=== PATIENT | female | born 1945 | race Caucasian/White ===

== ENCOUNTER → 2019-01-30 14:57 | Outpatient (REF) | payer MEDICARE, SELFPAY ==
[2019-01-30 15:19] LABS: INR 1.8 (0.9-1.3); Prothrombin Time 20.3 SECONDS (10.1-12.7)
== END ==
LOC: LAB 14:57
PROVIDERS: Family Provider Family Medicine; PCP Family Medicine; Visit Provider Family Medicine
DX: Z79.01 Long term (current) use of anticoagulants (principal)
CPT/HCPCS: 85610

== ENCOUNTER → 2019-03-07 12:56 | Outpatient (REF) | payer MEDICARE, SELFPAY ==
[2019-03-07 13:37] LABS: Influenza A and B by PCR Rapid Negative (Negative)
== END ==
LOC: LAB 12:56
PROVIDERS: Family Provider Family Medicine; PCP Family Medicine; Visit Provider Family Medicine
DX: Z11.59 Encounter for screening for other viral diseases (principal)
CPT/HCPCS: 87400

== ENCOUNTER 2019-03-25 10:35 | Inpatient (IN) | payer MEDICARE, SELFPAY ==
[2019-03-25] VITALS (11 sets, daily range): BP systolic 134–192; BP diastolic 64–81; PULSE 60–63; RESP 13–23; TEMP 36.2–36.6; O2SAT 93–97
--- NOTE | 2019-03-25 11:17 | ED.WEAKNESS ---
HPI - Weakness General Chief complaint: Weakness Stated complaint: Has had a cold for a month, legs going out Time Seen by Provider: 03/25/19 12:29 Source: patient and family Mode of arrival: ambulatory Limitations: no limitations History of Present Illness HPI Narrative: The patient is a 73-year-old female with history of high cholesterol, atrial fibrillation and mitral valve replacement and pacemaker who presents with a chief complaint generalized weakness. she states that she is on day 5 of being treated for pneumonia with Levaquin and complains of general not feeling good. She denies any focal weakness, i.e. week extremity set her up. She denies any precipitating factors to her Emergency Department visit today other than general malaise. She denies any fevers nausea vomiting diarrhea. She complains of a persistent cough. She denies any abdominal pain chest pain or shortness of breath. she did not take her antibiotic today. Patient repeatedly asks for a PT/INR to be done as she is on Coumadin. she does complain of decreased appetite and states she is not drinking as much fluid as she should. Related Data Home Medications Medication Instructions Recorded Confirmed atorvastatin [Lipitor] 20 mg PO QDAY #0 04/07/17 oxycodone-acetaminophen [Percocet] 1 tab PO Q4HP PRN #0 04/07/17 Previous Rx's Medication Instructions Recorded benzonatate [Tessalon Perles] 100 mg PO Q8HP PRN #15 cap 01/09/17 diazepam [Valium] 10 mg PO TIDP PRN #10 tab 04/07/17 prednisone 50 mg PO [facility] 5 Days #0 tab 04/07/17 gabapentin 100 mg PO TID #30 cap 04/18/17 oxycodone-acetaminophen [Percocet] 1 tab PO Q6HP PRN #5 tab 04/18/17 Allergies Allergy/AdvReac Type Severity Reaction Status Date / Time ibuprofen [IBUPROFEN] Allergy Unknown Unverified 03/01/18 12:38 vitamin E (d-alpha Allergy Unknown Unverified 03/01/18 12:38 tocopherol) [VITAMIN E] adhesive [ADHESIVE] AdvReac Unknown tape Unverified 03/01/18 12:38 Exam Initial Vital Signs Initial Vital Signs: Vital Signs Temperature 97.4 F L 03/25/19 10:56 Pulse Rate 60 03/25/19 10:56 Respiratory Rate 13 03/25/19 10:56 Blood Pressure 134/75 03/25/19 10:56 Pulse Oximetry 94 03/25/19 10:56 Course Orders Ordered: ED Orders 03/25/19 12:39 Complete Blood Count AUTO DIFF Stat Comprehensive Metabolic Panel Stat Partial Thromboplastin Time Stat Prothrombin Time INR Stat Troponin & CK Cardiac Panel Stat EKG-12 Lead Stat 03/25/19 12:40 XR chest 2V Stat Sodium Chloride (Normal Saline 0.9%) 1,000 mls @ 1,000 mls/hr IV BOLUS ONE Stop: 03/25/19 13:41 Vital Signs - 8 hr 03/25/19 10:56 03/25/19 11:00 03/25/19 12:00 Temperature 97.4 F L Pulse Rate 60 60 60 Respiratory Rate 13 23 20 Blood Pressure 134/75 Blood Pressure [Left Arm] 143/73 H 149/67 H Pulse Oximetry 94 93 95 Discharge Plan Departure Prescriptions: No Action benzonatate [Tessalon Perles] 100 MG capsule 100 mg PO Q8HP PRNQty: 15 RF: 0 atorvastatin [Lipitor] 20 MG tablet 20 mg PO QDAY Qty: 0 RF: 0 oxycodone-acetaminophen [Percocet] 5 MG/325 MG tablet 1 tab PO Q4HP PRNQty: 0 RF: 0 diazepam [Valium] 10 MG tablet 10 mg PO TIDP PRNQty: 10 RF: 0 prednisone 50 MG tablet 50 mg PO [facility] 5 Days Qty: 0 RF: 0 gabapentin 100 MG capsule 100 mg PO TID Qty: 30 RF: 0 oxycodone-acetaminophen [Percocet] 5 MG/325 MG tablet 1 tab PO Q6HP PRNQty: 5 RF: 0
--- NOTE | 2019-03-25 12:40 | DI.RAD.S_ITS ---
PROCEDURE: XR CHEST 2V INDICATIONS: cough, sob, tx pneumonia TECHNIQUE: 2 views of the chest were acquired. COMPARISON: 01/09/2017 and 02/21/2014. FINDINGS: Surgical changes and devices: Left-sided cardiac pacer device is in place. Stable postsurgical changes from valvular replacement. Surgical clips in the right upper abdomen. Lungs and pleura: Mild streaky bibasilar opacities. No focal consolidation. No substantial pleural effusion or pneumothorax identified.. Mediastinum: cardiomediastinal contours are stable with enlargement of the cardiac silhouette. Bones and chest wall: No suspicious bony abnormalities. Soft tissues appear unremarkable. IMPRESSION: Stable examination of the chest without acute cardiopulmonary abnormalities. Minimal streaky bibasilar opacities are favored to represent atelectasis. Dictated by: Agustin Parker M.D. on 03/25/2019 at 13:05 Approved by: Agustin Parker M.D. on 03/25/2019 at 13:08
--- NOTE | 2019-03-25 12:48 | ED_ITS ---
HPI - Weakness <Nilsa VenturaNISHIP-BC - Last Filed: 03/25/19 22:39> General Chief complaint: Weakness Stated complaint: Has had a cold for a month, legs going out Time Seen by Provider: 03/25/19 12:29 Source: patient Mode of arrival: ambulatory Limitations: no limitations History of Present Illness HPI Narrative: HPI Narrative: The patient is a 73-year-old female with history of high cholesterol, atrial fibrillation and mitral valve replacement and pacemaker who presents with a chief complaint generalized weakness. she states that she is on day 5 of being treated for pneumonia with Levaquin and complains of general not feeling good. She denies any focal weakness, i.e. week extremity set her up. She denies any precipitating factors to her Emergency Department visit today other than general malaise. She denies any fevers nausea vomiting diarrhea. She complains of a persistent cough. She denies any abdominal pain chest pain or shortness of breath. she did not take her antibiotic today. Patient repeatedly asks for a PT/INR to be done as she is on Coumadin. she does complain of decreased appetite and states she is not drinking as much fluid as she should. She denies any specific chest pain or focal weakness. later she states she had some dysuria. Related Data Home Medications Medication Instructions Recorded Confirmed atorvastatin [Lipitor] 20 mg PO QDAY #0 04/07/17 03/25/19 Adult Robitussin Peak Cold DM ml PO PRN PRN 03/25/19 alprazolam [Xanax] 0.5 mg PO BID-TID PRN 03/25/19 03/25/19 doxepin 50 mg PO BEDTIME 03/25/19 03/25/19 fluoxetine 20 mg PO DAILY 03/25/19 03/25/19 warfarin 4 mg PO TUTH 03/25/19 03/25/19 warfarin See Rx Instructions .ROUTE .COMPLEX 03/25/19 03/25/19 Previous Rx's Medication Instructions Recorded cefuroxime axetil 500 mg PO Q12H 10 Days #20 tab 03/28/19 Allergies Allergy/AdvReac Type Severity Reaction Status Date / Time ibuprofen [IBUPROFEN] Allergy Unknown I feel Verified 03/25/19 18:02 really weird vitamin E (d-alpha Allergy Unknown cold sores Verified 03/25/19 18:02 tocopherol) [VITAMIN E] adhesive [ADHESIVE] AdvReac Unknown tape Verified 03/25/19 17:21 Review of Systems <MACI Anderson - Last Filed: 03/25/19 22:39> Review of Systems GENERAL: See HPI HEENT: Denies sinus pain, ear pain, sore throat, difficulty swallowing, dizziness. RESPIRATORY: See HPI CARDIOVASCULAR: See HPI GASTROINTESTINAL: Denies nausea, vomiting, abdominal pain, diarrhea, constipation, melena. : Denies dysuria, frequency, incontinence, hematuria, urinary retention. MUSCULOSKELETAL: denies weakness, joint pain, or bony pain SKIN: Denies rash, skin lesions, or other NEUROLOGIC: Denies weakness, headache, numbness, change in speech, confusion, seizures, incoordination. PSYCHIATRIC: No concerning psychosocial issues. 12 point review of systems is negative except for those stated above PFSH <MACI Anderson - Last Filed: 03/25/19 22:39> Medical History (Updated 03/28/19 @ 09:14 by Mario Fuentes MD) Cyst of right breast (Acute) History of hysterectomy (Acute) History of rheumatic fever (Acute) Ovarian cyst (Acute) Pacemaker (Acute) Surgical History (Updated 03/27/19 @ 08:55 by Mario Fuentes MD) History of cholecystectomy (Acute) Mitral valve replaced (Acute) Social History household members: family Smoking Status: Current every day smoker alcohol intake: current Social History household members: family Smoking Status: Current every day smoker alcohol intake: current Exam <MACI Anderson - Last Filed: 03/25/19 22:39> Narrative Exam Narrative: GENERAL: This is a well-nourished, well-developed patient lying on stretcher appears fatigued HEAD: Atraumatic. Normocephalic. No temporal or scalp tenderness. EYES: Pupils equal round and reactive. Extraocular motions intact. No scleral icterus. No injection or drainage. ENT: Nose without bleeding, purulent drainage or septal hematoma. Throat without erythema, tonsillar hypertrophy or exudate. Uvula midline. Airway patent. NECK: Trachea midline. No JVD or lymphadenopathy. Supple, nontender, no meningeal signs. CARDIOVASCULAR: Regular rate and rhythm RESPIRATORY: Coarse breath sounds bilaterally to auscultation. Breath sounds equal bilaterally. No wheezes, rales, or rhonchi. Persistent cough on exam GASTROINTESTINAL: Abdomen soft, non-tender, nondistended. No hepato- splenomegaly, or palpable masses. No guarding. active bowel sounds 4 quadrants. No palpable pulsatile mass. EXTREMITIES: No clubbing, cyanosis, or edema. No joint tenderness, effusion, or edema noted. BACK: Nontender without deformity or crepitance. No flank tenderness. NEURO: AOx3. No gross cranial nerve deficit. Strength is equal upper and lower extremities bilaterally. Stable gait. SKIN: No rash or erythema. Diffuse ecchymosis noted. Initial Vital Signs Initial Vital Signs: Vital Signs Temperature 97.4 F L 03/25/19 10:56 Pulse Rate 60 03/25/19 10:56 Respiratory Rate 13 03/25/19 10:56 Blood Pressure 134/75 03/25/19 10:56 Pulse Oximetry 94 03/25/19 10:56 <Nilsa Busby DO - Last Filed: 03/31/19 16:21> Initial Vital Signs Initial Vital Signs: Vital Signs Temperature 97.4 F L 03/25/19 10:56 Pulse Rate 60 03/25/19 10:56 Respiratory Rate 13 03/25/19 10:56 Blood Pressure 134/75 03/25/19 10:56 Pulse Oximetry 94 03/25/19 10:56 Course <ARIELLE Anderson - Last Filed: 03/25/19 22:39> Orders Ordered: Discontinued Medications Alprazolam (Xanax) 0.5 mg PO BID PRN PRN Reason: Anxiety Alprazolam (Xanax) 0.5 mg PO BID PRN PRN Reason: Anxiety Last Admin: 03/28/19 15:40 Dose: 0.5 mg Admin: 03/28/19 08:22 Dose: 0.5 mg Admin: 03/27/19 14:14 Dose: 0.25 mg Admin: 03/27/19 08:06 Dose: 0.5 mg Admin: 03/26/19 09:11 Dose: 0.5 mg Atorvastatin Calcium (Lipitor) 20 mg PO BEDTIME [facility]ANDO Last Admin: 03/27/19 20:36 Dose: 20 mg Admin: 03/26/19 20:30 Dose: 20 mg Admin: 03/25/19 22:06 Dose: 20 mg Doxepin HCl (Sinequan) 50 mg PO BEDTIME [facility] Last Admin: 03/27/19 20:36 Dose: 50 mg Admin: 03/26/19 20:30 Dose: 50 mg Admin: 03/25/19 22:07 Dose: 50 mg Fluoxetine HCl (Prozac) 20 mg PO DAILY [facility] Last Admin: 03/28/19 08:22 Dose: 20 mg Admin: 03/27/19 08:02 Dose: 20 mg Admin: 03/26/19 10:35 Dose: 20 mg Sodium Chloride (Normal Saline 0.9%) 1,000 mls @ 1,000 mls/hr IV BOLUS ONE Stop: 03/25/19 13:41 Last Infusion: 03/25/19 13:55 Dose: 0 mls/hr Admin: 03/25/19 13:10 Dose: 1,000 mls/hr Sodium Chloride (Normal Saline 0.9%) 1,000 mls @ 125 mls/hr IV CONT [facility] Last Infusion: 03/28/19 15:38 Dose: 0 mls/hr Admin: 03/28/19 04:35 Dose: 125 mls/hr Infusion: 03/28/19 04:34 Dose: 125 mls/hr Admin: 03/27/19 20:34 Dose: 125 mls/hr Infusion: 03/27/19 20:34 Dose: 125 mls/hr Admin: 03/27/19 12:55 Dose: 125 mls/hr Infusion: 03/27/19 12:18 Dose: 125 mls/hr Admin: 03/27/19 04:18 Dose: 125 mls/hr Infusion: 03/27/19 01:31 Dose: 125 mls/hr Admin: 03/26/19 17:31 Dose: 125 mls/hr Infusion: 03/26/19 17:31 Dose: 125 mls/hr Admin: 03/26/19 10:29 Dose: 125 mls/hr Infusion: 03/26/19 09:56 Dose: 125 mls/hr Admin: 03/26/19 01:56 Dose: 125 mls/hr Infusion: 03/26/19 01:56 Dose: 125 mls/hr Admin: 03/25/19 18:37 Dose: 125 mls/hr Ceftriaxone Sodium/Dextrose (Rocephin) 1 gm in 50 mls @ 100 mls/hr IV NOW ONE Stop: 03/25/19 17:32 Last Infusion: 03/26/19 01:58 Dose: 0 mls/hr Infusion: 03/25/19 17:45 Dose: 100 mls/hr Admin: 03/25/19 17:21 Dose: 100 mls/hr Ceftriaxone Sodium/Dextrose (Rocephin) 1 gm in 50 mls @ 100 mls/hr IV Q24H [facility] Last Infusion: 03/28/19 13:08 Dose: 0 mls/hr Admin: 03/28/19 08:26 Dose: 100 mls/hr Infusion: 03/27/19 14:15 Dose: 0 mls/hr Admin: 03/27/19 09:04 Dose: 100 mls/hr Infusion: 03/26/19 10:30 Dose: 0 mls/hr Admin: 03/26/19 09:10 Dose: 100 mls/hr Warfarin Sodium (Coumadin) 4 mg PO NOW ONE Stop: 03/28/19 08:59 Last Admin: 03/28/19 13:08 Dose: 4 mg Vital Signs - 8 hr 03/25/19 16:18 03/25/19 17:29 03/25/19 17:55 Temperature 97.2 F L Pulse Rate 60 60 62 Respiratory Rate 17 15 16 Blood Pressure 192/77 H Blood Pressure [Left Arm] 163/66 H 166/64 H Pulse Oximetry 95 95 95 03/25/19 20:20 Temperature 97.4 F L Pulse Rate 61 Respiratory Rate 16 Blood Pressure 146/74 H Blood Pressure [Left Arm] Pulse Oximetry 94 <Nilsa Busby DO - Last Filed: 03/31/19 16:21> Orders Ordered: Discontinued Medications Alprazolam (Xanax) 0.5 mg PO BID PRN PRN Reason: Anxiety Alprazolam (Xanax) 0.5 mg PO BID PRN PRN Reason: Anxiety Last Admin: 03/28/19 15:40 Dose: 0.5 mg Admin: 03/28/19 08:22 Dose: 0.5 mg Admin: 03/27/19 14:14 Dose: 0.25 mg Admin: 03/27/19 08:06 Dose: 0.5 mg Admin: 03/26/19 09:11 Dose: 0.5 mg Atorvastatin Calcium (Lipitor) 20 mg PO BEDTIME [facility] Last Admin: 03/27/19 20:36 Dose: 20 mg Admin: 03/26/19 20:30 Dose: 20 mg Admin: 03/25/19 22:06 Dose: 20 mg Doxepin HCl (Sinequan) 50 mg PO BEDTIME [facility] Last Admin: 03/27/19 20:36 Dose: 50 mg Admin: 03/26/19 20:30 Dose: 50 mg Admin: 03/25/19 22:07 Dose: 50 mg Fluoxetine HCl (Prozac) 20 mg PO DAILY [facility] Last Admin: 03/28/19 08:22 Dose: 20 mg Admin: 03/27/19 08:02 Dose: 20 mg Admin: 03/26/19 10:35 Dose: 20 mg Sodium Chloride (Normal Saline 0.9%) 1,000 mls @ 1,000 mls/hr IV BOLUS ONE Stop: 03/25/19 13:41 Last Infusion: 03/25/19 13:55 Dose: 0 mls/hr Admin: 03/25/19 13:10 Dose: 1,000 mls/hr Sodium Chloride (Normal Saline 0.9%) 1,000 mls @ 125 mls/hr IV CONT [facility] Last Infusion: 03/28/19 15:38 Dose: 0 mls/hr Admin: 03/28/19 04:35 Dose: 125 mls/hr Infusion: 03/28/19 04:34 Dose: 125 mls/hr Admin: 03/27/19 20:34 Dose: 125 mls/hr Infusion: 03/27/19 20:34 Dose: 125 mls/hr Admin: 03/27/19 12:55 Dose: 125 mls/hr Infusion: 03/27/19 12:18 Dose: 125 mls/hr Admin: 03/27/19 04:18 Dose: 125 mls/hr Infusion: 03/27/19 01:31 Dose: 125 mls/hr Admin: 03/26/19 17:31 Dose: 125 mls/hr Infusion: 03/26/19 17:31 Dose: 125 mls/hr Admin: 03/26/19 10:29 Dose: 125 mls/hr Infusion: 03/26/19 09:56 Dose: 125 mls/hr Admin: 03/26/19 01:56 Dose: 125 mls/hr Infusion: 03/26/19 01:56 Dose: 125 mls/hr Admin: 03/25/19 18:37 Dose: 125 mls/hr Ceftriaxone Sodium/Dextrose (Rocephin) 1 gm in 50 mls @ 100 mls/hr IV NOW ONE Stop: 03/25/19 17:32 Last Infusion: 03/26/19 01:58 Dose: 0 mls/hr Infusion: 03/25/19 17:45 Dose: 100 mls/hr Admin: 03/25/19 17:21 Dose: 100 mls/hr Ceftriaxone Sodium/Dextrose (Rocephin) 1 gm in 50 mls @ 100 mls/hr IV Q24H [facility] Last Infusion: 03/28/19 13:08 Dose: 0 mls/hr Admin: 03/28/19 08:26 Dose: 100 mls/hr Infusion: 03/27/19 14:15 Dose: 0 mls/hr Admin: 03/27/19 09:04 Dose: 100 mls/hr Infusion: 03/26/19 10:30 Dose: 0 mls/hr Admin: 03/26/19 09:10 Dose: 100 mls/hr Warfarin Sodium (Coumadin) 4 mg PO NOW ONE Stop: 03/28/19 08:59 Last Admin: 03/28/19 13:08 Dose: 4 mg Vital Signs - 8 hr 03/25/19 16:18 03/25/19 17:29 03/25/19 17:55 Temperature 97.2 F L Pulse Rate 60 60 62 Respiratory Rate 17 15 16 Blood Pressure 192/77 H Blood Pressure [Left Arm] 163/66 H 166/64 H Pulse Oximetry 95 95 95 03/25/19 20:20 Temperature 97.4 F L Pulse Rate 61 Respiratory Rate 16 Blood Pressure 146/74 H Blood Pressure [Left Arm] Pulse Oximetry 94 MDM - Weakness <TAMIA Anderson-BC - Last Filed: 03/25/19 22:39> Lab Data Result diagrams: 03/28/19 06:47 03/28/19 06:47 Lab Results 03/25/19 03/25/19 03/25/19 Range/Units 13:04 13:04 13:04 WBC 6.4 (4.5-11.0) X10^3/uL RBC 4.89 (4.0-5.2) X10^6/uL Hgb 13.9 (12.0-16.0) g/dL Hct 42.6 (36-46) % MCV 87.2 (80-100) fL MCH 28.5 (26-34) PG MCHC 32.7 (30-36) % RDW 15.9 H (11.6-14.8) % Plt Count 253 (150-400) X10^3/uL Neut % (Auto) 82.4 H (50-75) % Lymph % (Auto) 8.3 L (25-40) % Coke % (Auto) 8.3 (3-14) % Eos % (Auto) 0.5 L (2-4) % Baso % (Auto) 0.5 (0-2) % Neut # (Auto) 5300 (2537-6527) /uL Lymph # (Auto) 500 L (1653-5302) /uL Coke # (Auto) 500 (0-900) /uL Eos # (Auto) 0 (0-450) /uL Baso # (Auto) 0 (0-100) /uL PT 73.4 H (10.1-12.7) SECONDS INR 6.1 H* (0.9-1.3) APTT 55 H (26.4-36.2) SECONDS Sodium 140 (137-145) mmol/L Potassium 4.0 (3.4-5.1) mmol/L Chloride 105 (98-107) mmol/L Carbon Dioxide 28 (22-32) mmol/L BUN 14 (7-17) mg/dL Creatinine 0.80 (0.52-1.04) mg/dL Estimated GFR > 60.0 (>60) mL/min BUN/Creatinine Ratio 17.5 (6-22) Glucose 94 (80-110) mg/dL Calcium 8.6 (8.4-10.2) mg/dL Magnesium (1.6-2.3) mg/dL Total Bilirubin 0.6 (0.2-1.3) mg/dL AST 35 (14-36) IU/L ALT 44 (9-52) IU/L Alkaline Phosphatase 81 (38-126) U/L Total Creatine Kinase 27 L (30-135) U/L CK-MB (CK-2) TNP CK-MB (CK-2) Rel Index TNP Troponin I 0.027 (0.01-0.034) ng/mL B-Natriuretic Peptide (<100) Total Protein 6.6 (6.3-8.2) g/dL Albumin 4.0 (3.5-5.0) g/dL Globulin 2.6 (1.7-4.1) g/dL Albumin/Globulin Ratio 1.5 (1.0-2.8) Urine RBC (0-5/HPF) Urine WBC (0-5/HPF) Ur Squamous Epith Cells (0-5/HPF) Urine Bacteria (None) Ur Culture Indicated? 03/25/19 03/25/19 03/25/19 Range/Units 14:00 15:55 19:25 WBC (4.5-11.0) X10^3/uL RBC (4.0-5.2) X10^6/uL Hgb (12.0-16.0) g/dL Hct (36-46) % MCV (80-100) fL MCH (26-34) PG MCHC (30-36) % RDW (11.6-14.8) % Plt Count (150-400) X10^3/uL Neut % (Auto) (50-75) % Lymph % (Auto) (25-40) % [place] % (Auto) (3-14) % Eos % (Auto) (2-4) % Baso % (Auto) (0-2) % Neut # (Auto) (6863-2005) /uL Lymph # (Auto) (1638-5619) /uL Coke # (Auto) (0-900) /uL Eos # (Auto) (0-450) /uL Baso # (Auto) (0-100) /uL PT (10.1-12.7) SECONDS INR (0.9-1.3) APTT (26.4-36.2) SECONDS Sodium (137-145) mmol/L Potassium (3.4-5.1) mmol/L Chloride (98-107) mmol/L Carbon Dioxide (22-32) mmol/L BUN (7-17) mg/dL Creatinine (0.52-1.04) mg/dL Estimated GFR (>60) mL/min BUN/Creatinine Ratio (6-22) Glucose (80-110) mg/dL Calcium (8.4-10.2) mg/dL Magnesium (1.6-2.3) mg/dL Total Bilirubin (0.2-1.3) mg/dL AST (14-36) IU/L ALT (9-52) IU/L Alkaline Phosphatase (38-126) U/L Total Creatine Kinase 24 L 29 L (30-135) U/L CK-MB (CK-2) TNP TNP CK-MB (CK-2) Rel Index TNP TNP Troponin I 0.021 0.025 (0.01-0.034) ng/mL B-Natriuretic Peptide (<100) Total Protein (6.3-8.2) g/dL Albumin (3.5-5.0) g/dL Globulin (1.7-4.1) g/dL Albumin/Globulin Ratio (1.0-2.8) Urine RBC 10-30/hpf H (0-5/HPF) Urine WBC None seen (0-5/HPF) Ur Squamous Epith Cells None seen (0-5/HPF) Urine Bacteria None seen (None) Ur Culture Indicated? Cult not indicated 03/26/19 03/26/19 03/26/19 Range/Units 11:05 11:05 11:05 WBC 5.9 (4.5-11.0) X10^3/uL RBC 4.71 (4.0-5.2) X10^6/uL Hgb 13.4 (12.0-16.0) g/dL Hct 41.2 (36-46) % MCV 87.5 (80-100) fL MCH 28.4 (26-34) PG MCHC 32.5 (30-36) % RDW 16.1 H (11.6-14.8) % Plt Count 231 (150-400) X10^3/uL Neut % (Auto) 79.1 H (50-75) % Lymph % (Auto) 12.0 L (25-40) % [place] % (Auto) 7.9 (3-14) % Eos % (Auto) 0.6 L (2-4) % Baso % (Auto) 0.4 (0-2) % Neut # (Auto) 4700 (1768-8115) /uL Lymph # (Auto) 700 L (9568-2117) /uL [place] # (Auto) 500 (0-900) /uL Eos # (Auto) 0 (0-450) /uL Baso # (Auto) 0 (0-100) /uL PT 52.0 H D (10.1-12.7) SECONDS INR 4.4 H (0.9-1.3) APTT (26.4-36.2) SECONDS Sodium 140 (137-145) mmol/L Potassium 4.3 (3.4-5.1) mmol/L Chloride 107 (98-107) mmol/L Carbon Dioxide 27 (22-32) mmol/L BUN 10 (7-17) mg/dL Creatinine 0.70 (0.52-1.04) mg/dL Estimated GFR > 60.0 (>60) mL/min BUN/Creatinine Ratio 14.3 (6-22) Glucose 104 (80-110) mg/dL Calcium 8.2 L (8.4-10.2) mg/dL Magnesium 2.2 (1.6-2.3) mg/dL Total Bilirubin 0.4 (0.2-1.3) mg/dL AST 35 (14-36) IU/L ALT 41 (9-52) IU/L Alkaline Phosphatase 71 (38-126) U/L Total Creatine Kinase (30-135) U/L CK-MB (CK-2) CK-MB (CK-2) Rel Index Troponin I (0.01-0.034) ng/mL B-Natriuretic Peptide 103 H (<100) Total Protein 6.4 (6.3-8.2) g/dL Albumin 3.8 (3.5-5.0) g/dL Globulin 2.6 (1.7-4.1) g/dL Albumin/Globulin Ratio 1.5 (1.0-2.8) Urine RBC (0-5/HPF) Urine WBC (0-5/HPF) Ur Squamous Epith Cells (0-5/HPF) Urine Bacteria (None) Ur Culture Indicated? 03/27/19 03/27/19 03/27/19 Range/Units 06:30 06:30 09:17 WBC 6.6 (4.5-11.0) X10^3/uL RBC 4.80 (4.0-5.2) X10^6/uL Hgb 13.7 (12.0-16.0) g/dL Hct 41.9 (36-46) % MCV 87.3 (80-100) fL MCH 28.5 (26-34) PG MCHC 32.7 (30-36) % RDW 15.9 H (11.6-14.8) % Plt Count 227 (150-400) X10^3/uL Neut % (Auto) 78.0 H (50-75) % Lymph % (Auto) 11.7 L (25-40) % [place] % (Auto) 8.8 (3-14) % Eos % (Auto) 1.1 L (2-4) % Baso % (Auto) 0.4 (0-2) % Neut # (Auto) 5200 (3902-4650) /uL Lymph # (Auto) 800 L (1929-4511) /uL [place] # (Auto) 600 (0-900) /uL Eos # (Auto) 100 (0-450) /uL Baso # (Auto) 0 (0-100) /uL PT 28.6 H D (10.1-12.7) SECONDS INR 2.4 H (0.9-1.3) APTT (26.4-36.2) SECONDS Sodium 140 (137-145) mmol/L Potassium 4.1 (3.4-5.1) mmol/L Chloride 108 H (98-107) mmol/L Carbon Dioxide 26 (22-32) mmol/L BUN 9 (7-17) mg/dL Creatinine 0.70 (0.52-1.04) mg/dL Estimated GFR > 60.0 (>60) mL/min BUN/Creatinine Ratio 12.9 (6-22) Glucose 85 (80-110) mg/dL Calcium 7.9 L (8.4-10.2) mg/dL Magnesium (1.6-2.3) mg/dL Total Bilirubin (0.2-1.3) mg/dL AST (14-36) IU/L ALT (9-52) IU/L Alkaline Phosphatase (38-126) U/L Total Creatine Kinase (30-135) U/L CK-MB (CK-2) CK-MB (CK-2) Rel Index Troponin I (0.01-0.034) ng/mL B-Natriuretic Peptide (<100) Total Protein (6.3-8.2) g/dL Albumin (3.5-5.0) g/dL Globulin (1.7-4.1) g/dL Albumin/Globulin Ratio (1.0-2.8) Urine RBC (0-5/HPF) Urine WBC (0-5/HPF) Ur Squamous Epith Cells (0-5/HPF) Urine Bacteria (None) Ur Culture Indicated? 03/28/19 03/28/19 03/28/19 Range/Units 06:47 06:47 06:47 WBC 6.5 (4.5-11.0) X10^3/uL RBC 4.39 (4.0-5.2) X10^6/uL Hgb 12.6 (12.0-16.0) g/dL Hct 38.1 (36-46) % MCV 86.9 (80-100) fL MCH 28.7 (26-34) PG MCHC 33.0 (30-36) % RDW 16.0 H (11.6-14.8) % Plt Count 202 (150-400) X10^3/uL Neut % (Auto) 74.3 (50-75) % Lymph % (Auto) 13.4 L (25-40) % Coke % (Auto) 10.2 (3-14) % Eos % (Auto) 1.2 L (2-4) % Baso % (Auto) 0.9 (0-2) % Neut # (Auto) 4800 (6342-4858) /uL Lymph # (Auto) 900 L (4290-6578) /uL Coke # (Auto) 700 (0-900) /uL Eos # (Auto) 100 (0-450) /uL Baso # (Auto) 100 (0-100) /uL PT 20.1 H D (10.1-12.7) SECONDS INR 1.7 H (0.9-1.3) APTT (26.4-36.2) SECONDS Sodium 141 (137-145) mmol/L Potassium 4.0 (3.4-5.1) mmol/L Chloride 108 H (98-107) mmol/L Carbon Dioxide 27 (22-32) mmol/L BUN 12 (7-17) mg/dL Creatinine 0.70 (0.52-1.04) mg/dL Estimated GFR > 60.0 (>60) mL/min BUN/Creatinine Ratio 17.1 (6-22) Glucose 86 (80-110) mg/dL Calcium 8.3 L (8.4-10.2) mg/dL Magnesium (1.6-2.3) mg/dL Total Bilirubin (0.2-1.3) mg/dL AST (14-36) IU/L ALT (9-52) IU/L Alkaline Phosphatase (38-126) U/L Total Creatine Kinase (30-135) U/L CK-MB (CK-2) CK-MB (CK-2) Rel Index Troponin I (0.01-0.034) ng/mL B-Natriuretic Peptide (<100) Total Protein (6.3-8.2) g/dL Albumin (3.5-5.0) g/dL Globulin (1.7-4.1) g/dL Albumin/Globulin Ratio (1.0-2.8) Urine RBC (0-5/HPF) Urine WBC (0-5/HPF) Ur Squamous Epith Cells (0-5/HPF) Urine Bacteria (None) Ur Culture Indicated? Urine Dip Bedside Urine Glucose Negative Bedside Urine Bilirubin - Negative Bedside Urine Ketone - Negative Urine Specific [place] 1.015 Bedside Urine Occult Blood ++ Bedside Urine pH 7.5 Bedside Urine Protein - Negative Bedside Urine Urobilinogen - Negative Bedside Urine Nitrite - Negative Bedside Urine Leukocytes - Negative Esterase Imaging Data Chest x-ray: Radiologist's impression: [address] [address] XRay Report Signed Patient: Adry Londono IMR#: [id number] : 3Acct:[id number] Age/Sex: 73 / FDate of Service: 03/25/19 Loc: ED Accession Number: [id number] Procedure: XR chest 2V Ordering Provider: Nilsa Ventura PROCEDURE: XR CHEST 2V INDICATIONS: cough, sob, tx pneumonia TECHNIQUE: 2 views of the chest were acquired. COMPARISON: 01/09/2017 and 02/21/2014. FINDINGS: Surgical changes and devices: Left-sided cardiac pacer device is in place. Stable postsurgical changes from valvular replacement. Surgical clips in the right upper abdomen. Lungs and pleura: Mild streaky bibasilar opacities. No focal consolidation. No substantial pleural effusion or pneumothorax identified.. Mediastinum: cardiomediastinal contours are stable with enlargement of the cardiac silhouette. Bones and chest wall: No suspicious bony abnormalities. Soft tissues appear unremarkable. IMPRESSION: Stable examination of the chest without acute cardiopulmonary abnormalities. Minimal streaky bibasilar opacities are favored to represent atelectasis. Dictated by: Agustin Parker M.D. on 03/25/2019 at 13:05 Approved by: Agustin Parker M.D. on 03/25/2019 at 13:08 ECG Data Attestation: I personally reviewed and interpreted this ECG as follows: Interpretation: Ventricular paced. Rate is 60. No ectopy noted. No ST elevation or depression. MDM Narrative Medical decision making narrative: The patient is a 73-year-old female being treated for pneumonia with Levaquin who presents with chief complaint of weakness. Her INR is found to be 6.1. She had two borderline troponins. Given the complex of the case, I spoke with Dr. Almendarez regarding patient admission. He was kind enough to admit the patient to inpatient status. I ordered a troponin 3 hours from the point at which she was accepted as well as IV Rocephin to treat her pneumonia per Dr. Almendarez request. Patient was in accordance with admission and expressed appreciation. <Nilsa Busby, DO - Last Filed: 03/31/19 16:21> Lab Data Lab Results 03/25/19 03/25/19 03/25/19 Range/Units 13:04 13:04 13:04 WBC 6.4 (4.5-11.0) X10^3/uL RBC 4.89 (4.0-5.2) X10^6/uL Hgb 13.9 (12.0-16.0) g/dL Hct 42.6 (36-46) % MCV 87.2 (80-100) fL MCH 28.5 (26-34) PG MCHC 32.7 (30-36) % RDW 15.9 H (11.6-14.8) % Plt Count 253 (150-400) X10^3/uL Neut % (Auto) 82.4 H (50-75) % Lymph % (Auto) 8.3 L (25-40) % Coke % (Auto) 8.3 (3-14) % Eos % (Auto) 0.5 L (2-4) % Baso % (Auto) 0.5 (0-2) % Neut # (Auto) 5300 (6931-0161) /uL Lymph # (Auto) 500 L (9457-4363) /uL Coke # (Auto) 500 (0-900) /uL Eos # (Auto) 0 (0-450) /uL Baso # (Auto) 0 (0-100) /uL PT 73.4 H (10.1-12.7) SECONDS INR 6.1 H* (0.9-1.3) APTT 55 H (26.4-36.2) SECONDS Sodium 140 (137-145) mmol/L Potassium 4.0 (3.4-5.1) mmol/L Chloride 105 (98-107) mmol/L Carbon Dioxide 28 (22-32) mmol/L BUN 14 (7-17) mg/dL Creatinine 0.80 (0.52-1.04) mg/dL Estimated GFR > 60.0 (>60) mL/min BUN/Creatinine Ratio 17.5 (6-22) Glucose 94 (80-110) mg/dL Calcium 8.6 (8.4-10.2) mg/dL Magnesium (1.6-2.3) mg/dL Total Bilirubin 0.6 (0.2-1.3) mg/dL AST 35 (14-36) IU/L ALT 44 (9-52) IU/L Alkaline Phosphatase 81 (38-126) U/L Total Creatine Kinase 27 L (30-135) U/L CK-MB (CK-2) TNP CK-MB (CK-2) Rel Index TNP Troponin I 0.027 (0.01-0.034) ng/mL B-Natriuretic Peptide (<100) Total Protein 6.6 (6.3-8.2) g/dL Albumin 4.0 (3.5-5.0) g/dL Globulin 2.6 (1.7-4.1) g/dL Albumin/Globulin Ratio 1.5 (1.0-2.8) Urine RBC (0-5/HPF) Urine WBC (0-5/HPF) Ur Squamous Epith Cells (0-5/HPF) Urine Bacteria (None) Ur Culture Indicated? 0503/25/19 03/25/19 Range/Units 14:00 15:55 19:25 WBC (4.5-11.0) X10^3/uL RBC (4.0-5.2) X10^6/uL Hgb (12.0-16.0) g/dL Hct (36-46) % MCV (80-100) fL MCH (26-34) PG MCHC (30-36) % RDW (11.6-14.8) % Plt Count (150-400) X10^3/uL Neut % (Auto) (50-75) % Lymph % (Auto) (25-40) % Coke % (Auto) (3-14) % Eos % (Auto) (2-4) % Baso % (Auto) (0-2) % Neut # (Auto) (0846-8819) /uL Lymph # (Auto) (9372-4701) /uL Coke # (Auto) (0-900) /uL Eos # (Auto) (0-450) /uL Baso # (Auto) (0-100) /uL PT (10.1-12.7) SECONDS INR (0.9-1.3) APTT (26.4-36.2) SECONDS Sodium (137-145) mmol/L Potassium (3.4-5.1) mmol/L Chloride (98-107) mmol/L Carbon Dioxide (22-32) mmol/L BUN (7-17) mg/dL Creatinine (0.52-1.04) mg/dL Estimated GFR (>60) mL/min BUN/Creatinine Ratio (6-22) Glucose (80-110) mg/dL Calcium (8.4-10.2) mg/dL Magnesium (1.6-2.3) mg/dL Total Bilirubin (0.2-1.3) mg/dL AST (14-36) IU/L ALT (9-52) IU/L Alkaline Phosphatase (38-126) U/L Total Creatine Kinase 24 L 29 L (30-135) U/L CK-MB (CK-2) TNP TNP CK-MB (CK-2) Rel Index TNP TNP Troponin I 0.021 0.025 (0.01-0.034) ng/mL B-Natriuretic Peptide (<100) Total Protein (6.3-8.2) g/dL Albumin (3.5-5.0) g/dL Globulin (1.7-4.1) g/dL Albumin/Globulin Ratio (1.0-2.8) Urine RBC 10-30/hpf H (0-5/HPF) Urine WBC None seen (0-5/HPF) Ur Squamous Epith Cells None seen (0-5/HPF) Urine Bacteria None seen (None) Ur Culture Indicated? Cult not indicated 03/26/19 03/26/19 03/26/19 Range/Units 11:05 11:05 11:05 WBC 5.9 (4.5-11.0) X10^3/uL RBC 4.71 (4.0-5.2) X10^6/uL Hgb 13.4 (12.0-16.0) g/dL Hct 41.2 (36-46) % MCV 87.5 (80-100) fL MCH 28.4 (26-34) PG MCHC 32.5 (30-36) % RDW 16.1 H (11.6-14.8) % Plt Count 231 (150-400) X10^3/uL Neut % (Auto) 79.1 H (50-75) % Lymph % (Auto) 12.0 L (25-40) % [place] % (Auto) 7.9 (3-14) % Eos % (Auto) 0.6 L (2-4) % Baso % (Auto) 0.4 (0-2) % Neut # (Auto) 4700 (1889-9489) /uL Lymph # (Auto) 700 L (6415-2686) /uL [place] # (Auto) 500 (0-900) /uL Eos # (Auto) 0 (0-450) /uL Baso # (Auto) 0 (0-100) /uL PT 52.0 H D (10.1-12.7) SECONDS INR 4.4 H (0.9-1.3) APTT (26.4-36.2) SECONDS Sodium 140 (137-145) mmol/L Potassium 4.3 (3.4-5.1) mmol/L Chloride 107 (98-107) mmol/L Carbon Dioxide 27 (22-32) mmol/L BUN 10 (7-17) mg/dL Creatinine 0.70 (0.52-1.04) mg/dL Estimated GFR > 60.0 (>60) mL/min BUN/Creatinine Ratio 14.3 (6-22) Glucose 104 (80-110) mg/dL Calcium 8.2 L (8.4-10.2) mg/dL Magnesium 2.2 (1.6-2.3) mg/dL Total Bilirubin 0.4 (0.2-1.3) mg/dL AST 35 (14-36) IU/L ALT 41 (9-52) IU/L Alkaline Phosphatase 71 (38-126) U/L Total Creatine Kinase (30-135) U/L CK-MB (CK-2) CK-MB (CK-2) Rel Index Troponin I (0.01-0.034) ng/mL B-Natriuretic Peptide 103 H (<100) Total Protein 6.4 (6.3-8.2) g/dL Albumin 3.8 (3.5-5.0) g/dL Globulin 2.6 (1.7-4.1) g/dL Albumin/Globulin Ratio 1.5 (1.0-2.8) Urine RBC (0-5/HPF) Urine WBC (0-5/HPF) Ur Squamous Epith Cells (0-5/HPF) Urine Bacteria (None) Ur Culture Indicated? 03/27/19 03/27/19 03/27/19 Range/Units 06:30 06:30 09:17 WBC 6.6 (4.5-11.0) X10^3/uL RBC 4.80 (4.0-5.2) X10^6/uL Hgb 13.7 (12.0-16.0) g/dL Hct 41.9 (36-46) % MCV 87.3 (80-100) fL MCH 28.5 (26-34) PG MCHC 32.7 (30-36) % RDW 15.9 H (11.6-14.8) % Plt Count 227 (150-400) X10^3/uL Neut % (Auto) 78.0 H (50-75) % Lymph % (Auto) 11.7 L (25-40) % [place] % (Auto) 8.8 (3-14) % Eos % (Auto) 1.1 L (2-4) % Baso % (Auto) 0.4 (0-2) % Neut # (Auto) 5200 (6957-3790) /uL Lymph # (Auto) 800 L (1992-3076) /uL [place] # (Auto) 600 (0-900) /uL Eos # (Auto) 100 (0-450) /uL Baso # (Auto) 0 (0-100) /uL PT 28.6 H D (10.1-12.7) SECONDS INR 2.4 H (0.9-1.3) APTT (26.4-36.2) SECONDS Sodium 140 (137-145) mmol/L Potassium 4.1 (3.4-5.1) mmol/L Chloride 108 H (98-107) mmol/L Carbon Dioxide 26 (22-32) mmol/L BUN 9 (7-17) mg/dL Creatinine 0.70 (0.52-1.04) mg/dL Estimated GFR > 60.0 (>60) mL/min BUN/Creatinine Ratio 12.9 (6-22) Glucose 85 (80-110) mg/dL Calcium 7.9 L (8.4-10.2) mg/dL Magnesium (1.6-2.3) mg/dL Total Bilirubin (0.2-1.3) mg/dL AST (14-36) IU/L ALT (9-52) IU/L Alkaline Phosphatase (38-126) U/L Total Creatine Kinase (30-135) U/L CK-MB (CK-2) CK-MB (CK-2) Rel Index Troponin I (0.01-0.034) ng/mL B-Natriuretic Peptide (<100) Total Protein (6.3-8.2) g/dL Albumin (3.5-5.0) g/dL Globulin (1.7-4.1) g/dL Albumin/Globulin Ratio (1.0-2.8) Urine RBC (0-5/HPF) Urine WBC (0-5/HPF) Ur Squamous Epith Cells (0-5/HPF) Urine Bacteria (None) Ur Culture Indicated? 03/28/19 03/28/19 03/28/19 Range/Units 06:47 06:47 06:47 WBC 6.5 (4.5-11.0) X10^3/uL RBC 4.39 (4.0-5.2) X10^6/uL Hgb 12.6 (12.0-16.0) g/dL Hct 38.1 (36-46) % MCV 86.9 (80-100) fL MCH 28.7 (26-34) PG MCHC 33.0 (30-36) % RDW 16.0 H (11.6-14.8) % Plt Count 202 (150-400) X10^3/uL Neut % (Auto) 74.3 (50-75) % Lymph % (Auto) 13.4 L (25-40) % [place] % (Auto) 10.2 (3-14) % Eos % (Auto) 1.2 L (2-4) % Baso % (Auto) 0.9 (0-2) % Neut # (Auto) 4800 (4164-9722) /uL Lymph # (Auto) 900 L (0034-1642) /uL [place] # (Auto) 700 (0-900) /uL Eos # (Auto) 100 (0-450) /uL Baso # (Auto) 100 (0-100) /uL PT 20.1 H D (10.1-12.7) SECONDS INR 1.7 H (0.9-1.3) APTT (26.4-36.2) SECONDS Sodium 141 (137-145) mmol/L Potassium 4.0 (3.4-5.1) mmol/L Chloride 108 H (98-107) mmol/L Carbon Dioxide 27 (22-32) mmol/L BUN 12 (7-17) mg/dL Creatinine 0.70 (0.52-1.04) mg/dL Estimated GFR > 60.0 (>60) mL/min BUN/Creatinine Ratio 17.1 (6-22) Glucose 86 (80-110) mg/dL Calcium 8.3 L (8.4-10.2) mg/dL Magnesium (1.6-2.3) mg/dL Total Bilirubin (0.2-1.3) mg/dL AST (14-36) IU/L ALT (9-52) IU/L Alkaline Phosphatase (38-126) U/L Total Creatine Kinase (30-135) U/L CK-MB (CK-2) CK-MB (CK-2) Rel Index Troponin I (0.01-0.034) ng/mL B-Natriuretic Peptide (<100) Total Protein (6.3-8.2) g/dL Albumin (3.5-5.0) g/dL Globulin (1.7-4.1) g/dL Albumin/Globulin Ratio (1.0-2.8) Urine RBC (0-5/HPF) Urine WBC (0-5/HPF) Ur Squamous Epith Cells (0-5/HPF) Urine Bacteria (None) Ur Culture Indicated? Urine Dip Bedside Urine Glucose Negative Bedside Urine Bilirubin - Negative Bedside Urine Ketone - Negative Urine Specific [place] 1.015 Bedside Urine Occult Blood ++ Bedside Urine pH 7.5 Bedside Urine Protein - Negative Bedside Urine Urobilinogen - Negative Bedside Urine Nitrite - Negative Bedside Urine Leukocytes - Negative Esterase Discharge Plan Departure Patient Disposition: Admitted As Inpatient Clinical Impression: Elevated INR, Elevated troponin Pneumonia Qualifiers: Pneumonia type: due to unspecified organism Laterality: bilateral Lung location: unspecified part of lung Qualified Code(s): J18.9 - Pneumonia, unspecified organism Discharge Date/Time: 03/25/19 17:54 Interventions: ED Discharge Assessment Last Done: 03/25/19 17:53 Admit Date/Time: 03/25/19 17:01 Admit Provider: Byron Almendarez <Nilsa Busby DO - Last Filed: 03/31/19 16:21> Cosign ED Attending Cosignature Attestation: I was immediately available in the department for consultation, case was discussed and patient complexity decision was made to admit. This documentation has been reviewed and I agree with assessment and plan. Supervised by Nilsa Busby DO
[2019-03-25] MEDS: SODIUM CHLORIDE 0.9% 1,000 ML 1000 ML IV (13:10)
[2019-03-25 13:19] LABS: Add Manual Diff / Slide Review NO; Basophils Absolute Auto 0 /uL (0-100); Basophils Percent Auto 0.5 % (0-2); Eosinophils Absolute Auto 0 /uL (0-450); Eosinophils Percent Auto 0.5 % (2-4); Hematocrit 42.6 % (36-46); Hemoglobin 13.9 g/dL (12.0-16.0); Lymphocytes Absolute Auto 500 /uL (1100-4500); Lymphocytes Percent Auto 8.3 % (25-40); Mean Corpuscular HGB Conc 32.7 % (30-36); Mean Corpuscular Hemoglobin 28.5 PG (26-34); Mean Corpuscular Volume 87.2 fL (80-100); Monocytes Absolute Auto 500 /uL (0-900); Monocytes Percent Auto 8.3 % (3-14); Neutrophils Absolute Auto 5300 /uL (1500-7000); Neutrophils Percent Auto 82.4 % (50-75); Platelet Count 253 X10^3/uL (150-400); Red Blood Cell Count 4.89 X10^6/uL (4.0-5.2); Red Cell Distribution Width 15.9 % (11.6-14.8); White Blood Cell Count 6.4 X10^3/uL (4.5-11.0)
[2019-03-25 13:20] LABS: Prothrombin Time 73.4 SECONDS (10.1-12.7)
[2019-03-25 13:22] LABS: PTT Partial Thromboplastin Tim 55 SECONDS (26.4-36.2)
[2019-03-25 13:24] LABS: Alanine Aminotransferase 44 IU/L (9-52); Albumin Globulin Ratio 1.5 (1.0-2.8); Alkaline Phosphatase 81 U/L (38-126); Aspartate Aminotransferase 35 IU/L (14-36); BUN Creatinine Ratio 17.5 (6-22); Bilirubin Total 0.6 mg/dL (0.2-1.3); Blood Urea Nitrogen 14 mg/dL (7-17); Calcium 8.6 mg/dL (8.4-10.2); Carbon Dioxide 28 mmol/L (22-32); Chloride 105 mmol/L (98-107); Creatine Kinase 27 U/L (30-135); Estimated Glomerular Filt Rate > 60.0 mL/min (>60); Globulin 2.6 g/dL (1.7-4.1); Glucose 94 mg/dL (80-110); HEMOLYSIS < 15 (0-50); Sodium 140 mmol/L (137-145); Total Protein 6.6 g/dL (6.3-8.2)
[2019-03-25 13:26] LABS: INR 6.1 (0.9-1.3)
[2019-03-25 13:36] LABS: Troponin I 0.027 ng/mL (0.01-0.034)
[2019-03-25 14:34] LABS: Bacteria Urine None Seen; Culture Indicated Urine Cult Not Indicated; RBC Urine 10-30/HPF (0-5/HPF); Squamous Epithelial Cell Urine None Seen (0-5/HPF); WBC Urine None Seen (0-5/HPF)
[2019-03-25 16:17] LABS: Creatine Kinase 24 U/L (30-135)
[2019-03-25 16:29] LABS: Troponin I 0.021 ng/mL (0.01-0.034)
[2019-03-25] MEDS: CEFTRIAXONE 1 GM/50 ML FROZ.PIGGY IV (17:21)
[2019-03-25] MEDS: SODIUM CHLORIDE 0.9% 1,000 ML 125 ML IV (18:37)
[2019-03-25 19:38] LABS: Creatine Kinase 29 U/L (30-135)
[2019-03-25 19:51] LABS: Troponin I 0.025 ng/mL (0.01-0.034)
[2019-03-25] MEDS: ATORVASTATIN 20 MG TABLET PO (22:06)
[2019-03-25] MEDS: DOXEPIN 25 MG CAPSULE 50 MG PO (22:07)
[2019-03-26] VITALS (8 sets, daily range): BP systolic 145–151; BP diastolic 78–98; PULSE 59–61; RESP 16–60; TEMP 36.1–36.9; O2SAT 93–97
[2019-03-26] MEDS: SODIUM CHLORIDE 0.9% 1,000 ML 125 ML IV ×3 (01:56→17:31)
--- NOTE | 2019-03-26 08:58 | PM.HP.1 ---
History of Present Illness Chief complaint: Has had a cold for a month, legs going out Patient History Medical History (Updated 03/25/19 @ 18:21 by Syeda Hood RN) Cyst of right breast (Acute) History of hysterectomy (Acute) History of rheumatic fever (Acute) Ovarian cyst (Acute) Pacemaker (Acute) Surgical History (Updated 03/25/19 @ 18:21 by Syeda Hood RN) History of cholecystectomy (Acute) Mitral valve replaced (Acute) Social History household members: family Smoking Status: Current every day smoker alcohol intake: current Family & Social History Social History: household members family Prior Living Arrangements Apartment/Condo Safety & Behavioral: Feels Safe in Current Yes Environment Been Physically Hurt or No Threatened By a Person Suicidal Ideation Description None Tobacco & Substance use: Tobacco type cigarettes Smoking Status Current every day smoker Smoking packs per day 0.5 alcohol intake current alcohol intake frequency a few times a month Substance Use Type does not use Meds Home Medications Medication Instructions Recorded Confirmed Type atorvastatin [Lipitor] 20 mg PO QDAY #0 04/07/17 03/25/19 History Adult Robitussin Peak Cold DM ml PO PRN PRN 03/25/19 History alprazolam [Xanax] 0.5 mg PO BID-TID PRN 03/25/19 03/25/19 History doxepin 50 mg PO BEDTIME 03/25/19 03/25/19 History fluoxetine 20 mg PO DAILY 03/25/19 03/25/19 History warfarin 4 mg PO TUTH 03/25/19 03/25/19 History warfarin See Rx Instructions .ROUTE .COMPLEX 03/25/19 03/25/19 History Allergies Allergy/AdvReac Type Severity Reaction Status Date / Time ibuprofen [IBUPROFEN] Allergy Unknown I feel Verified 03/25/19 18:02 really weird vitamin E (d-alpha Allergy Unknown cold sores Verified 03/25/19 18:02 tocopherol) [VITAMIN E] adhesive [ADHESIVE] AdvReac Unknown tape Verified 03/25/19 17:21 Review of Systems Review of Systems Patient is a 73-year-old female who presents with severe diffuse weakness Denies headache vision change Some congestion and occasional cough But no sinus pain Lungs have felt the week she is not getting good breaths but not significantly painful and feels very weak Denies chest pain although has had some palpitations or skipped beats. Does have a pacer in place for chronic AFib Feels queasy poor appetite but no focal abdominal pain did have 1 slight episode of bright red blood with wiping with Bruising easily has a history of anxiety and depression issues which are aggravating her at this point Exam Vital Signs (past 8 hours): - 03/26/19 06:45 03/26/19 07:40 Temperature 98.4 F 98.2 F Pulse Rate 60 60 Respiratory Rate 16 16 Blood Pressure 146/98 H 146/95 H Pulse Oximetry 97 93 Oxygen Delivery Method Room Air Oxygen Flow Rate 0 Narrative Exam Narrative: Patient alert oriented speaking clearly and cognitively intact seems comfortable at this point PERRLA EOMs intact Neck without mass Lungs with decreased breath sounds and some crackles diffusely Cardiovascular exam shows no evidence of congestive heart failure is in a regular rate and rhythm secondary to pacer trace murmur Abdomen nontender no hepatosplenomegaly mass rebound or guarding Skin without lesions noted except for occasional bruise Neuro is intact and no focal abnormality. Speech is clear cognition is intact sensory and motor is intact and symmetrical Psych shows patient to be flat of affect but complaining of anxiety Objective Labs Result Diagrams: 03/25/19 13:04 03/25/19 13:04 Labs: Laboratory Results - last 24 hr 03/25/19 03/25/19 03/25/19 13:04 13:04 13:04 WBC 6.4 RBC 4.89 Hgb 13.9 Hct 42.6 MCV 87.2 MCH 28.5 MCHC 32.7 RDW 15.9 H Plt Count 253 Neut % (Auto) 82.4 H Lymph % (Auto) 8.3 L [place] % (Auto) 8.3 Eos % (Auto) 0.5 L Baso % (Auto) 0.5 Neut # (Auto) 5300 Lymph # (Auto) 500 L [place] # (Auto) 500 Eos # (Auto) 0 Baso # (Auto) 0 PT 73.4 H INR 6.1 H* APTT 55 H Sodium 140 Potassium 4.0 Chloride 105 Carbon Dioxide 28 BUN 14 Creatinine 0.80 Estimated GFR > 60.0 BUN/Creatinine Ratio 17.5 Glucose 94 Calcium 8.6 Total Bilirubin 0.6 AST 35 ALT 44 Alkaline Phosphatase 81 Total Creatine Kinase 27 L CK-MB (CK-2) TNP CK-MB (CK-2) Rel Index TNP Troponin I 0.027 Total Protein 6.6 Albumin 4.0 Globulin 2.6 Albumin/Globulin Ratio 1.5 Urine RBC Urine WBC Ur Squamous Epith Cells Urine Bacteria Ur Culture Indicated? 03/25/19 03/25/19 03/25/19 14:00 15:55 19:25 WBC RBC Hgb Hct MCV MCH MCHC RDW Plt Count Neut % (Auto) Lymph % (Auto) [place] % (Auto) Eos % (Auto) Baso % (Auto) Neut # (Auto) Lymph # (Auto) [place] # (Auto) Eos # (Auto) Baso # (Auto) PT INR APTT Sodium Potassium Chloride Carbon Dioxide BUN Creatinine Estimated GFR BUN/Creatinine Ratio Glucose Calcium Total Bilirubin AST ALT Alkaline Phosphatase Total Creatine Kinase 24 L 29 L CK-MB (CK-2) TNP TNP CK-MB (CK-2) Rel Index TNP TNP Troponin I 0.021 0.025 Total Protein Albumin Globulin Albumin/Globulin Ratio Urine RBC 10-30/hpf H Urine WBC None seen Ur Squamous Epith Cells None seen Urine Bacteria None seen Ur Culture Indicated? Cult not indicated Assessment & Plan Assessment & Plan narrative: Assessment 1. Severe weakness and feeling worse with the diagnosis of pneumonia. Patient was started on Levaquin as outpatient I think that is interacting with her Coumadin causing her INR to be at 6.1 she has some bruising and anal irritation secondary to that. I think that she may well have pneumonia as the main cause of this diffuse weakness. She has only been on treatment with Levaquin for a few days. Also think that she was of fairly dehydrated prior to admission that she got a lot of IV fluids over night and with very low urine output. Will treat with IV antibiotics and IV hydration at this point Assessment 2. Borderline troponins and. I think this probably secondary to the overall demand with pneumonia present. Will as seriously is serially follow 1 1 more this morning CKs have been normal and no documented arrhythmia again pacer in place Assessment 3 also has urinary changes that could suggest infection. UA if that Levaquin would cover that but will continue antibiotics while she is here for this as well will continue antibiotics and hydration Assessment for and a coagulation secondary to chronic AFib and pacemaker in place. Patient INR 6.1 probably some interaction with Levaquin. Will hold her anticoagulation and check again to make sure that that is normalizing no overt bleeding at this point. Assessment 5. Depression patient has history of anxiety and depression will continue her current meds for that with a possible increase in requirement for her alprazolam med at this point. Assessment 6 patient has history of continue to be a smoker. Consider the addition patch if patient begins to feel nicotine withdrawal symptoms. Assessment 7 hyperlipidemia will continue patient's current med for that as well. Quality VTE Deep Vein Thrombosis/Pulmonary Embolism Present on Admission: No
[2019-03-26] MEDS: CEFTRIAXONE 1 GM/50 ML FROZ.PIGGY IV (09:10)
[2019-03-26] MEDS: ALPRAZolam 0.25 MG TABLET 0.5 MG PO (09:11)
[2019-03-26] MEDS: FLUoxetine 20 MG CAPSULE PO (10:35)
[2019-03-26 11:12] LABS: Add Manual Diff / Slide Review NO; Basophils Absolute Auto 0 /uL (0-100); Basophils Percent Auto 0.4 % (0-2); Eosinophils Absolute Auto 0 /uL (0-450); Eosinophils Percent Auto 0.6 % (2-4); Hematocrit 41.2 % (36-46); Hemoglobin 13.4 g/dL (12.0-16.0); Lymphocytes Absolute Auto 700 /uL (1100-4500); Mean Corpuscular HGB Conc 32.5 % (30-36); Mean Corpuscular Hemoglobin 28.4 PG (26-34); Mean Corpuscular Volume 87.5 fL (80-100); Monocytes Absolute Auto 500 /uL (0-900); Monocytes Percent Auto 7.9 % (3-14); Neutrophils Absolute Auto 4700 /uL (1500-7000); Neutrophils Percent Auto 79.1 % (50-75); Platelet Count 231 X10^3/uL (150-400); Red Blood Cell Count 4.71 X10^6/uL (4.0-5.2); Red Cell Distribution Width 16.1 % (11.6-14.8); White Blood Cell Count 5.9 X10^3/uL (4.5-11.0)
--- NOTE | 2019-03-26 11:18 | CM.DANOTE ---
DCP: Case received, EMR reviewed and met with patient. Introduced self and role. DCP template completed with information currently available. Patient is a 73 year old female who admitted yesterday afternoon to the care of the hospitalist team. PCP: Dr. Fuentes. Payer: confirmed: Medicare/[employer]. Patient came to hospital secondary to lower extremity weakness. She has also been recently diagnosis with Pneumonia, and was taking oral antibiotics. Her INR had been at 6.1, which Dr. Almendarez mentioned could be secondary to being on antibiotics. He also has a pacemaker, has a-fib. Patient also has history of chronic depression and anxiety, and has been taking medications for these symptoms. She is a daily smoker. Met with patient briefly, and she had a friend in the room. Had been talking on the phone prior to this business case analyst entering. She was concerned about her elevated blood pressure. She stated that she is independent at home, but does live with her son, Manjeet, and his , here in [place]. P: DCP to continue to follow closely as plan unfolds. Will continue to monitor progress here in hospital, and be available if patient needs any type of resources. Alma Garcias RN/Blow Mold Technician
[2019-03-26 11:22] LABS: INR 4.4 (0.9-1.3)
[2019-03-26 11:28] LABS: Alanine Aminotransferase 41 IU/L (9-52); Albumin 3.8 g/dL (3.5-5.0); Albumin Globulin Ratio 1.5 (1.0-2.8); Alkaline Phosphatase 71 U/L (38-126); Aspartate Aminotransferase 35 IU/L (14-36); BUN Creatinine Ratio 14.3 (6-22); Bilirubin Total 0.4 mg/dL (0.2-1.3); Blood Urea Nitrogen 10 mg/dL (7-17); Calcium 8.2 mg/dL (8.4-10.2); Carbon Dioxide 27 mmol/L (22-32); Chloride 107 mmol/L (98-107); Estimated Glomerular Filt Rate > 60.0 mL/min (>60); Globulin 2.6 g/dL (1.7-4.1); Glucose 104 mg/dL (80-110); HEMOLYSIS < 15 (0-50); Magnesium 2.2 mg/dL (1.6-2.3); Potassium 4.3 mmol/L (3.4-5.1); Sodium 140 mmol/L (137-145); Total Protein 6.4 g/dL (6.3-8.2)
[2019-03-26 11:29] LABS: B Type Natriuretic Peptide 103 (<100)
[2019-03-26] MEDS: ATORVASTATIN 20 MG TABLET PO (20:30)
[2019-03-26] MEDS: DOXEPIN 25 MG CAPSULE 50 MG PO (20:30)
[2019-03-27] VITALS (8 sets, daily range): BP systolic 145–187; BP diastolic 70–82; PULSE 60–78; RESP 16–60; TEMP 36.3–37.2; O2SAT 94–97
--- NOTE | 2019-03-27 | DI.RAD.S_ITS ---
PROCEDURE: XR CHEST 1V INDICATIONS: cough TECHNIQUE: One view of the chest was acquired. COMPARISON: [facility], , XR CHEST 2V, 03/25/2019, 12:41. [facility], , CHEST 2 VIEW, 01/09/2017, 11:51. None. FINDINGS: Surgical changes and devices: Left chest wall cardiac pacer is stable. Cardiac valve prosthesis is stable. Lungs and pleura: Lungs are clear. No pleural effusions or pneumothorax. Mediastinum: Mediastinal contours appear normal. Heart is enlarged. Bones and chest wall: No suspicious bony lesions. Overlying soft tissues appear unremarkable. IMPRESSION: No acute cardiopulmonary disease process. Dictated by: Laura Lindsey MD, PhD on 03/27/2019 at 9:06 Approved by: Laura Lindsey MD, PhD on 03/27/2019 at 9:08
[2019-03-27] MEDS: SODIUM CHLORIDE 0.9% 1,000 ML 125 ML IV ×3 (04:18→20:34)
[2019-03-27 07:02] LABS: Add Manual Diff / Slide Review NO; Basophils Absolute Auto 0 /uL (0-100); Basophils Percent Auto 0.4 % (0-2); Eosinophils Absolute Auto 100 /uL (0-450); Eosinophils Percent Auto 1.1 % (2-4); Hematocrit 41.9 % (36-46); Hemoglobin 13.7 g/dL (12.0-16.0); Lymphocytes Absolute Auto 800 /uL (1100-4500); Lymphocytes Percent Auto 11.7 % (25-40); Mean Corpuscular HGB Conc 32.7 % (30-36); Mean Corpuscular Hemoglobin 28.5 PG (26-34); Mean Corpuscular Volume 87.3 fL (80-100); Monocytes Absolute Auto 600 /uL (0-900); Monocytes Percent Auto 8.8 % (3-14); Neutrophils Absolute Auto 5200 /uL (1500-7000); Platelet Count 227 X10^3/uL (150-400); Red Cell Distribution Width 15.9 % (11.6-14.8); White Blood Cell Count 6.6 X10^3/uL (4.5-11.0)
[2019-03-27 07:11] LABS: BUN Creatinine Ratio 12.9 (6-22); Blood Urea Nitrogen 9 mg/dL (7-17); Calcium 7.9 mg/dL (8.4-10.2); Carbon Dioxide 26 mmol/L (22-32); Chloride 108 mmol/L (98-107); Estimated Glomerular Filt Rate > 60.0 mL/min (>60); Glucose 85 mg/dL (80-110); Potassium 4.1 mmol/L (3.4-5.1); Sodium 140 mmol/L (137-145)
[2019-03-27 07:12] LABS: HEMOLYSIS 113 (0-50)
[2019-03-27] MEDS: FLUoxetine 20 MG CAPSULE PO (08:02)
[2019-03-27] MEDS: ALPRAZolam 0.25 MG TABLET 0.5 MG PO ×2 (08:06→14:14)
--- NOTE | 2019-03-27 08:56 | P.PN_ITS ---
Subjective Date Patient Seen: 03/27/19 Time Patient Seen: 08:49 Interval history: Better. Says has been up and around a bit even down the hallways walking more comfortably. Has some episodes where she feels some fluttering in the chest and is concerned about her higher blood pressure, as she never has had BP problems in the past. Has been ill for a while with a persistent cough had been going through a series of different antibiotics trying to get that under better control no clear sense of what has gotten worse now none the less. Also asks about Xanax, has been using that periodically for some time but cut back some recently while she was more ill she wondered if that could be causing some of her nervousness. Has been getting a daily dose here. Also has determined that now that she is in the hospital and has not smoked for a day she is committed to quitting smoking altogether. Exam Vital Signs (past 8 hours): - 03/27/19 04:29 03/27/19 07:45 03/27/19 08:18 Temperature 97.4 F L 98.3 F Pulse Rate 64 60 Respiratory Rate 18 16 Blood Pressure 187/82 H 158/80 H Pulse Oximetry 95 94 96 Oxygen Delivery Method Room Air Oxygen Flow Rate 0 Narrative Exam Narrative: Seems fairly healthy sitting up in a chair no obvious distress. HEENT unremarkable neck benign no jugular venous distension the chest shows some basilar crackles heart regular with a cluster of possible PACs, with valvular heart sounds. abdomen soft nontender nondistended normoactive bowel tones extremities benign neurologically nonfocal. Objective Labs Result Diagrams: 03/27/19 06:30 03/27/19 06:30 Labs: Laboratory Results - last 24 hr 03/26/19 03/26/19 03/26/19 11:05 11:05 11:05 WBC 5.9 RBC 4.71 Hgb 13.4 Hct 41.2 MCV 87.5 MCH 28.4 MCHC 32.5 RDW 16.1 H Plt Count 231 Neut % (Auto) 79.1 H Lymph % (Auto) 12.0 L [place] % (Auto) 7.9 Eos % (Auto) 0.6 L Baso % (Auto) 0.4 Neut # (Auto) 4700 Lymph # (Auto) 700 L [place] # (Auto) 500 Eos # (Auto) 0 Baso # (Auto) 0 PT 52.0 H D INR 4.4 H Sodium 140 Potassium 4.3 Chloride 107 Carbon Dioxide 27 BUN 10 Creatinine 0.70 Estimated GFR > 60.0 BUN/Creatinine Ratio 14.3 Glucose 104 Calcium 8.2 L Magnesium 2.2 Total Bilirubin 0.4 AST 35 ALT 41 Alkaline Phosphatase 71 B-Natriuretic Peptide 103 H Total Protein 6.4 Albumin 3.8 Globulin 2.6 Albumin/Globulin Ratio 1.5 03/27/19 03/27/19 06:30 06:30 WBC 6.6 RBC 4.80 Hgb 13.7 Hct 41.9 MCV 87.3 MCH 28.5 MCHC 32.7 RDW 15.9 H Plt Count 227 Neut % (Auto) 78.0 H Lymph % (Auto) 11.7 L [place] % (Auto) 8.8 Eos % (Auto) 1.1 L Baso % (Auto) 0.4 Neut # (Auto) 5200 Lymph # (Auto) 800 L [place] # (Auto) 600 Eos # (Auto) 100 Baso # (Auto) 0 PT INR Sodium 140 Potassium 4.1 Chloride 108 H Carbon Dioxide 26 BUN 9 Creatinine 0.70 Estimated GFR > 60.0 BUN/Creatinine Ratio 12.9 Glucose 85 Calcium 7.9 L Magnesium Total Bilirubin AST ALT Alkaline Phosphatase B-Natriuretic Peptide Total Protein Albumin Globulin Albumin/Globulin Ratio Assessment & Plan (1) Pneumonia: Problem details: Somewhat improved now on IV Rocephin. Still abnormal exam will check chest x- ray Qualifiers: Aspiration pneumonia type: Laterality: bilateral Lung location: unspecified part of lung Pneumonia type: due to unspecified organism Qualified Code(s): J18.9 - Pneumonia, unspecified organism Current visit: Yes Status: Acute (2) Generalized muscle weakness: Problem details: Related to above seems to have improved significantly since admission. Current visit: Yes Status: Acute (3) Elevated INR: Current visit: Yes Status: Acute (4) Elevated troponin: Problem details: Suspect more related to lung disease. Current visit: Yes Status: Acute (5) History of aortic valve replacement: Problem details: Remains on anticoagulation Current visit: Yes Status: Acute (6) Atrial fibrillation: Problem details: On anticoagulation and no rate control. Current visit: Yes Status: Acute (7) Smoker: Problem details: Long-term, but states a commitment to cessation. Current visit: Yes Status: Acute (8) Anxiety: Problem details: Long-term issue may be going sit through some withdrawal of Xanax Current visit: Yes Status: Acute Assessment & Plan narrative: Will check an echo today as well as another chest x-ray follow labs continue same IV antibiotics, encourage up and around. Try to sort out her issues a little more clearly before discharge. Time Spent With Patient Time with patient: 25 - 35 minutes Quality VTE Deep Vein Thrombosis/Pulmonary Embolism Present on Admission: No
[2019-03-27] MEDS: CEFTRIAXONE 1 GM/50 ML FROZ.PIGGY IV (09:04)
[2019-03-27 09:44] LABS: INR 2.4 (0.9-1.3); Prothrombin Time 28.6 SECONDS (10.1-12.7)
--- NOTE | 2019-03-27 18:45 | PC.NURSE ---
Addendum entered by Heide Zamudio R.N. 03/27/19 23:20: Pt had relatively uneventful evening. Denies any discomfort. IVF continue as per orders. Tele shows V-paced per ICU staff. Call light w/in reach, up independently in room Continue w/plan of care. Original Note: Pt awake, visiting w/friends. Denies discomfort. Lungs diminished, SpO2 96% IV NS infusing into the RFA @ 125cc/hr via pump w/o incidence. Tele showing V-paced per ICU staff. Call light w/in reach. Pt calls appropriately
[2019-03-27] MEDS: ATORVASTATIN 20 MG TABLET PO (20:36)
[2019-03-27] MEDS: DOXEPIN 25 MG CAPSULE 50 MG PO (20:36)
[2019-03-28] VITALS (7 sets, daily range): BP systolic 144–155; BP diastolic 68–88; PULSE 57–61; RESP 16–20; TEMP 36.4–36.8; O2SAT 95–96
[2019-03-28] MEDS: SODIUM CHLORIDE 0.9% 1,000 ML 125 ML IV (04:35)
[2019-03-28 07:24] LABS: Add Manual Diff / Slide Review NO; Basophils Absolute Auto 100 /uL (0-100); Basophils Percent Auto 0.9 % (0-2); Eosinophils Absolute Auto 100 /uL (0-450); Eosinophils Percent Auto 1.2 % (2-4); Hematocrit 38.1 % (36-46); Hemoglobin 12.6 g/dL (12.0-16.0); Lymphocytes Absolute Auto 900 /uL (1100-4500); Lymphocytes Percent Auto 13.4 % (25-40); Mean Corpuscular Hemoglobin 28.7 PG (26-34); Mean Corpuscular Volume 86.9 fL (80-100); Monocytes Absolute Auto 700 /uL (0-900); Monocytes Percent Auto 10.2 % (3-14); Neutrophils Absolute Auto 4800 /uL (1500-7000); Neutrophils Percent Auto 74.3 % (50-75); Platelet Count 202 X10^3/uL (150-400); Red Blood Cell Count 4.39 X10^6/uL (4.0-5.2); White Blood Cell Count 6.5 X10^3/uL (4.5-11.0)
[2019-03-28 07:30] LABS: INR 1.7 (0.9-1.3); Prothrombin Time 20.1 SECONDS (10.1-12.7)
[2019-03-28 07:35] LABS: BUN Creatinine Ratio 17.1 (6-22); Blood Urea Nitrogen 12 mg/dL (7-17); Calcium 8.3 mg/dL (8.4-10.2); Carbon Dioxide 27 mmol/L (22-32); Chloride 108 mmol/L (98-107); Estimated Glomerular Filt Rate > 60.0 mL/min (>60); Glucose 86 mg/dL (80-110); HEMOLYSIS < 15 (0-50); Sodium 141 mmol/L (137-145)
[2019-03-28] MEDS: ALPRAZolam 0.25 MG TABLET 0.5 MG PO ×2 (08:22→15:40)
[2019-03-28] MEDS: FLUoxetine 20 MG CAPSULE PO (08:22)
[2019-03-28] MEDS: CEFTRIAXONE 1 GM/50 ML FROZ.PIGGY IV (08:26)
--- NOTE | 2019-03-28 09:08 | PM.PN.1 ---
Subjective Date Patient Seen: 03/28/19 Time Patient Seen: 09:08 Interval history: Feeling okay, still some sense of rapid heartbeat when she gets up to the bathroom and back, but her breathing has been okay has been up and around a bit without problems somewhat better overall. Some questions about her blood pressure and pulse, and wondered why her protime was so high this time. Eating and drinking normally. Exam Vital Signs (past 8 hours): - 03/28/19 02:24 03/28/19 08:14 Temperature 97.9 F Pulse Rate 57 L 59 L Respiratory Rate 16 17 Blood Pressure 155/87 H 148/77 H Pulse Oximetry 96 96 Oxygen Delivery Method Room Air Oxygen Flow Rate 0 Narrative Exam Narrative: Healthy appearing sitting up in bed no acute distress. HEENT unremarkable neck is benign without jugular venous distention, chest fairly clear heart regular with valve sounds. abdomen soft nontender nondistended normoactive bowel tones no organomegaly or mass extremities unremarkable neurologically unremarkable Objective Labs Result Diagrams: 03/28/19 06:47 03/28/19 06:47 Labs: Laboratory Results - last 24 hr 03/27/19 03/28/19 03/28/19 09:17 06:47 06:47 WBC 6.5 RBC 4.39 Hgb 12.6 Hct 38.1 MCV 86.9 MCH 28.7 MCHC 33.0 RDW 16.0 H Plt Count 202 Neut % (Auto) 74.3 Lymph % (Auto) 13.4 L [place] % (Auto) 10.2 Eos % (Auto) 1.2 L Baso % (Auto) 0.9 Neut # (Auto) 4800 Lymph # (Auto) 900 L [place] # (Auto) 700 Eos # (Auto) 100 Baso # (Auto) 100 PT 28.6 H D 20.1 H D INR 2.4 H 1.7 H Sodium Potassium Chloride Carbon Dioxide BUN Creatinine Estimated GFR BUN/Creatinine Ratio Glucose Calcium 03/28/19 06:47 WBC RBC Hgb Hct MCV MCH MCHC RDW Plt Count Neut % (Auto) Lymph % (Auto) [place] % (Auto) Eos % (Auto) Baso % (Auto) Neut # (Auto) Lymph # (Auto) [place] # (Auto) Eos # (Auto) Baso # (Auto) PT INR Sodium 141 Potassium 4.0 Chloride 108 H Carbon Dioxide 27 BUN 12 Creatinine 0.70 Estimated GFR > 60.0 BUN/Creatinine Ratio 17.1 Glucose 86 Calcium 8.3 L Assessment & Plan (1) Pneumonia: Problem details: Continues to improve, still no evidence of hypoxia. Fatigue is improved. Qualifiers: Aspiration pneumonia type: Laterality: bilateral Lung location: unspecified part of lung Pneumonia type: due to unspecified organism Qualified Code(s): J18.9 - Pneumonia, unspecified organism Current visit: Yes Status: Acute (2) Elevated INR: Problem details: Now normalized, will resume a warfarin Current visit: Yes Status: Acute (3) Elevated troponin: Problem details: Resolved Current visit: Yes Status: Acute (4) History of aortic valve replacement: Problem details: Remains on anticoagulation Current visit: Yes Status: Acute (5) Atrial fibrillation: Problem details: On anticoagulation and no rate control. Current visit: Yes Status: Acute (6) Smoker: Problem details: Long-term, but states a commitment to cessation. Reiterates that today. Current visit: Yes Status: Acute Assessment & Plan narrative: Will saline lock IV today awaiting echo to be done later today if that shows no significant problem will anticipate possible discharge later today. Continue IV antibiotics and other treatment. Time Spent With Patient Time with patient: 25 - 35 minutes Quality VTE Deep Vein Thrombosis/Pulmonary Embolism Present on Admission: No
--- NOTE | 2019-03-28 10:00 | DI.ECHO.S_ITS ---
Echocardiogram Report + + :Name: MATTY GUERRERO I Study Date: 03/28/2019 Height: 64 in : :Hospital Exam Location: [facility] Weight: 178 lb : : Gender: Female BSA: 1.9 m2 : :: 1945 Age: 73 yrs BP: 151/88 mmHg: :Reason For Study: Arrhythmia : :Ordering Physician: [place] : :Hospitalist Performed By: Marissa Page : :Referring: MELVIN WEINBERG E : + + Interpretation Summary The left ventricle is normal in size, wall thickness, and systolic function with the ejection fraction visually estimated to be 60-65% without any focal wall motion abnormalities although there is a mild dyssynchronous contraction pattern due to the paced rhythm. There has been no significant change since the previous study. The right ventricle is at the upper limits of normal in size and right ventricular systolic function is normal and appears unchanged compared to the previous study. The right ventricular systolic pressure is estimated to be at least 37 mmHg based on an estimated right atrial pressure of 8 mm Hg, and is unchanged compared to the previous study. Both atria are severely dilated. The right atrium has mildly increased in size since the prior echo exam. 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 There is no obvious mitral regurgitation but acoustic shadowing prevents complete evaluation. There has been no significant change since the previous study. There is moderate tricuspid regurgitation that is less prominent compared to the previous study. There is mild aortic valve sclerosis with mild aortic regurgitation that is unchanged compared to the previous study. Procedure: A two-dimensional transthoracic echocardiogram with color flow and Doppler was performed. The study quality was technically adequate. Comparison is made with the echocardiogram of 03/08/2011. The patient has a paced rhythm. Left Ventricle: The left ventricle is normal in size, wall thickness, and systolic function without any focal wall motion abnormalities. The ejection fraction is estimated to be 60-65%. There is a mild dyssynchronous contraction pattern due to the paced rhythm. Diastolic function could not be accurately assessed due to atrial fibrillation. There has been no significant change since the previous study. Right Ventricle: There is a pacemaker lead in the right ventricle. The right ventricle is at the upper limits of normal in size. The right ventricular systolic function is normal. This is unchanged compared to the previous study. Atria: Both atria are severely dilated. The right atrium has mildly increased in size since the prior echo exam. Mitral Valve: There is a bi-leaflet ([employer]) mechanical prosthesis. The prosthetic mitral valve is well-seated. The prosthetic mitral valve appears to open well. The mitral valve mean gradient is 4.2 mmHg. There is no mitral regurgitation. There has been no significant change since the previous study. Aortic Valve: The aortic valve is trileaflet. There is mild aortic valve sclerosis. The aortic valve is mildly calcified. The aortic valve opens well. There is no aortic valve stenosis. There is mild aortic regurgitation. This is unchanged compared to the previous study. Tricuspid Valve: The tricuspid valve is normal. There is moderate tricuspid regurgitation. This is less prominent compared to the previous study. The right ventricular systolic pressure is estimated to be at least 37 mmHg based on an estimated right atrial pressure of 8 mm Hg. This is unchanged compared to the previous study. Pulmonic Valve: The pulmonic valve is not well seen, but is grossly normal. There is a trace or physiologic amount of pulmonic regurgitation. Great Vessels: The aortic root is normal size. The ascending aorta is normal in size. The pulmonary artery is not well visualized, but is probably normal size. The IVC is dilated (diameter is greater than 2.1 cm) yet it collapses greater than 50% with a sniff. This suggests a right atrial pressure of 8 mm Hg. Pericardium/ Pleura There is no pericardial effusion. There is no pleural effusion. MMode/2D Measurements & Calculations LVIDd: 5.2 cm LVOT diam: 2.3 cm LVIDs: 2.7 cm Ao root diam: 3.2 cm FS: 48.9 % asc Aorta Diam: 3.1 cm IVSd: 1.0 cm LVPWd: 0.85 cm LV shay. diameter/BSA (cm/m^2): 2.8 LV sys. diameter/BSA (cm/m^2): 1.4 LA A2 area: 37.2 cm2 RA long axis: 8.4 cm LA A4 area: 49.1 cm2 RA area: 46.9 cm2 LA length (vol): 8.3 cm RA vol: 222.3 ml LA vol: 186.8 ml RA : 119.4 ml/m2 LA vol index: 100.3 ml/m2 IVC diam: 2.2 cm RVD1 (basal): 5.6 cm RVD2 (mid): 3.9 cm Doppler Measurements & Calculations Ao V2 max: 179.1 cm/sec LVOT Max Valentin: 82.0 cm/sec Ao V2 mean: 115.3 cm/sec LV V1 max P.7 mmHg Ao max P.8 mmHg LV V1 VTI: 16.8 cm Ao mean P.1 mmHg CELY(I,D): 2.0 cm2 Ao V2 VTI: 35.2 cm CELY(V,D): 1.9 cm2 sev ratio: 0.48 CELY indexed to BSA (cm^2/m^2): 1.1 MV E max valentin: 171.6 cm/sec TR max valentin: 264.1 cm/sec MV P1/2t: 69.8 msec TR max P.9 mmHg MVA(VTI): 2.6 cm2 PA V2 max: 100.7 cm/sec PA V2 mean: 63.5 cm/sec PA mean P.8 mmHg PA Accel Time: 0.07 sec MV V2 mean: 89.4 cm/sec MV P1/2t max valentin: 174.5 cm/sec MV mean P.2 mmHg MVA(P1/2t): 3.2 cm2 MV V2 VTI: 27.3 cm SV(LVOT): 71.0 ml _ Reading Physician:PM
--- NOTE | 2019-03-28 10:02 | PC.NURSE ---
Assess- Pt is a&ox3, denies chest pain. States that she can feel her heart rate skip once in a while. She has hx of afib. Heart rate regular on auscultation. Pt is up independently in room... She denies any pain at this time. Pt will be getting an echo soon and is in bed.
--- NOTE | 2019-03-28 10:56 | PC.NURSE ---
assess- pt is a&ox3. Incision and dressing to anterior neck is cdi. Pt up and about with pt and ot. She will be discharging now.
[2019-03-28] MEDS: WARFARIN 2 MG TABLET 4 MG PO (13:08)
--- NOTE | 2019-03-28 18:01 | PM.DS.1 ---
History of Present Illness Date Patient Seen: 03/28/19 Time Patient Seen: 18:01 Chief complaint: Has had a cold for a month, legs going out Narrative: See H&P Discharge Providers Date of admission: 03/25/19 17:01 Discharge Date: 03/28/19 Primary care physician: Mario Fuentes MD Discharge provider: Mario Fuentes MD Summary Discharge Diagnosis: 1. Pneumonia, community-acquired bacterial now improved 2. Over anticoagulation due to antibiotic suspected, now resolved. 3. Generalized weakness due to illness, improved. 4. Elevated troponin on arrival quickly resolved, no evidence of cardiac injury. 5. Long-term smoker who has decided at least at this point to quit. 6. Anxiety was some part of the issues of this admission. 7. Atrial fibrillation, long history, on anticoagulation but not rate control 8. Volume depletion now resolved Hospital Course: Patient had been struggling with cough and illness for some time failing outpatient antibiotic attempts. Seemed to be getting more and more ill getting increasingly weak so finally presented to the emergency room where she was evaluated still with evidence of pneumonia possible dehydration, generalized weakness appropriate for admission. Was started on IV antibiotics with IV fluids and usual medications. Was also found with a marked increase in INR likely due to antibiotic impact on Coumadin so that medication was held for the 1st few days until the INR dropped to a more normal range. Was able to ambulate without a couple of days felt feeling better over time, still had some concerns about her varying blood pressure and with her history we did arrange for an echo that was done today results are still pending. Overall seemed stable low at this point so felt appropriate for home. Will continue a oral antibiotic that should be roughly equivalent to what she has been getting IV. Resume all usual medications otherwise. Status at Discharge Cognitive/behavioral status at discharge: oriented and at baseline, oriented Functional status at discharge: independent ambulation Overall status at discharge: patient is back to baseline Time Spent with Patient Greater than 30 minutes Time spent discussing smoking cessation with patient: 3 to 10 minutes Exam Vital Signs (past 8 hours): - 03/28/19 11:22 03/28/19 15:00 03/28/19 15:29 Temperature 97.7 F 98.3 F Pulse Rate 60 61 Respiratory Rate 17 20 Blood Pressure 151/88 H 144/68 H Pulse Oximetry 95 96 96 Oxygen Delivery Method Room Air Oxygen Flow Rate 0 Objective Labs Result Diagrams: 03/28/19 06:47 03/28/19 06:47 Labs: Laboratory Results - last 24 hr 03/28/19 03/28/19 03/28/19 06:47 06:47 06:47 WBC 6.5 RBC 4.39 Hgb 12.6 Hct 38.1 MCV 86.9 MCH 28.7 MCHC 33.0 RDW 16.0 H Plt Count 202 Neut % (Auto) 74.3 Lymph % (Auto) 13.4 L Greenlee % (Auto) 10.2 Eos % (Auto) 1.2 L Baso % (Auto) 0.9 Neut # (Auto) 4800 Lymph # (Auto) 900 L Greenlee # (Auto) 700 Eos # (Auto) 100 Baso # (Auto) 100 PT 20.1 H D INR 1.7 H Sodium 141 Potassium 4.0 Chloride 108 H Carbon Dioxide 27 BUN 12 Creatinine 0.70 Estimated GFR > 60.0 BUN/Creatinine Ratio 17.1 Glucose 86 Calcium 8.3 L Discharge Plan Discharge Plan Patient Disposition: Home Discharge Med Rec/Prescriptions Prescriptions: New cefuroxime axetil 500 mg tablet 500 mg PO Q12H 10 Days Qty: 20 RF: 0 Continued atorvastatin [Lipitor] 20 MG tablet 20 mg PO QDAY Qty: 0 RF: 0 warfarin 4 mg Tablet 4 mg PO TUTH RF: 0 alprazolam [Xanax] 0.5 mg Tablet 0.5 mg PO BID-TID PRN (Reason: Anxiety) RF: 0 warfarin 5 mg Tablet See Rx Instructions .ROUTE .COMPLEX RF: 0 doxepin 75 mg Capsule 50 mg PO BEDTIME RF: 0 fluoxetine 20 mg Tablet 20 mg PO DAILY RF: 0 Adult Robitussin Peak Cold DM PO PRN PRN (Reason: cough) RF: 0 Follow up/Referrals: Mario Fuentes MD [Primary Care Provider] - 3-5 Days Provider Discharge Instructions Diet: Diet as Tolerated Activity: as tolerated Visit Report/Discharge Packet Instructions: Pneumonia-Adult Discharge Data Primary Care Provider: Mario Fuentes Attending Provider: Byron Almendarez Admit Date/Time: 03/25/19 17:01 Quality VTE Deep Vein Thrombosis/Pulmonary Embolism Present on Admission: No
== END 2019-03-28 18:37 | disposition home or self-care (01) | DRG 195 ==
LOC: ED 17:01 → AC 17:02
PROVIDERS: Admitting Provider Family Medicine; Emergency Provider Nurse Practitioner Family; PCP Family Medicine; Visit Provider Family Medicine
DX: J15.9 Unspecified bacterial pneumonia (principal); R79.1 Abnormal coagulation profile; I48.0 Paroxysmal atrial fibrillation; Z95.0 Presence of cardiac pacemaker; F32.9 Major depressive disorder, single episode, unspecified; F41.9 Anxiety disorder, unspecified; E78.5 Hyperlipidemia, unspecified; Z95.2 Presence of prosthetic heart valve; E86.9 Volume depletion, unspecified; F17.210 Nicotine dependence, cigarettes, uncomplicated
CPT/HCPCS: 36415; 36591; 71045; 71046; 80048; 80053; 81003; 81015; 82550; 83735; 83880; 84484; 85025; 85610; 85730; 93005; 93306; 96361; 96365; 99283; 99285; 99406

== ENCOUNTER → 2019-04-02 10:04 | Outpatient (ROUT) | payer MEDICARE, SELFPAY ==
[2019-04-02 10:42] LABS: INR 2.1 (0.9-1.3); Prothrombin Time 23.9 SECONDS (10.1-12.7)
== END ==
PROVIDERS: PCP Family Medicine; Visit Provider Family Medicine
DX: Z79.01 Long term (current) use of anticoagulants (principal)
CPT/HCPCS: 85610

== ENCOUNTER → 2019-05-08 13:57 | Outpatient (CLI) | payer MEDICARE, SELFPAY ==
--- NOTE | 2019-05-08 14:02 | DI.RAD.S_ITS ---
PROCEDURE: XR KNEE RT 3V INDICATIONS: RIGHT KNEE PAIN TECHNIQUE: 3 views of the knee were acquired. COMPARISON: [facility], , XR KNEE 2V RIGHT, 09/05/2002, 9:42. FINDINGS: Bones: No fractures or dislocations. No suspicious bony lesions. Mild joint degeneration with narrowing of the medial joint space. Scattered degenerative subchondral sclerosis and spurring. Soft tissues: No joint effusion. No suspicious soft tissue calcifications. IMPRESSION: Mild right knee joint degeneration. This appears slightly progressed since 09/05/02. Dictated by: Clarence Ybarra M.D. on 05/08/2019 at 14:43 Approved by: Clarence Ybarra M.D. on 05/08/2019 at 14:45
== END ==
PROVIDERS: PCP Family Medicine; Visit Provider Family Medicine
DX: M25.561 Pain in right knee (principal); M17.11 Unilateral primary osteoarthritis, right knee
CPT/HCPCS: 73562

== ENCOUNTER → 2019-05-18 14:35 | Outpatient (ROUT) | payer MEDICARE, SELFPAY ==
[2019-05-18 15:33] LABS: INR 3.7 (0.9-1.3)
== END ==
PROVIDERS: PCP Family Medicine; Visit Provider Family Medicine
DX: Z79.01 Long term (current) use of anticoagulants (principal)
CPT/HCPCS: 85610

== ENCOUNTER → 2019-05-29 14:32 | Outpatient (CLI) | payer MEDICARE, SELFPAY ==
--- NOTE | 2019-05-29 | DI.CT.S_ITS ---
PROCEDURE: CT LE LT WO/W CON INDICATIONS: Primary osteoarthritis, left ankle and foot TECHNIQUE: After the administration of intravenous contrast, 3 mm axial sections acquired of the left ankle and foot, with coronal and sagittal reformats. COMPARISON: None. FINDINGS: Image quality: Excellent. Bones: Mild to moderate osteoarthritic changes are noted in tibiotalar joint, subtalar joint, talonavicular joint and calcaneocuboid joint. Mild osteoarthritic change is also seen throughout visualized forefoot joints. There is no fracture or dislocation. No bony erosive changes. No suspicious intraosseous lesion. Ankle mortise is congruent. No abnormal intraosseous enhancement is seen Soft tissues: Extensor, flexor, and peroneal tendons are grossly intact. Plantar aponeurosis is intact. Achilles tendon is intact. There is no significant joint effusion. No skin ulceration or subcutaneous soft tissue swelling. No discrete soft tissue mass is seen. No area of abnormal enhancement is noted. Slight prominent fat density is noted posterior to lateral malleolus, with no contrast enhancement. Finding could represent lipoma in this area. IMPRESSION: 1. Mild to moderate osteoarthritic changes throughout ankle and foot. No fracture or dislocation. No bony erosive changes. No abnormal enhancement. No suspicious intraosseous lesion. 2. Ankle tendons are grossly intact. Slightly prominent fat density in posterior and lateral aspect of ankle joint dorsal to the lateral malleolus, which could represent a lipoma in this area, suggest clinical correlation. No enhancing soft tissue mass is seen. Dictated by: Geronimo Crow M.D. on 05/29/2019 at 15:24 Approved by: Geronimo Crow M.D. on 05/29/2019 at 15:31
== END ==
PROVIDERS: PCP Student in an Organized Health Care Education/Training Program; Visit Provider Orthopaedic Surgery Foot and Ankle Surgery
DX: M19.072 Primary osteoarthritis, left ankle and foot (principal)
CPT/HCPCS: 73702; Q9967

== ENCOUNTER → 2019-06-01 12:29 | Outpatient (CLI) | payer MEDICARE, SELFPAY ==
--- NOTE | 2019-06-01 | DI.MG.S_ITS ---
BILATERAL DIGITAL SCREENING MAMMOGRAM 3D/2D WITH CAD: 06/01/2019 CLINICAL: Routine screening. Family history of breast cancer. Comparison is made to exams dated: 06/03/2017 mammogram, 06/13/2015 mammogram, and 04/16/2014 mammogram - [facility]. The tissue of both breasts is heterogeneously dense. This may lower the sensitivity of mammography. Current study was also evaluated with a Computer Aided Detection (CAD) system. No significant masses, calcifications, or other findings are seen in either breast. There has been no significant interval change. IMPRESSION: NEGATIVE There is no mammographic evidence of malignancy. A 1 year screening mammogram is recommended. This exam was interpreted at Station ID: [id number]. NOTE: For mammograms, a report in lay terms will be sent to the patient. Approximately 15% of breast malignancies will not be visualized mammographically. In the management of a palpable breast mass, a negative mammogram must not discourage biopsy of a clinically suspicious lesion. Electronically Signed By: Alvarado phoenix/ganesh:06/01/2019 17:12:06 letter sent: Normal Exam ACR BI-RADS Category 1: Negative [id number]
== END ==
PROVIDERS: PCP Student in an Organized Health Care Education/Training Program; Visit Provider Student in an Organized Health Care Education/Training Program
DX: Z12.31 Encounter for screening mammogram for malignant neoplasm of breast (principal); Z80.3 Family history of malignant neoplasm of breast
CPT/HCPCS: 77063; 77067

== ENCOUNTER → 2019-06-04 11:31 | Outpatient (ROUT) | payer MEDICARE, SELFPAY ==
[2019-06-04 11:40] LABS: INR 1.9 (0.9-1.3); Prothrombin Time 22.5 SECONDS (10.1-12.7)
== END ==
PROVIDERS: PCP Student in an Organized Health Care Education/Training Program; Visit Provider Student in an Organized Health Care Education/Training Program
DX: I48.91 Unspecified atrial fibrillation (principal)
CPT/HCPCS: 85610

== ENCOUNTER → 2019-06-28 14:11 | Outpatient (ROUT) | payer MEDICARE, SELFPAY ==
[2019-06-28 14:21] LABS: INR 2.9 (0.9-1.3)
== END ==
PROVIDERS: PCP Student in an Organized Health Care Education/Training Program; Visit Provider Student in an Organized Health Care Education/Training Program
DX: Z79.01 Long term (current) use of anticoagulants (principal)
CPT/HCPCS: 85610

== ENCOUNTER 2019-07-21 22:54 | Emergency (ER) | payer MEDICARE, SELFPAY ==
[2019-07-21 23:02] VITALS: BP 151/66; PULSE 69; RESP 18; TEMP 37.6; O2SAT 99
--- NOTE | 2019-07-21 23:06 | PC.NURSE ---
three small skin tears to left arm
--- NOTE | 2019-07-21 23:57 | ED_ITS ---
HPI - Skin/Abscess/Foreign Bdy General Chief complaint: Skin/Abscess/Foreign Body Stated complaint: skin tear left forearm on thinners Time Seen by Provider: 07/21/19 23:57 Source: patient and family () Mode of arrival: ambulatory Limitations: no limitations History of Present Illness HPI narrative: This is a 74-year-old female comes to the emergency department with complaint of skin tears on her left forearm. Patient states she was caring her purse when it slipped off down her arm causing the skin tears. Patient states that she had a Band-Aid it that was removed and actually made it worse. The patient states that she is on Coumadin and she has noticed a little bit increasing bruising. She has also recently been started on Prozac so she was worried that that may have increased her INR level. She takes her Coumadin for atrial fibrillation and a valve replacement. Patient denies any other injuries. She states her tetanus is up-to-date. Related Data Home Medications Medication Instructions Recorded Confirmed atorvastatin [Lipitor] 20 mg PO QDAY #0 04/07/17 07/21/19 Adult Robitussin Peak Cold DM ml PO PRN PRN 03/25/19 alprazolam [Xanax] 0.5 mg PO BID-TID PRN 03/25/19 07/21/19 doxepin 50 mg PO BEDTIME 03/25/19 07/21/19 fluoxetine 20 mg PO DAILY 03/25/19 07/21/19 warfarin 4 mg PO TUTH 03/25/19 07/21/19 warfarin See Rx Instructions .ROUTE .COMPLEX 03/25/19 03/25/19 albuterol sulfate 1.25 mg INHALATION Q4-6H PRN 07/21/19 07/21/19 furosemide [Lasix] 20 mg PO DAILY 07/21/19 07/21/19 tizanidine 4 mg PO Q6-8H PRN 07/21/19 07/21/19 Allergies Allergy/AdvReac Type Severity Reaction Status Date / Time ibuprofen [IBUPROFEN] Allergy Unknown I feel Verified 03/25/19 18:02 really weird vitamin E (d-alpha Allergy Unknown cold sores Verified 03/25/19 18:02 tocopherol) [VITAMIN E] adhesive [ADHESIVE] AdvReac Unknown tape Verified 03/25/19 17:21 Review of Systems Review of Systems ROS Unobtainable: All systems reviewed & are unremarkable except as noted in HPI and below PFSH Medical History Cyst of right breast (Acute) History of hysterectomy (Acute) History of rheumatic fever (Acute) Ovarian cyst (Acute) Pacemaker (Acute) Surgical History History of cholecystectomy (Acute) Mitral valve replaced (Acute) Social History household members: family Smoking Status: Current every day smoker alcohol intake: current Social History household members: family Smoking Status: Current every day smoker alcohol intake: current Exam Narrative Exam Narrative: GENERAL: Alert and oriented x three, well-nourished, well- appearing female in no acute distress. HEENT: Head normocephalic, atraumatic, EOMI, pupils reactive, face symmetric, moist mucous membranes NECK: Supple, full range of motion EXTREMITIES: Normal range of motion, no clubbing or edema. Neurovascularly intact. NEUROLOGICAL: Cranial nerves II through XII grossly intact. Moving all extremities SKIN: Warm, dry, no petechiae, patient has multiple areas of ecchymosis in varying states on bilateral upper extremities. Patient has three skin tears on her left forearm. Patient has 2 small tears that are 0.5 cm and 1 cm and irregular, she has a third that is 1.5cm by 1cm. Initial Vital Signs Initial Vital Signs: Vital Signs Temperature 99.6 F 07/21/19 23:02 Pulse Rate 69 07/21/19 23:02 Respiratory Rate 18 07/21/19 23:02 Blood Pressure 151/66 H 07/21/19 23:02 Pulse Oximetry 99 07/21/19 23:02 Course Orders Ordered: ED Orders 07/22/19 00:15 Prothrombin Time INR Stat Discontinued Medications Bacitracin (Bacitracin) 1 applic TOP NOW ONE Stop: 07/22/19 00:07 Last Admin: 07/22/19 00:21 Dose: 1 applic Documented by: RACHEL Vital Signs Vital signs: Vital Signs - 8 hr 07/21/19 23:02 07/22/19 01:03 Temperature 99.6 F Pulse Rate 69 67 Respiratory Rate 18 16 Blood Pressure 151/66 H 159/75 H Pulse Oximetry 99 96 MDM - Skin/Abscess/Foreign Bdy Lab Data Labs: Lab Results 07/22/19 Range/Units 00:15 PT 20.4 H (10.1-12.7) SECONDS INR 1.7 H (0.9-1.3) [facility] Narrative Medical decision making narrative: Discussed with patient she has not had her INR checked in about 2 weeks discussed wound care plan for her forearm and skin tears and will check her INR today. INR is 1.7, patient should be 2-1/2 to 3-1/2 with her history of valve. Patient did take her Coumadin today, she was asked to take an additional dose tonight and for patient to take an additional dose tomorrow in addition to her normal dose. She was asked to have her INR rechecked on Tuesday morning. She can return here, urgent care or primary care office if they are open. Discharge Plan Departure Patient Disposition: Home Clinical Impression: Skin tear of forearm without complication Qualifiers: Encounter type: initial encounter Laterality: left Qualified Code(s): S51.812A - Laceration without foreign body of left forearm, initial encounter Discharge Date/Time: 07/22/19 01:03 Instructions: DI for Avulsion Laceration (Not Requiring Sutures) Activity Restrictions/Additional Instructions: Follow-up with your primary care the next 5-7 days for recheck to make sure that your skin tears are healing properly. You may take Tylenol up to a 1000 mg every 8 hours as needed for pain Your INR today is 1.7, take an extra dose of your coumadin today and tomorrow and then get it rechecked on Tuesday. Wound Care: Keep wound(s) clean and dry. Wash daily with soap and water only. Do not use over the counter products (alcohol or peroxide)on the wounds unless instructed by a physician. You may apply bacitracin or triple antibiotic ointment to the affected area with dressing changes. If wound condition worsens (increased/expanding redness, developing fluid blisters, or worsening pain), either contact your doctor for an urgent re- assessment , or return to the Emergency Department. Return to the Emergency Department for any new or worsening symptoms. Return to the ED, urgent care, or vist a primary care doctor for removal or suture or cassandra Return if fever greater than 100.4 Fahrenheit, increased swelling, increasing pain or worsening symptoms such as increased discharge or spreading redness. Prescriptions: No Action atorvastatin [Lipitor] 20 MG tablet 20 mg PO QDAY Qty: 0 RF: 0 warfarin 4 mg Tablet 4 mg PO TUTH RF: 0 alprazolam [Xanax] 0.5 mg Tablet 0.5 mg PO BID-TID PRN (Reason: Anxiety) RF: 0 warfarin 5 mg Tablet See Rx Instructions .ROUTE .COMPLEX RF: 0 doxepin 75 mg Capsule 50 mg PO BEDTIME RF: 0 fluoxetine 20 mg Tablet 20 mg PO DAILY RF: 0 Adult Robitussin Peak Cold DM PO PRN PRN (Reason: cough) RF: 0 albuterol sulfate 2.5 mg /3 mL (0.083 %) Solution For Nebulization 1.25 mg INHALATION Q4-6H PRN (Reason: Wheezing) RF: 0 tizanidine 4 mg Tablet 4 mg PO Q6-8H PRN (Reason: Muscle Spasm) RF: 0 furosemide [Lasix] 20 mg Tablet 20 mg PO DAILY RF: 0 Referrals: Polina Sibley MD [Primary Care Provider] -
[2019-07-22] MEDS: BACITRACIN OINT 0.9 GM PCKT 1 APPLIC TOP (00:21)
[2019-07-22 00:27] LABS: INR 1.7 (0.9-1.3); Prothrombin Time 20.4 SECONDS (10.1-12.7)
--- NOTE | 2019-07-22 00:38 | PC.NURSE ---
Skin tears to left forearm cleansed with NS, bacitracin applied, and dressed with Telfa and gauze wrap.
[2019-07-22 01:03] VITALS: BP 159/75; PULSE 67; RESP 16; O2SAT 96
== END 2019-07-22 01:03 | disposition home or self-care (01) ==
PROVIDERS: Emergency Provider Emergency Medicine; PCP Student in an Organized Health Care Education/Training Program
DX: S51.812A Laceration without foreign body of left forearm, initial encounter (principal); W26.8XXA Contact with other sharp object(s), not elsewhere classified, initial encounter; Z79.01 Long term (current) use of anticoagulants
CPT/HCPCS: 36415; 85610; 99283

== ENCOUNTER 2019-10-01 12:14 | Emergency (ER) | payer MEDICARE, SELFPAY ==
--- NOTE | 2019-10-01 20:27 | ED.ABDPAIN ---
HPI - Abdominal Pain General Chief Complaint: Abdominal Pain Stated Complaint: Fighting Hurt Burn, Really Bad Related Data Home Medications Medication Instructions Recorded Confirmed atorvastatin [Lipitor] 20 mg PO QDAY #0 04/07/17 07/21/19 Adult Robitussin Peak Cold DM ml PO PRN PRN 03/25/19 alprazolam [Xanax] 0.5 mg PO BID-TID PRN 03/25/19 07/21/19 doxepin 50 mg PO BEDTIME 03/25/19 07/21/19 fluoxetine 20 mg PO DAILY 03/25/19 07/21/19 warfarin 4 mg PO TUTH 03/25/19 07/21/19 warfarin See Rx Instructions .ROUTE .COMPLEX 03/25/19 03/25/19 albuterol sulfate 1.25 mg INHALATION Q4-6H PRN 07/21/19 07/21/19 furosemide [Lasix] 20 mg PO DAILY 07/21/19 07/21/19 tizanidine 4 mg PO Q6-8H PRN 07/21/19 07/21/19 Allergies Allergy/AdvReac Type Severity Reaction Status Date / Time ibuprofen [IBUPROFEN] Allergy Unknown I feel Verified 03/25/19 18:02 really weird vitamin E (d-alpha Allergy Unknown cold sores Verified 03/25/19 18:02 tocopherol) [VITAMIN E] adhesive [ADHESIVE] AdvReac Unknown tape Verified 03/25/19 17:21 Patient History Social History household members: family Smoking Status: Current every day smoker alcohol intake: current alcohol intake frequency: a few times a week Substance Use Type: does not use MDM - Abdominal Pain ECG Data Attestation: I personally reviewed and interpreted this ECG as follows: Prior ECG tracings: available for review Interpretation: Ventricularly paced rhythm with a rate of 60 QRS of 154 and QTC of 499. Similar to prior from 03/25/2019 [facility] Narrative Medical decision making narrative: Patient left without being seen. Discharge Plan Departure Patient Disposition: Left Without Being Seen Clinical Impression: Patient left without being seen, Patient left after triage Discharge Date/Time: 10/01/19 15:24
== END 2019-10-01 15:24 | disposition left against medical advice (07) ==
PROVIDERS: Emergency Provider Emergency Medicine; PCP Student in an Organized Health Care Education/Training Program
DX: R10.9 Unspecified abdominal pain (principal)
CPT/HCPCS: 93005; 99281

== ENCOUNTER 2019-10-11 06:19 | Day surgery (SDC) | payer MEDICARE, SELFPAY ==
[2019-10-11 07:15] VITALS: BP 145/84; PULSE 59; RESP 15; TEMP 36.4; O2SAT 96
[2019-10-11] MEDS: PROPARACAINE 0.5% OPHTH SOL 2 DROPS EYE-OP (07:15)
[2019-10-11 07:19] VITALS: BMI 30.5
[2019-10-11] MEDS: CATARACT EYE COMPOUND (10 DROPS/SYRINGE) 3 DROPS EYE-OP (07:20)
--- NOTE | 2019-10-11 07:23 | PM.PREOP ---
Pre-operative Note Interval Note History & Physical reviewed/Exam performed by Physician: Yes Changes to H&P: No
[2019-10-11] MEDS: BALANCED SALT IRRIG SOLN NO.2 15 ML 5 ML IRR (08:15)
[2019-10-11] MEDS: LIDOCAINE 2% INJ SDV 2 ML INJ (08:16)
[2019-10-11] MEDS: CHONDROIDTIN/SOD HYALURONATE 1.05 ML SYRINGE INTRAOCULA (08:16)
[2019-10-11] MEDS: MOXIFLOXACIN INJ 5 MG/ML VIAL EYE-OP (08:17)
[2019-10-11] MEDS: PHENYLEPHRINE/LIDOCAINE VIAL (OR) 0.2 ML EYE-OP (08:18)
[2019-10-11] MEDS: TETRACAINE 0.5% OPHTH DROPS 4 ML 2 DROPS EYE-OP (08:18)
[2019-10-11] MEDS: BALANCED SALT IRRIG SOLN NO.2 500 ML, EPINEPHrine 1 MG IRR (08:18)
--- NOTE | 2019-10-11 08:28 | PM.OP.1 ---
Procedure & Clinicians Procedure: Cataract extraction with intraocular lens implant, right Same procedure as scheduled: Yes Indications: Visually significant age related nuclear sclerosis cataract, right Surgeon: Mayco Germain Click Yes if Unassisted: Yes Anesthesia Type: MAC +/- Operative Notes Procedure in detail: The patient was brought to the operating suite. The correct patient, surgical site and lens were confirmed. 0.5 % tetracaine drops were placed in the right eye. The patient was prepped and draped in the typical sterile manner. A lid speculum was placed in the eye. 2% lidocaine was placed on the eye. A paracentesis port was created with a side-port blade. 0.1 mL of 1% preservative free lidocaine with phenylephrine was injected into the anterior chamber. Viscoelastic was injected into the anterior chamber. A 2.6mm keratome was used to create a clear corneal temporal incision. Cystotome and Utrata forceps were used to create a continuous curvilinear capsulorrhexis. Balanced salt solution was used to hydrodissect the nucleus. Phacoemulsification was used to remove the lens. The capsular bag was inflated with viscoelastic. A Mtz ZCBOO +25.5D lens was inserted into the capsule. Viscoelastic was removed and the wound hydrated. The wound was found to be leak free and the eye was assessed to be at normal physiologic pressure. 0.1mL Vigamox was injected into the anterior chamber. The lid speculum was removed and the patient left the operating room in excellent condition. Complications: none Post-operative Condition: stable Disposition: same day surgery
[2019-10-11 08:31] VITALS: BP 175/84; PULSE 60; RESP 20; TEMP 36.3; O2SAT 97
== END 2019-10-11 08:45 | disposition home or self-care (01) ==
LOC: OR 06:20
PROVIDERS: PCP Student in an Organized Health Care Education/Training Program; Visit Provider Ophthalmology
PROC: (CPT 66984; principal; 2019-10-11 07:45)
DX: H25.11 Age-related nuclear cataract, right eye (principal); Z95.0 Presence of cardiac pacemaker; F41.9 Anxiety disorder, unspecified; F32.9 Major depressive disorder, single episode, unspecified
CPT/HCPCS: 66984; J0171; J2250; J3010

== ENCOUNTER 2019-10-25 07:28 | Day surgery (SDC) | payer MEDICARE, SELFPAY ==
[2019-10-25 08:03] VITALS: BP 140/70; PULSE 70; RESP 15; TEMP 36.6; O2SAT 95; BMI 29.8
[2019-10-25] MEDS: PROPARACAINE 0.5% OPHTH SOL 2 DROPS EYE-OP (08:05)
[2019-10-25] MEDS: CATARACT EYE COMPOUND (10 DROPS/SYRINGE) 3 DROPS EYE-OP (08:11)
[2019-10-25 08:19] VITALS: BMI 29.8
--- NOTE | 2019-10-25 08:54 | PM.PREOP ---
Pre-operative Note Interval Note History & Physical reviewed/Exam performed by Physician: Yes Changes to H&P: No
[2019-10-25] MEDS: MOXIFLOXACIN INJ 5 MG/ML VIAL EYE-OP (09:16)
[2019-10-25] MEDS: CHONDROIDTIN/SOD HYALURONATE 1.05 ML SYRINGE INTRAOCULA (09:16)
[2019-10-25] MEDS: PHENYLEPHRINE/LIDOCAINE VIAL (OR) 0.2 ML EYE-OP (09:16)
[2019-10-25] MEDS: TETRACAINE 0.5% OPHTH DROPS 4 ML 2 DROPS EYE-OP (09:17)
[2019-10-25] MEDS: BALANCED SALT IRRIG SOLN NO.2 15 ML 5 ML IRR (09:18)
[2019-10-25] MEDS: BALANCED SALT IRRIG SOLN NO.2 500 ML, EPINEPHrine 1 MG IRR (09:18)
[2019-10-25] MEDS: LIDOCAINE 2% INJ SDV 2 ML INJ (09:18)
--- NOTE | 2019-10-25 09:31 | PM.OP.1 ---
Procedure & Clinicians Procedure: Cataract extraction with intraocular lens implant, left Same procedure as scheduled: Yes Indications: Visually significant age related nuclear sclerosis, left Surgeon: Mayco Germain Click Yes if Unassisted: Yes Anesthesia Type: MAC +/- Operative Notes Procedure in detail: The patient was brought to the operating suite. The correct patient, surgical site and lens were confirmed. 0.5 % tetracaine drops were placed in the left eye. The patient was prepped and draped in the typical sterile manner. A lid speculum was placed in the eye. 2% lidocaine was placed on the eye. A paracentesis port was created with a side-port blade. 0.1 mL of 1% preservative free lidocaine with phenylephrine was injected into the anterior chamber. Viscoelastic was injected into the anterior chamber. A 2.6mm keratome was used to create a clear corneal temporal incision. Cystotome and Utrata forceps were used to create a continuous curvilinear capsulorrhexis. Balanced salt solution was used to hydrodissect the nucleus. Phacoemulsification was used to remove the lens. The capsular bag was inflated with viscoelastic. A Mtz ZCBOO +22.5D lens was inserted into the capsule. Viscoelastic was removed and the wound hydrated. The wound was found to be leak free and the eye was assessed to be at normal physiologic pressure. 0.1mL Vigamox was injected into the anterior chamber. The lid speculum was removed and the patient left the operating room in excellent condition. Complications: none Post-operative Condition: stable Disposition: same day surgery
[2019-10-25 09:41] VITALS: BP 166/79; PULSE 63; RESP 16; TEMP 36.7; O2SAT 95
== END 2019-10-25 10:00 | disposition home or self-care (01) ==
LOC: OR 07:29
PROVIDERS: PCP Family Medicine; Visit Provider Ophthalmology
PROC: (CPT 66984; principal; 2019-10-25 08:30)
DX: H25.12 Age-related nuclear cataract, left eye (principal); Z95.0 Presence of cardiac pacemaker; F41.9 Anxiety disorder, unspecified; F32.9 Major depressive disorder, single episode, unspecified
CPT/HCPCS: 66984; J0171; J2250; J3010

== ENCOUNTER → 2019-10-26 15:37 | Outpatient (ROUT) | payer MEDICARE, SELFPAY ==
[2019-10-26 17:45] LABS: INR 4.1 (0.9-1.3); Prothrombin Time 48.9 SECONDS (10.1-12.7)
== END ==
PROVIDERS: PCP Family Medicine; Visit Provider Student in an Organized Health Care Education/Training Program
DX: Z79.01 Long term (current) use of anticoagulants (principal); Z95.0 Presence of cardiac pacemaker
CPT/HCPCS: 85610

== ENCOUNTER → 2019-11-27 09:33 | Outpatient (CLI) | payer MEDICARE, SELFPAY ==
[2019-11-27 10:38] LABS: Add Manual Diff / Slide Review NO; Basophils Absolute Auto 100 /uL (0-100); Eosinophils Absolute Auto 100 /uL (0-450); Eosinophils Percent Auto 1.4 % (2-4); Hematocrit 40.8 % (36-46); Hemoglobin 13.7 g/dL (12.0-16.0); Lymphocytes Absolute Auto 600 /uL (1100-4500); Lymphocytes Percent Auto 11.2 % (25-40); Mean Corpuscular HGB Conc 33.6 % (30-36); Mean Corpuscular Hemoglobin 28.9 PG (26-34); Mean Corpuscular Volume 85.8 fL (80-100); Monocytes Absolute Auto 600 /uL (0-900); Monocytes Percent Auto 10.4 % (3-14); Neutrophils Absolute Auto 4300 /uL (1500-7000); Platelet Count 249 X10^3/uL (150-400); Red Blood Cell Count 4.75 X10^6/uL (4.0-5.2); Red Cell Distribution Width 15.2 % (11.6-14.8); White Blood Cell Count 5.6 X10^3/uL (4.5-11.0)
[2019-11-27 10:46] LABS: Appearance Urine UA CLEAR; Bilirubin Urine UA NEGATIVE (NEGATIVE); Color Urine UA YELLOW; Glucose Urine UA NEGATIVE (Negative); Ketones Urine UA NEGATIVE (NEGATIVE); Leukocyte Esterase Urine UA NEGATIVE (NEGATIVE); Nitrite Urine UA NEGATIVE (Negative); Occult Blood Urine UA 2+ (Negative); Protein Urine UA TRACE (Negative); Urobilinogen Urine UA 0.2 E.U./dL (0.2)
[2019-11-27 11:11] LABS: Alanine Aminotransferase 23 IU/L (<35); Albumin 4.2 g/dL (3.5-5.0); Alkaline Phosphatase 73 U/L (38-126); Aspartate Aminotransferase 30 IU/L (14-36); BUN Creatinine Ratio 15.6 (6-22); Bilirubin Total 1.2 mg/dL (0.2-1.3); Blood Urea Nitrogen 14 mg/dL (7-17); Calcium 9.5 mg/dL (8.4-10.2); Carbon Dioxide 30 mmol/L (22-32); Chloride 103 mmol/L (98-107); Cholesterol 168 mg/dL (140-199); Estimated Glomerular Filt Rate > 60.0 mL/min (>60); Globulin 2.1 g/dL (1.7-4.1); Glucose 96 mg/dL (80-110); HDL Cholesterol 71 mg/dL (40-60); HEMOLYSIS < 15 (0-50); LDL Cholesterol Calculated 75 mg/dL (<100); Potassium 4.2 mmol/L (3.4-5.1); Sodium 141 mmol/L (137-145); Total Protein 6.3 g/dL (6.3-8.2); Triglycerides 112 mg/dL (35-150)
[2019-11-27 11:26] LABS: RBC Urine 1-5/HPF (0-5/HPF)
[2019-11-27 11:27] LABS: Bacteria Urine Few (2-10); Culture Indicated Urine Cult Not Indicated; Mucus Urine 1+ (Negative); Squamous Epithelial Cell Urine 0-1 /HPF (0-5/HPF); WBC Urine 0-1/HPF (0-5/HPF)
[2019-11-27 11:40] LABS: Thyroid Stimulating Hormone 4.85 uIU/mL (0.47-4.68)
== END ==
PROVIDERS: PCP Family Medicine; Visit Provider Family Medicine
DX: Z13.220 Encounter for screening for lipoid disorders (principal); F32.9 Major depressive disorder, single episode, unspecified; M62.81 Muscle weakness (generalized); F41.9 Anxiety disorder, unspecified; I48.91 Unspecified atrial fibrillation; Z79.01 Long term (current) use of anticoagulants; K29.70 Gastritis, unspecified, without bleeding; K85.90 Acute pancreatitis without necrosis or infection, unspecified; R10.9 Unspecified abdominal pain
CPT/HCPCS: 36415; 80053; 80061; 81003; 81015; 84443; 85025

== ENCOUNTER → 2019-12-21 13:31 | Outpatient (CLI) | payer MEDICARE, SELFPAY ==
[2019-12-21 15:02] LABS: Free T4, Direct Thyroxine 0.99 ng/dL (0.78-2.19)
[2019-12-21 15:15] LABS: Thyroid Stimulating Hormone 2.66 uIU/mL (0.47-4.68)
== END ==
PROVIDERS: PCP Family Medicine; Visit Provider Family Medicine
DX: R79.89 Other specified abnormal findings of blood chemistry (principal); E03.9 Hypothyroidism, unspecified
CPT/HCPCS: 36415; 84439; 84443; 84481

== ENCOUNTER → 2020-07-01 11:23 | Outpatient (CLI) | payer MEDICARE, SELFPAY ==
--- NOTE | 2020-07-01 | DI.MG.S_ITS ---
BILATERAL DIGITAL SCREENING MAMMOGRAM 3D/2D WITH CAD: 07/01/2020 CLINICAL: Routine screening. Family history of breast cancer. Comparison is made to exams dated: 06/01/2019 mammogram, 06/03/2017 mammogram, and 06/13/2015 mammogram - [facility]. The tissue of both breasts is heterogeneously dense. This may lower the sensitivity of mammography. Current study was also evaluated with a Computer Aided Detection (CAD) system. No significant masses, calcifications, or other findings are seen in either breast. There has been no significant interval change. IMPRESSION: NEGATIVE There is no mammographic evidence of malignancy. A 1 year screening mammogram is recommended. This exam was interpreted at Station ID: [id number]. NOTE: For mammograms, a report in lay terms will be sent to the patient. Approximately 15% of breast malignancies will not be visualized mammographically. In the management of a palpable breast mass, a negative mammogram must not discourage biopsy of a clinically suspicious lesion. Electronically Signed By: Rex Dumont M.D., jr/ganesh:07/01/2020 15:28:36 letter sent: Normal Exam ACR BI-RADS Category 1: Negative [id number]
== END ==
PROVIDERS: PCP Family Medicine; Referring Provider Family Medicine; Visit Provider Family Medicine
DX: Z12.31 Encounter for screening mammogram for malignant neoplasm of breast (principal); Z80.3 Family history of malignant neoplasm of breast
CPT/HCPCS: 77063; 77067

== ENCOUNTER → 2020-07-17 15:08 | Outpatient (CLI) | payer MEDICARE, SELFPAY ==
[2020-07-17 17:17] LABS: Add Manual Diff / Slide Review NO; Basophils Absolute Auto 0 /uL (0-100); Basophils Percent Auto 0.7 % (0-2); Eosinophils Absolute Auto 0 /uL (0-450); Eosinophils Percent Auto 0.4 % (2-4); Hematocrit 41.3 % (36-46); Hemoglobin 14.2 g/dL (12.0-16.0); Lymphocytes Absolute Auto 600 /uL (1100-4500); Lymphocytes Percent Auto 12.5 % (25-40); Mean Corpuscular HGB Conc 34.4 % (30-36); Mean Corpuscular Hemoglobin 30.8 PG (26-34); Mean Corpuscular Volume 89.7 fL (80-100); Monocytes Absolute Auto 500 /uL (0-900); Monocytes Percent Auto 10.2 % (3-14); Neutrophils Absolute Auto 3800 /uL (1500-7000); Neutrophils Percent Auto 76.2 % (50-75); Platelet Count 189 X10^3/uL (150-400); Red Blood Cell Count 4.61 X10^6/uL (4.0-5.2); Red Cell Distribution Width 16.1 % (11.6-14.8)
[2020-07-17 17:45] LABS: Alanine Aminotransferase 29 IU/L (<35); Albumin 4.1 g/dL (3.5-5.0); Alkaline Phosphatase 59 U/L (38-126); Aspartate Aminotransferase 34 IU/L (14-36); BUN Creatinine Ratio 17.6 (6-22); Bilirubin Total 1.2 mg/dL (0.2-1.3); Blood Urea Nitrogen 13 mg/dL (7-17); Calcium 9.5 mg/dL (8.4-10.2); Carbon Dioxide 30 mmol/L (22-32); Chloride 102 mmol/L (98-107); Cholesterol 134 mg/dL (140-199); Estimated Glomerular Filt Rate > 60.0 mL/min (>60); Globulin 2.1 g/dL (1.7-4.1); Glucose 91 mg/dL (80-110); HDL Cholesterol 83 mg/dL (40-60); HEMOLYSIS < 15 (0-50); LDL Cholesterol Calculated 38 mg/dL (<100); Potassium 4.5 mmol/L (3.4-5.1); Sodium 137 mmol/L (137-145); Total Protein 6.2 g/dL (6.3-8.2); Triglycerides 63 mg/dL (35-150)
== END ==
PROVIDERS: PCP Family Medicine; Referring Provider Family Medicine; Visit Provider Family Medicine
DX: I48.91 Unspecified atrial fibrillation (principal); Z98.890 Other specified postprocedural states; Z79.899 Other long term (current) drug therapy
CPT/HCPCS: 36415; 80053; 80061; 85025

== ENCOUNTER 2021-01-30 21:58 | Emergency (ER) | payer MEDICARE, SELFPAY ==
[2021-01-30] VITALS (8 sets, daily range): BP systolic 121–168; BP diastolic 58–78; PULSE 60; RESP 13–31; TEMP 36.4; O2SAT 96–98
--- NOTE | 2021-01-30 22:00 | DI.CT.S_ITS ---
PROCEDURE: CT CERVICAL SPINE WO CON INDICATIONS: GLF on thinners ETOH TECHNIQUE: Noncontrast 3 mm thick sections acquired from the skull base to the T4 level. Sagittal and coronal reformats were then constructed. For radiation dose reduction, the following was used: automated exposure control, adjustment of mA and/or kV according to patient size. COMPARISON: None. FINDINGS: Image quality: Excellent. Bones: No fractures or dislocations. Visualized superior ribs are intact. Moderate to severe cervical spondylosis. Trace anterolisthesis of C7 on T1. Trace retrolisthesis of C6 on C7. Trace retrolisthesis of C5 on C6. Trace anterolisthesis of C4 on C5. Severe disc height loss and anterior osteophytosis and uncovertebral joint hypertrophy at C5-C6. Multilevel facet arthropathy. Soft tissues: Prevertebral soft tissues are normal in thickness. No paravertebral hematomas. No apical pneumothoraces. IMPRESSION: 1. No evidence acute cervical fracture or dislocation. 2. Cervical spondylosis. Comment: Final report is concordant with preliminary interpretation provided by [facility]. Dictated by: Bhavesh Beth M.D. on 01/31/2021 at 5:25 Approved by: Bhavesh Beth M.D. on 01/31/2021 at 5:31
--- NOTE | 2021-01-30 22:00 | DI.CT.S_ITS ---
PROCEDURE: CT HEAD/BRAIN WO CON INDICATIONS: GLF on thinners ETOH TECHNIQUE: Noncontrast 4.5 mm thick angled axial sections acquired from the foramen magnum to the vertex, with coronal and sagittal reformats. For radiation dose reduction, the following was used: automated exposure control, adjustment of mA and/or kV according to patient size. COMPARISON: None. FINDINGS: Image quality: Excellent. CSF spaces: Basal cisterns are patent. No extra-axial fluid collections. The ventricles are symmetric in size and shape. Brain: No intracranial bleeds or masses. There is cerebral volume loss for age, with resultant ventricular and sulcal prominence. There are periventricular and deep white matter chronic small vessel ischemic changes. There is intracranial internal carotid artery atherosclerosis. Skull and face: Calvarium and visualized facial bones appear intact, without suspicious lesions. Sinuses: Visualized sinuses and mastoids are clear. IMPRESSION: Negative for acute stroke, hemorrhage, or mass. No evidence of significant intracranial sequelae of acute trauma. Comment: Final report is concordant with preliminary interpretation provided by [facility]. Dictated by: Bhavesh Beth M.D. on 01/31/2021 at 5:23 Approved by: Bhavesh Beth M.D. on 01/31/2021 at 5:24
--- NOTE | 2021-01-30 22:15 | DI.RAD.S_ITS ---
PROCEDURE: XR CHEST 1V INDICATIONS: syncope TECHNIQUE: One view of the chest was acquired. COMPARISON: [facility], CR, XR CHEST 1V, 03/27/2019, 8:52. FINDINGS: Surgical changes and devices: Pacer, valve Lungs and pleura: Lungs are clear. No pleural effusions or pneumothorax. Mediastinum: Mediastinal contours appear normal. Marked cardiomegaly, not significantly changed. Bones and chest wall: No suspicious bony lesions. Overlying soft tissues appear unremarkable. IMPRESSION: 1. Unchanged marked cardiomegaly. 2. No evidence acute pulmonary process. Comment: Final report is concordant with preliminary interpretation provided by [facility]. Dictated by: Bhavesh Beth M.D. on 01/31/2021 at 5:31 Approved by: Bhavesh Beth M.D. on 01/31/2021 at 5:33
[2021-01-30 22:27] LABS: Bacteria Urine None Seen; RBC Urine None Seen (0-5/HPF); WBC Urine None Seen (0-5/HPF)
[2021-01-30 22:33] LABS: Appearance Urine UA CLEAR; Bilirubin Urine UA NEGATIVE (NEGATIVE); Glucose Urine UA NEGATIVE (Negative); Ketones Urine UA NEGATIVE (NEGATIVE); Leukocyte Esterase Urine UA TRACE (NEGATIVE); Nitrite Urine UA NEGATIVE (Negative); Occult Blood Urine UA 1+ (Negative); Protein Urine UA NEGATIVE (Negative); Specific Gravity Urine UA <=1.005 (1.000-1.035); Urobilinogen Urine UA 0.2 E.U./dL (0.2)
[2021-01-30 22:33] LABS: Add Manual Diff / Slide Review NO; Basophils Absolute Auto 0 /uL (0-100); Basophils Percent Auto 0.2 % (0-2); Eosinophils Absolute Auto 100 /uL (0-450); Eosinophils Percent Auto 1.1 % (2-4); Hemoglobin 12.3 g/dL (12.0-16.0); Lymphocytes Absolute Auto 900 /uL (1100-4500); Lymphocytes Percent Auto 14.8 % (25-40); Mean Corpuscular HGB Conc 32.4 % (30-36); Mean Corpuscular Hemoglobin 28.9 PG (26-34); Mean Corpuscular Volume 89.2 fL (80-100); Monocytes Absolute Auto 600 /uL (0-900); Monocytes Percent Auto 10.5 % (3-14); Neutrophils Absolute Auto 4400 /uL (1500-7000); Neutrophils Percent Auto 73.4 % (50-75); Platelet Count 200 X10^3/uL (150-400); Red Blood Cell Count 4.26 X10^6/uL (4.0-5.2); Red Cell Distribution Width 14.3 % (11.6-14.8)
[2021-01-30 22:37] LABS: Color Urine UA Straw; pH Urine UA 5.5 (4.5-8.0)
[2021-01-30 22:47] LABS: Culture Indicated Urine Specimen Cultured
[2021-01-30 22:56] LABS: Ethanol (ETOH) 158 mg/dL
[2021-01-30 22:57] LABS: Alanine Aminotransferase 27 IU/L (<35); Albumin 4.4 g/dL (3.5-5.0); Albumin Globulin Ratio 1.9 (1.0-2.8); Alkaline Phosphatase 57 U/L (38-126); Aspartate Aminotransferase 35 IU/L (14-36); BUN Creatinine Ratio 34.3 (6-22); Bilirubin Total 0.4 mg/dL (0.2-1.3); Blood Urea Nitrogen 24 mg/dL (7-17); Calcium 9.5 mg/dL (8.4-10.2); Carbon Dioxide 29 mmol/L (22-32); Chloride 107 mmol/L (98-107); Estimated Glomerular Filt Rate > 60.0 mL/min (>60); Globulin 2.3 g/dL (1.7-4.1); Glucose 79 mg/dL (80-110); HEMOLYSIS < 15 (0-50); Lipase 742 U/L (23-300); Magnesium 2.4 mg/dL (1.6-2.3); Potassium 4.1 mmol/L (3.4-5.1); Sodium 141 mmol/L (137-145); Total Protein 6.7 g/dL (6.3-8.2)
[2021-01-30 23:08] LABS: Troponin I 0.021 ng/mL (0.01-0.034)
--- NOTE | 2021-01-30 23:25 | ED_ITS ---
HPI - Fall General Chief Complaint: Fall Stated Complaint: Passed Out On Thinners Time Seen by Provider: 01/30/21 22:02 History of Present Illness HPI Narrative: 75-year-old woman with a history of mitral valve replacement after rheumatic fever who was at the [place] this evening for a couple of drinks and an trying to get to the bathroom had a syncopal episode. Her male friend was with her and helped her to the ground however they both stumbled a bit and she did hit her head. She has no recollection of the events. She is anticoagulated on warfarin for a mitral valve replacement. She has no complaints of pain. She reports no prior fever, chills, palpitations, dyspnea, abdominal pain, nausea, vomiting. Related Data Previous Rx's Medication Instructions Recorded tizanidine 4 mg tablet See Rx Instructions .ROUTE 07/16/20 .COMPLEX #30 tablet fluoxetine 20 mg tablet 40 mg PO DAILY #180 tab 08/19/20 trazodone 50 mg tablet See Rx Instructions .ROUTE 08/26/20 .COMPLEX #90 tab atorvastatin 20 mg tablet 20 mg PO QDAY #90 tab 01/26/21 alprazolam 0.5 mg tablet See Rx Instructions .ROUTE 01/27/21 .COMPLEX #60 tab warfarin 4 mg tablet 4 mg PO QTUTHSASU #60 tab 01/27/21 warfarin 5 mg tablet 5 mg PO QMWF #60 tab 01/27/21 Allergies Allergy/AdvReac Type Severity Reaction Status Date / Time ibuprofen [IBUPROFEN] Allergy Unknown I feel Verified 08/19/20 14:34 really weird vitamin E (d-alpha Allergy Unknown cold sores Verified 08/19/20 14:34 tocopherol) [VITAMIN E] hydrocodone [From Vicodin] AdvReac Severe Anxiety Verified 08/19/20 14:34 oxycodone AdvReac Severe Irritable Verified 08/19/20 14:34 adhesive [ADHESIVE] AdvReac Unknown tape Verified 08/19/20 14:34 Review of Systems Review of Systems ROS Unobtainable: All systems reviewed & are unremarkable except as noted in HPI and below Patient History Medical History Ankle pain (~2016) Cataracts, bilateral Chicken pox (~1947) Chronic back pain (~1990) Cyst of right breast Depression Family history of colon cancer Greater trochanteric bursitis of both hips History of rheumatic fever Kidney stones (~2007) Measles (~1946) Mumps (~194) Ovarian cyst Recurrent sinusitis Rheumatic fever (~195) Shoulder pain Surgical History Anesthesia History of cholecystectomy (~1989) History of hysterectomy (~1970) Mitral valve replaced (~2008) Pacemaker (~1997) Family History Father Cancer Mother Cancer Sister COPD (chronic obstructive pulmonary disease) Social History household members: family Smoking Status: Current every day smoker alcohol intake: current Smoking Status: Current every day smoker alcohol intake frequency: a few times a week Substance Use Type: does not use Exam Narrative Exam Narrative: General: On backboard and C-collar. Awake and answering questions. Does not remember events prior to arrival in the emergency department. Slightly slurred speech and smells of alcohol HEENT: Moist mucous membranes, injected l sclera with reactive pupils, no trauma to the head or face Neck: No JVD, supple. No cervical spine tenderness. No subcutaneous air Respiratory: Lungs are clear to auscultation, no wheezing no rales no rhonchi. Full and symmetrical air movement Chest: No tenderness to palpation, no contusions or ecchymosis. Cardiac: Regular rate and rhythm no murmurs no bruits Abdomen: Soft, nontender, good bowel tones, no flank pain Spine: No tenderness along thoracic or lumbar spine. No abrasions or contusions to her back hips her flanks. No tenderness with manipulation of pelvic ring. Skin: Warm and dry, no rashes Neurologic: Globally weak, slightly slurred speech nonfocal exam Extremities: No trauma, well perfused Psych: Acutely intoxicated but cooperative Initial Vital Signs Initial Vital Signs: Vital Signs Temperature 97.6 F 01/30/21 22:00 Pulse Rate 60 01/30/21 22:00 Respiratory Rate 16 01/30/21 22:00 Blood Pressure 144/68 H 01/30/21 22:00 Pulse Oximetry 97 01/30/21 22:00 Course Orders Ordered: ED Orders 01/30/21 22:00 CT cervical spine wo con Stat CT head/brain wo con Stat 01/30/21 22:07 Urinalysis and Microscopic Stat Urine Culture Stat 01/30/21 22:10 Complete Blood Count AUTO DIFF Stat 01/30/21 22:15 XR chest 1V Stat EKG-12 Lead Stat 01/30/21 22:35 Comprehensive Metabolic Panel Stat Ethanol (ETOH) Stat Lipase Stat Magnesium Stat Troponin I Stat 01/30/21 22:48 COVID19 Stat Vital Signs Vital signs: Vital Signs - 8 hr 01/30/21 22:00 01/30/21 22:08 01/30/21 22:14 Temperature 97.6 F Pulse Rate 60 60 60 Respiratory Rate 16 19 16 Blood Pressure 144/68 H 168/78 H Pulse Oximetry 97 98 98 01/30/21 22:30 01/30/21 22:31 01/30/21 23:00 Temperature Pulse Rate 60 60 60 Respiratory Rate 17 13 31 H Blood Pressure 134/64 130/68 Pulse Oximetry 96 97 98 01/30/21 23:30 01/30/21 23:31 Temperature Pulse Rate 60 60 Respiratory Rate 24 27 H Blood Pressure 121/58 L Pulse Oximetry 97 98 MDM - Fall Medical Records Attestation: I reviewed the patient's medical records. Lab Data Attestation: I reviewed the patient's lab results. Result diagrams: 01/30/21 22:10 01/30/21 22:35 Labs: Lab Results 01/30/21 01/30/21 01/30/21 Range/Units 22:07 22:10 22:35 WBC 6.0 (4.5-11.0) X10^3/uL RBC 4.26 (4.0-5.2) X10^6/uL Hgb 12.3 (12.0-16.0) g/dL Hct 38.0 (36-46) % MCV 89.2 (80-100) fL MCH 28.9 (26-34) PG MCHC 32.4 (30-36) % RDW 14.3 (11.6-14.8) % Plt Count 200 (150-400) X10^3/uL Neut % (Auto) 73.4 (50-75) % Lymph % (Auto) 14.8 L (25-40) % [place] % (Auto) 10.5 (3-14) % Eos % (Auto) 1.1 L (2-4) % Baso % (Auto) 0.2 (0-2) % Neut # (Auto) 4400 (7376-7003) /uL Lymph # (Auto) 900 L (8233-2513) /uL [place] # (Auto) 600 (0-900) /uL Eos # (Auto) 100 (0-450) /uL Baso # (Auto) 0 (0-100) /uL Sodium (137-145) mmol/L Potassium (3.4-5.1) mmol/L Chloride (98-107) mmol/L Carbon Dioxide (22-32) mmol/L BUN (7-17) mg/dL Creatinine (0.52-1.04) mg/dL Estimated GFR (>60) mL/min BUN/Creatinine Ratio (6-22) Glucose (80-110) mg/dL Calcium (8.4-10.2) mg/dL Magnesium (1.6-2.3) mg/dL Total Bilirubin (0.2-1.3) mg/dL AST (14-36) IU/L ALT (<35) IU/L Alkaline Phosphatase (38-126) U/L Troponin I (0.01-0.034) ng/mL Total Protein (6.3-8.2) g/dL Albumin (3.5-5.0) g/dL Globulin (1.7-4.1) g/dL Albumin/Globulin Ratio (1.0-2.8) Lipase (23-300) U/L Urine Color Straw Urine Appearance Clear Urine pH 5.5 (4.5-8.0) Ur Specific [place] <=1.005 (1.000-1.035) Urine Protein Negative (Negative) Urine Glucose (UA) Negative (Negative) g/dL Urine Ketones Negative (NEGATIVE) Urine Occult Blood 1+ H (Negative) Urine Nitrate Negative (Negative) Urine Bilirubin Negative (NEGATIVE) Urine Urobilinogen 0.2 (0.2) E.U./dL Ur Leukocyte Esterase Trace H (NEGATIVE) Urine RBC None seen (0-5/HPF) Urine WBC None seen (0-5/HPF) Urine Bacteria None seen (None) Ur Culture Indicated? Specimen cultured Ethyl Alcohol 158 H ( - 10) mg/dL 01/30/21 Range/Units 22:35 WBC (4.5-11.0) X10^3/uL RBC (4.0-5.2) X10^6/uL Hgb (12.0-16.0) g/dL Hct (36-46) % MCV (80-100) fL MCH (26-34) PG MCHC (30-36) % RDW (11.6-14.8) % Plt Count (150-400) X10^3/uL Neut % (Auto) (50-75) % Lymph % (Auto) (25-40) % [place] % (Auto) (3-14) % Eos % (Auto) (2-4) % Baso % (Auto) (0-2) % Neut # (Auto) (5912-2051) /uL Lymph # (Auto) (8314-1372) /uL [place] # (Auto) (0-900) /uL Eos # (Auto) (0-450) /uL Baso # (Auto) (0-100) /uL Sodium 141 (137-145) mmol/L Potassium 4.1 (3.4-5.1) mmol/L Chloride 107 (98-107) mmol/L Carbon Dioxide 29 (22-32) mmol/L BUN 24 H (7-17) mg/dL Creatinine 0.70 (0.52-1.04) mg/dL Estimated GFR > 60.0 (>60) mL/min BUN/Creatinine Ratio 34.3 H (6-22) Glucose 79 L (80-110) mg/dL Calcium 9.5 (8.4-10.2) mg/dL Magnesium 2.4 H (1.6-2.3) mg/dL Total Bilirubin 0.4 (0.2-1.3) mg/dL AST 35 (14-36) IU/L ALT 27 (<35) IU/L Alkaline Phosphatase 57 (38-126) U/L Troponin I 0.021 (0.01-0.034) ng/mL Total Protein 6.7 (6.3-8.2) g/dL Albumin 4.4 (3.5-5.0) g/dL Globulin 2.3 (1.7-4.1) g/dL Albumin/Globulin Ratio 1.9 (1.0-2.8) Lipase 742 H (23-300) U/L Urine Color Urine Appearance Urine pH (4.5-8.0) Ur Specific [place] (1.000-1.035) Urine Protein (Negative) Urine Glucose (UA) (Negative) g/dL Urine Ketones (NEGATIVE) Urine Occult Blood (Negative) Urine Nitrate (Negative) Urine Bilirubin (NEGATIVE) Urine Urobilinogen (0.2) E.U./dL Ur Leukocyte Esterase (NEGATIVE) Urine RBC (0-5/HPF) Urine WBC (0-5/HPF) Urine Bacteria (None) Ur Culture Indicated? Ethyl Alcohol ( - 10) mg/dL Imaging Data CT scan - head: Radiologist's Impression: No acute intracranial abnormalities Scotty Bhatti MD CT - cervical spine: Radiologist's Impression: No acute abnormality or evidence for trauma Desire Bhatti MD Chest x-ray: Radiologist's Impression: No acute cardiopulmonary process. Cardiomegaly. Desire Bhatti MD ECG Data Attestation: I personally reviewed and interpreted this ECG as follows: Interpretation: Paced at a rate of 60 MDM Narrative Medical decision making narrative: 75-year-old woman [facility] and ended up having not only her free drink but her partners free drink and another friends drink. She states that she typically does not drink this much. Had a syncopal episode on her way to the bathroom which she does not remember. She does not remember the ambulance ride to the emergency department. As she has been in the emergency department she is so bring and is much more appropriate. Workup is unremarkable. CT scan of the head neck are reassuring, chest x-ray is normal. No evidence of acute coronary syndrome or significant electrolyte abnormalities. Magnesium is minimally elevated. Lipase is slightly elevated but she has no clinical signs or symptoms of acute pancreatitis. There is no significant trauma on physical exam. Alcohol level is does note that the room is slightly spinning. At this point the most likely explanation for the syncopal episode is acute alcohol intoxication rather than anything more pathologic. There does not appear to be any significant trauma or intracranial hemorrhage secondary to the fall. She is safe for home discharge. Critical Care Time Critical Care Time Critical Care Time: Yes Total Critical Care Time: 32 Attestation: Critical care time is separate from other billable procedures. This critical care time includes consultation with family and other consulting doctors, review of records, and interpretation of data from labs, EKGs and imaging as well as managements of acute geriatric trauma in the setting of anticoagulation Discharge Plan Departure Patient Disposition: Home Clinical Impression: Anticoagulation adequate Alcohol intoxication Qualifiers: Complication of substance-induced condition: uncomplicated Qualified Code(s): F10.920 - Alcohol use, unspecified with intoxication, uncomplicated Episode of syncope Qualifiers: Syncope type: unspecified Qualified Code(s): R55 - Syncope and collapse Instructions: DI for Syncope in Adults (Fainting) Activity Restrictions/Additional Instructions: Thank you for coming in tonight You actually were very rodrigue. I think that you drink a bit more alcohol than you should have, limiting your alcohol to 1 regular drink a day would be a much safer recommendation. You had a syncopal episode presumably from acute alcohol intoxication and fell. On Coumadin/warfarin this can be life-threatening. Fortunately, I found no significant injury on CT scans of the head or your neck. You do not have any pain to suggest injury to other parts of your body. In looking for other causes for why you might have passed out I do not find any evidence of heart attack, infection, dramatic dehydration or acute blood loss. I would recommend some Tylenol and water before you go to bed night and a bit more moderation with your alcohol intake. I wish you the best Prescriptions: No Action tizanidine 4 mg tablet See Rx Instructions .ROUTE .COMPLEX Qty: 30 RF: 1 trazodone 50 mg tablet See Rx Instructions .ROUTE .COMPLEX Qty: 90 RF: 1 atorvastatin [Lipitor] 20 mg tablet 20 mg PO QDAY Qty: 90 RF: 0 warfarin 4 mg tablet 4 mg PO QTUTHSASU Qty: 60 RF: 0 warfarin 5 mg tablet 5 mg PO QMWF Qty: 60 RF: 0 alprazolam 0.5 mg tablet See Rx Instructions .ROUTE .COMPLEX Qty: 60 RF: 0 fluoxetine 20 mg tablet 40 mg PO DAILY Qty: 180 RF: 1 Referrals: Shahab Cool DO [Primary Care Provider] -
[2021-01-30 23:50] LABS: COVID19 -Nasal RAPID Negative (Negative)
== END 2021-01-30 23:50 | disposition home or self-care (01) ==
PROVIDERS: Emergency Provider Emergency Medicine; PCP Family Medicine
DX: R55 Syncope and collapse (principal); S09.90XA Unspecified injury of head, initial encounter; F10.920 Alcohol use, unspecified with intoxication, uncomplicated; Y90.6 Blood alcohol level of 120-199 mg/100 ml; R47.81 Slurred speech; Z95.2 Presence of prosthetic heart valve; Z79.01 Long term (current) use of anticoagulants
CPT/HCPCS: 36415; 70450; 71045; 72125; 80053; 80320; 81001; 83690; 83735; 84484; 85025; 87086; 87635; 93005; 99285; 99291; C9803

== ENCOUNTER → 2021-08-27 12:50 | Outpatient (CLI) | payer MEDICARE, SELFPAY ==
[2021-08-27 14:24] LABS: BUN Creatinine Ratio 21.8 (6-22); Blood Urea Nitrogen 17 mg/dL (7-17); Calcium 9.6 mg/dL (8.4-10.2); Carbon Dioxide 32 mmol/L (22-32); Chloride 103 mmol/L (98-107); Estimated Glomerular Filt Rate > 60.0 mL/min (>60); Glucose 136 mg/dL (80-110); HEMOLYSIS < 15 (0-50); Magnesium 2.1 mg/dL (1.6-2.3); Potassium 4.3 mmol/L (3.4-5.1); Sodium 140 mmol/L (137-145)
== END ==
PROVIDERS: PCP Family Medicine; Referring Provider Internal Medicine Cardiovascular Disease; Visit Provider Internal Medicine Cardiovascular Disease
DX: I47.2 Ventricular tachycardia (principal); I48.20 Chronic atrial fibrillation, unspecified
CPT/HCPCS: 36415; 80048; 83735; 84443

== ENCOUNTER 2021-09-07 07:19 | Emergency (ER) | payer MEDICARE, SELFPAY ==
[2021-09-07 08:34] VITALS: BP 143/65; PULSE 60; RESP 18; TEMP 36.6; O2SAT 95; BMI 26.6
[2021-09-07 11:53] VITALS: PULSE 60; O2SAT 97
[2021-09-07 11:54] VITALS: BP 154/69; PULSE 60; O2SAT 98
--- NOTE | 2021-09-07 12:09 | PC.NURSE ---
Intense R shoulder pain radiating down to hand since flu shot. decreased movement and ROM. Describes arthritis like pain in R hand and fingers that began before flu shot.
--- NOTE | 2021-09-07 12:33 | DI.RAD.S_ITS ---
PROCEDURE: XR SHOULDER RT MIN 2V INDICATIONS: RIGHT UPPER ARM/SHOULDER PAIN TECHNIQUE: Three views of the shoulder were acquired. COMPARISON: None. FINDINGS: Bones: No fractures or dislocations. Moderate marginal spurring along the inferior aspect of the humeral head. Mild degenerative change at the AC joint. No suspicious bony lesions. Visualized ribs appear intact. Soft tissues: No suspicious soft tissue calcifications. There are two separate cloudlike calcifications superior to the glenohumeral joint, potentially within the glenohumeral joint, rotator cuff tendon or in subacromial bursa. IMPRESSION: 1. No acute fractures. 2. [id number]-nn-bhywmocp degenerative changes. 3. Small soft tissue calcifications may indicate bursitis, calcific tendinitis, or loose bodies. Dictated by: Janeth Valencia M.D. on 09/07/2021 at 13:09 Approved by: Janeth Valencia M.D. on 09/07/2021 at 13:11
--- NOTE | 2021-09-07 12:33 | DI.US.S_ITS ---
PROCEDURE: US PERIPH VENOUS UP EXTREM RT INDICATIONS: SHOULDER PAIN. NO TRAUMA. TECHNIQUE: Real-time imaging, as well as color and pulse Doppler interrogation, was performed of the right upper extremity deep veins from the inferior neck to the antecubital fossa. COMPARISON: None. FINDINGS: The internal jugular vein, visualized portions of the subclavian vein, axillary, and brachial veins are free of intraluminal thrombus. Where physically possible, the veins are normally compressible. Color and pulse Doppler demonstrate normal intraluminal flow, with expected phasicity and pulsatility. Additional scanning of the cephalic and basilic veins of the superficial system demonstrate normal compressibility, without thrombus. Two fluid collections are seen along the anterior aspect of the shoulder, 1 of which measures up to 12 mm and is anechoic. A 2nd is mildly complex and measures 10 x 4 mm. IMPRESSION: Negative for deep venous thrombosis. Two focal fluid collections are seen involving the anterior shoulder, 1 of which appears slightly complex. Dictated by: Deondre Shaw M.D. on 09/07/2021 at 12:42 Approved by: Deondre Shaw M.D. on 09/07/2021 at 12:43
--- NOTE | 2021-09-07 12:48 | ED.UPPEXIN ---
HPI - Extremity Injury (Upper) <Yariel Landaverde PA-C - Last Filed: 09/07/21 14:15> General Chief Complaint: Extremity Injury, Upper Stated Complaint: Hands/right arm pain and swelling post flu shot Time Seen by Provider: 09/07/21 11:59 Source: patient Mode of arrival: Ambulatory Limitations: no limitations History of Present Illness HPI narrative: 76-year-old female with past medical history CAD, status post stents, atrial fibrillation presents to the ED with 4 days of left upper arm, shoulder pain. Patient states that she received a flu vaccine 5 days ago in the right upper arm, following which the next day she started experiencing pain. Patient denies numbness, tingling, weakness. Patient states that it is extremely painful to move her arm. Patient denies any trauma. Patient denies fever, chills, chest pain, shortness of breath, cough, nausea, vomiting, abdominal pain, dysuria, lightheadedness, dizziness, syncope. Patient is on blood thinners. Denies history of DVTs/PEs. Related Data Previous Rx's Medication Instructions Recorded handicap placard #1 ea 06/17/21 fluoxetine 20 mg capsule See Rx Instructions .ROUTE 07/01/21 .COMPLEX #180 cap atorvastatin 20 mg tablet See Rx Instructions .ROUTE 07/24/21 .COMPLEX #90 tab trazodone 50 mg tablet See Rx Instructions .ROUTE 08/13/21 .COMPLEX #90 tab warfarin 4 mg tablet See Rx Instructions .ROUTE 08/13/21 .COMPLEX #90 tab warfarin 5 mg tablet See Rx Instructions .ROUTE 08/13/21 .COMPLEX #60 tab alprazolam 0.5 mg tablet See Rx Instructions .ROUTE 09/09/21 .COMPLEX #30 tab Allergies Allergy/AdvReac Type Severity Reaction Status Date / Time ibuprofen [IBUPROFEN] Allergy Unknown I feel Verified 09/07/21 08:33 really weird vitamin E (d-alpha Allergy Unknown cold sores Verified 09/07/21 08:33 tocopherol) [VITAMIN E] hydrocodone [From Vicodin] AdvReac Severe Anxiety Verified 09/07/21 08:33 oxycodone AdvReac Severe Irritable Verified 09/07/21 08:33 adhesive [ADHESIVE] AdvReac Unknown tape Verified 09/07/21 08:33 Review of Systems <Yariel Landaverde PA-C - Last Filed: 09/07/21 14:15> Constitutional Constitutional: Denies chills, Denies fatigue, Denies fever(s), Denies frequent falls, Denies lethargy and Denies weakness Eyes Eyes: Denies change in vision, Denies eye discharge, Denies irritation and Denies loss of vision ENT Ears, Nose, Mouth, and Throat: Denies change in voice, Denies dizziness, Denies neck pain, Denies sore throat and Denies throat swelling Cardiovascular Cardiovascular: Denies chest pain, Denies irregular heart rhythm, Denies lightheadedness, Denies palpitations, Denies dyspnea, Denies dyspnea on exertion and Denies orthopnea Respiratory Respiratory: Denies cough, Denies dyspnea, Denies dyspnea on exertion and Denies wheezing Gastrointestinal Gastrointestinal: Denies abdominal pain, Denies change in bowel habits, Denies diarrhea, Denies nausea and Denies vomiting Musculoskeletal Musculoskeletal: Denies neck pain and Denies numbness Comments: Right upper arm, shoulder pain Integumentary/Breasts Skin/Breast: Denies pruritus, Denies erythema, Denies rash and Denies wounds Neurologic Neurologic: Denies behavioral changes, Denies confusion, Denies dizziness, Denies frequent falls, Denies loss of vision, Denies numbness and Denies weakness Psychiatric Psychiatric: Denies anxiety, Denies behavioral changes, Denies confusion, Denies depression, Denies homicidal ideation and Denies suicidal ideation Endocrine Endocrine: Denies fatigue, Denies flushing and Denies palpitations Hematologic/Lymphatic Hematologic/Lymphatic: Denies easy bruising Allergic/Immunologic Allergic/Immunologic: Denies urticaria, Denies throat swelling and Denies wheezing Patient History <Yariel Landaverde PA-C - Last Filed: 09/07/21 14:15> Medical History Ankle pain (~2016) Cataracts, bilateral Chicken pox (~194) Chronic back pain (~1990) Chronic pain of left ankle Cyst of right breast Depression Family history of colon cancer Greater trochanteric bursitis of both hips History of rheumatic fever Kidney stones (~2007) Measles (~194) Mumps (~194) Ovarian cyst Recurrent sinusitis Rheumatic fever (~1953) Shoulder pain Somatic dysfunction of lower extremity Surgical History Anesthesia History of cholecystectomy (~1989) History of hysterectomy (~1970) Mitral valve replaced (~2008) Pacemaker (~1997) Family History Father Cancer Mother Cancer Sister COPD (chronic obstructive pulmonary disease) Social History household members: family Smoking Status: Current every day smoker alcohol intake: current Smoking Status: Current every day smoker alcohol intake frequency: a few times a week Substance Use Type: does not use Exam <Yariel Landaverde PA-C - Last Filed: 09/07/21 14:15> Initial Vital Signs Initial Vital Signs: Vital Signs Temperature 97.9 F 09/07/21 08:34 Pulse Rate 60 09/07/21 08:34 Respiratory Rate 18 09/07/21 08:34 Blood Pressure 143/65 H 09/07/21 08:34 Pulse Oximetry 95 09/07/21 08:34 Const General: cooperative HENMT Head: normocephalic and atraumatic Ears: external ears normal and TM's normal bilaterally Nose: external nose normal and No nasal discharge Face and sinus: sinuses nontender, face symmetric, no sinus tenderness and No dry mucous membranes Mouth: oral mucosae normal and moist mucous membranes Teeth and gingiva: dentition normal Throat: tonsils normal and uvula midline Eyes General: appearance normal, both eyes and all related structures Eyelids: eyelids normal Conjunctivae: conjunctivae normal Sclera: sclerae normal Pupils: PERRL EOM: EOM intact bilaterally Neck Neck: normal visual inspection, trachea midline, No lymphadenopathy, No midline deformity and No JVD Lymphatic: No lymphedema Chest Chest: normal inspection of the chest Resp Effort & Inspection: normal respiratory effort, able to speak in complete sentences, no respiratory distress and no use of accessory muscles Auscultation: clear to auscultation bilaterally, no rales, no rhonchi and no wheezes Cardio Rate: regular rate Rhythm: regular rhythm Heart Sounds: no click, no gallops, no murmurs and no rubs Pulses: normal peripheral pulses GI Inspection: non-distended Palpation: soft, no hepatosplenomegaly, No guarding, No pulsatile mass and No tender Auscultation: normal bowel sounds Back/Spine/Pelvis Back: No CVA tenderness Cervical Spine: cervical ROM normal and No pain with cervical ROM Thoracic/Lumbar Spine: thoracic and lumbar spine normal to inspection Other: No midline tenderness. No neck pain. Full range of motion of neck. Skin General: no rashes or lesions noted, No jaundice and No petechiae Neuro General: patient alert, patient oriented x3, gait normal and no focal motor deficits Speech: speech normal Extrem General: full ROM, no clubbing, cyanosis or edema, no pedal edema and no calf tenderness Other: Patient holding right upper arm in adduction, close to the body. Tenderness to palpation of right shoulder, right upper arm. Patient unable to touch left shoulder with right hand, due to pain. Range of motion limited by pain. Strength and sensation intact. Neurovascularly intact. Psych Appearance: well kempt Mental Status: mental status grossly normal Attitude: cooperative Thought Content: normal and suicidality Judgment: judgment good <Shari Spaulding DO - Last Filed: 09/11/21 08:41> Initial Vital Signs Initial Vital Signs: Vital Signs Temperature 97.9 F 09/07/21 08:34 Pulse Rate 60 09/07/21 08:34 Respiratory Rate 18 09/07/21 08:34 Blood Pressure 143/65 H 09/07/21 08:34 Pulse Oximetry 95 09/07/21 08:34 Course <Yariel Landaverde PA-C - Last Filed: 09/07/21 14:15> Course Course Narrative: X-ray negative for fractures, dislocation. Ultrasound negative for DVT. Ultrasound shows anechoic complex collections at the site of the injection. Patient's symptoms likely due to bleeding from the injection. Will discharge home with PCP follow-up. Discussed ED return precautions. Orders Ordered: Discontinued Medications Morphine Sulfate (Morphine 4 Mg/Ml Inj) 2 mg IM NOW ONE Stop: 09/07/21 12:36 Last Admin: 09/07/21 12:58 Dose: 2 mg Documented by: SANDRA Vital Signs Vital signs: Vital Signs - 8 hr 09/07/21 08:34 09/07/21 11:53 09/07/21 11:54 Temperature 97.9 F Pulse Rate 60 60 60 Respiratory Rate 18 Blood Pressure 143/65 H 154/69 H Pulse Oximetry 95 97 98 <Shari Spaulding DO - Last Filed: 09/11/21 08:41> Orders Ordered: Discontinued Medications Morphine Sulfate (Morphine 4 Mg/Ml Inj) 2 mg IM NOW ONE Stop: 09/07/21 12:36 Last Admin: 09/07/21 12:58 Dose: 2 mg Documented by: SANDRA Vital Signs Vital signs: Vital Signs - 8 hr 09/07/21 08:34 09/07/21 11:53 09/07/21 11:54 Temperature 97.9 F Pulse Rate 60 60 60 Respiratory Rate 18 Blood Pressure 143/65 H 154/69 H Pulse Oximetry 95 97 98 MDM - Extremity Injury (Upper) <Yariel Landaverde PA-C - Last Filed: 09/07/21 14:15> Imaging Data Extremity x-ray #1: Radiologist's Impression: PROCEDURE:? XR SHOULDER RT MIN 2V ? INDICATIONS:? RIGHT UPPER ARM/SHOULDER PAIN ? TECHNIQUE:? Three views of the shoulder were acquired.? ? COMPARISON:? None. ? FINDINGS:? ? Bones:? No fractures or dislocations.? Moderate marginal spurring along the inferior aspect of the humeral head.? Mild degenerative change at the AC joint.? No suspicious bony lesions.? Visualized ribs appear intact.? ? Soft tissues:? No suspicious soft tissue calcifications.? There are two separate cloudlike calcifications superior to the glenohumeral joint, potentially within the glenohumeral joint, rotator cuff tendon or in subacromial bursa. ? IMPRESSION:? 1. No acute fractures. 2. [id number] degenerative changes. 3. Small soft tissue calcifications may indicate bursitis, calcific tendinitis, or loose bodies.? ? ? Dictated by: Janeth Valencia M.D. on 09/07/2021 at 13:09 ? ? Approved by: Janeth Valencia M.D. on 09/07/2021 at 13:11 ? US - DVT: Radiologist's Impression: PROCEDURE:? US PERIPH VENOUS UP EXTREM RT ? INDICATIONS:? SHOULDER PAIN. NO TRAUMA. ? TECHNIQUE:? Real-time imaging, as well as color and pulse Doppler interrogation, was performed of the right upper extremity deep veins from the inferior neck to the antecubital fossa.? ? COMPARISON:? None. ? FINDINGS:? The internal jugular vein, visualized portions of the subclavian vein, axillary, and brachial veins are free of intraluminal thrombus.? Where physically possible, the veins are normally compressible.? Color and pulse Doppler demonstrate normal intraluminal flow, with expected phasicity and pulsatility.? Additional scanning of the cephalic and basilic veins of the superficial system demonstrate normal compressibility, without thrombus.? ? Two fluid collections are seen along the anterior aspect of the shoulder, 1 of which measures up to 12 mm and is anechoic.? A 2nd is mildly complex and measures 10 x 4 mm. ? ? IMPRESSION:? ? Negative for deep venous thrombosis. ? Two focal fluid collections are seen involving the anterior shoulder, 1 of which appears slightly complex. ? ? MDM Narrative Medical decision making narrative: 76-year-old female with past medical history CAD, status post stents, atrial fibrillation presents to the ED with 4 days of left upper arm, shoulder pain. Concern for DVT versus fracture/dislocation versus sprain/strain. Will order x-rays, ultrasound DVT of right upper extremity. Will give morphine for pain. Will reassess. Discharge Plan Departure Patient Disposition: Home Clinical Impression: Acute shoulder pain Qualifiers: Laterality: right Qualified Code(s): M25.511 - Pain in right shoulder Instructions: DI for Shoulder Pain Activity Restrictions/Additional Instructions: You were evaluated in the ED today for right-sided shoulder and arm pain. Your x-ray and ultrasound did not show any evidence of fractures, dislocations, DVTs. Your ultrasound did show some bleeding at the site of the flu shot, which is likely the source of your pain. Please follow-up with your PCP. You can take Tylenol 1000 mg 3 times a day for the pain. Please return to the ED if you notice any signs of numbness, tingling, weakness in the right arm. Prescriptions: No Action (DME) handicap placard See Rx Instructions .Route .MEDSUPPLY Qty: 1 RF: 0 fluoxetine 20 mg capsule See Rx Instructions .ROUTE .COMPLEX Qty: 180 RF: 0 atorvastatin 20 mg tablet See Rx Instructions .ROUTE .COMPLEX Qty: 90 RF: 0 warfarin 4 mg tablet See Rx Instructions .ROUTE .COMPLEX Qty: 90 RF: 3 alprazolam 0.5 mg tablet See Rx Instructions .ROUTE .COMPLEX Qty: 30 RF: 0 trazodone 50 mg tablet See Rx Instructions .ROUTE .COMPLEX Qty: 90 RF: 1 warfarin 5 mg tablet See Rx Instructions .ROUTE .COMPLEX Qty: 60 RF: 5 Referrals: Shahab Cool DO [Primary Care Provider] - <Shari Spaulding DO - Last Filed: 09/11/21 08:41> Cosign ED Attending Angieignature Attestation: I was immediately available in the department for consultation. Documentation has been reviewed. I agree with assessment and plan.
[2021-09-07] MEDS: MORPHINE 4 MG/ML INJ 2 MG IM (12:58)
[2021-09-07 14:21] VITALS: BP 175/85; PULSE 77; RESP 18; O2SAT 96
== END 2021-09-07 14:21 | disposition home or self-care (01) ==
PROVIDERS: Emergency Provider Student in an Organized Health Care Education/Training Program; PCP Family Medicine
DX: M25.511 Pain in right shoulder (principal)
CPT/HCPCS: 73030; 93971; 96372; 99283; J2270

== ENCOUNTER → 2021-10-02 11:54 | Outpatient (CLI) | payer MEDICARE, SELFPAY ==
[2021-10-02 12:40] LABS: Add Manual Diff / Slide Review NO; Basophils Absolute Auto 0 /uL (0-100); Basophils Percent Auto 0.3 % (0-2); Eosinophils Absolute Auto 0 /uL (0-450); Eosinophils Percent Auto 0.1 % (2-4); Hematocrit 38.6 % (36-46); Hemoglobin 12.6 g/dL (12.0-16.0); Lymphocytes Absolute Auto 500 /uL (1100-4500); Lymphocytes Percent Auto 8.3 % (25-40); Mean Corpuscular HGB Conc 32.5 % (30-36); Mean Corpuscular Hemoglobin 28.5 PG (26-34); Mean Corpuscular Volume 87.6 fL (80-100); Monocytes Absolute Auto 500 /uL (0-900); Neutrophils Absolute Auto 5300 /uL (1500-7000); Neutrophils Percent Auto 83.3 % (50-75); Platelet Count 345 X10^3/uL (150-400); Red Cell Distribution Width 15.5 % (11.6-14.8); White Blood Cell Count 6.3 X10^3/uL (4.5-11.0)
[2021-10-02 12:57] LABS: Hemoglobin A1C% w Est Avg Glu 5.7 % (4.0-6.0)
[2021-10-02 14:16] LABS: BUN Creatinine Ratio 26.8 (6-22); Blood Urea Nitrogen 19 mg/dL (7-17); Carbon Dioxide 28 mmol/L (22-32); Chloride 102 mmol/L (98-107); Cholesterol 138 mg/dL (140-199); Estimated Glomerular Filt Rate > 60.0 mL/min (>60); Glucose 94 mg/dL (80-110); HDL Cholesterol 83 mg/dL (40-60); HEMOLYSIS < 15 (0-50); LDL Cholesterol Calculated 35 mg/dL (<100); Potassium 4.5 mmol/L (3.4-5.1); Sodium 139 mmol/L (137-145); Triglycerides 98 mg/dL (35-150)
== END ==
PROVIDERS: PCP Family Medicine; Referring Provider Family Medicine; Visit Provider Family Medicine
DX: I48.0 Paroxysmal atrial fibrillation (principal); R73.09 Other abnormal glucose; Z95.2 Presence of prosthetic heart valve; Z13.220 Encounter for screening for lipoid disorders
CPT/HCPCS: 36415; 80048; 80061; 83036; 85025

== ENCOUNTER → 2021-12-03 11:13 | Outpatient (CLI) | payer MEDICARE, SELFPAY ==
[2021-12-03 12:23] LABS: INR 3.3 (0.9-1.3); Prothrombin Time 37.8 SECONDS (10.1-12.7)
[2021-12-03 12:38] LABS: Rheumatoid Factor 62.2 IU/mL (<12.0)
[2021-12-06 13:55] LABS: ANA Screen, IFA Negative (.)
[2021-12-07 21:26] LABS: CCP Antibodies IgG/IgA >250 units (0-19)
== END ==
PROVIDERS: PCP Family Medicine; Referring Provider Family Medicine; Visit Provider Family Medicine
DX: M79.89 Other specified soft tissue disorders (principal); M79.641 Pain in right hand; M79.642 Pain in left hand; Z79.01 Long term (current) use of anticoagulants
CPT/HCPCS: 36415; 85610; 86038; 86200; 86430

== ENCOUNTER → 2021-12-28 13:24 | Outpatient (CLI) | payer MEDICARE, SELFPAY ==
[2021-12-28 13:59] LABS: INR 2.5 (0.9-1.3)
== END ==
PROVIDERS: PCP Family Medicine; Referring Provider Family Medicine; Visit Provider Family Medicine
DX: Z79.01 Long term (current) use of anticoagulants (principal)
CPT/HCPCS: 36415; 85610

== ENCOUNTER → 2022-03-31 11:28 | Outpatient (CLI) | payer MEDICARE, SELFPAY ==
[2022-03-31 12:42] LABS: Add Manual Diff / Slide Review NO; Basophils Absolute Auto 0 /uL (0-100); Basophils Percent Auto 0.5 % (0-2); Eosinophils Absolute Auto 100 /uL (0-450); Eosinophils Percent Auto 1.1 % (2-4); Hematocrit 40.3 % (36-46); Hemoglobin 13.1 g/dL (12.0-16.0); Lymphocytes Absolute Auto 600 /uL (1100-4500); Lymphocytes Percent Auto 8.7 % (25-40); Mean Corpuscular HGB Conc 32.5 % (30-36); Mean Corpuscular Hemoglobin 29.8 PG (26-34); Mean Corpuscular Volume 91.6 fL (80-100); Monocytes Absolute Auto 900 /uL (0-900); Monocytes Percent Auto 12.2 % (3-14); Neutrophils Absolute Auto 5400 /uL (1500-7000); Neutrophils Percent Auto 77.5 % (50-75); Platelet Count 281 X10^3/uL (150-400); Red Blood Cell Count 4.39 X10^6/uL (4.0-5.2); Red Cell Distribution Width 17.5 % (11.6-14.8)
[2022-03-31 12:48] LABS: Alanine Aminotransferase 29 IU/L (<35); Albumin 4.2 g/dL (3.5-5.0); Albumin Globulin Ratio 1.8 (1.0-2.8); Alkaline Phosphatase 50 U/L (38-126); Aspartate Aminotransferase 29 IU/L (14-36); BUN Creatinine Ratio 26.3 (6-22); Blood Urea Nitrogen 20 mg/dL (7-17); Carbon Dioxide 33 mmol/L (22-32); Chloride 103 mmol/L (98-107); Estimated Glomerular Filt Rate > 60 mL/min (>60); Globulin 2.3 g/dL (1.7-4.1); Glucose 101 mg/dL (80-110); HEMOLYSIS < 15 (0-50); Potassium 4.3 mmol/L (3.4-5.1); Sodium 140 mmol/L (137-145); Total Protein 6.5 g/dL (6.3-8.2)
== END ==
PROVIDERS: PCP Family Medicine; Referring Provider Family Medicine; Visit Provider Family Medicine
DX: Z79.899 Other long term (current) drug therapy (principal)
CPT/HCPCS: 36415; 80053; 85025

== ENCOUNTER → 2022-05-06 14:48 | Outpatient (CLI) | payer MEDICARE, SELFPAY ==
--- NOTE | 2022-05-06 14:51 | DI.RAD.S_ITS ---
PROCEDURE: XR CHEST 2V INDICATIONS: T82.110A TECHNIQUE: 2 views of the chest were acquired. COMPARISON: [facility], CR, XR CHEST 1V, 01/30/2021, 22:18. [facility], CR, XR CHEST 2V, 03/25/2019, 12:41. FINDINGS: Marked cardiomegaly similar to the prior study. Valvuloplasty and left chest wall cardiac pacing device are similar in appearance. Cephalization of pulmonary vessels with increased central/perihilar interstitial markings indicative of vascular congestion and [id number] interstitial edema. No acute airspace opacity, pleural effusion, or pneumothorax. IMPRESSION: Cardiomegaly with mild to moderate interstitial pulmonary edema. Dictated by: Rex Dumont M.D. on 05/06/2022 at 15:17 Approved by: Rex Dumont M.D. on 05/06/2022 at 15:18
== END ==
PROVIDERS: PCP Family Medicine; Referring Provider Physician Assistant; Visit Provider Physician Assistant
DX: T82.110A Breakdown (mechanical) of cardiac electrode, initial encounter (principal); I51.7 Cardiomegaly; J81.1 Chronic pulmonary edema
CPT/HCPCS: 71046

== ENCOUNTER → 2022-05-21 09:56 | Outpatient (CLI) | payer MEDICARE, SELFPAY ==
[2022-05-21 11:08] LABS: Add Manual Diff / Slide Review NO; Basophils Absolute Auto 0 /uL (0-100); Basophils Percent Auto 0.6 % (0-2); Eosinophils Absolute Auto 0 /uL (0-450); Eosinophils Percent Auto 0.5 % (2-4); Hematocrit 39.9 % (36-46); Lymphocytes Absolute Auto 500 /uL (1100-4500); Lymphocytes Percent Auto 7.6 % (25-40); Mean Corpuscular HGB Conc 32.6 % (30-36); Mean Corpuscular Hemoglobin 29.1 PG (26-34); Mean Corpuscular Volume 89.4 fL (80-100); Monocytes Absolute Auto 800 /uL (0-900); Monocytes Percent Auto 11.8 % (3-14); Neutrophils Absolute Auto 5300 /uL (1500-7000); Neutrophils Percent Auto 79.5 % (50-75); Platelet Count 338 X10^3/uL (150-400); Red Blood Cell Count 4.46 X10^6/uL (4.0-5.2); Red Cell Distribution Width 16.7 % (11.6-14.8); White Blood Cell Count 6.6 X10^3/uL (4.5-11.0)
[2022-05-21 11:10] LABS: INR 4.1 (0.9-1.3); Prothrombin Time 47.8 SECONDS (10.1-12.7)
[2022-05-21 11:17] LABS: Alanine Aminotransferase 21 IU/L (<35); Albumin 4.2 g/dL (3.5-5.0); Albumin Globulin Ratio 1.8 (1.0-2.8); Alkaline Phosphatase 52 U/L (38-126); Aspartate Aminotransferase 29 IU/L (14-36); BUN Creatinine Ratio 16.7 (6-22); Bilirubin Total 0.7 mg/dL (0.2-1.3); Blood Urea Nitrogen 13 mg/dL (7-17); Calcium 9.2 mg/dL (8.4-10.2); Carbon Dioxide 33 mmol/L (22-32); Chloride 100 mmol/L (98-107); Estimated Glomerular Filt Rate > 60 mL/min (>60); Globulin 2.3 g/dL (1.7-4.1); Glucose 120 mg/dL (80-110); HEMOLYSIS < 15 (0-50); Potassium 4.4 mmol/L (3.4-5.1); Sodium 139 mmol/L (137-145); Total Protein 6.5 g/dL (6.3-8.2)
== END ==
PROVIDERS: PCP Family Medicine; Referring Provider Physician Assistant; Visit Provider Physician Assistant
DX: T82.110A Breakdown (mechanical) of cardiac electrode, initial encounter (principal); Z79.01 Long term (current) use of anticoagulants
CPT/HCPCS: 36415; 80053; 85025; 85610

== ENCOUNTER → 2022-07-05 09:09 | Outpatient (CLI) | payer MEDICARE, SELFPAY ==
[2022-07-05 09:51] LABS: Prothrombin Time 55.7 SECONDS (10.1-12.7)
[2022-07-05 10:07] LABS: Alanine Aminotransferase 30 IU/L (<35); Albumin 3.7 g/dL (3.5-5.0); Albumin Globulin Ratio 1.8 (1.0-2.8); Alkaline Phosphatase 49 U/L (38-126); Aspartate Aminotransferase 27 IU/L (14-36); BUN Creatinine Ratio 19.7 (6-22); Bilirubin Total 0.6 mg/dL (0.2-1.3); Blood Urea Nitrogen 15 mg/dL (7-17); Calcium 8.8 mg/dL (8.4-10.2); Carbon Dioxide 31 mmol/L (22-32); Chloride 104 mmol/L (98-107); Estimated Glomerular Filt Rate > 60 mL/min (>60); Globulin 2.1 g/dL (1.7-4.1); Glucose 97 mg/dL (80-110); HEMOLYSIS < 15 (0-50); Sodium 138 mmol/L (137-145); Total Protein 5.8 g/dL (6.3-8.2)
[2022-07-05 10:30] LABS: INR 4.8 (0.9-1.3)
== END ==
PROVIDERS: PCP Family Medicine; Referring Provider Family Medicine; Visit Provider Family Medicine
DX: Z79.01 Long term (current) use of anticoagulants (principal); M06.041 Rheumatoid arthritis without rheumatoid factor, right hand; M06.042 Rheumatoid arthritis without rheumatoid factor, left hand; Z79.899 Other long term (current) drug therapy
CPT/HCPCS: 36415; 80053; 85610

== ENCOUNTER → 2022-07-19 14:26 | Outpatient (CLI) | payer MEDICARE, SELFPAY ==
[2022-07-19 14:56] LABS: Prothrombin Time 46.6 SECONDS (10.1-12.7)
== END ==
PROVIDERS: PCP Family Medicine; Referring Provider Family Medicine; Visit Provider Family Medicine
DX: Z79.01 Long term (current) use of anticoagulants (principal)
CPT/HCPCS: 85610

== ENCOUNTER → 2022-07-28 09:21 | Outpatient (CLI) | payer MEDICARE, SELFPAY ==
[2022-07-28 11:14] LABS: INR 1.8 (0.9-1.3); Prothrombin Time 20.8 SECONDS (10.1-12.7)
== END ==
PROVIDERS: PCP Family Medicine; Referring Provider Family Medicine; Visit Provider Family Medicine
DX: I48.0 Paroxysmal atrial fibrillation (principal); Z79.01 Long term (current) use of anticoagulants; Z95.2 Presence of prosthetic heart valve
CPT/HCPCS: 36415; 85610

== ENCOUNTER → 2022-08-11 10:09 | Outpatient (CLI) | payer MEDICARE, SELFPAY ==
[2022-08-11 11:16] LABS: INR 2.6 (0.9-1.3); Prothrombin Time 29.9 SECONDS (10.1-12.7)
== END ==
PROVIDERS: PCP Family Medicine; Referring Provider Family Medicine; Visit Provider Family Medicine
DX: Z79.01 Long term (current) use of anticoagulants (principal)
CPT/HCPCS: 36415; 85610

== ENCOUNTER → 2022-08-18 07:46 | Outpatient (CLI) | payer MEDICARE, SELFPAY ==
[2022-08-18 09:56] LABS: INR 2.4 (0.9-1.3); Prothrombin Time 28.1 SECONDS (10.1-12.7)
== END ==
PROVIDERS: PCP Family Medicine; Referring Provider Family Medicine; Visit Provider Family Medicine
DX: I48.0 Paroxysmal atrial fibrillation (principal); Z79.01 Long term (current) use of anticoagulants; Z95.2 Presence of prosthetic heart valve
CPT/HCPCS: 36415; 85610

== ENCOUNTER 2022-08-21 15:27 | Emergency (ER) | payer MEDICARE, SELFPAY ==
[2022-08-21 15:39] VITALS: BP 136/61; PULSE 81; RESP 18; TEMP 36.6; O2SAT 97; BMI 25.7
[2022-08-21 16:12] LABS: COVID19 -Nasal RAPID Negative (Negative)
--- NOTE | 2022-08-21 16:13 | ED.NECK ---
HPI - Neck Pain/Injury General Chief Complaint: Neck Pain/Injury Stated Complaint: right side/jaw/neck pain x1 day Time Seen by Provider: 08/21/22 16:00 Mode of arrival: Ambulatory History of Present Illness HPI Narrative: 77-year-old woman with history of hypertension, depression, anxiety, rheumatoid arthritis on methotrexate yes she does have oxycodone and prednisone available at home but has not taken either for a number of weeks also anticoagulated on warfarin comes in with 12 hours of increasing right jaw fullness and pain. Worse when she eats with fluctuating levels of fullness. No warmth, redness, fever, chills, cough, chest pain, vomiting, diarrhea, palpitations, dyspnea or orthopnea. She has no headache. She has never had similar findings. Related Data Home Medications Medication Instructions Recorded Confirmed folic acid 1 mg tablet 1 mg PO 03/31/22 03/31/22 Previous Rx's Medication Instructions Recorded handicap placard #1 ea 06/17/21 atorvastatin 10 mg tablet 10 mg PO DAILY #90 tabs 10/20/21 acyclovir 400 mg tablet 400 mg PO TID #21 tabs 11/17/21 nystatin 100,000 unit/gram topical 1 applic topical BID #30 grams 11/17/21 powder alprazolam 2 mg tablet See Rx Instructions .Route 05/06/22 .COMPLEX #60 tabs fluoxetine 20 mg capsule 20 mg PO DAILY #90 caps 05/12/22 furosemide 20 mg tablet See Rx Instructions PO QAM #180 05/18/22 tabs methotrexate sodium 2.5 mg tablet 7.5 mg PO QWEEK #36 tabs 05/19/22 trazodone 50 mg tablet See Rx Instructions .Route 06/21/22 .COMPLEX #90 tabs prednisone 20 mg tablet 20 mg PO .PRN #5 tabs 07/07/22 oxycodone 5 mg tablet 5 mg PO Q6H PRN pain #120 tabs 07/21/22 warfarin 5 mg tablet See Rx Instructions .Route 08/03/22 .COMPLEX #90 tabs amoxicillin 500 mg capsule 500 mg PO TID #21 caps 08/21/22 Allergies Allergy/AdvReac Type Severity Reaction Status Date / Time ibuprofen [IBUPROFEN] Allergy Unknown I feel Verified 03/31/22 11:11 really weird vitamin E (d-alpha Allergy Unknown cold sores Verified 03/31/22 11:11 tocopherol) [VITAMIN E] hydrocodone [From Vicodin] AdvReac Severe Anxiety Verified 03/31/22 11:11 adhesive [ADHESIVE] AdvReac Unknown tape Verified 03/31/22 11:11 Review of Systems Review of Systems Narrative: Remainder of complete review of systems is otherwise unremarkable except for that included in the HPI. 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 Kidney stones (~2007) Left anterior shoulder pain Left arm pain Measles (~1945) Mumps (~1946) On methotrexate therapy Osteoarthritis of hands, bilateral Ovarian cyst Pain of right middle finger Recurrent sinusitis Rheumatic fever (~1953) 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 Shoulder pain Somatic dysfunction of lower extremity Swelling of finger of both hands Vaccine reaction Surgical History Anesthesia History of cholecystectomy (~1989) History of hysterectomy (~1970) Mitral valve replaced (~2008) Pacemaker (~1997) Family History Father Cancer Mother Cancer Sister COPD (chronic obstructive pulmonary disease) Social History household members: family Smoking Status: Former smoker alcohol intake: current Smoking Status: Former smoker alcohol intake frequency: a few times a week Substance Use Type: does not use Exam Initial Vital Signs Initial Vital Signs: Vital Signs Temperature 97.8 F 08/21/22 15:39 Pulse Rate 81 08/21/22 15:39 Respiratory Rate 18 08/21/22 15:39 Blood Pressure 136/61 08/21/22 15:39 Pulse Oximetry 97 08/21/22 15:39 Oxygen Delivery Method 08/21/22 15:39 General: Healthy appearing, in no acute distress. Able to give a complete and coherent history. Well-nourished well-developed HEENT: Moist mucous membranes, normal sclera with reactive pupils, enlarged tender right parotid gland with no obvious masses. No intraoral abnormalities no submandibular tenderness. No obvious stone palpable at parotid duct. No fluctuance or erythema to suggest abscess Neck: supple Respiratory: Lungs are clear to auscultation, no wheezing no rales no rhonchi. Full and symmetrical air movement Cardiac: Regular rate and rhythm no murmurs no bruits Skin: Warm and dry, very thin with chronic hemosiderin deposits and multiple bruises in various stages of healing Neurologic: Grossly neurologically intact with no obvious asymmetries or abnormalities Extremities: No trauma, well perfused, peripheral manifestations of rheumatoid arthritis or appreciated Psych: Cooperative, appropriate insight and affect Course Orders Ordered: ED Orders 08/21/22 15:45 COVID19 -Nasal RAPID/Pre-Proc Stat Vital Signs Vital signs: Vital Signs - 8 hr 08/21/22 15:39 Temperature 97.8 F Pulse Rate 81 Respiratory Rate 18 Blood Pressure 136/61 Pulse Oximetry 97 Oxygen Delivery Method Room Air MDM - Neck Pain/Injury Lab Data Labs: Lab Results 08/21/22 Range/Units 15:45 SARS-CoV-2 (PCR) Negative (Negative) MDM Narrative Medical decision making narrative: 77-year-old woman with clinical exam absolutely consistent with acute parotid duct obstruction. We discussed use of sour candies to help increase salivation, she does have oxycodone available at home for pain control should she choose to use it. We talked about signs and symptoms of infection, currently none of which she has, she is given a prescription for amoxicillin should she develop any of these symptoms over the next couple of days. Encouraged her to return if symptoms worsen. We extensively reviewed reviewed anatomy of parotid glands and her diagnosis so that she felt comfortable with her diagnosis and she is given suggestions on further research follow-up should she want to do that as well as written instructions regarding parotid duct obstruction. She is extraordinarily anxious about this finding and is convinced that she has an infected tumor and is going to this evening. She is safe for home discharge Discharge Plan Departure Patient Disposition: Home Clinical Impression: Parotid duct obstruction Instructions: DI for Parotitis-Adult Activity Restrictions/Additional Instructions: Thank you for coming in today Your parotid is clogged on the right side and that is causing your parotid gland to swell. This is not an infection and it is not a tumor. Today using pain medication, you stated you had oxycodone available at home, and sour candy to encourage your salivary glands to produce more saliva as well as heating packs to the swollen area will be very helpful. If you find that the area is still swollen tomorrow, becoming increasingly painful, red or your developing any fevers than beginning antibiotics would be appropriate. I have given you a prescription for amoxicillin should that happen. If you find that you are getting worse or develop any new symptoms, please feel free to return to the emergency department for further evaluation. Prescriptions: New amoxicillin 500 mg capsule 500 mg PO TID Qty: 21 0RF No Action (DME) handicap placard See Rx Instructions .Route .MEDSUPPLY Qty: 1 0RF Rx Instructions: As directed alprazolam 2 mg tablet See Rx Instructions .ROUTE .COMPLEX Qty: 60 5RF Rx Instructions: Take 1 tablet by mouth twice daily as needed for anxiety fluoxetine 20 mg capsule 20 mg PO DAILY Qty: 90 3RF methotrexate sodium 2.5 mg tablet 7.5 mg PO QWEEK Qty: 36 3RF trazodone 50 mg tablet See Rx Instructions .ROUTE .COMPLEX Qty: 90 0RF Dose Instruction: TAKE 1 TABLET BY MOUTH AT BEDTIME NEEDED FOR INSOMNIA Rx Instructions: TAKE 1 TABLET BY MOUTH AT BEDTIME NEEDED FOR INSOMNIA prednisone 20 mg tablet 20 mg PO .PRN Qty: 5 2RF Rx Instructions: Take one tablet by mouth per day as needed for arthritis pain oxycodone 5 mg tablet 5 mg PO Q6H PRN (Reason: pain) Qty: 120 0RF warfarin 5 mg tablet See Rx Instructions .ROUTE .COMPLEX Qty: 90 3RF Hold Instructions: taking different dose Dose Instruction: TAKE 1 TABLET BY MOUTH DAILY EVERY TUESDAY, TUESDAY, AND TUESDAY Rx Instructions: 2.5mg M,W,F,Sun and 5mg all other days or as directed. folic acid 1 mg tablet 1 mg PO furosemide 20 mg tablet See Rx Instructions PO QAM Qty: 180 3RF Rx Instructions: Take 40mg daily until the edema improves, then take 20mg daily, add another tablet as needed for worsening edema, orally every morning; atorvastatin 10 mg tablet 10 mg PO DAILY Qty: 90 3RF Hold Instructions: Home Medication placed on hold at Doctor's office acyclovir 400 mg tablet 400 mg PO TID Qty: 21 5RF nystatin 100,000 unit/gram powder 1 applic topical BID Qty: 30 5RF Referrals: Connor Cool DO [Primary Care Provider] - Visit Report Forms: Patient Portal/API
== END 2022-08-21 16:25 | disposition home or self-care (01) ==
PROVIDERS: Emergency Provider Emergency Medicine; PCP Family Medicine
DX: K11.8 Other diseases of salivary glands (principal); Z79.01 Long term (current) use of anticoagulants; Z20.822 Contact with and (suspected) exposure to COVID-19
CPT/HCPCS: 87635; 99281; 99282; C9803

== ENCOUNTER → 2022-08-31 12:50 | Outpatient (CLI) | payer MEDICARE, SELFPAY ==
[2022-08-31 13:43] LABS: INR 1.7 (0.9-1.3)
== END ==
PROVIDERS: PCP Family Medicine; Referring Provider Family Medicine; Visit Provider Family Medicine
DX: Z79.01 Long term (current) use of anticoagulants (principal)
CPT/HCPCS: 36415; 85610

== ENCOUNTER → 2022-09-08 13:16 | Outpatient (CLI) | payer MEDICARE, SELFPAY ==
[2022-09-08 14:47] LABS: INR 2.6 (0.9-1.3); Prothrombin Time 29.9 SECONDS (10.1-12.7)
== END ==
PROVIDERS: PCP Family Medicine; Referring Provider Family Medicine; Visit Provider Family Medicine
DX: I48.0 Paroxysmal atrial fibrillation (principal); Z79.01 Long term (current) use of anticoagulants; Z95.2 Presence of prosthetic heart valve
CPT/HCPCS: 36415; 85610

== ENCOUNTER → 2022-09-15 07:55 | Outpatient (CLI) | payer MEDICARE, SELFPAY ==
[2022-09-15 08:41] LABS: INR 2.9 (0.9-1.3); Prothrombin Time 33.3 SECONDS (10.1-12.7)
== END ==
PROVIDERS: PCP Family Medicine; Referring Provider Family Medicine; Visit Provider Family Medicine
DX: I48.0 Paroxysmal atrial fibrillation (principal); Z79.01 Long term (current) use of anticoagulants; Z95.2 Presence of prosthetic heart valve
CPT/HCPCS: 36415; 85610

== ENCOUNTER → 2022-09-22 08:13 | Outpatient (CLI) | payer MEDICARE, SELFPAY ==
[2022-09-22 10:33] LABS: INR 2.3 (0.9-1.3); Prothrombin Time 26.7 SECONDS (10.1-12.7)
== END ==
PROVIDERS: PCP Family Medicine; Referring Provider Family Medicine; Visit Provider Family Medicine
DX: I48.0 Paroxysmal atrial fibrillation (principal); Z79.01 Long term (current) use of anticoagulants; Z95.2 Presence of prosthetic heart valve
CPT/HCPCS: 36415; 85610

== ENCOUNTER → 2022-10-06 09:28 | Outpatient (CLI) | payer MEDICARE, SELFPAY ==
[2022-10-06 10:01] LABS: INR 3.5 (0.9-1.3); Prothrombin Time 41.2 SECONDS (10.1-12.7)
== END ==
PROVIDERS: PCP Family Medicine; Referring Provider Family Medicine; Visit Provider Family Medicine
DX: I48.0 Paroxysmal atrial fibrillation (principal); Z79.01 Long term (current) use of anticoagulants
CPT/HCPCS: 36415; 85610

== ENCOUNTER → 2022-10-13 09:08 | Outpatient (CLI) | payer MEDICARE, SELFPAY ==
[2022-10-13 09:56] LABS: INR 1.9 (0.9-1.3)
== END ==
PROVIDERS: PCP Family Medicine; Referring Provider Family Medicine; Visit Provider Family Medicine
DX: I48.0 Paroxysmal atrial fibrillation (principal); Z79.01 Long term (current) use of anticoagulants
CPT/HCPCS: 36415; 85610

== ENCOUNTER → 2022-10-20 09:03 | Outpatient (CLI) | payer MEDICARE, SELFPAY ==
[2022-10-20 10:43] LABS: Prothrombin Time 54.5 SECONDS (10.1-12.7)
[2022-10-20 10:46] LABS: INR 4.7 (0.9-1.3)
== END ==
PROVIDERS: PCP Family Medicine; Referring Provider Family Medicine; Visit Provider Family Medicine
DX: I48.0 Paroxysmal atrial fibrillation (principal); Z79.01 Long term (current) use of anticoagulants; Z95.2 Presence of prosthetic heart valve
CPT/HCPCS: 36415; 85610

== ENCOUNTER → 2022-10-29 12:52 | Outpatient (CLI) | payer MEDICARE, SELFPAY ==
[2022-10-29 13:57] LABS: INR 2.2 (0.9-1.3); Prothrombin Time 25.5 SECONDS (10.1-12.7)
== END ==
PROVIDERS: PCP Family Medicine; Referring Provider Family Medicine; Visit Provider Family Medicine
DX: Z79.01 Long term (current) use of anticoagulants (principal)
CPT/HCPCS: 36415; 85610

== ENCOUNTER → 2022-11-04 11:14 | Outpatient (CLI) | payer MEDICARE, SELFPAY ==
[2022-11-04 13:42] LABS: Add Manual Diff / Slide Review NO; Basophils Absolute Auto 100 /uL (0-100); Eosinophils Absolute Auto 0 /uL (0-450); Eosinophils Percent Auto 0.5 % (2-4); Hematocrit 35.7 % (36-46); Hemoglobin 11.7 g/dL (12.0-16.0); Lymphocytes Absolute Auto 200 /uL (1100-4500); Lymphocytes Percent Auto 3.2 % (25-40); Mean Corpuscular HGB Conc 32.7 % (30-36); Mean Corpuscular Hemoglobin 29.2 PG (26-34); Mean Corpuscular Volume 89.3 fL (80-100); Monocytes Absolute Auto 800 /uL (0-900); Neutrophils Absolute Auto 5000 /uL (1500-7000); Neutrophils Percent Auto 82.3 % (50-75); Platelet Count 304 X10^3/uL (150-400); White Blood Cell Count 6.1 X10^3/uL (4.5-11.0)
[2022-11-04 13:48] LABS: INR 2.7 (0.9-1.3); Prothrombin Time 30.8 SECONDS (10.1-12.7)
[2022-11-04 13:57] LABS: Alanine Aminotransferase 17 IU/L (<35); Albumin 3.6 g/dL (3.5-5.0); Albumin Globulin Ratio 1.2 (1.0-2.8); Alkaline Phosphatase 65 U/L (38-126); Aspartate Aminotransferase 23 IU/L (14-36); BUN Creatinine Ratio 17.5 (6-22); Bilirubin Total 0.7 mg/dL (0.2-1.3); Blood Urea Nitrogen 11 mg/dL (7-17); Calcium 8.5 mg/dL (8.4-10.2); Carbon Dioxide 32 mmol/L (22-32); Chloride 97 mmol/L (98-107); Cholesterol 138 mg/dL (140-199); Estimated Glomerular Filt Rate > 60 mL/min (>60); Globulin 3.1 g/dL (1.7-4.1); Glucose 101 mg/dL (80-110); HDL Cholesterol 51 mg/dL (40-60); HEMOLYSIS < 15 (0-50); LDL Cholesterol Calculated 75 mg/dL (<100); Potassium 3.6 mmol/L (3.4-5.1); Sodium 137 mmol/L (137-145); Total Protein 6.7 g/dL (6.3-8.2); Triglycerides 58 mg/dL (35-150)
[2022-11-04 14:04] LABS: NT-proBNP (BNP-Adult 18+) 1790 pg/mL (<450)
== END ==
PROVIDERS: PCP Family Medicine; Referring Provider Family Medicine; Visit Provider Family Medicine
DX: I48.0 Paroxysmal atrial fibrillation (principal); E78.2 Mixed hyperlipidemia; M06.041 Rheumatoid arthritis without rheumatoid factor, right hand; M06.042 Rheumatoid arthritis without rheumatoid factor, left hand; R06.01 Orthopnea; R60.0 Localized edema; Z95.2 Presence of prosthetic heart valve; Z98.890 Other specified postprocedural states; Z79.899 Other long term (current) drug therapy; Z79.01 Long term (current) use of anticoagulants
CPT/HCPCS: 36415; 80053; 80061; 83880; 85025; 85610

== ENCOUNTER 2022-11-04 15:20 | Emergency (ER) | payer MEDICARE, SELFPAY ==
[2022-11-04] VITALS (14 sets, daily range): BP systolic 123–137; BP diastolic 57–77; PULSE 67–75; RESP 18–23; TEMP 36.9; O2SAT 82–97; BMI 25.0
--- NOTE | 2022-11-04 18:16 | DI.RAD.S_ITS ---
PROCEDURE: XR CHEST 1V INDICATIONS: leg swelling TECHNIQUE: One view of the chest was acquired. COMPARISON: [facility], CR, XR CHEST 2 VIEWS, 05/25/2022, 20:35. [facility], CR, XR CHEST 1 VIEW, 05/25/2022, 16:24. [facility], CR, XR CHEST 1V, 01/30/2021, 22:18. FINDINGS: Surgical changes and devices: Lealess cardiac pacing device is noted. There is abundant cardiac pacing lead. Lungs and pleura: Lungs are clear. No pleural effusions or pneumothorax. Mediastinum: Mediastinal contours appear normal. Heart size is severely enlarged. There is a prosthetic heart valve. Bones and chest wall: No suspicious bony lesions. Overlying soft tissues appear unremarkable. IMPRESSION: Severe cardiomegaly. No confluent pulmonary edema. Dictated by: Earl Mejia M.D. on 11/04/2022 at 19:13 Approved by: Earl Mejia M.D. on 11/04/2022 at 19:14
--- NOTE | 2022-11-04 20:31 | ED.CHESTPAIN ---
HPI - Chest Pain General Chief Complaint: Chest Pain Stated Complaint: Legs swollen, Thinks congestive heart failure Time Seen by Provider: 11/04/22 18:14 Source: patient Mode of arrival: Ambulatory Limitations: no limitations History of Present Illness HPI narrative: This is a 77-year-old female with history of hypertension, depression, anxiety, rheumatoid arthritis on methotrexate, pacemaker which has been replaced 3 times and warfarin for atrial fibrillation who presents with increasing swelling in her feet patient states that she is noticed for about a week she is had increasing swelling mostly adjust her feet. She saw her primary care physician today who ordered outpatient labs and recommended she come here. Patient denies any chest pain, no shortness of breath, no dyspnea on exertion, she states swelling is mostly localized in her feet she does not appreciate a lot of swelling higher up into her legs, she denies fevers or chills, no cold cough or congestion. No nausea or vomiting. No diarrhea constipation or other new issues. She does state that her Lasix which he has been on 20 mg for a long time was increased to 40 mg about a week ago by Dr. Langford, she states that it made her urinate herself at night even though she took it at 7:00 a.m. not later in the day and she is willing to take the 40 mg anymore. Related Data Home Medications Medication Instructions Recorded Confirmed folic acid 1 mg tablet 1 mg PO 03/31/22 11/04/22 Previous Rx's Medication Instructions Recorded handicap placard #1 ea 06/17/21 atorvastatin 10 mg tablet 10 mg PO DAILY #90 tabs 10/20/21 acyclovir 400 mg tablet 400 mg PO TID #21 tabs 11/17/21 nystatin 100,000 unit/gram topical 1 applic topical BID #30 grams 11/17/21 powder fluoxetine 20 mg capsule 20 mg PO DAILY #90 caps 05/12/22 furosemide 20 mg tablet See Rx Instructions PO QAM #180 05/18/22 tabs alprazolam 2 mg tablet 2 mg PO BID PRN anxiety #60 tabs 10/04/22 warfarin 5 mg tablet See Rx Instructions .Route 10/21/22 .COMPLEX #90 tabs methotrexate sodium 2.5 mg tablet See Rx Instructions .Route 10/25/22 .COMPLEX #36 tabs oxycodone 10 mg tablet 10 mg PO Q6H PRN pain #120 tabs 11/04/22 spironolactone 25 mg tablet 25 mg PO DAILY #90 tabs 11/04/22 Allergies Allergy/AdvReac Type Severity Reaction Status Date / Time ibuprofen [IBUPROFEN] Allergy Unknown I feel Verified 11/04/22 10:26 really weird vitamin E (d-alpha Allergy Unknown cold sores Verified 11/04/22 10:26 tocopherol) [VITAMIN E] hydrocodone [From Vicodin] AdvReac Severe Anxiety Verified 11/04/22 10:26 adhesive [ADHESIVE] AdvReac Unknown tape Verified 11/04/22 10:26 Review of Systems Review of Systems ROS Unobtainable: All systems reviewed & are unremarkable except as noted in HPI and below Patient History Medical History Ankle pain (~2016) Anticoagulation monitoring, INR range 2-3 Bilateral hand pain Bilateral lower extremity edema Cataracts, bilateral Cervical somatic dysfunction Chicken pox (~1946) Chronic back pain (~1990) Chronic pain Chronic pain of left ankle Chronic pain of left knee Chronic pain of right knee Chronic pain of right thumb Cyst of right breast Depression Elevated random blood glucose level Elevated troponin Family history of colon cancer Greater trochanteric bursitis of both hips H/O cold sores History of rheumatic fever Hyperlipidemia, mixed 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 Kidney stones (~2007) Left anterior shoulder pain Left arm pain Measles (~1945) Mumps (~1946) On methotrexate therapy Orthopnea Osteoarthritis of hands, bilateral Ovarian cyst Pain of right middle finger Recurrent sinusitis Rheumatic fever (~1953) 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 Segmental and somatic dysfunction of rib cage Shoulder pain Somatic dysfunction of lower extremity Swelling of finger of both hands Vaccine reaction Surgical History Anesthesia History of cholecystectomy (~1989) History of hysterectomy (~1970) Mitral valve replaced (~2008) Pacemaker (~1997) Family History Father Cancer Mother Cancer Sister COPD (chronic obstructive pulmonary disease) Social History household members: family Smoking Status: Former smoker alcohol intake: current Smoking Status: Former smoker alcohol intake frequency: a few times a week Substance Use Type: does not use Exam Narrative Exam Narrative: GENERAL: Alert and oriented x three, elderly female in mild distress HEENT: Head normocephalic, atraumatic, EOMI, pupils reactive, face symmetric, moist mucous membranes NECK: Supple, full range of motion CARDIOVASCULAR: Regular rate and rhythm without murmurs, rubs or gallops. No JVD RESPIRATORY: Breath sounds equal bilaterally, no wheezes rales or rhonchi. No tachypnea or accessory muscle use. No crackles. ABDOMEN: Soft, nontender. Normoactive bowel sounds all 4 quadrants. No guarding or rebound, rigidity, no mass : No CVA tenderness EXTREMITIES: Normal range of motion, no clubbing, bilateral pedal edema, trace pretibial edema. Neurovascularly intact NEUROLOGICAL: Cranial nerves II through XII grossly intact. Moving all extremities SKIN: Warm, dry, no petechiae, no rashes or lesions. Initial Vital Signs Initial Vital Signs: Vital Signs Temperature 98.5 F 11/04/22 15:31 Pulse Rate 75 11/04/22 15:31 Respiratory Rate 18 11/04/22 15:31 Blood Pressure 123/57 L 11/04/22 15:31 Pulse Oximetry 97 11/04/22 15:31 Oxygen Delivery Method 11/04/22 15:31 Course Orders Ordered: ED Orders 11/04/22 18:16 Chest [XR chest 1V] Stat 11/04/22 20:10 Troponin & CK Cardiac Panel Stat Vital Signs Vital signs: Vital Signs - 8 hr 11/04/22 15:31 11/04/22 16:45 11/04/22 17:00 Temperature 98.5 F Pulse Rate 75 71 67 Respiratory Rate 18 Blood Pressure 123/57 L Pulse Oximetry 97 97 96 Oxygen Delivery Method Room Air 11/04/22 17:30 11/04/22 18:00 11/04/22 18:30 Temperature Pulse Rate 68 70 70 Respiratory Rate Blood Pressure Pulse Oximetry 94 95 95 Oxygen Delivery Method 11/04/22 19:00 11/04/22 19:13 11/04/22 19:13 Temperature Pulse Rate 70 68 Respiratory Rate Blood Pressure 137/77 Pulse Oximetry 94 95 Oxygen Delivery Method MDM - Chest Pain Lab Data Labs: Lab Results 11/04/22 Range/Units 20:10 Total Creatine Kinase 24 L (30-135) U/L CK-MB (CK-2) TNP CK-MB (CK-2) Rel Index TNP Troponin I 0.012 (0.01-0.034) ng/mL Imaging Data Chest x-ray: Radiologist's Impression: [address] [address] XRay Report Signed Patient: Adry Londono I MR#: [id number] : 1945 Acct:[id number] Age/Sex: 77 / F Date of Service: 11/04/22 Loc: ED Accession Number: [id number] ?? Procedure: XR chest 1V Ordering Provider: Nilsa Busby D.O. PROCEDURE:? XR CHEST 1V ? INDICATIONS:? leg swelling ? TECHNIQUE:? One view of the chest was acquired.? ? COMPARISON:? [facility], CR, XR CHEST 2 VIEWS, 05/25/2022, 20:35.? [facility], CR, XR CHEST 1 VIEW, 05/25/2022, 16:24.? [facility], CR, XR CHEST 1V, 01/30/2021, 22:18. ? FINDINGS:? ? Surgical changes and devices:? Lealess cardiac pacing device is noted.? There is abundant cardiac pacing lead. ? Lungs and pleura:? Lungs are clear.? No pleural effusions or pneumothorax.? ? Mediastinum:? Mediastinal contours appear normal.? Heart size is severely enlarged.? There is a prosthetic heart valve. ? Bones and chest wall:? No suspicious bony lesions.? Overlying soft tissues appear unremarkable.? ? IMPRESSION:? Severe cardiomegaly.? No confluent pulmonary edema. ? ? Dictated by: Earl Mejia M.D. on 11/04/2022 at 19:13 ? ? Approved by: Earl Mejia M.D. on 11/04/2022 at 19:14?? ECG Data Attestation: I personally reviewed and interpreted this ECG as follows: Prior ECG tracings: available for review Interpretation: Ventricularly paced rhythm rate of 70 NH 288, QRS of [address] depression, no acute elevation. Patient has prior EKG from 10/01/2019 MDM Narrative Medical decision making narrative: This is a 77-year-old female with known cardiac disease, patient has had increasing swelling in her bilateral lower extremities for the past week had outpatient labs which showed hemoglobin of 11, normal renal function and electrolytes with a BNP of 17 90 and a negative troponin here. Patient's chest x-ray does not show pulmonary edema I do not appreciate any clinically. She does have bilateral pedal edema. Patient is pretty adamant that she is not going to increase her Lasix or even take 40 mg which he has been recently increased to. She does have an outpatient echo ordered I suspect her swelling is more related to her heart she does have heart disease we discussed this. She does not meet any criteria to be inpatient she has normal vital signs with swelling pedal but not significantly higher up into her legs and no other concerning signs currently. Discharge Plan Departure Patient Disposition: Home Clinical Impression: CHF (congestive heart failure) Instructions: DI for Heart Failure Activity Restrictions/Additional Instructions: Please follow-up with Dr. Cool. He has ordered an echo for you which is very appropriate. I would recommend you take 40 mg of Lasix daily if you are not able to tolerate this you can continue 20 mg and try compression stockings. Your BNP is slightly elevated today, your heart enzyme is otherwise normal. Your INR is 2.7 today. You are slightly anemic with a hemoglobin of 11. Please return for rapidly worsening swelling, new chest pain, shortness of breath, lightheadedness or passing out, difficulty with exertion or other new or concerning changes. Prescriptions: No Action (DME) handicap miguelmax See Rx Instructions .Route .MEDSUPPLY Qty: 1 0RF Rx Instructions: As directed fluoxetine 20 mg capsule 20 mg PO DAILY Qty: 90 3RF alprazolam 2 mg tablet 2 mg PO BID PRN (Reason: anxiety) Qty: 60 5RF warfarin 5 mg tablet See Rx Instructions .ROUTE .COMPLEX Qty: 90 3RF Hold Instructions: taking different dose Dose Instruction: TAKE 1 TABLET BY MOUTH DAILY EVERY TUESDAY, TUESDAY, AND TUESDAY Rx Instructions: 2 mg Tuesday and 5mg all other days or as directed. methotrexate sodium 2.5 mg tablet See Rx Instructions .ROUTE .COMPLEX Qty: 36 0RF Dose Instruction: TAKE 3 TABLETS BY MOUTH ONCE A WEEK Rx Instructions: TAKE 3 TABLETS BY MOUTH ONCE A WEEK folic acid 1 mg tablet 1 mg PO furosemide 20 mg tablet See Rx Instructions PO QAM Qty: 180 3RF Rx Instructions: Take 40mg daily until the edema improves, then take 20mg daily, add another tablet as needed for worsening edema, orally every morning; oxycodone 10 mg tablet 10 mg PO Q6H PRN (Reason: pain) Qty: 120 0RF spironolactone 25 mg tablet 25 mg PO DAILY Qty: 90 3RF atorvastatin 10 mg tablet 10 mg PO DAILY Qty: 90 3RF Hold Instructions: Home Medication placed on hold at Doctor's office acyclovir 400 mg tablet 400 mg PO TID Qty: 21 5RF nystatin 100,000 unit/gram powder 1 applic topical BID Qty: 30 5RF Referrals: Connor Cool DO [Primary Care Provider] - Visit Report Forms: Patient Portal/API
[2022-11-04 20:38] LABS: Creatine Kinase 24 U/L (30-135)
[2022-11-04 20:50] LABS: Troponin I 0.012 ng/mL (0.01-0.034)
== END 2022-11-04 21:50 | disposition home or self-care (01) ==
PROVIDERS: Emergency Provider Emergency Medicine; PCP Family Medicine
DX: I50.9 Heart failure, unspecified (principal); Z95.0 Presence of cardiac pacemaker; R03.1 Nonspecific low blood-pressure reading; I48.0 Paroxysmal atrial fibrillation; E78.2 Mixed hyperlipidemia; M06.042 Rheumatoid arthritis without rheumatoid factor, left hand; M06.041 Rheumatoid arthritis without rheumatoid factor, right hand; R06.01 Orthopnea; Z95.2 Presence of prosthetic heart valve; Z98.890 Other specified postprocedural states; Z79.899 Other long term (current) drug therapy; Z79.01 Long term (current) use of anticoagulants
CPT/HCPCS: 36415; 71045; 80053; 80061; 82550; 83880; 84484; 85025; 85610; 93005; 99283; 99284

== ENCOUNTER 2022-11-16 11:43 | Emergency (ER) | payer MEDICARE, SELFPAY ==
[2022-11-16 11:45] VITALS: BP 152/67; PULSE 70; RESP 18; TEMP 36.3; O2SAT 95; BMI 27.4
[2022-11-16 14:01] LABS: Add Manual Diff / Slide Review NO; Basophils Absolute Auto 0 /uL (0-100); Basophils Percent Auto 0.1 % (0-2); Eosinophils Absolute Auto 0 /uL (0-450); Hematocrit 35.7 % (36-46); Hemoglobin 11.7 g/dL (12.0-16.0); Lymphocytes Absolute Auto 400 /uL (1100-4500); Lymphocytes Percent Auto 2.6 % (25-40); Mean Corpuscular HGB Conc 32.7 % (30-36); Mean Corpuscular Hemoglobin 28.3 PG (26-34); Mean Corpuscular Volume 86.5 fL (80-100); Monocytes Absolute Auto 1900 /uL (0-900); Monocytes Percent Auto 13.4 % (3-14); Neutrophils Absolute Auto 12000 /uL (1500-7000); Neutrophils Percent Auto 83.9 % (50-75); Platelet Count 415 X10^3/uL (150-400); Red Blood Cell Count 4.13 X10^6/uL (4.0-5.2); Red Cell Distribution Width 16.8 % (11.6-14.8); White Blood Cell Count 14.3 X10^3/uL (4.5-11.0)
[2022-11-16 14:10] LABS: Amorphous Sediment Urine 2+; Bacteria Urine None Seen; Culture Indicated Urine Specimen Cultured; Mucus Urine 2+ (Negative); RBC Urine 5-10/HPF (0-5/HPF); Squamous Epithelial Cell Urine 0-1 /HPF (0-5/HPF); WBC Urine 1-5/HPF (0-5/HPF)
[2022-11-16 14:12] LABS: PTT Partial Thromboplastin Tim 61 SECONDS (26-36)
[2022-11-16 14:14] LABS: Alanine Aminotransferase 20 IU/L (<35); Albumin 3.7 g/dL (3.5-5.0); Albumin Globulin Ratio 1.2 (1.0-2.8); Alkaline Phosphatase 64 U/L (38-126); Aspartate Aminotransferase 32 IU/L (14-36); BUN Creatinine Ratio 29.5 (6-22); Bilirubin Total 0.8 mg/dL (0.2-1.3); Blood Urea Nitrogen 18 mg/dL (7-17); Calcium 9.1 mg/dL (8.4-10.2); Carbon Dioxide 30 mmol/L (22-32); Chloride 97 mmol/L (98-107); Estimated Glomerular Filt Rate > 60 mL/min (>60); Globulin 3.2 g/dL (1.7-4.1); Glucose 134 mg/dL (80-110); HEMOLYSIS < 15 (0-50); Potassium 4.3 mmol/L (3.4-5.1); Sodium 135 mmol/L (137-145); Total Protein 6.9 g/dL (6.3-8.2)
--- NOTE | 2022-11-16 14:17 | DI.RAD.S_ITS ---
PROCEDURE: XR CHEST 2V INDICATIONS: myalgias TECHNIQUE: 2 views of the chest were acquired. COMPARISON: [facility], , XR CHEST 1V, 11/04/2022, 18:25. FINDINGS: Surgical changes and devices: Left chest wall pacemaker leads is again seen. Prosthetic heart valve and lead less pacer are again noted and unchanged. Lungs and pleura: Lungs are clear. No pleural effusions or pneumothorax. Mediastinum: Mediastinal contours are normal. Heart size is enlarged. Bones and chest wall: No suspicious bony abnormalities. Soft tissues appear unremarkable. IMPRESSION: Cardiomegaly. No focal infiltrate, pleural effusion or pneumothorax. Dictated by: Geronimo Crow M.D. on 11/16/2022 at 14:59 Approved by: Geronimo Crow M.D. on 11/16/2022 at 15:02
[2022-11-16 14:27] LABS: Prothrombin Time 109.6 SECONDS (10.1-12.7)
[2022-11-16 14:33] LABS: INR 9.3 (0.9-1.3)
[2022-11-16] MEDS: fentaNYL 25 MCG/PATCH TOP (15:08)
[2022-11-16 15:13] LABS: Influenza A - CEPHEID Flu A NEGATIVE (NEGATIVE); Influenza B - CEPHEID Flu B NEGATIVE (NEGATIVE); Respiratory Syncytial Virus Negative (Negative)
[2022-11-16 15:15] LABS: COVID-19 CEPHEID 4-PLEX PCR Negative (Negative)
[2022-11-16 16:30] VITALS: BP 156/69; PULSE 70; RESP 18; O2SAT 97
--- NOTE | 2022-11-16 17:31 | ED.EXTPRO ---
HPI - Extremity Problem <Yariel Landaverde PA-C - Last Filed: 11/16/22 21:14> General Chief complaint: Extremity Problem,Nontraumatic Stated complaint: Knee Pain Time Seen by Provider: 11/16/22 12:03 Source: patient Mode of arrival: EMS History of Present Illness HPI Narrative: 77-year-old female with past medical history rheumatoid arthritis, chronic pain, hyperlipidemia, depression, anxiety, atrial fibrillation, CHF presents to the ED with several weeks of all-over body pain. Patient is also on Coumadin for AFib, requesting for a INR check since it has not been checked in awhile. Patient states she is been taking oxycodone 10 mg with no relief from her pain. Patient states that her symptoms started exacerbating 1 month ago when prednisone was stopped. Patient is currently on methotrexate with no relief. Patient denies fever, chills, URI symptoms, chest pain, shortness of breath, nausea, vomiting, abdominal pain, dysuria, lightheadedness, dizziness, syncope. Patient states that her pain is debilitating enough for her that it makes it difficult for her to move around. Related Data Home Medications Medication Instructions Recorded Confirmed folic acid 1 mg tablet 1 mg PO QAM 03/31/22 11/17/22 Previous Rx's Medication Instructions Recorded handicap placard #1 ea 06/17/21 atorvastatin 10 mg tablet 10 mg PO DAILY #90 tabs 10/20/21 acyclovir 400 mg tablet 400 mg PO TID #21 tabs 11/17/21 nystatin 100,000 unit/gram topical 1 applic topical BID #30 grams 11/17/21 powder fluoxetine 20 mg capsule 20 mg PO DAILY #90 caps 05/12/22 furosemide 20 mg tablet See Rx Instructions PO QAM #180 05/18/22 tabs alprazolam 2 mg tablet 2 mg PO BID PRN anxiety #60 tabs 10/04/22 warfarin 5 mg tablet See Rx Instructions .Route 10/21/22 .COMPLEX #90 tabs methotrexate sodium 2.5 mg tablet See Rx Instructions .Route 10/25/22 .COMPLEX #36 tabs oxycodone 10 mg tablet 10 mg PO Q6H PRN pain #120 tabs 11/04/22 spironolactone 25 mg tablet 25 mg PO DAILY #90 tabs 11/04/22 doxycycline hyclate 100 mg capsule 100 mg PO BID #10 caps 11/20/22 prednisone 5 mg tablet 5 mg PO DAILY #30 tabs 11/20/22 Allergies Allergy/AdvReac Type Severity Reaction Status Date / Time hydrocodone [From Vicodin] AdvReac Severe Anxiety Verified 11/04/22 10:26 adhesive [ADHESIVE] AdvReac Unknown tape Verified 11/04/22 10:26 ibuprofen [IBUPROFEN] AdvReac Unknown I feel Verified 11/16/22 14:56 really weird vitamin E (d-alpha AdvReac Unknown cold sores Verified 11/16/22 14:56 tocopherol) [VITAMIN E] Review of Systems <Yariel Landaverde PA-C - Last Filed: 11/16/22 21:14> Review of Systems ROS Unobtainable: All systems reviewed & are unremarkable except as noted in HPI and below Constitutional Constitutional: Reports body ache(s), Denies chills, Denies fatigue, Denies fever(s), Denies frequent falls, Denies lethargy and Denies weakness Eyes Eyes: Denies change in vision, Denies eye discharge, Denies irritation and Denies loss of vision ENT Ears, Nose, Mouth, and Throat: Denies change in voice, Denies dizziness, Denies neck pain, Denies sore throat and Denies throat swelling Cardiovascular Cardiovascular: Denies chest pain, Denies irregular heart rhythm, Denies lightheadedness, Denies palpitations, Denies dyspnea, Denies dyspnea on exertion and Denies orthopnea Respiratory Respiratory: Denies cough, Denies dyspnea, Denies dyspnea on exertion and Denies wheezing Gastrointestinal Gastrointestinal: Denies abdominal pain, Denies change in bowel habits, Denies diarrhea, Denies nausea and Denies vomiting Genitourinary Genitourinary: Denies hematuria, Denies flank pain, Denies urinary incontinence and Denies urinary urgency Musculoskeletal Musculoskeletal: Denies back pain, Denies muscle weakness, Denies neck pain, Denies numbness and Denies tingling Integumentary/Breasts Skin/Breast: Denies pruritus, Denies erythema, Denies rash and Denies wounds Neurologic Neurologic: Denies behavioral changes, Denies confusion, Denies dizziness, Denies frequent falls, Denies loss of vision, Denies numbness, Denies tingling and Denies weakness Psychiatric Psychiatric: Denies anxiety, Denies behavioral changes, Denies confusion, Denies depression, Denies homicidal ideation and Denies suicidal ideation Endocrine Endocrine: Denies fatigue, Denies flushing and Denies palpitations Hematologic/Lymphatic Hematologic/Lymphatic: Denies easy bruising Allergic/Immunologic Allergic/Immunologic: Denies urticaria, Denies throat swelling and Denies wheezing Patient History <Yariel Landaverde PA-C - Last Filed: 11/16/22 21:14> Medical History Ankle pain (~2016) Anticoagulation monitoring, INR range 2-3 Bilateral hand pain Bilateral lower extremity edema Cataracts, bilateral Cervical somatic dysfunction Chicken pox (~1946) Chronic back pain (~1990) Chronic pain Chronic pain of left ankle Chronic pain of left knee Chronic pain of right knee Chronic pain of right thumb Cyst of right breast Depression Elevated random blood glucose level Elevated troponin Family history of colon cancer Greater trochanteric bursitis of both hips H/O cold sores History of rheumatic fever Hyperlipidemia, mixed 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 Kidney stones (~2007) Left anterior shoulder pain Left arm pain Measles (~1945) Mumps (~1946) On methotrexate therapy Orthopnea Osteoarthritis of hands, bilateral Ovarian cyst Pain of right middle finger Recurrent sinusitis Rheumatic fever (~1953) 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 Segmental and somatic dysfunction of rib cage Shoulder pain Somatic dysfunction of lower extremity Swelling of finger of both hands Vaccine reaction Surgical History Anesthesia History of cholecystectomy (~1989) History of hysterectomy (~1970) Mitral valve replaced (~2008) Pacemaker (~1997) Family History Father Cancer Mother Cancer Sister COPD (chronic obstructive pulmonary disease) Social History household members: family Smoking Status: Former smoker alcohol intake: current Smoking Status: Current every day smoker alcohol intake frequency: a few times a week Substance Use Type: does not use Exam <Yariel Landaverde PA-C - Last Filed: 11/16/22 21:14> Narrative Exam Narrative: Const General:?cooperative, healthy appearing and comfortable HENME Head:?normal to inspection Ears:?hearing grossly normal bilaterally Nose:?external nose normal Face and sinus:?normal facial exam and sinuses nontender Mouth:?oral mucosae normal Throat:?posterior oropharynx normal Eyes General:?appearance normal, both eyes and all related structures Neck Neck:?normal visual inspection and no lymphadenopathy noted Resp Effort & Inspection:?normal respiratory effort Auscultation:?clear to auscultation bilaterally Cardio Rate:?regular rate Rhythm:?regular rhythm Bilateral ankle swelling, likely related to the CHF Musculoskeletal No deformities, swelling, erythema Neuro General:?patient alert, patient awake and patient oriented x3 Initial Vital Signs Initial Vital Signs: Vital Signs Temperature 97.4 F L 11/16/22 11:45 Pulse Rate 70 11/16/22 11:45 Respiratory Rate 18 11/16/22 11:45 Blood Pressure 152/67 H 11/16/22 11:45 Pulse Oximetry 95 11/16/22 11:45 Oxygen Delivery Method 11/16/22 11:45 <Dipak Rowland MD - Last Filed: 11/22/22 08:31> Initial Vital Signs Initial Vital Signs: Vital Signs Temperature 97.4 F L 11/16/22 11:45 Pulse Rate 70 11/16/22 11:45 Respiratory Rate 18 11/16/22 11:45 Blood Pressure 152/67 H 11/16/22 11:45 Pulse Oximetry 95 11/16/22 11:45 Oxygen Delivery Method 11/16/22 11:45 Course <Yariel Landaverde PA-C - Last Filed: 11/16/22 21:14> Orders Ordered: Discontinued Medications Fentanyl (Fentanyl 25 Mcg/Patch) 25 mcg TOP NOW ONE Stop: 11/16/22 14:56 Last Admin: 11/16/22 15:08 Dose: 25 mcg Documented By: SERAFIN Vital Signs Vital signs: Vital Signs - 8 hr 11/16/22 16:30 Pulse Rate 70 Respiratory Rate 18 Blood Pressure 156/69 H Pulse Oximetry 97 Oxygen Delivery Method Room Air <Dipak Rowland MD - Last Filed: 11/22/22 08:31> Orders Ordered: Discontinued Medications Fentanyl (Fentanyl 25 Mcg/Patch) 25 mcg TOP NOW ONE Stop: 11/16/22 14:56 Last Admin: 11/16/22 15:08 Dose: 25 mcg Documented By: SERAFIN Vital Signs Vital signs: Vital Signs - 8 hr 11/16/22 16:30 Pulse Rate 70 Respiratory Rate 18 Blood Pressure 156/69 H Pulse Oximetry 97 Oxygen Delivery Method Room Air MDM - Extremity (Nontraumatic) <Yariel Landaverde PA-C - Last Filed: 11/16/22 21:14> Lab Data Result diagrams: 11/16/22 13:50 11/16/22 13:50 Labs: Lab Results 11/16/22 11/16/22 11/16/22 Range/Units 13:40 13:50 13:50 WBC 14.3 H (4.5-11.0) X10^3/uL RBC 4.13 (4.0-5.2) X10^6/uL Hgb 11.7 L (12.0-16.0) g/dL Hct 35.7 L (36-46) % MCV 86.5 (80-100) fL MCH 28.3 (26-34) PG MCHC 32.7 (30-36) % RDW 16.8 H (11.6-14.8) % Plt Count 415 H (150-400) X10^3/uL Neut % (Auto) 83.9 H (50-75) % Lymph % (Auto) 2.6 L (25-40) % [place] % (Auto) 13.4 (3-14) % Eos % (Auto) 0.0 L (2-4) % Baso % (Auto) 0.1 (0-2) % Neut # (Auto) 97144 H (5656-9117) /uL Lymph # (Auto) 400 L (5850-0891) /uL [place] # (Auto) 1900 H (0-900) /uL Eos # (Auto) 0 (0-450) /uL Baso # (Auto) 0 (0-100) /uL PT 109.6 H (10.1-12.7) SECONDS INR 9.3 H* (0.9-1.3) APTT 61 H (26-36) SECONDS Sodium (137-145) mmol/L Potassium (3.4-5.1) mmol/L Chloride (98-107) mmol/L Carbon Dioxide (22-32) mmol/L BUN (7-17) mg/dL Creatinine (0.52-1.04) mg/dL Estimated GFR (>60) mL/min BUN/Creatinine Ratio (6-22) Glucose (80-110) mg/dL Calcium (8.4-10.2) mg/dL Total Bilirubin (0.2-1.3) mg/dL AST (14-36) IU/L ALT (<35) IU/L Alkaline Phosphatase (38-126) U/L Total Protein (6.3-8.2) g/dL Albumin (3.5-5.0) g/dL Globulin (1.7-4.1) g/dL Albumin/Globulin Ratio (1.0-2.8) Urine RBC 5-10/hpf H (0-5/HPF) Urine WBC 1-5/hpf (0-5/HPF) Ur Squamous Epith Cells 0-1 /hpf (0-5/HPF) Amorphous Sediment 2+ Urine Bacteria None seen (None) Urine Mucus 2+ H (Negative) Ur Culture Indicated? Specimen cultured SARS-CoV-2 (PCR) (Negative) Influenza A (RT-PCR) (NEGATIVE) Influenza B (RT-PCR) (NEGATIVE) RSV (PCR) (Negative) 11/16/22 11/16/22 Range/Units 13:50 14:24 WBC (4.5-11.0) X10^3/uL RBC (4.0-5.2) X10^6/uL Hgb (12.0-16.0) g/dL Hct (36-46) % MCV (80-100) fL MCH (26-34) PG MCHC (30-36) % RDW (11.6-14.8) % Plt Count (150-400) X10^3/uL Neut % (Auto) (50-75) % Lymph % (Auto) (25-40) % [place] % (Auto) (3-14) % Eos % (Auto) (2-4) % Baso % (Auto) (0-2) % Neut # (Auto) (2280-3127) /uL Lymph # (Auto) (9603-0987) /uL [place] # (Auto) (0-900) /uL Eos # (Auto) (0-450) /uL Baso # (Auto) (0-100) /uL PT (10.1-12.7) SECONDS INR (0.9-1.3) APTT (26-36) SECONDS Sodium 135 L (137-145) mmol/L Potassium 4.3 (3.4-5.1) mmol/L Chloride 97 L (98-107) mmol/L Carbon Dioxide 30 (22-32) mmol/L BUN 18 H (7-17) mg/dL Creatinine 0.61 (0.52-1.04) mg/dL Estimated GFR > 60 (>60) mL/min BUN/Creatinine Ratio 29.5 H (6-22) Glucose 134 H (80-110) mg/dL Calcium 9.1 (8.4-10.2) mg/dL Total Bilirubin 0.8 (0.2-1.3) mg/dL AST 32 (14-36) IU/L ALT 20 (<35) IU/L Alkaline Phosphatase 64 (38-126) U/L Total Protein 6.9 (6.3-8.2) g/dL Albumin 3.7 (3.5-5.0) g/dL Globulin 3.2 (1.7-4.1) g/dL Albumin/Globulin Ratio 1.2 (1.0-2.8) Urine RBC (0-5/HPF) Urine WBC (0-5/HPF) Ur Squamous Epith Cells (0-5/HPF) Amorphous Sediment Urine Bacteria (None) Urine Mucus (Negative) Ur Culture Indicated? SARS-CoV-2 (PCR) Negative (Negative) Influenza A (RT-PCR) Flu a negative (NEGATIVE) Influenza B (RT-PCR) Flu b negative (NEGATIVE) RSV (PCR) Negative (Negative) Urine Dip Bedside Urine Glucose Negative Bedside Urine Bilirubin - Negative Bedside Urine Ketone - Negative Urine Specific Fields 1.015 Bedside Urine Occult Blood ++ Bedside Urine pH 6.0 Bedside Urine Protein +/- 15 Bedside Urine Urobilinogen - Negative Bedside Urine Nitrite - Negative Bedside Urine Leukocytes - Negative Esterase Imaging Data Chest x-ray: Radiologist's Impression: PROCEDURE:? XR CHEST 2V ? INDICATIONS:? myalgias ? TECHNIQUE:? 2 views of the chest were acquired.? ? COMPARISON:? [facility], , XR CHEST 1V, 11/04/2022, 18:25. ? FINDINGS:? ? Surgical changes and devices:? Left chest wall pacemaker leads is again seen.? Prosthetic heart valve and lead less pacer are again noted and unchanged. ? Lungs and pleura:? Lungs are clear.? No pleural effusions or pneumothorax.? ? Mediastinum:? Mediastinal contours are normal.? Heart size is enlarged.? ? Bones and chest wall:? No suspicious bony abnormalities.? Soft tissues appear unremarkable.? ? IMPRESSION:? Cardiomegaly.? No focal infiltrate, pleural effusion or pneumothorax. ? ? Dictated by: Geronimo Crow M.D. on 11/16/2022 at 14:59 ? ? Approved by: Geronimo Crow M.D. on 11/16/2022 at 15:02 ? MDM Narrative Medical decision making narrative: 77-year-old female with past medical history rheumatoid arthritis, chronic pain, hyperlipidemia, depression, anxiety, atrial fibrillation, CHF presents to the ED with several weeks of all-over body pain. Concern for poorly controlled chronic pain, supratherapeutic or subtherapeutic INR, electrolyte derangements, URI. Will obtain labs, coags, respiratory swab, UA. INR was supratherapeutic to 9.3. Patient is not actively bleeding. Patient recommended to stop Coumadin, have INR monitored by her PCP and dose readjusted accordingly. Patient prescribed a fentanyl patch to trial. Patient recommended not to use fentanyl along with oxycodone or Xanax, since it can increase her sleepiness and make her more prone to falls. Also advised that she needs to be careful about falls, since she is supratherapeutic with her INR. ED return precautions were discussed with patient. Patient verbalized understanding. Patient also agreed to follow-up with her PCP regarding the pain from the rheumatoid arthritis. <Dipak Rowland MD - Last Filed: 11/22/22 08:31> Lab Data Labs: Lab Results 11/16/22 11/16/22 11/16/22 Range/Units 13:40 13:50 13:50 WBC 14.3 H (4.5-11.0) X10^3/uL RBC 4.13 (4.0-5.2) X10^6/uL Hgb 11.7 L (12.0-16.0) g/dL Hct 35.7 L (36-46) % MCV 86.5 (80-100) fL MCH 28.3 (26-34) PG MCHC 32.7 (30-36) % RDW 16.8 H (11.6-14.8) % Plt Count 415 H (150-400) X10^3/uL Neut % (Auto) 83.9 H (50-75) % Lymph % (Auto) 2.6 L (25-40) % [place] % (Auto) 13.4 (3-14) % Eos % (Auto) 0.0 L (2-4) % Baso % (Auto) 0.1 (0-2) % Neut # (Auto) 78585 H (5060-7457) /uL Lymph # (Auto) 400 L (9734-3665) /uL [place] # (Auto) 1900 H (0-900) /uL Eos # (Auto) 0 (0-450) /uL Baso # (Auto) 0 (0-100) /uL PT 109.6 H (10.1-12.7) SECONDS INR 9.3 H* (0.9-1.3) APTT 61 H (26-36) SECONDS Sodium (137-145) mmol/L Potassium (3.4-5.1) mmol/L Chloride (98-107) mmol/L Carbon Dioxide (22-32) mmol/L BUN (7-17) mg/dL Creatinine (0.52-1.04) mg/dL Estimated GFR (>60) mL/min BUN/Creatinine Ratio (6-22) Glucose (80-110) mg/dL Calcium (8.4-10.2) mg/dL Total Bilirubin (0.2-1.3) mg/dL AST (14-36) IU/L ALT (<35) IU/L Alkaline Phosphatase (38-126) U/L Total Protein (6.3-8.2) g/dL Albumin (3.5-5.0) g/dL Globulin (1.7-4.1) g/dL Albumin/Globulin Ratio (1.0-2.8) Urine RBC 5-10/hpf H (0-5/HPF) Urine WBC 1-5/hpf (0-5/HPF) Ur Squamous Epith Cells 0-1 /hpf (0-5/HPF) Amorphous Sediment 2+ Urine Bacteria None seen (None) Urine Mucus 2+ H (Negative) Ur Culture Indicated? Specimen cultured SARS-CoV-2 (PCR) (Negative) Influenza A (RT-PCR) (NEGATIVE) Influenza B (RT-PCR) (NEGATIVE) RSV (PCR) (Negative) 11/16/22 11/16/22 Range/Units 13:50 14:24 WBC (4.5-11.0) X10^3/uL RBC (4.0-5.2) X10^6/uL Hgb (12.0-16.0) g/dL Hct (36-46) % MCV (80-100) fL MCH (26-34) PG MCHC (30-36) % RDW (11.6-14.8) % Plt Count (150-400) X10^3/uL Neut % (Auto) (50-75) % Lymph % (Auto) (25-40) % [place] % (Auto) (3-14) % Eos % (Auto) (2-4) % Baso % (Auto) (0-2) % Neut # (Auto) (3693-9137) /uL Lymph # (Auto) (9654-6937) /uL [place] # (Auto) (0-900) /uL Eos # (Auto) (0-450) /uL Baso # (Auto) (0-100) /uL PT (10.1-12.7) SECONDS INR (0.9-1.3) APTT (26-36) SECONDS Sodium 135 L (137-145) mmol/L Potassium 4.3 (3.4-5.1) mmol/L Chloride 97 L (98-107) mmol/L Carbon Dioxide 30 (22-32) mmol/L BUN 18 H (7-17) mg/dL Creatinine 0.61 (0.52-1.04) mg/dL Estimated GFR > 60 (>60) mL/min BUN/Creatinine Ratio 29.5 H (6-22) Glucose 134 H (80-110) mg/dL Calcium 9.1 (8.4-10.2) mg/dL Total Bilirubin 0.8 (0.2-1.3) mg/dL AST 32 (14-36) IU/L ALT 20 (<35) IU/L Alkaline Phosphatase 64 (38-126) U/L Total Protein 6.9 (6.3-8.2) g/dL Albumin 3.7 (3.5-5.0) g/dL Globulin 3.2 (1.7-4.1) g/dL Albumin/Globulin Ratio 1.2 (1.0-2.8) Urine RBC (0-5/HPF) Urine WBC (0-5/HPF) Ur Squamous Epith Cells (0-5/HPF) Amorphous Sediment Urine Bacteria (None) Urine Mucus (Negative) Ur Culture Indicated? SARS-CoV-2 (PCR) Negative (Negative) Influenza A (RT-PCR) Flu a negative (NEGATIVE) Influenza B (RT-PCR) Flu b negative (NEGATIVE) RSV (PCR) Negative (Negative) Urine Dip Bedside Urine Glucose Negative Bedside Urine Bilirubin - Negative Bedside Urine Ketone - Negative Urine Specific Fields 1.015 Bedside Urine Occult Blood ++ Bedside Urine pH 6.0 Bedside Urine Protein +/- 15 Bedside Urine Urobilinogen - Negative Bedside Urine Nitrite - Negative Bedside Urine Leukocytes - Negative Esterase Discharge Plan Departure Patient Disposition: Home Clinical Impression: Generalized body aches Activity Restrictions/Additional Instructions: You were evaluated in the ED today for all-over body aches. Your INR was elevated to 9.3. Please stop taking the Coumadin, call your doctor to monitor the INR and restart at the correct dose. If you are unable to see your doctor in a timely fashion to recheck the INR, please return to the ED. your all-over body aches are likely due to your arthritis for which you are on methotrexate. Please follow-up with your doctor so they can re-evaluate and readjust your medications for it. A fentanyl patch was applied for trial today for short-term pain management until you can see your doctor. Please do not take your Xanax or oxycodone when you are using the patch, since this can make you overly sleepy and prone to falls. The rest of your blood work was normal. You did not test positive for COVID-19 or influenza. If any of your symptoms worsen, you develop chest pain or shortness of breath, please return to the ED immediately Prescriptions: No Action (DME) handicap placard See Rx Instructions .Route .MEDSUPPLY Qty: 1 0RF Rx Instructions: As directed fluoxetine 20 mg capsule 20 mg PO DAILY Qty: 90 3RF alprazolam 2 mg tablet 2 mg PO BID PRN (Reason: anxiety) Qty: 60 5RF warfarin 5 mg tablet See Rx Instructions .ROUTE .COMPLEX Qty: 90 3RF Hold Instructions: taking different dose Dose Instruction: TAKE 1 TABLET BY MOUTH DAILY EVERY TUESDAY, TUESDAY, AND TUESDAY Rx Instructions: 2 mg Tuesday and 5mg all other days or as directed. methotrexate sodium 2.5 mg tablet See Rx Instructions .ROUTE .COMPLEX Qty: 36 0RF Dose Instruction: TAKE 3 TABLETS BY MOUTH ONCE A WEEK Rx Instructions: TAKE 3 TABLETS BY MOUTH ONCE A WEEK folic acid 1 mg tablet 1 mg PO QAM furosemide 20 mg tablet See Rx Instructions PO QAM Qty: 180 3RF Rx Instructions: Take 40mg daily until the edema improves, then take 20mg daily, add another tablet as needed for worsening edema, orally every morning; oxycodone 10 mg tablet 10 mg PO Q6H PRN (Reason: pain) Qty: 120 0RF spironolactone 25 mg tablet 25 mg PO DAILY Qty: 90 3RF atorvastatin 10 mg tablet 10 mg PO DAILY Qty: 90 3RF Hold Instructions: Home Medication placed on hold at Doctor's office acyclovir 400 mg tablet 400 mg PO TID Qty: 21 5RF nystatin 100,000 unit/gram powder 1 applic topical BID Qty: 30 5RF prednisone 5 mg tablet 5 mg PO DAILY Qty: 30 0RF doxycycline hyclate 100 mg capsule 100 mg PO BID Qty: 10 0RF Referrals: Connor Cool DO [Primary Care Provider] - Visit Report Forms: Patient Portal/API <Dipak Rowland MD - Last Filed: 11/22/22 08:31> [facility]: I was immediately available in the department for consultation. ?This documentation has been reviewed and I agree with assessment and plan. Supervised by Dipak Rowland MD
== END 2022-11-16 16:40 | disposition home or self-care (01) ==
PROVIDERS: Emergency Provider Student in an Organized Health Care Education/Training Program; PCP Family Medicine
DX: R52 Pain, unspecified (principal); Z79.899 Other long term (current) drug therapy; Z79.01 Long term (current) use of anticoagulants; Z20.822 Contact with and (suspected) exposure to COVID-19
CPT/HCPCS: 0241U; 36415; 71046; 80053; 81003; 81015; 85025; 85610; 85730; 87086; 99282

== ENCOUNTER 2022-11-17 05:37 | Inpatient (IN) | payer MEDICARE, SELFPAY ==
[2022-11-17] VITALS (28 sets, daily range): BP systolic 127–190; BP diastolic 62–86; PULSE 69–71; RESP 16–24; TEMP 35.5–36.8; O2SAT 93–97; BMI 24.1
--- NOTE | 2022-11-17 | DI.CT.S_ITS ---
PROCEDURE: CT CHEST ABD PEL W CON INDICATIONS: GIB, coagulopathy, abdominal and chest pain TECHNIQUE: After the administration of intravenous contrast, 5 mm thick sections acquired from the lung apices to the symphysis. 5 mm coronal and sagittal reformats were performed, with additional 7 mm MIP reformats through the lungs. For radiation dose reduction, the following was used: automated exposure control, adjustment of mA and/or kV according to patient size. COMPARISON: [facility], CT, THORAX WITH CONTRAST, 07/11/2009, 19:23. FINDINGS: Image quality: Excellent. CHEST: Lungs and pleura: The right lung is clear. Pleural herniation between the 7th and 8th right ribs is redemonstrated and is unchanged from the study dated July 11, 2009. There is a low-density left pleural effusion. Mild atelectasis is present at the dependent left lung base. Mediastinum: The heart is massively enlarged. There is a trace low-density pericardial effusion. No mediastinal or hilar adenopathy by size criteria. Thoracic aorta and central pulmonary arteries are normal in size. Scattered atheromatous calcifications are present within the aortic arch. Esophagus is normal in caliber. No hiatal hernia. Chest wall: No axillary or supraclavicular adenopathy by size criteria. Thyroid gland is unremarkable . ABDOMEN: Solid organs: Liver is normal in size and enhancement. A low-density cyst is present within the right hepatic lobe. Gallbladder is surgically absent . Intrahepatic biliary system is non dilated. There is ectasia of the common bile duct. Pancreas enhances normally. Spleen is normal in size and enhancement. No adrenal nodules. The lower pole of the left kidney is atrophic. There are multiple exophytic left renal cysts. There is likely compensatory hypertrophy of the right kidney which is located within the pelvis. Peritoneum and bowel: Bowel loops demonstrate normal wall thickness and caliber. There are scattered sigmoid diverticula. No evidence for diverticulitis. The appendix is not visualized; however there is no discrete right lower quadrant fluid or fat stranding to suggest acute appendicitis. No free fluid or air. Nodes and vessels: No retroperitoneal or mesenteric adenopathy by size criteria. Aorta and inferior vena cava are normal in size. There are scattered atheromatous calcifications throughout the aorta and iliac arteries bilaterally. Miscellaneous: No ventral hernias. PELVIS: Genitourinary: Bladder wall thickness is normal. Miscellaneous: No inguinal hernias or adenopathy. Bones: No suspicious bony lesions. No vertebral body compression fractures. IMPRESSION: 1. Small left pleural effusion. 2. Massive cardiomegaly and trace pericardial effusion. 3. No acute intra-abdominal findings. Diverticulosis. No acute diverticulitis. 4. The appendix is not visualized; however there are no ancillary findings to suggest acute appendicitis. Dictated by: Myrtle Dahl M.D. on 11/17/2022 at 12:14 Approved by: Myrtle Dahl M.D. on 11/17/2022 at 12:23
--- NOTE | 2022-11-17 05:41 | ED.GIBLEED ---
HPI - GI Bleed General Chief complaint: GI Bleed Stated complaint: Tarry stool x1 Time Seen by Provider: 11/17/22 05:38 History of Present Illness HPI Narrative: 77-year-old female smoker with history of pacemaker on Coumadin, pancreatitis, gastritis, aortic valve replacement, body pain presents by EMS for evaluation of 2 bloody stools overnight. She denies any change in her medications. She was here yesterday for evaluation of widespread body pain and was given a fentanyl patch. She denies any trauma or injury. She feels weak but denies any dizziness or lightheadedness. She denies any chest pain or shortness of breath. She has had no nausea, vomiting or diarrhea. Related Data Home Medications Medication Instructions Recorded Confirmed folic acid 1 mg tablet 1 mg PO QAM 03/31/22 11/17/22 Previous Rx's Medication Instructions Recorded handicap placard #1 ea 06/17/21 atorvastatin 10 mg tablet 10 mg PO DAILY #90 tabs 10/20/21 acyclovir 400 mg tablet 400 mg PO TID #21 tabs 11/17/21 nystatin 100,000 unit/gram topical 1 applic topical BID #30 grams 11/17/21 powder fluoxetine 20 mg capsule 20 mg PO DAILY #90 caps 05/12/22 furosemide 20 mg tablet See Rx Instructions PO QAM #180 05/18/22 tabs alprazolam 2 mg tablet 2 mg PO BID PRN anxiety #60 tabs 10/04/22 warfarin 5 mg tablet See Rx Instructions .Route 10/21/22 .COMPLEX #90 tabs methotrexate sodium 2.5 mg tablet See Rx Instructions .Route 10/25/22 .COMPLEX #36 tabs oxycodone 10 mg tablet 10 mg PO Q6H PRN pain #120 tabs 11/04/22 spironolactone 25 mg tablet 25 mg PO DAILY #90 tabs 11/04/22 Allergies Allergy/AdvReac Type Severity Reaction Status Date / Time hydrocodone [From Vicodin] AdvReac Severe Anxiety Verified 11/04/22 10:26 adhesive [ADHESIVE] AdvReac Unknown tape Verified 11/04/22 10:26 ibuprofen [IBUPROFEN] AdvReac Unknown I feel Verified 11/16/22 14:56 really weird vitamin E (d-alpha AdvReac Unknown cold sores Verified 11/16/22 14:56 tocopherol) [VITAMIN E] Review of Systems Review of Systems Narrative: GENERAL: See HPI HEENT: Denies sinus pain, ear pain, sore throat, difficulty swallowing, dizziness. RESPIRATORY: Denies dyspnea, cough, wheezing, hemoptysis, sputum. CARDIOVASCULAR: Denies chest pain, palpitations, orthopnea, edema, GASTROINTESTINAL: See HPI : Denies dysuria, frequency, incontinence, hematuria, urinary retention. MUSCULOSKELETAL: denies weakness, joint pain, or bony pain SKIN: Denies rash, skin lesions, or other NEUROLOGIC: Denies weakness, headache, numbness, change in speech, confusion, seizures, incoordination. PSYCHIATRIC: No concerning psychosocial issues. 12 point review of systems is negative except for those stated above Patient History Medical History Ankle pain (~2016) Anticoagulation monitoring, INR range 2-3 Bilateral hand pain Bilateral lower extremity edema Cataracts, bilateral Cervical somatic dysfunction Chicken pox (~1946) Chronic back pain (~1990) Chronic pain Chronic pain of left ankle Chronic pain of left knee Chronic pain of right knee Chronic pain of right thumb Cyst of right breast Depression Elevated random blood glucose level Elevated troponin Family history of colon cancer Greater trochanteric bursitis of both hips H/O cold sores History of rheumatic fever Hyperlipidemia, mixed 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 Kidney stones (~2007) Left anterior shoulder pain Left arm pain Measles (~1945) Mumps (~1946) On methotrexate therapy Orthopnea Osteoarthritis of hands, bilateral Ovarian cyst Pain of right middle finger Recurrent sinusitis Rheumatic fever (~1953) 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 Segmental and somatic dysfunction of rib cage Shoulder pain Somatic dysfunction of lower extremity Swelling of finger of both hands Vaccine reaction Surgical History Anesthesia History of cholecystectomy (~1989) History of hysterectomy (~1970) Mitral valve replaced (~2008) Pacemaker (~1997) Family History Father Cancer Mother Cancer Sister COPD (chronic obstructive pulmonary disease) Social History household members: family Smoking Status: Former smoker alcohol intake: current Smoking Status: Current every day smoker alcohol intake frequency: a few times a week Substance Use Type: does not use Exam Narrative Exam Narrative: GENERAL: [77] year old patient appears stated age. Well-developed patient, in mild distress. HEAD: Atraumatic. Normocephalic. EYES: Pupils equal round and reactive. Extraocular motions intact. No scleral icterus. No injection or drainage. ENT: Nose without bleeding, purulent drainage. Throat without erythema, tonsillar hypertrophy or exudate. Airway patent. NECK: Trachea midline. Non tender CARDIOVASCULAR: Regular rate and rhythm without murmurs, gallops, or rubs. RESPIRATORY: Clear to auscultation. Breath sounds equal bilaterally. No wheezes, rales, or rhonchi. GASTROINTESTINAL: Abdomen soft, non-tender, nondistended. RECTAL: Melena, obviously heme-positive. Minimal pain. 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 BACK: Nontender without deformity or crepitance. No flank tenderness. NEURO: AOx3. SKIN: No rash or erythema of visible areas Initial Vital Signs Initial Vital Signs: Vital Signs Temperature 97.4 F L 11/17/22 05:54 Pulse Rate 71 11/17/22 05:54 Respiratory Rate 16 11/17/22 05:54 Blood Pressure 169/80 H 11/17/22 05:54 Pulse Oximetry 97 11/17/22 05:54 Oxygen Delivery Method 11/17/22 05:54 Course Orders Ordered: Acetaminophen (Acetaminophen 325 Mg Tablet) 650 mg PO Q6H PRN PRN Reason: Fever/Mild Pain (1-3) Acyclovir (Acyclovir 400 Mg Tablet) 400 mg PO TID [facility] Last Admin: 11/18/22 20:44 Dose: 400 mg Documented By: Admin: 11/18/22 15:31 Dose: Not Given Documented By: Admin: 11/18/22 09:18 Dose: Not Given Documented By: Admin: 11/17/22 20:22 Dose: Not Given Documented By: CANELO Alprazolam (Alprazolam 0.5 Mg Tablet) 2 mg PO BID PRN PRN Reason: anxiety Atorvastatin Calcium (Atorvastatin 20 Mg Tablet) 10 mg PO DAILY [facility] Last Admin: 11/18/22 09:26 Dose: 10 mg Documented By: BR Fluoxetine HCl (Fluoxetine 20 Mg Capsule) 20 mg PO DAILY [facility] Last Admin: 11/18/22 09:27 Dose: 20 mg Documented By: ALTA Folic Acid (Folic Acid 1 Mg Tablet) 1 mg PO DAILY [facility] Last Admin: 11/18/22 09:27 Dose: 1 mg Documented By: ALTA Naloxone HCl (Naloxone 0.4 Mg/Ml Vial) 0.2 mg IV Q2MIN PRN PRN Reason: Opiate Reversal Nystatin (Nystatin Powder 15gm) 1 applic TOP BID [facility] Last Admin: 11/18/22 20:44 Dose: 1 applic Documented By: Admin: 11/18/22 09:18 Dose: Not Given Documented By: Admin: 11/17/22 20:22 Dose: Not Given Documented By: CANELO Ondansetron HCl (Ondansetron 4 Mg/2 Ml Inj) 4 mg IV Q8HR PRN PRN Reason: Nausea And Vomiting Oxycodone HCl (Oxycodone Ir 10 Mg Tablet) 10 mg PO Q6H PRN PRN Reason: pain Last Admin: 11/19/22 00:02 Dose: 10 mg Documented By: Admin: 11/18/22 13:17 Dose: 10 mg Documented By: Admin: 11/18/22 06:10 Dose: 10 mg Documented By: Admin: 11/17/22 20:09 Dose: 10 mg Documented By: CANELO Pantoprazole Sodium (Pantoprazole 40 Mg Vial) 40 mg IV BID [facility] Last Admin: 11/18/22 20:44 Dose: 40 mg Documented By: Admin: 11/18/22 09:27 Dose: 40 mg Documented By: Admin: 11/17/22 20:22 Dose: 40 mg Documented By: CANELO Spironolactone (Spironolactone 25 Mg Tablet) 25 mg PO DAILY [facility] Last Admin: 11/18/22 09:27 Dose: Not Given Documented By: ALTA Tramadol HCl (Tramadol 50 Mg Tablet) 50 mg PO QID PRN PRN Reason: Pain, Moderate (4-6) Last Admin: 11/17/22 18:46 Dose: 50 mg Documented By: Admin: 11/17/22 13:36 Dose: 50 mg Documented By: CLL Discontinued Medications Enoxaparin Sodium (Enoxaparin 80 Mg/0.8 Ml Syringe) 65 mg SUBCUT NOW ONE Stop: 11/18/22 19:01 Last Admin: 11/18/22 19:25 Dose: 65 mg Documented By: KHAI Furosemide (Furosemide 20 Mg/2 Ml Vial) 20 mg IV NOW ONE Stop: 11/18/22 12:09 Last Admin: 11/18/22 13:17 Dose: 20 mg Documented By: ALTA Phytonadione 10 mg/ Sodium (Chloride) 101 mls @ 202 mls/hr IV NOW ONE Stop: 11/17/22 06:36 Last Infusion: 11/17/22 07:38 Dose: 0 mls/hr Documented By: Admin: 11/17/22 06:45 Dose: 202 mls/hr Documented By: SAUNDRA Pantoprazole Sodium 80 mg/ (Sodium Chloride) 100 mls @ 10 mls/hr IV NOW ONE Stop: 11/17/22 22:09 Last Admin: 11/17/22 14:45 Dose: 10 mls/hr Documented By: AAKASH Sodium Chloride (Normal Saline 0.9%) 1,000 mls @ 100 mls/hr IV CONT ARMANDO Last Admin: 11/18/22 00:07 Dose: 100 mls/hr Documented By: Infusion: 11/18/22 00:07 Dose: 100 mls/hr Documented By: Admin: 11/17/22 14:31 Dose: 100 mls/hr Documented By: AAKASH Morphine Sulfate (Morphine 2 Mg/Ml Inj) 2 mg IV NOW ONE Stop: 11/17/22 08:41 Last Admin: 11/17/22 08:44 Dose: 2 mg Documented By: SHIVAM(2) Pantoprazole Sodium (Pantoprazole 40 Mg Vial) 40 mg IV NOW ONE Stop: 11/17/22 05:45 Last Admin: 11/17/22 06:09 Dose: 40 mg Documented By: RONNY Polyethylene Glycol/Electrolytes (Fvd1110/Sod Sulf,Bicarb,Cl/Kcl 4,000 Ml Solution) 2,000 ml PO NOW ONE Stop: 11/18/22 17:28 Last Admin: 11/18/22 18:32 Dose: 2,000 ml Documented By: ALTA MDM - GI Bleed Lab Data Result diagrams: 11/19/22 05:05 11/19/22 05:05 Labs: Lab Results 11/17/22 11/17/22 11/17/22 Range/Units 05:50 05:50 05:50 WBC 16.8 H (4.5-11.0) X10^3/uL RBC 3.80 L (4.0-5.2) X10^6/uL Hgb 10.7 L (12.0-16.0) g/dL Hct 32.4 L (36-46) % MCV 85.4 (80-100) fL MCH 28.1 (26-34) PG MCHC 32.9 (30-36) % RDW 16.8 H (11.6-14.8) % Plt Count 424 H (150-400) X10^3/uL Neut % (Auto) 85.5 H (50-75) % Lymph % (Auto) 2.4 L (25-40) % Morgan % (Auto) 11.5 (3-14) % Eos % (Auto) 0.1 L (2-4) % Baso % (Auto) 0.5 (0-2) % Neut # (Auto) 99185 H (5711-9719) /uL Lymph # (Auto) 400 L (2803-9975) /uL Morgan # (Auto) 1900 H (0-900) /uL Eos # (Auto) 0 (0-450) /uL Baso # (Auto) 100 (0-100) /uL PT 155.2 H D (10.1-12.7) SECONDS INR 13.2 H* (0.9-1.3) APTT 60 H (26-36) SECONDS Sodium 134 L (137-145) mmol/L Potassium 4.3 (3.4-5.1) mmol/L Chloride 99 (98-107) mmol/L Carbon Dioxide 28 (22-32) mmol/L BUN 21 H (7-17) mg/dL Creatinine 0.53 (0.52-1.04) mg/dL Estimated GFR > 60 (>60) mL/min BUN/Creatinine Ratio 39.6 H (6-22) Glucose 153 H (80-110) mg/dL Calcium 8.9 (8.4-10.2) mg/dL Magnesium 1.9 (1.6-2.3) mg/dL Total Bilirubin 0.9 (0.2-1.3) mg/dL AST 20 (14-36) IU/L ALT 19 (<35) IU/L Alkaline Phosphatase 62 (38-126) U/L Total Creatine Kinase < 20 L (30-135) U/L CK-MB (CK-2) TNP CK-MB (CK-2) Rel Index TNP Troponin I 0.022 (0.01-0.034) ng/mL Total Protein 6.5 (6.3-8.2) g/dL Albumin 3.4 L (3.5-5.0) g/dL Globulin 3.1 (1.7-4.1) g/dL Albumin/Globulin Ratio 1.1 (1.0-2.8) Lipase 26 (23-300) U/L Blood Type Antibody Screen 11/17/22 Range/Units 06:20 WBC (4.5-11.0) X10^3/uL RBC (4.0-5.2) X10^6/uL Hgb (12.0-16.0) g/dL Hct (36-46) % MCV (80-100) fL MCH (26-34) PG MCHC (30-36) % RDW (11.6-14.8) % Plt Count (150-400) X10^3/uL Neut % (Auto) (50-75) % Lymph % (Auto) (25-40) % Morgan % (Auto) (3-14) % Eos % (Auto) (2-4) % Baso % (Auto) (0-2) % Neut # (Auto) (8721-7742) /uL Lymph # (Auto) (1028-1591) /uL Morgan # (Auto) (0-900) /uL Eos # (Auto) (0-450) /uL Baso # (Auto) (0-100) /uL PT (10.1-12.7) SECONDS INR (0.9-1.3) APTT (26-36) SECONDS Sodium (137-145) mmol/L Potassium (3.4-5.1) mmol/L Chloride (98-107) mmol/L Carbon Dioxide (22-32) mmol/L BUN (7-17) mg/dL Creatinine (0.52-1.04) mg/dL Estimated GFR (>60) mL/min BUN/Creatinine Ratio (6-22) Glucose (80-110) mg/dL Calcium (8.4-10.2) mg/dL Magnesium (1.6-2.3) mg/dL Total Bilirubin (0.2-1.3) mg/dL AST (14-36) IU/L ALT (<35) IU/L Alkaline Phosphatase (38-126) U/L Total Creatine Kinase (30-135) U/L CK-MB (CK-2) CK-MB (CK-2) Rel Index Troponin I (0.01-0.034) ng/mL Total Protein (6.3-8.2) g/dL Albumin (3.5-5.0) g/dL Globulin (1.7-4.1) g/dL Albumin/Globulin Ratio (1.0-2.8) Lipase (23-300) U/L Blood Type A Positive Antibody Screen Negative Urine Dip Bedside Urine Glucose Negative Bedside Urine Bilirubin - Negative Bedside Urine Ketone + 15 Urine Specific [place] 1.015 Bedside Urine Occult Blood + Bedside Urine pH 6.0 Bedside Urine Protein + 30 Bedside Urine Urobilinogen - Negative Bedside Urine Nitrite - Negative Bedside Urine Leukocytes - Negative Esterase Discharge Plan Departure Patient Disposition: Admitted As Inpatient Clinical Impression: GI bleed Qualifiers: GI bleed type/associated pathology: unspecified gastrointestinal hemorrhage type Qualified Code(s): K92.2 - Gastrointestinal hemorrhage, unspecified Admit Date/Time: 11/17/22 07:45 Admit Provider: Lana Galicia
[2022-11-17 06:05] LABS: Add Manual Diff / Slide Review NO; Basophils Absolute Auto 100 /uL (0-100); Basophils Percent Auto 0.5 % (0-2); Eosinophils Absolute Auto 0 /uL (0-450); Eosinophils Percent Auto 0.1 % (2-4); Hematocrit 32.4 % (36-46); Hemoglobin 10.7 g/dL (12.0-16.0); Lymphocytes Absolute Auto 400 /uL (1100-4500); Lymphocytes Percent Auto 2.4 % (25-40); Mean Corpuscular HGB Conc 32.9 % (30-36); Mean Corpuscular Hemoglobin 28.1 PG (26-34); Mean Corpuscular Volume 85.4 fL (80-100); Monocytes Absolute Auto 1900 /uL (0-900); Monocytes Percent Auto 11.5 % (3-14); Neutrophils Absolute Auto 14300 /uL (1500-7000); Neutrophils Percent Auto 85.5 % (50-75); Platelet Count 424 X10^3/uL (150-400); Red Cell Distribution Width 16.8 % (11.6-14.8); White Blood Cell Count 16.8 X10^3/uL (4.5-11.0)
[2022-11-17 06:09] LABS: PTT Partial Thromboplastin Tim 60 SECONDS (26-36)
[2022-11-17] MEDS: PANTOPRAZOLE 40 MG VIAL IV ×2 (06:09→20:22)
[2022-11-17 06:12] LABS: Alanine Aminotransferase 19 IU/L (<35); Albumin 3.4 g/dL (3.5-5.0); Albumin Globulin Ratio 1.1 (1.0-2.8); Alkaline Phosphatase 62 U/L (38-126); Aspartate Aminotransferase 20 IU/L (14-36); BUN Creatinine Ratio 39.6 (6-22); Bilirubin Total 0.9 mg/dL (0.2-1.3); Blood Urea Nitrogen 21 mg/dL (7-17); Calcium 8.9 mg/dL (8.4-10.2); Carbon Dioxide 28 mmol/L (22-32); Chloride 99 mmol/L (98-107); Creatine Kinase < 20 U/L (30-135); Estimated Glomerular Filt Rate > 60 mL/min (>60); Globulin 3.1 g/dL (1.7-4.1); Glucose 153 mg/dL (80-110); HEMOLYSIS < 15 (0-50); Lipase 26 U/L (23-300); Magnesium 1.9 mg/dL (1.6-2.3); Potassium 4.3 mmol/L (3.4-5.1); Sodium 134 mmol/L (137-145); Total Protein 6.5 g/dL (6.3-8.2)
[2022-11-17 06:24] LABS: Troponin I 0.022 ng/mL (0.01-0.034)
[2022-11-17 06:26] LABS: Prothrombin Time 155.2 SECONDS (10.1-12.7)
[2022-11-17 06:32] LABS: INR 13.2 (0.9-1.3)
[2022-11-17] MEDS: PHYTONADIONE (VIT K1) 10 MG in SODIUM CHLORIDE 0.9% 100 ML 202 MG IV (06:45)
--- NOTE | 2022-11-17 08:26 | PC.NURSE ---
Pt receiving blood products FFP. Tolerating procedure well. No adverse reactions.
[2022-11-17] MEDS: MORPHINE 2 MG/ML INJ IV (08:44)
--- NOTE | 2022-11-17 09:27 | P.HP_ITS ---
History of Present Illness History of Present Illness Chief complaint: Tarry stool x1 Narrative: 77-year-old female with seronegative rheumatoid arthritis on methotrexate, atrial fibrillation on chronic warfarin anticoagulation, mitral valve replacement with reported mechanical valve, congestive heart failure, status post permanent pacemaker placement, chronic pain syndrome, pancreatitis, anxiety and depression who presented to the emergency department this morning complaining of maroon-colored stools. Patient reports she developed left thoracic/breast pain several days ago. She describes the pain as being quite severe. She presented to the emergency department yesterday complaining of several weeks of generalized body pain. She would requested an INR to be tested as well as she had not had 1 checked recently. She complained of getting no relief from oxycodone for the pain. She evidently had been on prednisone a month ago and once that was discontinued her pain symptoms worsened. Laboratories were done which revealed a white count of 14.3, hemoglobin 11.7, platelets 415. BMP was remarkable only for mild hyponatremia with a sodium of 135. INR was 9.3. UA revealed 5-10 RBCs per high-powered field, 1-5 white cells per high-powered field, 2+ sediment, 2+ mucus, no bacteria. Urine was sent for culture. Respiratory viral panel was negative as well. Chest x-ray revealed cardiomegaly but no acute infiltrate, effusion, or pneumothorax. She was given a fentanyl patch for her generalized pain and encouraged to follow-up with her PCP. Patient reports she returned home but had persistent pain, most notably in the left breast/chest. She denies any nausea, abdominal pain, reflux symptoms. She states she awoke at approximately 4:00 a.m. this morning with the urge to have a BM. When she moved her bowels, she noted the stool was maroon in color. Shortly thereafter she passed a 2nd maroon-colored stool. Once again, she denies any pain preceding the bowel movement. She reports her bowels have been moving fairly regularly. She does note recently having an episode of constipat ion for which she had to manually disimpact. She states that was approximately 1 week ago. Since then, her bowels were normal until this morning. She denies any shortness of breath, lightheadedness, chest pain or tightness. No nausea or vomiting. 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 Kidney stones (~2007) Left anterior shoulder pain Left arm pain Measles (~1945) Mumps (~1946) On methotrexate therapy Orthopnea Osteoarthritis of hands, bilateral Ovarian cyst Pain of right middle finger Recurrent sinusitis Rheumatic fever (~1953) 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 Segmental and somatic dysfunction of rib cage Shoulder pain Somatic dysfunction of lower extremity Swelling of finger of both hands Vaccine reaction Surgical History Anesthesia History of cholecystectomy (~1989) History of hysterectomy (~1970) Mitral valve replaced (~2008) Pacemaker (~1997) Family & Social History Family History Father Cancer Mother Cancer Sister COPD (chronic obstructive pulmonary disease) Social History: Social history: Patient does continue to smoke cigarettes. She reports having smoked yesterday. She will not quantitate how many cigarettes she smokes. household members family Safety & Behavioral: Feels Safe in Current Yes Environment Been Physically Hurt or No Threatened By a Person Tobacco & Substance use: Tobacco type cigarettes Smoking Status Current every day smoker alcohol intake current alcohol intake frequency a few times a week Substance Use Type does not use Meds Home Medications and Allergies Home Medications Medication Instructions Recorded Confirmed Type handicap placard #1 ea 06/17/21 11/17/22 Rx atorvastatin 10 mg tablet 10 mg PO DAILY #90 tabs 10/20/21 11/17/22 Rx acyclovir 400 mg tablet 400 mg PO TID #21 tabs 11/17/21 11/17/22 Rx nystatin 100,000 unit/gram topical 1 applic topical BID #30 grams 11/17/21 11/17/22 Rx powder folic acid 1 mg tablet 1 mg PO QAM 03/31/22 11/17/22 History fluoxetine 20 mg capsule 20 mg PO DAILY #90 caps 05/12/22 11/17/22 Rx furosemide 20 mg tablet See Rx Instructions PO QAM #180 05/18/22 11/17/22 Rx tabs alprazolam 2 mg tablet 2 mg PO BID PRN anxiety #60 tabs 10/04/22 11/17/22 Rx warfarin 5 mg tablet See Rx Instructions .Route 10/21/22 11/17/22 Rx .COMPLEX #90 tabs methotrexate sodium 2.5 mg tablet See Rx Instructions .Route 10/25/22 11/17/22 Rx .COMPLEX #36 tabs oxycodone 10 mg tablet 10 mg PO Q6H PRN pain #120 tabs 11/04/22 11/17/22 Rx spironolactone 25 mg tablet 25 mg PO DAILY #90 tabs 11/04/22 11/17/22 Rx Allergies Allergy/AdvReac Type Severity Reaction Status Date / Time hydrocodone [From Vicodin] AdvReac Severe Anxiety Verified 11/04/22 10:26 adhesive [ADHESIVE] AdvReac Unknown tape Verified 11/04/22 10:26 ibuprofen [IBUPROFEN] AdvReac Unknown I feel Verified 11/16/22 14:56 really weird vitamin E (d-alpha AdvReac Unknown cold sores Verified 11/16/22 14:56 tocopherol) [VITAMIN E] Review of Systems Review of Systems Narrative: All other systems were reviewed negative Exam Vital Signs (past 8 hours): - 11/17/22 05:54 11/17/22 07:23 11/17/22 07:30 Temperature 97.4 F L Pulse Rate 71 69 Respiratory Rate 16 24 Blood Pressure 169/80 H Pulse Oximetry 97 95 Oxygen Delivery Method Room Air 11/17/22 07:36 11/17/22 07:36 11/17/22 08:09 Temperature 96 F L Pulse Rate 70 70 Respiratory Rate 24 18 Blood Pressure 190/86 H 183/81 H Pulse Oximetry 97 Oxygen Delivery Method 11/17/22 08:20 11/17/22 08:23 11/17/22 08:53 Temperature 98.2 F 98.2 F Pulse Rate 70 69 71 Respiratory Rate 18 18 18 Blood Pressure 158/77 H 164/75 H 158/72 H Pulse Oximetry Oxygen Delivery Method 11/17/22 08:00 11/17/22 08:00 11/17/22 08:15 Temperature Pulse Rate 71 Respiratory Rate 22 Blood Pressure 183/81 H 158/77 H Pulse Oximetry Oxygen Delivery Method 11/17/22 08:15 11/17/22 08:20 11/17/22 08:20 Temperature Pulse Rate 69 70 Respiratory Rate 17 21 Blood Pressure 171/79 H Pulse Oximetry 95 94 Oxygen Delivery Method 11/17/22 08:25 11/17/22 08:25 11/17/22 08:30 Temperature Pulse Rate 69 Respiratory Rate 17 Blood Pressure 164/75 H 161/76 H Pulse Oximetry 93 Oxygen Delivery Method 11/17/22 08:30 11/17/22 08:35 11/17/22 08:35 Temperature Pulse Rate 69 69 Respiratory Rate 18 21 Blood Pressure 169/79 H Pulse Oximetry 94 94 Oxygen Delivery Method 11/17/22 08:40 11/17/22 08:40 11/17/22 08:45 Temperature Pulse Rate 69 Respiratory Rate 20 Blood Pressure 165/77 H 159/72 H Pulse Oximetry 95 Oxygen Delivery Method 11/17/22 08:45 11/17/22 08:50 11/17/22 08:50 Temperature Pulse Rate 69 69 Respiratory Rate 19 18 Blood Pressure 158/72 H Pulse Oximetry 95 95 Oxygen Delivery Method Oxygen Delivery Method Room Air Narrative Exam Narrative: GEN: Chronically ill-appearing elderly female, Alert and oriented x3, appears moderately uncomfortable HEENT: Normocephalic, face symmetric, pupils equal round reactive to light, extraocular movements intact, sclerae pale and anicteric, conjunctiva clear, nares patent, oropharynx reveals an intact soft and hard palate with somewhat dry mucous membranes, dentition is fair NECK: Supple, no lymphadenopathy, thyroid without enlargement or nodularity, carotids no bruits CHEST: Respiratory excursions symmetric, clear to auscultation bilaterally CV: Regular rate and rhythm, no murmurs, rubs, gallops, PMI nondisplaced, mechanical heart valve heard best in the left axilla ABD: Soft, nontender, nondistended, bowel sounds present in all 4 quadrants, no organomegaly or masses appreciated EXTR: Warm, well perfused, no clubbing/cyanosis/edema SKIN: Warm and dry, without rash NEURO: Alert and oriented x3, appears grossly intact PSYCH: Mood and affect is within normal limits, judgment and insight are somewhat impaired Left chest: Patient has point tenderness to palpation along her costochondral junctions as well as across the intercostal musculature in her mid thorax, no obvious deformity, swelling, or skin rash Objective Labs Result Diagrams: 11/17/22 13:37 11/17/22 05:50 Labs: Laboratory Results - last 24 hr 11/17/22 11/17/22 11/17/22 05:50 05:50 05:50 WBC 16.8 H RBC 3.80 L Hgb 10.7 L Hct 32.4 L MCV 85.4 MCH 28.1 MCHC 32.9 RDW 16.8 H Plt Count 424 H Neut % (Auto) 85.5 H Lymph % (Auto) 2.4 L [place] % (Auto) 11.5 Eos % (Auto) 0.1 L Baso % (Auto) 0.5 Neut # (Auto) 52493 H Lymph # (Auto) 400 L [place] # (Auto) 1900 H Eos # (Auto) 0 Baso # (Auto) 100 PT 155.2 H D INR 13.2 H* APTT 60 H Sodium 134 L Potassium 4.3 Chloride 99 Carbon Dioxide 28 BUN 21 H Creatinine 0.53 Estimated GFR > 60 BUN/Creatinine Ratio 39.6 H Glucose 153 H Calcium 8.9 Magnesium 1.9 Total Bilirubin 0.9 AST 20 ALT 19 Alkaline Phosphatase 62 Total Creatine Kinase < 20 L CK-MB (CK-2) TNP CK-MB (CK-2) Rel Index TNP Troponin I 0.022 Total Protein 6.5 Albumin 3.4 L Globulin 3.1 Albumin/Globulin Ratio 1.1 Lipase 26 Blood Type Antibody Screen 11/17/22 06:20 WBC RBC Hgb Hct MCV MCH MCHC RDW Plt Count Neut % (Auto) Lymph % (Auto) [place] % (Auto) Eos % (Auto) Baso % (Auto) Neut # (Auto) Lymph # (Auto) [place] # (Auto) Eos # (Auto) Baso # (Auto) PT INR APTT Sodium Potassium Chloride Carbon Dioxide BUN Creatinine Estimated GFR BUN/Creatinine Ratio Glucose Calcium Magnesium Total Bilirubin AST ALT Alkaline Phosphatase Total Creatine Kinase CK-MB (CK-2) CK-MB (CK-2) Rel Index Troponin I Total Protein Albumin Globulin Albumin/Globulin Ratio Lipase Blood Type A Positive Antibody Screen Negative Assessment & Plan Assessment & Plan narrative: 1. Lower GI bleed Likely secondary to coagulopathy and recent bout of constipation. She may have a diverticular bleed/angioectasia or undiagnosed occult malignancy. Patient reports prior mitral valve replacement with a mechanical valve for which she is on warfarin. She also has a history of atrial fibrillation. Due to her mechanical valve, she will need to continue anticoagulation. She reports she has never had a colonoscopy. Patient will be placed on NPO status for now. Will check serial hemoglobin/hematocrit. I have asked Dr. Maricel Martin, general surgery, to consult for consideration of colonoscopy. Holding anticoagulation for now. She has received FFP and vitamin K as well. Will need to be quite cautious with reversing her anticoagulation due to her mechanical valve. Protonix has been ordered though likely this is lower GI in nature and could be discontinued relatively quickly 2. Acute left thoracic chest pain Appears to be musculoskeletal in nature. However given her significant coagulopathy, will obtain CT of the chest abdomen and pelvis to rule out spontaneous bleeding. Will add tramadol to her typical outpatient regimen. Once meds have been reconciled, these can be resumed. No NSAIDs in light of her anticoagulated status. She does have a longstanding history of chronic pain, so would be judicious with the use of additional opioids. 3. Normocytic anemia likely secondary to acute blood loss At baseline, hemoglobin is typically normal. It was 13.1 in March of this year, 13.0 in May. On November 04 had trended down to 11.7. It is now 10.7. While she does not warrant transfusion, this will be monitored closely. As noted above, will obtain serial hemoglobin/hematocrit. 4. Coagulopathy due to warfarin INR was 13.2 on arrival. Patient received 1 unit of FFP. She additionally received 10 mg of vitamin K. follow-up INR is now 2.1. Will defer any additional anticoagulation reversal given her mechanical valve. Unclear etiology for her worsening coagulopathy, she reports no recent medication changes, no antibiotics, no change in her oral intake, and no change in her warfarin dosage. 5. Atrial fibrillation, status post permanent pacemaker placement She describes what sounds like sick sinus syndrome as the reason for her pacemaker placement. She last saw Cardiology September 23. She recently had her pacemaker replaced and her September visit was a follow-up visit from the procedure. The device was checked and showed it was well functioning. Original pacemaker was placed in 1997. 6. Rheumatic heart disease status post mitral valve replacement As above, goal INR is 2.5-3.5. She is status post mechanical [place] valve. Will need close regulation of her anticoagulation in the setting of GI bleeding and need for colonoscopy. 7. Rheumatoid arthritis, seronegative Patient is on methotrexate on an outpatient basis. Recently had an exacerbation of her pain secondary to discontinuing prednisone approximately 1 month ago. Continue outpatient oxycodone dose. 8. Leukocytosis White blood cell count is up from 14.3-16.8 from yesterday to today. Chest x- ray done yesterday revealed no acute infiltrates, effusion, or pneumothorax. CT of the chest has been ordered primarily in relation to her acute pain complaints. However, this should elucidate if there is any underlying infectious etiology for her symptoms. Urine culture from yesterday is negative to date. Afebrile and has no other focal symptoms. 9. Hyponatremia Mild at 134. Code status Full Prophylaxis Chemical prophylaxis deferred in the setting of GI bleeding Disposition Admit to acute care under observation status Time Spent With Patient Critical Care time: I spent a total of [] minutes of critical care time on this patient's care today; this time is exclusive of procedural time.
[2022-11-17 10:00] LABS: COVID19 -Nasal RAPID Negative (Negative)
[2022-11-17 10:32] LABS: Appearance Urine UA CLEAR; Bilirubin Urine UA NEGATIVE (NEGATIVE); Color Urine UA YELLOW; Glucose Urine UA NEGATIVE (Negative); Ketones Urine UA 1+ (NEGATIVE); Leukocyte Esterase Urine UA NEGATIVE (NEGATIVE); Nitrite Urine UA NEGATIVE (Negative); Occult Blood Urine UA 2+ (Negative); Protein Urine UA 2+ (Negative); Specific Gravity Urine UA 1.015 (1.000-1.035); Urobilinogen Urine UA 0.2 E.U./dL (0.2)
[2022-11-17 10:33] LABS: pH Urine UA 6.5 (4.5-8.0)
[2022-11-17 10:38] LABS: Bacteria Urine None Seen; Culture Indicated Urine Cult Not Indicated; RBC Urine 1-5/HPF (0-5/HPF); Squamous Epithelial Cell Urine 0-1 /HPF (0-5/HPF); WBC Urine 0-1/HPF (0-5/HPF)
--- NOTE | 2022-11-17 13:28 | DI.ECHO.S_ITS ---
[facility] +---------+ : : [address] [place] : : : : [id number] : : : : Phone: [phone]+ Echocardiogram Report + + :Name: MATTY GUERRERO I Study Date: 11/18/2022 Height: 65 in : :[facility] ReadingLocation: Weight: 143 lb : : Gender: Female BSA: 1.7 m2 : :: 1945 Age: 77 yrs BP: 158/72 mmHg: :Reason For Study: Cardiomegaly, MVR, Pacemaker : :Ordering Physician: LUPE, : :ZI Performed By: Becca Ray : :Referring: ZI ANDRADE : + + Interpretation Summary 1) Normal left ventricular thickness, size, wall motion, and systolic function (EF 60-65%). 2) The right ventricle is moderately dilated. Right ventricular systolic function is mildly reduced. 3) There is markedly severe biatrial enlargement. 4) There is a bi-leaflet mechanical prosthesis that appears to be well-seated and appears to open well with a mitral valve mean gradient of 4.0 mmHg. There is trace mitral regurgitation. 5) There is mild aortic stenosis (valve area 1.4cm2, mean gradient 9mmHg, severity ratio 0.45). 6) There is moderate to severe tricuspid regurgitation. 7) The right ventricular systolic pressure is estimated to be at least 50 mmHg based on an estimated right atrial pressure of 15 mm Hg. 8) Compared to the Echo done 03/28/2019, right sided hypervolemia is present on this study. Procedure: A two-dimensional transthoracic echocardiogram with color flow and Doppler was performed. The heart rate ranged between 70 bpm during the study. Left Ventricle: The left ventricle is normal in size. There is moderate asymmetric left ventricular hypertrophy. The ejection fraction is estimated to be 60-65%. Diastolic function could not be accurately assessed due to paced rhythm. Right Ventricle: The right ventricle is moderately dilated. Right ventricular systolic function is mildly reduced. Atria: There is marked biatrial enlargement. There is no Doppler evidence for an interatrial shunt. Mitral Valve: There is a bi-leaflet mechanical prosthesis that appears to be well-seated and appears to open well with a mitral valve mean gradient of 4.0 mmHg. The mitral valve mean gradient is 4 mmHg. There is trace mitral regurgitation. Aortic Valve: The aortic valve is mildly calcified. The aortic valve is trileaflet. The aortic valve opens well. There is mild aortic stenosis. There is mild aortic regurgitation. Tricuspid Valve: The tricuspid valve is normal in structure but is abnormal in function. There is moderate to severe tricuspid regurgitation. The right ventricular systolic pressure is estimated to be at least 50 mmHg based on an estimated right atrial pressure of 15 mm Hg. Pulmonic Valve: The pulmonic valve leaflets are thin and pliable; valve motion is normal. There is trace pulmonic regurgitation. Great Vessels: The ascending aorta is at the upper limits of normal in size. The IVC is dilated and has no respiratory collapse suggesting significantly high central venous pressure. Pericardium/ Pleura There is an anterior echo-free space consistent with a fat pad. There is no pericardial effusion. There is no pleural effusion. MMode/2D Measurements & Calculations LVIDd: 4.3 cm LVOT diam: 1.9 cm LVIDs: 3.1 cm Ao root diam: 3.1 cm FS: 28.7 % asc Aorta Diam: 3.4 cm IVSd: 1.3 cm LVPWd: 1.5 cm LV shay. diameter/BSA (cm/m^2): 2.5 LV sys. diameter/BSA (cm/m^2): 1.8 LA dimension: 5.2 cm RA long axis: 8.9 cm LA A2 area: 49.2 cm2 RA area: 49.7 cm2 LA A4 area: 44.8 cm2 RA vol: 236.4 ml LA length (vol): 8.4 cm RA : 137.7 ml/m2 LA vol: 223.5 ml LA vol index: 130.2 ml/m2 LVLs ap4: 4.3 cm LVLd ap2: 7.0 cm LVLs ap2: 4.6 cm TAPSE_phl: 2.2 cm Doppler Measurements & Calculations Ao V2 max: 218.0 cm/sec LVOT Max Valentin: 109.0 cm/sec Ao V2 mean: 136.0 cm/sec LV V1 max P.8 mmHg Ao max P.0 mmHg LV V1 VTI: 17.9 cm Ao mean P.0 mmHg CELY(I,D): 1.3 cm2 Ao V2 VTI: 40.1 cm CELY(V,D): 1.4 cm2 sev ratio: 0.45 CELY indexed to BSA (cm^2/m^2): 0.74 MV E max valentin: 163.0 cm/sec TR max valentin: 307.0 cm/sec MV dec time: 0.25 sec TR max P.0 mmHg MVA(VTI): 1.4 cm2 PA V2 max: 115.0 cm/sec PA V2 mean: 71.2 cm/sec PA mean P.0 mmHg MV V2 mean: 84.3 cm/sec SV(LVOT): 50.8 ml MV mean P.0 mmHg MV V2 VTI: 35.5 cm AV VR_phl: 0.50 CELY(VTI)/BSA_phl: 0.74 Reading Physician:11:00 AM
[2022-11-17] MEDS: TRAMADOL 50 MG TABLET PO ×2 (13:36→18:46)
[2022-11-17 13:51] LABS: Hematocrit 31.5 % (36-46); Hemoglobin 10.2 g/dL (12.0-16.0)
[2022-11-17 13:52] LABS: INR 2.1 (0.9-1.3); Prothrombin Time 23.9 SECONDS (10.1-12.7)
[2022-11-17] MEDS: SODIUM CHLORIDE 0.9% 1,000 ML 100 ML IV (14:31)
[2022-11-17] MEDS: PANTOPRAZOLE 80 MG in SODIUM CHLORIDE 0.9% 100 ML 10 MG IV (14:45)
--- NOTE | 2022-11-17 18:01 | PC.NURSE ---
Patient admitted for GI bleed. She did has a small/medium bm on the commode and it had a small amount of crimson blood. She denied pain at that time. INR down to 2.1. Up with one person assist. She is now tolerating clear liquids, patient never had any nausea or vomiting. She is on NS at 100cc/hr and tolerating this well. Given tramadol earlier for discomfort and helpful. Had company earlier, but daughter and have left.
[2022-11-17] MEDS: OXYCODONE IR 10 MG TABLET PO (20:09)
--- NOTE | 2022-11-17 22:11 | PC.NURSE ---
Patient is alert and oriented although forgetful. Affect is flat and responses can be vague; frequently answers for patient. Breath sounds CTA with RA sat of 93%. HRR; has pacemaker and artificial valve. Does complain of pain over left boob which has been present for several days and MD is aware. Denies nausea. BT present and abdomen is soft although tender in mid right abdomen. Rated pain severity as 8/10 despite having received Tramadol on previous shift so medicated with oxycodone with pain decreasing to 4/10. Denies dysuria, frequency or urgency with urination. Is able to move in bed but refusing to lie on sides as she feels it compromises her breathing. Gait not assessed at this time but previous shift RN reported she gets up to C with 1 assist and walker. Has 1+ bilateral LE edema. Bilateral calf SCD's put on but only left them on for a couple hours before requesting they be removed as is unable to sleep with them on. Fall risk score is high and bed alarm is activated. HOB is elevated to 30 degrees as per order.
[2022-11-18] MEDS: SODIUM CHLORIDE 0.9% 1,000 ML 100 ML IV (00:07)
[2022-11-18 00:51] LABS: Hematocrit 28.6 % (36-46); Hemoglobin 9.3 g/dL (12.0-16.0)
[2022-11-18 01:18] VITALS: BP 119/75; PULSE 70; RESP 18; TEMP 36.6; O2SAT 93
[2022-11-18] MEDS: OXYCODONE IR 10 MG TABLET PO ×2 (06:10→13:17)
[2022-11-18 06:35] LABS: Add Manual Diff / Slide Review NO; Basophils Absolute Auto 100 /uL (0-100); Basophils Percent Auto 0.4 % (0-2); Eosinophils Absolute Auto 0 /uL (0-450); Eosinophils Percent Auto 0.1 % (2-4); Hemoglobin 9.8 g/dL (12.0-16.0); Lymphocytes Absolute Auto 500 /uL (1100-4500); Lymphocytes Percent Auto 3.7 % (25-40); Mean Corpuscular HGB Conc 32.5 % (30-36); Monocytes Absolute Auto 1500 /uL (0-900); Monocytes Percent Auto 10.3 % (3-14); Neutrophils Absolute Auto 12600 /uL (1500-7000); Neutrophils Percent Auto 85.5 % (50-75); Platelet Count 383 X10^3/uL (150-400); Red Blood Cell Count 3.49 X10^6/uL (4.0-5.2); White Blood Cell Count 14.7 X10^3/uL (4.5-11.0)
[2022-11-18 06:39] LABS: INR 1.4 (0.9-1.3); Prothrombin Time 15.6 SECONDS (10.1-12.7)
[2022-11-18 06:53] LABS: BUN Creatinine Ratio 31.9 (6-22); Blood Urea Nitrogen 15 mg/dL (7-17); Calcium 8.6 mg/dL (8.4-10.2); Carbon Dioxide 27 mmol/L (22-32); Chloride 103 mmol/L (98-107); Estimated Glomerular Filt Rate > 60 mL/min (>60); Glucose 118 mg/dL (80-110); HEMOLYSIS < 15 (0-50); Potassium 4.2 mmol/L (3.4-5.1); Sodium 138 mmol/L (137-145)
[2022-11-18] MEDS: ATORVASTATIN 20 MG TABLET 10 MG PO (09:26)
[2022-11-18] MEDS: FOLIC ACID 1 MG TABLET PO (09:27)
[2022-11-18] MEDS: FLUoxetine 20 MG CAPSULE PO (09:27)
[2022-11-18] MEDS: PANTOPRAZOLE 40 MG VIAL IV ×2 (09:27→20:44)
--- NOTE | 2022-11-18 11:23 | CM.DANOTE ---
DCP Assessment: Payor confirmed: Medicare & [employer] PCP confirmed: Connor Cool MD Pt is a 77 y.o. F who presented to the hospital with GI symptoms that consist of bloody stool. Pt is a current smoker. Pt was found to have a lower GI bleed. Pt brought up to the floor for further management and evaluation of diagnosis. Surgery consulted for possible colonoscopy as pt has never had one. Pt received echo this morning. DCP met with pt this morning to discuss discharge needs. Pt daughter in law and pt partner at the bedside. DCP introduced herself and role. Pt is normally independent at baseline. Pt lives with her son and daughter in law in an apartment in [place]. Pt does own a cane and walker and uses that occasionally at baseline. Pt does not drive and relies on family for transport. Pt denies discharge needs at this time. Whiteboard updated and instructed to call. DCP to be available if needs arise. Pt thankful for discussion. P: Unclear needs at this time. Unclear if pt is needing colonoscopy. Pt currently on clear liquid diet. Awaiting consult from general surgery. DCP to continue to follow. Isaura Mccormick RN/CASSI Discharge Planning/Care Management CM Discharge Assessment Start: 11/18/22 11:22 Freq: Status: Active Protocol: Document 11/18/22 11:22 ÁNGEL (Rec: 11/18/22 11:23 ÁNGEL [id number]) Discharge Planning Assessment Assigned Musical Instrument Mechanic Isaura Mccormick RN/CASSI Advance Directives? No History Provided By Patient,Medical Record Prior Living Arrangements Apartment/Condo Household Members family Type of transporation used prior to Relies on Others admit Independent with ADL's Yes Is patient alert and oriented? Yes DME Already Rented / Owned FWW / Walker,Cane Discharge Plan Home Transportation Arrangement Family Referrals Initiated None needed Whiteboard Updated in Patient Room with Yes name and ext. # of Musical Instrument Mechanic Comment Instructed to call Review Status In Process Please Provide Date Initial DC 11/18/22 Assessment Was Performed Next Review Type Continued Stay Review
[2022-11-18 12:00] VITALS: BP 163/72; PULSE 70; RESP 16; TEMP 36.2; O2SAT 93
--- NOTE | 2022-11-18 13:08 | PM.PN.1 ---
Subjective Subjective Date Patient Seen: 11/18/22 Interval history: 77-year-old female with seronegative rheumatoid arthritis on methotrexate, atrial fibrillation on chronic warfarin anticoagulation, mitral valve replacement with reported mechanical valve, congestive heart failure, status post permanent pacemaker placement, chronic pain syndrome, pancreatitis, anxiety and depression admitted with warfarin coagulopathy and GI bleed. There is slight drop in hemoglobin but overall stable and patient is probably not actively bleeding at this time. INR 1.4. Awaiting surgery consult for endoscopy. Patient complaining of persistent left lower chest pain which appears musculoskeletal. Exam Vital Signs (past 8 hours): Oxygen Delivery Method Room Air Oxygen Flow Rate 0 Narrative Exam Narrative: General: Alert pleasant female Lungs: A few scattered crackles bilaterally Heart: Regular paced rhythm, there is definite chest wall tenderness in the left lower ribs Abdomen: Soft, nontender Extremities: No edema Objective Labs Result Diagrams: 11/18/22 05:50 11/18/22 05:50 Labs: Laboratory Results - last 24 hr 11/17/22 11/17/22 11/18/22 13:37 13:37 00:41 WBC RBC Hgb 10.2 L 9.3 L Hct 31.5 L 28.6 L MCV MCH MCHC RDW Plt Count Neut % (Auto) Lymph % (Auto) [place] % (Auto) Eos % (Auto) Baso % (Auto) Neut # (Auto) Lymph # (Auto) [place] # (Auto) Eos # (Auto) Baso # (Auto) PT 23.9 H D INR 2.1 H Sodium Potassium Chloride Carbon Dioxide BUN Creatinine Estimated GFR BUN/Creatinine Ratio Glucose Calcium 11/18/22 11/18/22 11/18/22 05:50 05:50 05:50 WBC 14.7 H RBC 3.49 L Hgb 9.8 L Hct 30.0 L MCV 86.0 MCH 28.0 MCHC 32.5 RDW 17.0 H Plt Count 383 Neut % (Auto) 85.5 H Lymph % (Auto) 3.7 L [place] % (Auto) 10.3 Eos % (Auto) 0.1 L Baso % (Auto) 0.4 Neut # (Auto) 72108 H Lymph # (Auto) 500 L [place] # (Auto) 1500 H Eos # (Auto) 0 Baso # (Auto) 100 PT 15.6 H D INR 1.4 H Sodium 138 Potassium 4.2 Chloride 103 Carbon Dioxide 27 BUN 15 Creatinine 0.47 L Estimated GFR > 60 BUN/Creatinine Ratio 31.9 H Glucose 118 H Calcium 8.6 PFSH Medical History Ankle pain (~2016) Anticoagulation monitoring, INR range 2-3 Bilateral hand pain Bilateral lower extremity edema Cataracts, bilateral Cervical somatic dysfunction Chicken pox (~1946) Chronic back pain (~1990) Chronic pain Chronic pain of left ankle Chronic pain of left knee Chronic pain of right knee Chronic pain of right thumb Cyst of right breast Depression Elevated random blood glucose level Elevated troponin Family history of colon cancer Greater trochanteric bursitis of both hips H/O cold sores History of rheumatic fever Hyperlipidemia, mixed 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 Kidney stones (~2007) Left anterior shoulder pain Left arm pain Measles (~1945) Mumps (~1946) On methotrexate therapy Orthopnea Osteoarthritis of hands, bilateral Ovarian cyst Pain of right middle finger Recurrent sinusitis Rheumatic fever (~1953) 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 Segmental and somatic dysfunction of rib cage Shoulder pain Somatic dysfunction of lower extremity Swelling of finger of both hands Vaccine reaction Surgical History Anesthesia History of cholecystectomy (~1989) History of hysterectomy (~1970) Mitral valve replaced (~2008) Pacemaker (~1997) Family History Father Cancer Mother Cancer Sister COPD (chronic obstructive pulmonary disease) Social History household members: family Smoking Status: Former smoker alcohol intake: current Assessment & Plan Assessment & Plan narrative: 1. Acute blood loss anemia secondary to GI bleed, likely lower, present on admission Bleed was associated with significant warfarin coagulopathy.? She may have a diverticular bleed/angioectasia or undiagnosed occult malignancy.? She reports she has never had a colonoscopy.? Chest, abdomen and pelvic CT scan unrevealing. Dr. Martin to consult for definitive evaluation with endoscopy. Continue clear liquids, Protonix in case this is upper source of bleed. 2. Acute left thoracic chest pain, history of chronic pain disorder Appears to be musculoskeletal in nature with significant rib tenderness on exam.? Continue oxycodone as needed per home routine. 3. Coagulopathy due to warfarin INR was 13.2 on arrival.? Patient received 1 unit of FFP.? She additionally received 10 mg of vitamin K. Patient has not been on antibiotics recently or had major dose change in her warfarin. Patient reports prior mitral valve replacement with a mechanical valve for which she is on warfarin.? She also has a history of atrial fibrillation.? Due to her mechanical valve, she will need to continue anticoagulation.? She was taking 5 mg daily except 2 mg each Tuesday at time of admission. Recommend resuming warfarin immediately after endoscopy if no active bleeding, start back on 2.5 mg q.d. 5. Atrial fibrillation, status post permanent pacemaker placement She describes what sounds like sick sinus syndrome as the reason for her pacemaker placement.? She last saw Cardiology September 23.? She recently had her pacemaker replaced and her September visit was a follow-up visit from the procedure.? The device was checked and showed it was well functioning.? Original pacemaker was placed in 1997. 6. Rheumatic heart disease status post mitral valve replacement As above, goal INR is 2.5-3.5.? She is status post mechanical [place]aviano valve.? Will need close regulation of her anticoagulation in the setting of GI bleeding and need for colonoscopy. 7. Rheumatoid arthritis, seronegative Patient is on methotrexate on an outpatient basis.? Recently had an exacerbation of her pain secondary to discontinuing prednisone approximately 1 month ago.? Continue outpatient oxycodone dose. 8. Leukocytosis, acute stress related -patient remains afebrile, chest, abdomen and pelvis CT unrevealing for source of infection, culture negative Time Spent With Patient Critical Care time: I spent a total of [] minutes of critical care time on this patient's care today; this time is exclusive of procedural time.
[2022-11-18] MEDS: FUROSEMIDE 20 MG/2 ML VIAL IV (13:17)
--- NOTE | 2022-11-18 17:38 | P.CONS_ITS ---
History of Present Illness Consult details Date Patient Seen: 11/18/22 Time Patient Seen: 17:38 Chief complaint: Tarry stool x1 Narrative: Nataliia is a 77-year-old woman who presented to the emergency department with several days of rectal bleeding. She reports that about a month ago she was very constipated and had to manually disimpact herself. She had some rectal bleeding at that time which then resolved. Then several days ago she started noticing intermittent red blood on her stool again. She has not passed blood clots. She denies melena. She denies hematemesis or hemoptysis. She denies epigastric pain. She has never had a colonoscopy. On arrival to the ER she was noted to have a very supratherapeutic INR. She takes Coumadin for a mechanical mitral valve. She was reversed with FFP and vitamin K and is now subtherapeutic. Meds Home Medications and Allergies Home Medications Medication Instructions Recorded Confirmed Type handicap placard #1 ea 06/17/21 11/17/22 Rx atorvastatin 10 mg tablet 10 mg PO DAILY #90 tabs 10/20/21 11/17/22 Rx acyclovir 400 mg tablet 400 mg PO TID #21 tabs 11/17/21 11/17/22 Rx nystatin 100,000 unit/gram topical 1 applic topical BID #30 grams 11/17/21 11/17/22 Rx powder folic acid 1 mg tablet 1 mg PO QAM 03/31/22 11/17/22 History fluoxetine 20 mg capsule 20 mg PO DAILY #90 caps 05/12/22 11/17/22 Rx furosemide 20 mg tablet See Rx Instructions PO QAM #180 05/18/22 11/17/22 Rx tabs alprazolam 2 mg tablet 2 mg PO BID PRN anxiety #60 tabs 10/04/22 11/17/22 Rx warfarin 5 mg tablet See Rx Instructions .Route 10/21/22 11/17/22 Rx .COMPLEX #90 tabs methotrexate sodium 2.5 mg tablet See Rx Instructions .Route 10/25/22 11/17/22 Rx .COMPLEX #36 tabs oxycodone 10 mg tablet 10 mg PO Q6H PRN pain #120 tabs 11/04/22 11/17/22 Rx spironolactone 25 mg tablet 25 mg PO DAILY #90 tabs 11/04/22 11/17/22 Rx Allergies Allergy/AdvReac Type Severity Reaction Status Date / Time hydrocodone [From Vicodin] AdvReac Severe Anxiety Verified 11/04/22 10:26 adhesive [ADHESIVE] AdvReac Unknown tape Verified 11/04/22 10:26 ibuprofen [IBUPROFEN] AdvReac Unknown I feel Verified 11/16/22 14:56 really weird vitamin E (d-alpha AdvReac Unknown cold sores Verified 11/16/22 14:56 tocopherol) [VITAMIN E] Exam Vital Signs (past 8 hours): - 11/18/22 12:00 Temperature 97.1 F L Pulse Rate 70 Respiratory Rate 16 Blood Pressure 163/72 H Pulse Oximetry 93 Oxygen Flow Rate 0 Oxygen Delivery Method Room Air Oxygen Flow Rate 0 Const General: No acute distress Resp Effort & Inspection: normal respiratory effort GI Palpation: soft Objective Labs Result Diagrams: 11/18/22 05:50 11/18/22 05:50 Labs: Laboratory Results - last 24 hr 11/18/22 11/18/22 11/18/22 00:41 05:50 05:50 WBC 14.7 H RBC 3.49 L Hgb 9.3 L 9.8 L Hct 28.6 L 30.0 L MCV 86.0 MCH 28.0 MCHC 32.5 RDW 17.0 H Plt Count 383 Neut % (Auto) 85.5 H Lymph % (Auto) 3.7 L [place] % (Auto) 10.3 Eos % (Auto) 0.1 L Baso % (Auto) 0.4 Neut # (Auto) 00903 H Lymph # (Auto) 500 L [place] # (Auto) 1500 H Eos # (Auto) 0 Baso # (Auto) 100 PT 15.6 H D INR 1.4 H Sodium Potassium Chloride Carbon Dioxide BUN Creatinine Estimated GFR BUN/Creatinine Ratio Glucose Calcium 11/18/22 05:50 WBC RBC Hgb Hct MCV MCH MCHC RDW Plt Count Neut % (Auto) Lymph % (Auto) [place] % (Auto) Eos % (Auto) Baso % (Auto) Neut # (Auto) Lymph # (Auto) [place] # (Auto) Eos # (Auto) Baso # (Auto) PT INR Sodium 138 Potassium 4.2 Chloride 103 Carbon Dioxide 27 BUN 15 Creatinine 0.47 L Estimated GFR > 60 BUN/Creatinine Ratio 31.9 H Glucose 118 H Calcium 8.6 PFSH Medical History Ankle pain (~2016) Anticoagulation monitoring, INR range 2-3 Bilateral hand pain Bilateral lower extremity edema Cataracts, bilateral Cervical somatic dysfunction Chicken pox (~1946) Chronic back pain (~1990) Chronic pain Chronic pain of left ankle Chronic pain of left knee Chronic pain of right knee Chronic pain of right thumb Cyst of right breast Depression Elevated random blood glucose level Elevated troponin Family history of colon cancer Greater trochanteric bursitis of both hips H/O cold sores History of rheumatic fever Hyperlipidemia, mixed 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 Kidney stones (~2007) Left anterior shoulder pain Left arm pain Measles (~1945) Mumps (~1946) On methotrexate therapy Orthopnea Osteoarthritis of hands, bilateral Ovarian cyst Pain of right middle finger Recurrent sinusitis Rheumatic fever (~1953) 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 Segmental and somatic dysfunction of rib cage Shoulder pain Somatic dysfunction of lower extremity Swelling of finger of both hands Vaccine reaction Surgical History Anesthesia History of cholecystectomy (~1989) History of hysterectomy (~1970) Mitral valve replaced (~2008) Pacemaker (~1997) Family History Father Cancer Mother Cancer Sister COPD (chronic obstructive pulmonary disease) Social History household members: family Tobacco & Substance Use Smoking Status: Former smoker alcohol intake: current Assessment & Plan Assessment and plan (1) GI bleed: Qualifiers: GI bleed type/associated pathology: unspecified gastrointestinal hemorrhage type Qualified Code(s): K92.2 - Gastrointestinal hemorrhage, unspecified Status: Acute Plan Recommended dose of Lovenox tonight to reduce the risk of thrombosis on the mitral valve. Recommend colonoscopy tomorrow after a bowel prep to rule out malignant causes of rectal bleeding. Time Spent With Patient Critical Care time: I spent a total of [] minutes of critical care time on this patient's care t markie; this time is exclusive of procedural time.
[2022-11-18 18:00] VITALS: BP 145/85; PULSE 70; RESP 16; O2SAT 93
[2022-11-18] MEDS: PEG3350/SOD SULF,BICARB,CL/KCL 4,000 ML SOLUTION 2000 ML PO (18:32)
[2022-11-18] MEDS: ENOXAPARIN 80 MG/0.8 ML SYRINGE 65 MG SUBCUT (19:25)
[2022-11-18] MEDS: NYSTATIN POWDER 15GM 1 APPLIC TOP (20:44)
[2022-11-18] MEDS: ACYCLOVIR 400 MG TABLET PO (20:44)
[2022-11-19] VITALS (10 sets, daily range): BP systolic 126–157; BP diastolic 66–78; PULSE 70–83; RESP 16–24; TEMP 36.2–36.8; O2SAT 95–99; BMI 24.1
[2022-11-19] MEDS: OXYCODONE IR 10 MG TABLET PO ×4 (00:02→21:15)
[2022-11-19 05:42] LABS: Hematocrit 30.2 % (36-46)
[2022-11-19 05:46] LABS: BUN Creatinine Ratio 27.3 (6-22); Blood Urea Nitrogen 15 mg/dL (7-17); Calcium 8.3 mg/dL (8.4-10.2); Carbon Dioxide 30 mmol/L (22-32); Chloride 101 mmol/L (98-107); Estimated Glomerular Filt Rate > 60 mL/min (>60); Glucose 119 mg/dL (80-110); HEMOLYSIS < 15 (0-50); Potassium 3.6 mmol/L (3.4-5.1); Sodium 137 mmol/L (137-145)
[2022-11-19] MEDS: FOLIC ACID 1 MG TABLET PO (09:25)
[2022-11-19] MEDS: PANTOPRAZOLE 40 MG VIAL IV ×2 (09:25→20:20)
[2022-11-19] MEDS: FLUoxetine 20 MG CAPSULE PO (09:25)
[2022-11-19] MEDS: ATORVASTATIN 20 MG TABLET 10 MG PO (09:25)
--- NOTE | 2022-11-19 11:10 | PM.PREOP ---
Pre-operative Note Interval Note History & Physical reviewed/Exam performed by Physician: Yes Changes to H&P: No H&P completed within 30 days and has changed as indicated here:: Domingo consult note 11/18. Patient with what is clinically lower GI bleeding. CT showing evidence of multiple diverticula. Patient requires anticoagulation for mechanical heart valve. She is never had a screening colonoscopy. She understands the risks and benefits and alternatives of proceeding with a colonoscopy today and would like to proceed.
--- NOTE | 2022-11-19 11:17 | PC.NURSE ---
Late entry- Pt off unit to OR for colonoscopy with RN taken via wheelchair.
[2022-11-19] MEDS: LACTATED RINGERS 1,000 ML 42 ML IV (12:22)
--- NOTE | 2022-11-19 12:46 | PM.OP.COLON ---
Procedure & Clinicians Study performed: Flexible sigmoid scope Same procedure as scheduled: No Indications: Lower GI bleeding. Surgeon: Jenn Pond Procedure Notes Procedure in detail: Patient was taken to the endoscopy suite and placed in left lateral decubitus position. Time-out was performed. Sedation was performed by anesthesiology team. A digital rectal exam was performed and there was solid stool seen on a gloved finger no masses or strictures. The scope was introduced into the anal canal and advanced somewhat. There was large chunks of solid stool throughout the rectum and sigmoid colon. There was no possible way to obtain an adequate examination for the purpose of screening for colon cancer. There was no evidence of active bleeding and clinically I believe the patient is no longer bleeding as well. Photographs were taken. No biopsies were taken but overall the procedure was aborted. Impression: I discussed with hospitalist team several options to move forward. 1. Continue a 2 day prep and re-attempt colonoscopy tomorrow. 2. Accept that bleeding is likely due to diverticula seen on CT scan and supratherapeutic INR. Patient has not chosen to have colon cancer screening in the past, and perhaps this is not important to her now. If this is the case, and she makes an informed decision, abandoning plans for colonoscopy is a possible option. 3. If she is otherwise ready for discharge and does not wish to stay another night in the hospital but she does want a colonoscopy then she can follow-up in our office and schedule it as an outpatient.
--- NOTE | 2022-11-19 13:10 | SUR.PHASEI ---
Received to PACU after MAC. Report received from Dr Spencer and Jamila RN. Pt c/o abdominal pain. Non tender to palpation. Pt placed on bedpan per request. Pt passing flatus.
--- NOTE | 2022-11-19 13:11 | SUR.PHASEI ---
Transferred to floor by Shawn Whitehead RN.
--- NOTE | 2022-11-19 14:22 | DI.US.S_ITS ---
PROCEDURE: US PERIPH VENOUS UP EXTREM LT INDICATIONS: LUE swelling, currently off anticoag TECHNIQUE: Real-time imaging, as well as color and pulse Doppler interrogation, was performed of the left upper extremity deep veins from the inferior neck to the antecubital fossa. COMPARISON: None. FINDINGS: The internal jugular vein, visualized portions of the subclavian vein, axillary, and brachial veins are free of intraluminal thrombus. Where physically possible, the veins are normally compressible. Color and pulse Doppler demonstrate normal intraluminal flow, with expected phasicity and pulsatility. Additional scanning of the cephalic and basilic veins of the superficial system demonstrate normal compressibility, without thrombus. IMPRESSION: No DVT in the left upper extremity. Dictated by: Kole Morales M.D. on 11/19/2022 at 15:39 Approved by: Kole Morales M.D. on 11/19/2022 at 15:40
--- NOTE | 2022-11-19 16:06 | P.PN_ITS ---
Subjective Subjective Interval history: 77-year-old female with seronegative rheumatoid arthritis on methotrexate, atrial fibrillation on chronic warfarin anticoagulation, mitral valve replacement with reported mechanical valve, congestive heart failure, status post permanent pacemaker placement, chronic pain syndrome, pancreatitis, anxiety and depression who presented to the emergency department on the date of admissioncomplaining of maroon-colored stools. Pt underwent colonoscopy this am but the prep was inadequate. Dr. Pond reported no active bleeding seen but there was too much stool for screening exam. Pt has known diverticuli from CT done this admission. She reports she would like to proceed w/another prep and get the colonoscopy done while here. Her dtr-in-law notes she seems weak and hasn't been getting out of bed. She also has new swelling to her left forearm today. No IV in that arm, but there is bruising in the antecubital fossa from possible prior IV attempt or blood draw. She reports her chest pain is resolved. Exam Vital Signs (past 8 hours): - 11/19/22 08:15 11/19/22 10:47 11/19/22 12:20 Temperature 97.2 F L 97.6 F Pulse Rate 71 71 73 Respiratory Rate 18 16 16 Blood Pressure 126/77 145/72 H 148/69 H Pulse Oximetry 98 95 99 Oxygen Delivery Method Room Air Room Air Oxygen Flow Rate 0 11/19/22 12:50 11/19/22 12:55 11/19/22 13:00 Temperature 98.2 F Pulse Rate 71 70 70 Respiratory Rate 20 16 24 Blood Pressure 137/70 149/78 H 150/66 H Pulse Oximetry 97 97 98 Oxygen Delivery Method Room Air Room Air Room Air Oxygen Flow Rate 11/19/22 13:05 Temperature Pulse Rate 70 Respiratory Rate 20 Blood Pressure 140/70 Pulse Oximetry 98 Oxygen Delivery Method Room Air Oxygen Flow Rate Oxygen Delivery Method Room Air Oxygen Flow Rate 0 Narrative Exam Narrative: GEN:? Chronically ill-appearing elderly female, Alert and oriented x3, appears moderately uncomfortable HEENT:? Normocephalic, face symmetric CHEST:? Respiratory excursions symmetric, clear to auscultation bilaterally CV:? Regular rate and rhythm, no murmurs, rubs, gallops, PMI nondisplaced, mechanical heart valve heard best in the left axilla ABD:? Soft, nontender, nondistended, bowel sounds present in all 4 quadrants, no organomegaly or masses appreciated EXTR:? Warm, well perfused, no clubbing/cyanosis, Left forearm is moderately swollen/bruising to antecubital fossa SKIN:? Warm and dry, without rash NEURO:? Alert and oriented x3, appears grossly intact Objective Labs Result Diagrams: 11/19/22 05:05 11/19/22 05:05 Labs: Laboratory Results - last 24 hr 11/19/22 11/19/22 05:05 05:05 Hgb 10.0 L Hct 30.2 L Sodium 137 Potassium 3.6 Chloride 101 Carbon Dioxide 30 BUN 15 Creatinine 0.55 Estimated GFR > 60 BUN/Creatinine Ratio 27.3 H Glucose 119 H Calcium 8.3 L PFSH Medical History Ankle pain (~2016) Anticoagulation monitoring, INR range 2-3 Bilateral hand pain Bilateral lower extremity edema Cataracts, bilateral Cervical somatic dysfunction Chicken pox (~1946) Chronic back pain (~1990) Chronic pain Chronic pain of left ankle Chronic pain of left knee Chronic pain of right knee Chronic pain of right thumb Cyst of right breast Depression Elevated random blood glucose level Elevated troponin Family history of colon cancer Greater trochanteric bursitis of both hips H/O cold sores History of rheumatic fever Hyperlipidemia, mixed 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 Kidney stones (~2007) Left anterior shoulder pain Left arm pain Measles (~1945) Mumps (~1946) On methotrexate therapy Orthopnea Osteoarthritis of hands, bilateral Ovarian cyst Pain of right middle finger Recurrent sinusitis Rheumatic fever (~1953) 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 Segmental and somatic dysfunction of rib cage Shoulder pain Somatic dysfunction of lower extremity Swelling of finger of both hands Vaccine reaction Surgical History Anesthesia History of cholecystectomy (~1989) History of hysterectomy (~1970) Mitral valve replaced (~2008) Pacemaker (~1997) Family History Father Cancer Mother Cancer Sister COPD (chronic obstructive pulmonary disease) Social History household members: family Smoking Status: Former smoker alcohol intake: current Assessment & Plan Assessment & Plan narrative: 1. Lower GI bleed Likely secondary to coagulopathy and recent bout of constipation.? She may have a diverticular bleed/angioectasia or undiagnosed occult malignancy.? Patient reports prior mitral valve replacement with a mechanical valve for which she is on warfarin.? She also has a history of atrial fibrillation.? Due to her mechanical valve, she will need to continue anticoagulation.? She has never had a screening colonoscopy. She does wish to proceed with another bowel prep. I have ordered Suprep as she doesn't feel she can drink Golytely. Dtr in law will picker/puller Suprep from [employer] and pt will start it this afternoon.? Dtr in law notes she did have some bright red blood on the toilet paper yesterday before starting her bowel prep. 2. Acute left thoracic chest pain Appears to be musculoskeletal in nature.? Resolved. 3. Normocytic anemia likely secondary to acute blood loss At baseline, hemoglobin is typically normal.?Currently stable at 10.0. 4. Coagulopathy due to warfarin INR was 13.2 on arrival.? Patient received 1 unit of FFP.? She additionally received 10 mg of vitamin K. follow-up INR was 2.1.? INR down to 1.4 yesterday. Will repeat INR today and give Lovenox today given known mechanical heart valve (and no active bleeding). Plan to restart warfarin after colonoscopy tomorrow. 5. Atrial fibrillation, status post permanent pacemaker placement She describes what sounds like sick sinus syndrome as the reason for her pacemaker placement.? She last saw Cardiology September 23.? She recently had her pacemaker replaced and her September visit was a follow-up visit from the procedure.? The device was checked and showed it was well functioning.? Original pacemaker was placed in 1997. 6. Rheumatic heart disease status post mitral valve replacement As above, goal INR is 2.5-3.5.? She is status post mechanical [place] valve.? 7. Rheumatoid arthritis, seronegative Patient is on methotrexate on an outpatient basis.? Recently had an exacerbation of her pain secondary to discontinuing prednisone approximately 1 month ago.? Continue outpatient oxycodone dose. she will discuss adding back low dose prednisone w/her outpatient provider. 8. Leukocytosis White blood cell count improved on yesterday's labs, 14.7. 9. Hyponatremia Resolved. Code status Full Prophylaxis Lovenox 1mg/kg x 1 today. Disposition Home pending colonoscopy results. PT/OT eval requested. Time Spent With Patient Critical Care time: I spent a total of [] minutes of critical care time on this patient's care today; this time is exclusive of procedural time.
[2022-11-19 16:17] LABS: INR 1.9 (0.9-1.3); Prothrombin Time 21.7 SECONDS (10.1-12.7)
[2022-11-19] MEDS: SUPREP 1 EACH PO ×2 (16:56→20:20)
[2022-11-19] MEDS: ENOXAPARIN 80 MG/0.8 ML SYRINGE 65 MG SUBCUT (16:56)
[2022-11-19 17:40] LABS: Add Manual Diff / Slide Review NO; Basophils Absolute Auto 0 /uL (0-100); Basophils Percent Auto 0.3 % (0-2); Eosinophils Absolute Auto 0 /uL (0-450); Eosinophils Percent Auto 0.2 % (2-4); Hematocrit 31.2 % (36-46); Hemoglobin 10.1 g/dL (12.0-16.0); Lymphocytes Absolute Auto 200 /uL (1100-4500); Lymphocytes Percent Auto 2.1 % (25-40); Mean Corpuscular HGB Conc 32.3 % (30-36); Mean Corpuscular Hemoglobin 27.9 PG (26-34); Mean Corpuscular Volume 86.2 fL (80-100); Monocytes Absolute Auto 700 /uL (0-900); Monocytes Percent Auto 6.5 % (3-14); Neutrophils Absolute Auto 9900 /uL (1500-7000); Neutrophils Percent Auto 90.9 % (50-75); Platelet Count 446 X10^3/uL (150-400); Red Blood Cell Count 3.62 X10^6/uL (4.0-5.2); White Blood Cell Count 10.9 X10^3/uL (4.5-11.0)
[2022-11-19 17:55] LABS: INR 1.9 (0.9-1.3); Prothrombin Time 22.3 SECONDS (10.1-12.7)
[2022-11-19] MEDS: NYSTATIN POWDER 15GM 1 APPLIC TOP (20:21)
--- NOTE | 2022-11-20 | PATH_ITS ---
[facility] Accession Number: [id number] . 01 Material submitted: . cecum - CECAL POLYP . 01 Diagnosis: Cecum, Polyp, Biopsy: Tubular adenoma. [facility] 11/25/2022 1137 Local . 01 Electronically signed: . Neelam Song MD, Pathologist NPI- [id number] . 01 Gross description: . CECAL POLYP: Received in formalin are 3 fragment(s) of [place], soft tissue measuring 0.1 x 0.1 x 0.1 cm to 0.8 x 0.4 x 0.4 cm submitted entirely in 1 cassette(s) /MARTITA 11/23/2022 1833 Local . 01 Pathologist provided ICD-10: D12.0 . 01 CPT . 403702 Specimen Comment: A courtesy copy of this report has been sent to [facility] Performed at: 01 [facility] [address] [place] [address], [place], [place] [id number] MD Alvarado Dexter MD Phone: [phone]
[2022-11-20] MEDS: OXYCODONE IR 10 MG TABLET PO (03:03)
--- NOTE | 2022-11-20 03:28 | PC.NURSE ---
Pt is AxOx4 but forgetful and cooperative. VSS, pt c/o arthritic pain and recieved PRN Oxy 10mg x2 with good effect. Pt had bowel prep for colonoscopy and NPO since midnight. Pt's L arm became more swollen today than yesterday but no pain. No other changes. Continue monitor.
[2022-11-20 05:36] VITALS: BP 162/73; PULSE 73; RESP 17; O2SAT 95
[2022-11-20 06:48] LABS: BUN Creatinine Ratio 25.5 (6-22); Blood Urea Nitrogen 13 mg/dL (7-17); Calcium 8.5 mg/dL (8.4-10.2); Carbon Dioxide 29 mmol/L (22-32); Chloride 101 mmol/L (98-107); Estimated Glomerular Filt Rate > 60 mL/min (>60); Glucose 140 mg/dL (80-110); HEMOLYSIS < 15 (0-50); Potassium 3.1 mmol/L (3.4-5.1); Sodium 139 mmol/L (137-145)
--- NOTE | 2022-11-20 09:12 | PT.IIE ---
Current Diagnoses Gastrointestinal hemorrhage, unspecified (11/17/22) Surgery Performed Operation Date: 11/19/22 11:45 Actual Procedures p Colonoscopy - Jenn Pond MD Operation Date: 11/20/22 10:30 Actual Procedures p Colonoscopy - Lg Lane MD Surgical History (Last Reviewed 11/17/22 @ 05:48 by Jerardo Lemons DO) Anesthesia History of cholecystectomy (~1989) History of hysterectomy (~1970) Mitral valve replaced (~2008) Pacemaker (~1997) Medical History (Last Reviewed 11/17/22 @ 05:48 by Jerardo Lemons DO) Ankle pain (~2016) Anticoagulation monitoring, INR range 2-3 Bilateral hand pain Bilateral lower extremity edema Cataracts, bilateral Cervical somatic dysfunction Chicken pox (~1946) Chronic back pain (~1990) Chronic pain Chronic pain of left ankle Chronic pain of left knee Chronic pain of right knee Chronic pain of right thumb Cyst of right breast Depression Elevated random blood glucose level Elevated troponin Family history of colon cancer Greater trochanteric bursitis of both hips H/O cold sores History of rheumatic fever Hyperlipidemia, mixed 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 Kidney stones (~2007) Left anterior shoulder pain Left arm pain Measles (~1945) Mumps (~1946) On methotrexate therapy Orthopnea Osteoarthritis of hands, bilateral Ovarian cyst Pain of right middle finger Recurrent sinusitis Rheumatic fever (~1953) 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 Segmental and somatic dysfunction of rib cage Shoulder pain Somatic dysfunction of lower extremity Swelling of finger of both hands Vaccine reaction Physical Therapy Inpatient Evaluation/Re-Eval M1 PT/OT-IP Prior Functional Status Start: 11/20/22 12:18 Freq: NEEDED Status: Active Protocol: Document 11/20/22 09:12 AB (Rec: 11/20/22 12:34 AB [id number]) Medical Review Prior Functional Status Medical History Reviewed Yes Communication able to make needs known. Mobility and Gait pt stated that she is independent with all mobilities and ambulation without AD; started using a SPC for ~ 3 days due to pain/ weakness Social History Household Members family Living Arrangements Apartment/Condo Number of Floors (Floors) Two Floors Number of Stairs To Enter/Railing? pt has 13 steps L rail ascending to bedroom level but pt stated that she can stay on first level if needed but shower is on the 2nd floor 2 steps L rail ascending to enter the house Home Environment Standard Height Toilet,Tub/ Shower Home Equipment Four Wheel Walker,Straight Cane,Raised Toilet Seat w/ Armrests,Shower Seat without Backrest,Hand Held Shower,Grab Bars In Shower Additional Social History Comment pt will have her son and DIL to assist her at home M2 PT-IP Current Condition Start: 11/20/22 12:18 Freq: NEEDED Status: Active Protocol: Document 11/20/22 09:12 AB (Rec: 11/20/22 12:34 AB [id number]) Physical Therapy Current Condition Current Condition Evaluation Date 11/20/22 Treatment Diagnosis GI bleed; generalized weakness Onset Date 11/17/22 M3 PT-IP Subjective Start: 11/20/22 12:18 Freq: NEEDED Status: Active Protocol: Document 11/20/22 09:12 AB (Rec: 11/20/22 12:34 AB [id number]) Subjective Physical Therapy Visit Type Type Initial Evaluation Visit Start Time 09:12 Visit Stop Time 09:30 Total Visit Minutes 18 Number of HIGH PRESSURE KETTLE OPERATOR Visits 0 Physical Therapy Visit Comments Patient Comments initially agreed to do PT but also stated that she just wants to be left alone; DIL stated that pt is just not feeling well but need PT to get stronger. pt also has pending colonoscopy and has been up using the commode a few time already per DIL and that pt is just not feeling well and is not too happy at this time M4 PT-IP Mobility and Gait Start: 11/20/22 12:18 Freq: NEEDED Status: Active Protocol: Document 11/20/22 09:12 AB (Rec: 11/20/22 12:34 AB [email or web address]) PT-Bed Mobility Assessment Sit to Supine Sit to Supine Standby Assistance PT-Transfer Assessment Sit to and From Stand Sit to and from Stand Standby Assistance,1 Person Assistance,Use of Upper Extremities Equipment Transfer Assistive Device Gait Belt,Front Wheeled Walker Orthotic/Prosthetic Devices or Brace: No Transfers Transfer Destination Bed Transfer Technique ambulated Transfer Ability Level of Assist Standby Assistance Comments Mobility Comments pt sitting on the commode. DIL and BF in room with pt. pt agreed to mobilize with pt . NAC in room assisted pt with hygiene care and brief management. asked pt to ambulate in room and stated that she wants to be left alone. Asked pt if she does not want PT and if she wanted PT to talk to the doctor to d/ c. NEELAM jumped in and stated that pt need PT for her to get stronger and she will not be able to take care of pt if pt is too weak. stated that pt is just not feeling too well. pt ambulated to the sink using FWW SBA. able to maintain standing leaning against sink SBA while completing handwashing and oral care. pt ambulated in room using FWW ~ 30 ft SBA. pt refused to sit on the chair . ambulated back to the bed. completed sit to supine SBA. positioned in bed. call light and table within reach. Left pt with NEELAM, nurse and NAC in room. Gait Assessment Gait Gait Assistance Required: Standby Assistance Distance (Feet) 30 Able to Maintain Weight Bearing Status Yes During Gait Assistive Devices Assistive Device Gait Belt,Front Wheeled Walker Orthotic/Prosthetic Devices or Brace: No Gait Deviations General Gait Pattern Decreased Stride Length, Decreased Feet Clearance Factors Limiting Gait Function Factors Limiting Gait Function Decreased Activity Tolerance, Decreased Strength,Pain,Poor Balance,Poor Safety Awareness PT-Balance Assessment Sitting Balance and Reactions Static Sitting Balance Ability Good Dynamic Sitting Balance Ability Good Standing Balance and Reactions Static Standing Balance Ability Fair Dynamic Standing Balance Ability Fair Device Used FWW M5 PT-IP Objective Assessments Start: 11/20/22 12:18 Freq: NEEDED Status: Active Protocol: Document 11/20/22 09:12 AB (Rec: 11/20/22 12:34 AB [id number]) Orientation Orientation/Cognition Level of Alertness Alert Orientation Name,Place,Situation Language Function Ability No Deficits Noted Safety Awareness Decreased Safety Awareness Memory Description No Deficits Noted Gross Range of Motion Lower Extremity ROM Assessment Within Functional Limits Muscle Tone Muscle Tone WNL Yes M6 PT-IP Treatment Start: 11/20/22 12:18 Freq: NEEDED Status: Active Protocol: Document 11/20/22 09:12 AB (Rec: 11/20/22 12:34 AB [id number]) Physical Therapy Treatment Education Education Provided Safety M7 PT-IP Assessment and Plan Start: 11/20/22 12:18 Freq: NEEDED Status: Active Protocol: Document 11/20/22 09:12 AB (Rec: 11/20/22 12:34 AB [email or web address]) PT Summary Assessment and Plan Potential Rehabilitation Potential Fair Status of Condition at Evaluation Evolving Summary Impairments Pain,ROM,Strength,Balance, Coordination,Bed Mobility, Transfers,Gait,Activity Tolerance Assessment Summary Pt requiring SBA with mobility using FWW but presents with decrease activity tolerance affecting mobility independent . will continue to assess progress. stair climbing training will be completed prior to d/c. Pt plans to go home and will have family to assist her. Pt may need services. Goals Bed Mobility Goal Independent Transfer Goal Independent,Front Wheeled Walker,Four Wheeled Walker Gait Goal Independent,Front Wheel Walker ,Four Wheel Walker Gait Distance 200 Other Goals improve transfers, ambulation without AD 250 ft up/down 13 steps L rail ascending mod I Days to Meet Goals 10 Frequency of Treatment Frequency Of Treatment Once a Day Treatment Plan Physical Therapy Treatment Plan Bed Mobility Training,Transfer Training,Gait Training, Therapeutic Exercise,Balance Retraining,Discharge Planning, Hot or Cold Pack,Neuromuscular Re-ed,Coordination Retraining Recommendations To Nursing Amount of Assist Needed 1 Person Assist Discharge Recommendations PT Discharge Recommendations Home with Assistance,Home Health Transportation Needs at Discharge Private Vehicle
[2022-11-20] MEDS: PANTOPRAZOLE 40 MG VIAL IV (09:27)
--- NOTE | 2022-11-20 10:39 | CM.DPNOTE ---
Discharge Planning Note: Patient to have repeat colonoscopy today, time unknown. She states she is having loose stools but would like to walk, will talk to nursing. Family in room. Plan: Colonoscopy today, possible dc. She will return home on discharge to care of family. Marcie Bruce RN/DCP
[2022-11-20 11:27] VITALS: BP 165/73; PULSE 69; RESP 16; TEMP 37.3; O2SAT 96
[2022-11-20] MEDS: LACTATED RINGERS 1,000 ML 42 ML IV (11:40)
[2022-11-20 11:41] VITALS: BMI 24.1
--- NOTE | 2022-11-20 12:23 | PM.OP.COLON ---
Operative Date/Time/Diagnoses Date of procedure: 11/20/22 Time of procedure: 12:23 Pre-op diagnosis: Melena Post-op diagnosis: same Procedure & Clinicians Study performed: Colonoscopy Same procedure as scheduled: Yes Surgeon: Lg Lane Procedure Notes Procedure in detail: Surgeon: Lg Lane MD Anesthesia: Dr. Martines Procedure: The patient was brought to the endoscopy suite, placed in left lateral decubitus position. The patient was connected to monitoring devices. A time-out was performed. Sedation was administered. Once the patient was adequately sedated, a digital rectal exam was performed and was normal. The scope was then inserted and advanced to the cecum where the appendiceal orifice was identified and photographed. The scope was then slowly withdrawn over greater than 6 minutes. The mucosa was thoroughly inspected. There was a 1 cm flat polyp in the cecum removed with a cold snare. This took 2 attempts to remove the entire polyp. Due to her need for immediate anticoagulation 2 clips were applied to close the mucosal defect. The polypectomy site was completely hemostatic. No other abnormalities were noted. The scope was retroflexed in the rectum. There were some internal hemorrhoids. The scope was straightened and removed. The patient was awakened and brought to recovery. Scope withdrawal time: 20 minutes Sedation time: 28 minutes EBL: 5 mL Findings: Cecal polyp and hemorrhoids Post-procedure Disposition: PACU
[2022-11-20 12:27] VITALS: BP 121/69; PULSE 70; RESP 17; TEMP 36.7; O2SAT 99
[2022-11-20 12:32] VITALS: BP 137/82; PULSE 70; RESP 15; O2SAT 99
[2022-11-20 12:38] VITALS: BP 139/72; PULSE 70; RESP 26; TEMP 37.1; O2SAT 97
[2022-11-20 12:45] VITALS: BP 149/76; PULSE 71; RESP 22; TEMP 37.1; O2SAT 96
--- NOTE | 2022-11-20 16:36 | PC.NURSE ---
Addendum entered by Heide Zamudio R.N. 11/20/22 17:39: Pt escorted by staff via W/C to waiting vehicle D/C in stable condition Original Note: Pt had colonoscopy this morning. IVF D/C'd intact. Denies discomfort Orders for D/C received Pt requesting to shower before D/C Home instructions given w/understanding. Awaiting transportation
--- NOTE | 2022-11-20 19:16 | PM.DS.1 ---
History of Present Illness History of Present Illness Chief complaint: Tarry stool x1 Narrative: 77-year-old female with seronegative rheumatoid arthritis on methotrexate, atrial fibrillation on chronic warfarin anticoagulation, mitral valve replacement with reported mechanical valve, congestive heart failure, status post permanent pacemaker placement, chronic pain syndrome, pancreatitis, anxiety and depression admitted with warfarin coagulopathy and GI bleed. Discharge Providers Provider Date of admission: 11/17/22 07:45 Discharge Date: 11/20/22 Primary care physician: Connor Cool DO Consults: 11/17/22 12:10 Consult to General Surgery Routine Comment: Consulting Provider: Maricel Martin Reason for consultation: GIB Has provider been notified: Yes 11/19/22 16:20 Consult to Occupational Therapy Evaluate & Treat Comment: Physician Instructions: Evaluate and treat Consult to Physical Therapy Evaluate & Treat Comment: Physician Instructions: Evaluate and Treat Discharge provider: Richi Flowers MD Summary Hospital Course Discharge Diagnosis: 1. Acute blood loss anemia 2. GI bleed 3. Coagulopathy secondary to warfarin 4. Mechanical mitral valve 5. Atrial fibrillation 6. Rheumatoid arthritis 7. Possible left arm cellulitis secondary to blood draws Hospital Course: Patient was admitted due to GI bleed associated with INR of 13. Warfarin was held and she received vitamin K and FFP ideal op a thief. She did need to have continued active bleeding. She had negative EGD. Her colonoscopy showed a 1 cm flat polyp in the cecum which was completely removed there is no active bleeding. She is restarted on her warfarin and instructed to have INR checked in 4-5 days. Additionally, she ends of severe joint pains since she was taken off of prednisone a month ago. She describes her joint pain and stiffness as quite debilitating and feels she did a lot better when she was on prednisone. She is already on methotrexate. She has not been able to get into her chronic condition nurse. I agree to restart her prednisone 5 mg daily and she will follow-up her PCP for further management. On day of discharge noted to have erythema and swelling of the lower arm where she has had blood draws. This is most likely phlebitis. An earlier duplex ultrasound ruled out DVT. Out of caution I prescribed a 5 day course of doxycycline. Status at Discharge Cognitive/behavioral status at discharge: oriented Functional status at discharge: independent ambulation Overall status at discharge: patient is progressing back to baseline Time Spent with Patient Time spent: Greater than 30 minutes Exam Vital Signs (past 8 hours): - 11/20/22 11:27 11/20/22 12:27 11/20/22 12:32 Temperature 99.2 F 98.0 F Pulse Rate 69 70 70 Respiratory Rate 16 17 15 Blood Pressure 165/73 H 121/69 137/82 Pulse Oximetry 96 99 99 Oxygen Delivery Method Room Air Room Air Room Air 11/20/22 12:38 11/20/22 12:45 Temperature 98.8 F 98.8 F Pulse Rate 70 71 Respiratory Rate 26 H 22 Blood Pressure 139/72 149/76 H Pulse Oximetry 97 96 Oxygen Delivery Method Room Air Room Air Oxygen Delivery Method Room Air Oxygen Flow Rate 0 Narrative Exam Narrative: General: Alert, NAD Lungs: Clear Extremities: There is moderate erythema, bruising and swelling around and below the elbow, mostly involving forearm Objective Labs Result Diagrams: 11/19/22 17:14 11/20/22 05:53 Labs: Laboratory Results - last 24 hr 11/20/22 05:53 Sodium 139 Potassium 3.1 L Chloride 101 Carbon Dioxide 29 BUN 13 Creatinine 0.51 L Estimated GFR > 60 BUN/Creatinine Ratio 25.5 H Glucose 140 H Calcium 8.5 PFSH Medical History Ankle pain (~2016) Anticoagulation monitoring, INR range 2-3 Bilateral hand pain Bilateral lower extremity edema Cataracts, bilateral Cervical somatic dysfunction Chicken pox (~194) Chronic back pain (~1990) Chronic pain Chronic pain of left ankle Chronic pain of left knee Chronic pain of right knee Chronic pain of right thumb Cyst of right breast Depression Elevated random blood glucose level Elevated troponin Family history of colon cancer Greater trochanteric bursitis of both hips H/O cold sores History of rheumatic fever Hyperlipidemia, mixed 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 Kidney stones (~2007) Left anterior shoulder pain Left arm pain Measles (~1946) Mumps (~194) On methotrexate therapy Orthopnea Osteoarthritis of hands, bilateral Ovarian cyst Pain of right middle finger Recurrent sinusitis Rheumatic fever (~1953) 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 Segmental and somatic dysfunction of rib cage Shoulder pain Somatic dysfunction of lower extremity Swelling of finger of both hands Vaccine reaction Surgical History Anesthesia History of cholecystectomy (~1989) History of hysterectomy (~1970) Mitral valve replaced (~2008) Pacemaker (~1997) Family History Father Cancer Mother Cancer Sister COPD (chronic obstructive pulmonary disease) Social History household members: family Smoking Status: Former smoker alcohol intake: current Discharge Plan Discharge Plan Patient Disposition: Home Provider Discharge Comment: You were admitted due to GI bleed associated with very elevated INR of 13. EGD was normal. Colonoscopy showed a polyp in the cecum which was removed. Take warfarin 2.5 mg daily and have INR rechecked on TuesdayNov 24. I have started you back on prednisone to help with RA pain. Additionally, I prescribed 5 days antibiotic for possible skin infection on left arm. Discharge orders & Medications Prescriptions: New prednisone 5 mg tablet 5 mg PO DAILY Qty: 30 0RF doxycycline hyclate 100 mg capsule 100 mg PO BID Qty: 10 0RF Continued (DME) handicap placard See Rx Instructions .Route .MEDSUPPLY Qty: 1 0RF Rx Instructions: As directed fluoxetine 20 mg capsule 20 mg PO DAILY Qty: 90 3RF alprazolam 2 mg tablet 2 mg PO BID PRN (Reason: anxiety) Qty: 60 5RF warfarin 5 mg tablet See Rx Instructions .ROUTE .COMPLEX Qty: 90 3RF Hold Instructions: taking different dose Dose Instruction: TAKE 1 TABLET BY MOUTH DAILY EVERY TUESDAY, TUESDAY, AND TUESDAY Rx Instructions: 2 mg Tuesday and 5mg all other days or as directed. methotrexate sodium 2.5 mg tablet See Rx Instructions .ROUTE .COMPLEX Qty: 36 0RF Dose Instruction: TAKE 3 TABLETS BY MOUTH ONCE A WEEK Rx Instructions: TAKE 3 TABLETS BY MOUTH ONCE A WEEK folic acid 1 mg tablet 1 mg PO QAM furosemide 20 mg tablet See Rx Instructions PO QAM Qty: 180 3RF Rx Instructions: Take 40mg daily until the edema improves, then take 20mg daily, add another tablet as needed for worsening edema, orally every morning; oxycodone 10 mg tablet 10 mg PO Q6H PRN (Reason: pain) Qty: 120 0RF spironolactone 25 mg tablet 25 mg PO DAILY Qty: 90 3RF atorvastatin 10 mg tablet 10 mg PO DAILY Qty: 90 3RF Hold Instructions: Home Medication placed on hold at Doctor's office acyclovir 400 mg tablet 400 mg PO TID Qty: 21 5RF nystatin 100,000 unit/gram powder 1 applic topical BID Qty: 30 5RF Follow up/Referrals: Connor Cool DO [Primary Care Provider] - Diet/Activity/Treatments Diet: Regular Visit Report/Discharge Packet Stand Alone Forms: Patient Portal/API, Stroke Signs & Symptoms Discharge Data Primary Care Provider: Connor Cool
== END 2022-11-20 17:30 | disposition home or self-care (01) | DRG 378 ==
LOC: ED 06:26 → AC 07:50
PROVIDERS: Internal Medicine; Surgery; Admitting Provider Family Medicine; Emergency Provider Emergency Medicine; PCP Family Medicine; Referring Provider Emergency Medicine; Visit Provider Family Medicine
PROC: 0DJD8ZZ Inspection of Lower Intestinal Tract, Via Natural or Artificial Opening Endoscopic (ICD-10-PCS; CPT 45378; principal; 2022-11-19 11:45)
DX: K92.2 Gastrointestinal hemorrhage, unspecified (principal); D62 Acute posthemorrhagic anemia; D68.32 Hemorrhagic disorder due to extrinsic circulating anticoagulants; D84.821 Immunodeficiency due to drugs; F17.210 Nicotine dependence, cigarettes, uncomplicated; R07.9 Chest pain, unspecified; I48.91 Unspecified atrial fibrillation; M06.9 Rheumatoid arthritis, unspecified; I09.9 Rheumatic heart disease, unspecified; T45.515A Adverse effect of anticoagulants, initial encounter; F32.A Depression, unspecified; E78.5 Hyperlipidemia, unspecified; D12.0 Benign neoplasm of cecum; Z20.822 Contact with and (suspected) exposure to COVID-19; Z79.631 Long term (current) use of antimetabolite agent; Z95.0 Presence of cardiac pacemaker; Z79.01 Long term (current) use of anticoagulants; Z95.2 Presence of prosthetic heart valve; Z79.899 Other long term (current) drug therapy
CPT/HCPCS: 0241U; 36415; 36430; 45378; 45380; 71046; 71260; 74177; 80048; 80053; 81001; 81003; 81015; 82550; 83690; 83735; 84484; 85014; 85018; 85025; 85610; 85730; 86850; 86900; 86901; 86927; 87086; 87635; 93306; 93971; 96365; 96375; 96376; 97162; 99232; 99282; 99283; 99284; 99285; C9803; P9016; C9113; J1650; J1940; J2270; J2704; J3430; Q9967

== ENCOUNTER → 2022-12-23 11:55 | Outpatient (CLI) | payer OTHER, MEDICARE, SELFPAY ==
[2022-11-17 12:16] VITALS: BMI 24.1
[2022-12-23 14:25] LABS: NT-proBNP (BNP-Adult 18+) 1560 pg/mL (<450)
== END ==
PROVIDERS: PCP Family Medicine; Referring Provider Family Medicine; Visit Provider Family Medicine
DX: I50.32 Chronic diastolic (congestive) heart failure (principal)
CPT/HCPCS: 83880

== ENCOUNTER → 2023-01-13 11:43 | Outpatient (CLI) | payer OTHER, MEDICARE, SELFPAY ==
[2022-11-17 12:16] VITALS: BMI 24.1
[2023-01-13 12:52] LABS: Alanine Aminotransferase 25 IU/L (<35); Albumin Globulin Ratio 1.5 (1.0-2.8); Alkaline Phosphatase 125 U/L (38-126); Aspartate Aminotransferase 26 IU/L (14-36); BUN Creatinine Ratio 21.2 (6-22); Bilirubin Total 1.1 mg/dL (0.2-1.3); Blood Urea Nitrogen 18 mg/dL (7-17); Calcium 9.4 mg/dL (8.4-10.2); Carbon Dioxide 32 mmol/L (22-32); Chloride 95 mmol/L (98-107); Estimated Glomerular Filt Rate > 60 mL/min (>60); Globulin 2.6 g/dL (1.7-4.1); Glucose 115 mg/dL (80-110); HEMOLYSIS < 15 (0-50); Sodium 134 mmol/L (137-145); Total Protein 6.6 g/dL (6.3-8.2)
== END ==
PROVIDERS: PCP Family Medicine; Referring Provider Nurse Practitioner; Visit Provider Nurse Practitioner
DX: I27.20 Pulmonary hypertension, unspecified (principal)
CPT/HCPCS: 36415; 80053

== ENCOUNTER 2023-02-01 10:21 | Observation (INO) | payer MEDICARE, SELFPAY ==
[2023-01-26 15:55] VITALS: BMI 24.1
[2023-02-01] VITALS (18 sets, daily range): BP systolic 135–177; BP diastolic 55–76; PULSE 69–71; RESP 12–46; TEMP 36.3–36.8; O2SAT 89–95; BMI 24.0
--- NOTE | 2023-02-01 | DI.ECHO.S_ITS ---
[facility]---------+ [facility] +---------+ : : [id number] [place] : : : : [id number] : : : : Phone: [phone]+ Echocardiogram Report + + :Name: MATTY GUERRERO I Study Date: 02/01/2023 Height: 64 in : :[facility] ReadingLocation: Weight: 139 lb : : Gender: Female BSA: 1.7 m2 : :: 1945 Age: 77 yrs BP: 166/72 mmHg: :Reason For Study: STROKE : :Ordering Physician: RASHIDA, : :LENY Waddell Performed By: Becca Mitchell : :Referring: LENY FIELD : + + Interpretation Summary The ejection fraction is estimated to be 65-70%. Diastolic function could not be accurately assessed due to confounding valvular disease. The right ventricle is normal in size and function. There is marked biatrial enlargement. There is a [address] Octaviano mechanical mitral prosthesis that is well-seated. There is mild aortic stenosis. There is moderate to severe tricuspid regurgitation. The right ventricular systolic pressure is estimated to be at least 46 mmHg based on an estimated right atrial pressure of 8 mm Hg. Compared to the prior study dated 11/18/2022, there is an increase in the mitral valve gradient however still within the normal range for valve size. Procedure: A two-dimensional transthoracic echocardiogram with color flow and Doppler was performed. The study quality was technically adequate. Comparison is made with the echocardiogram of 11/18/2022. The patient has a paced rhythm. The heart rate ranged between 72 bpm during the study. Left Ventricle: The left ventricle is normal in size and wall thickness. The ejection fraction is estimated to be 65-70%. Diastolic function could not be accurately assessed due to confounding valvular disease. Right Ventricle: The right ventricle is normal in size and function. There is a pacemaker lead in the right ventricle. Atria: There is marked biatrial enlargement. There is a catheter/pacemaker lead seen in the right atrium. There is no Doppler evidence for an interatrial shunt. Mitral Valve: There is a [address] Octaviano mechanical prosthesis. The prosthetic mitral valve is well-seated. The mitral valve mean gradient is 6.2 mmHg. There is trace mitral regurgitation. Aortic Valve: The aortic valve is trileaflet. The aortic valve is mildly calcified. The peak aortic velocity is 2.33 m/sec. The aortic valve mean gradient is 13 mmHg. The calculated aortic valve area is 1.3 cm2. There is mild aortic stenosis. There is trace aortic regurgitation. Tricuspid Valve: The tricuspid valve leaflets are thin and pliable. The right ventricular systolic pressure is estimated to be at least 46 mmHg based on an estimated right atrial pressure of 8 mm Hg. There is moderate to severe tricuspid regurgitation. Pulmonic Valve: The pulmonic valve leaflets are thin and pliable; valve motion is normal. There is mild pulmonic regurgitation. Great Vessels: The aortic root is normal size. The dimensions of the ascending aorta are normal. The IVC is dilated (diameter is greater than 2.1 cm) yet it collapses greater than 50% with a sniff. This suggests a right atrial pressure of 8 mm Hg. Pericardium/ Pleura There is no pericardial effusion. There is no pleural effusion. MMode/2D Measurements & Calculations LVIDd: 4.3 cm LVOT diam: 2.0 cm LVIDs: 2.4 cm Ao root diam: 2.7 cm FS: 45.0 % asc Aorta Diam: 2.7 cm IVSd: 0.94 cm Ao Arch Diam (Prox Trans): 2.5 cm LVPWd: 1.1 cm LV shay. diameter/BSA (cm/m^2): 2.6 LV sys. diameter/BSA (cm/m^2): 1.4 LA A2 area: 56.9 cm2 RA long axis: 8.9 cm LA A4 area: 54.2 cm2 RA area: 44.3 cm2 LA length (vol): 9.3 cm RA vol: 187.2 ml LA vol: 280.1 ml RA : 111.7 ml/m2 LA vol index: 167.2 ml/m2 IVC diam: 2.0 cm RVD1 (basal): 3.8 cm TAPSE: 2.1 cm Doppler Measurements & Calculations Ao V2 max: 233.7 cm/sec LVOT Max Valentin: 94.8 cm/sec Ao V2 mean: 156.5 cm/sec LV V1 max P.6 mmHg Ao max P.9 mmHg LV V1 VTI: 17.9 cm Ao mean P.5 mmHg CELY(I,D): 1.3 cm2 Ao V2 VTI: 41.3 cm CELY(V,D): 1.3 cm2 sev ratio: 0.43 CELY indexed to BSA (cm^2/m^2): 0.80 Med Peak E' Valentin: 4.2 cm/sec TR max valentin: 309.5 cm/sec Lat Peak E' Valentin: 8.8 cm/sec TR max P.3 mmHg MVA(VTI): 1.1 cm2 PA V2 max: 128.2 cm/sec PA V2 mean: 90.8 cm/sec PA mean P.6 mmHg PA pr(Accel): 55.0 mmHg MV V2 mean: 114.9 cm/sec SV(LVOT): 55.4 ml MV mean P.0 mmHg MV V2 VTI: 52.7 cm Reading Physician:03:07 PM
--- NOTE | 2023-02-01 10:20 | DI.CT.S_ITS ---
PROCEDURE: CT ANGIO HEAD AND NECK INDICATIONS: Dysarthria TECHNIQUE: Pre-contrast 4.5 mm thick sections acquired from the foramen magnum to the vertex. After the administration of intravenous contrast, 1 mm thick sections acquired from the aortic arch through the [place] of [place]. Post-contrast 4.5 mm thick sections then re-acquired from the foramen magnum to the vertex. 3-dimensional qfiqtfe-cojcomzkr-ccvinpfknt (MIP) and/or volume rendering reformats were acquired of the central intracranial vasculature and neck separately. For radiation dose reduction, the following was used: automated exposure control, adjustment of mA and/or kV according to patient size. COMPARISON: [facility], CT, CT CHEST ABD PEL W CON, 11/17/2022, 11:35. FINDINGS: Image quality: Excellent. BRAIN: CSF spaces: Ventricles are normal in size and shape. Basal cisterns are patent. No extra-axial fluid collections. Brain: No midline shift. No intracranial bleeds or masses. Piña-white matter interface appears intact. Skull and face: Calvarium and facial bones appear intact, without suspicious lesions. Orbits appear normal. Sinuses: Sinuses and mastoids are clear. HEAD CT ANGIOGRAPHY: Anterior circulation: Intracranial internal carotid arteries are normal in size and flow. The flow within the paired anterior cerebral arteries is normal and symmetric. The flow within the middle cerebral arteries is normal and symmetric. The anterior communicating artery is seen. No aneurysms are seen. Posterior circulation: Visualized portions of the vertebral arteries demonstrate normal caliber, and join to form a normal appearing basilar artery. Flow within the posterior cerebral arteries is normal and symmetric. No aneurysms are seen. NECK CT ANGIOGRAPHY: Carotid system: The great vessels demonstrate a conventional anatomy as they arise from the aortic arch. The origins of the common carotid arteries appear patent. The common carotid arteries demonstrate normal caliber and courses. The bifurcation regions are both widely patent. The internal carotid arteries demonstrate normal calibers and courses. Posterior circulation: The origins of the vertebral arteries both appear widely patent. The more superior extracranial portions of both vertebral arteries also demonstrate normal courses and calibers. They join to form a normal appearing basilar artery. Soft tissues: Visualized neck soft tissues demonstrate no suspicious abnormalities. Patchy bilateral upper lobe opacities. Bones: No suspicious bony lesions. Visualized cervical spine appears normally aligned. IMPRESSION: 1.No acute intracranial process. 2. Moderate atrophy and chronic microvascular ischemia 3. No areas of hemodynamically significant stenosis, vascular occlusion or aneurysmal dilation within the anterior circulation. 4. No areas of hemodynamically significant stenosis, vascular occlusion or aneurysmal dilation within the neck vasculature. 5. Upper lobe opacities, suggestive of infection/inflammation is. Any quantitative measurements of stenosis were performed using NASCET criteria. Dictated by: Daisha Ashraf M.D. on 02/01/2023 at 10:51 Approved by: Daihsa Ashraf M.D. on 02/01/2023 at 11:00
--- NOTE | 2023-02-01 10:20 | DI.CT.S_ITS ---
PROCEDURE: CT STROKE INDICATIONS: Dysarthria TECHNIQUE: Noncontrast 4.5 mm thick angled axial sections acquired from the foramen magnum to the vertex, with coronal reformats. For radiation dose reduction, the following was used: automated exposure control, adjustment of mA and/or kV according to patient size. COMPARISON: CT, CT HEAD/BRAIN [facility], 01/30/2021, 21:56. [facility], CT, CT ANGIO HEAD AND NECK, 02/01/2023, 10:22. FINDINGS: Image quality: Excellent. CSF spaces: Basal cisterns are patent. No extra-axial fluid collections. The ventricles are symmetric in size and shape. Brain: No intracranial bleeds or masses. There is cerebral volume loss for age, with resultant ventricular and sulcal prominence. There are periventricular and deep white matter chronic small vessel ischemic changes. There is intracranial internal carotid artery atherosclerosis. Skull and face: Calvarium and visualized facial bones appear intact, without suspicious lesions. Sinuses: Visualized sinuses and mastoids are clear. IMPRESSION: No acute intracranial process. This study fulfills neurological imaging criteria for inclusion or exclusion of acute stroke therapies based on available published neurological guidelines. Dictated by: Daisha Ashraf M.D. on 02/01/2023 at 10:48 Approved by: Daisha Ashraf M.D. on 02/01/2023 at 10:50
--- NOTE | 2023-02-01 10:30 | ED.NEUROSD ---
HPI - Neuro Symptoms/Deficit General Chief Complaint: Altered Mental Status Stated Complaint: Code Stroke History of Present Illness HPI Narrative: Code stroke activated. Last well known 9:00 a.m. this morning Patient brought in by ambulance from home. Daughter had stated she got up at 7:00 a.m. this morning her usual self no deficits, ate breakfast and then at 9:00 a.m. and able to speak and walk. Patient has been released from hospice care for CHF. Echocardiogram most recently October 2022. Please see results below. Patient was in primary care office yesterday. INR 4.0 and instructed to hold Coumadin until this week. Patient unable to speak. However does follow commands. Moving all 4 extremities purposely. On fast exam Patient does have expressive aphasia. Does not her head up and down for answering on exam. Blood pressure noted. Patient denies any headache or chest pain or back pain or abdominal pain. Related Data Home Medications Medication Instructions Recorded Confirmed folic acid 1 mg tablet 1 mg PO QAM 03/31/22 02/10/23 aspirin 81 mg tablet,delayed 81 mg PO DAILY 01/28/23 02/10/23 release dexamethasone 2 mg tablet 2 mg PO DAILY 01/28/23 02/10/23 furosemide 20 mg tablet See Rx Instructions PO QAM 01/28/23 02/10/23 methadone 10 mg tablet 10 mg PO Q8H 01/28/23 02/10/23 oxybutynin chloride 5 mg tablet 5 mg PO BEDTIME 01/28/23 02/10/23 sennosides 8.6 mg capsule (senna) 8.6 mg PO BID 01/28/23 02/10/23 tadalafil 5 mg tablet 5 mg PO DAILY 01/28/23 02/10/23 warfarin 4 mg tablet See Rx Instructions PO DAILY 01/28/23 02/10/23 cholecalciferol (vitamin D3) 50 50 mcg PO DAILY 02/01/23 02/10/23 mcg (2,000 unit) tablet melatonin 10 mg tablet 10 mg PO QPM 02/01/23 02/10/23 Previous Rx's Medication Instructions Recorded handicap placard #1 ea 06/17/21 acyclovir 400 mg tablet 400 mg PO TID #21 tabs 11/17/21 nystatin 100,000 unit/gram topical 1 applic topical BID #30 grams 11/17/21 powder fluoxetine 20 mg capsule 20 mg PO DAILY #90 caps 05/12/22 methotrexate sodium 2.5 mg tablet See Rx Instructions .Route 10/25/22 .COMPLEX #36 tabs oxycodone 10 mg tablet 10 mg PO Q6H PRN pain #120 tabs 02/01/23 atorvastatin 80 mg tablet 80 mg PO BEDTIME #90 tabs 02/02/23 diazepam 5 mg tablet 5 mg PO BID PRN anxiety #30 tabs 02/10/23 lorazepam 0.5 mg tablet 0.5 mg PO TID PRN day time Anxiety 02/10/23 #90 tabs Allergies Allergy/AdvReac Type Severity Reaction Status Date / Time hydrocodone [From Vicodin] AdvReac Severe Anxiety Verified 02/10/23 13:31 hydromorphone [From Dilaudid] AdvReac Severe Confusion Verified 02/10/23 13:31 adhesive [ADHESIVE] AdvReac Unknown tape Verified 02/10/23 13:31 ibuprofen [IBUPROFEN] AdvReac Unknown I feel Verified 02/10/23 13:31 really weird vitamin E (d-alpha AdvReac Unknown cold sores Verified 02/10/23 13:31 tocopherol) [VITAMIN E] Review of Systems Review of Systems Narrative: GENERAL: negative chills, fatigue, malaise, fever, sweats. HEENT: negative sinus pain, ear pain, sore throat RESPIRATORY: negative dyspnea, cough CARDIOVASCULAR: negative chest pain, palpitations GASTROINTESTINAL: negative nausea, vomiting, abdominal pain : negative dysuria, frequency, hematuria MUSCULOSKELETAL: negative muscle or bony pain SKIN: negative rash, skin lesions NEUROLOGIC: negative weakness, numbness, negative slurred speech, positive expressive aphasia, negative facial droop ROS Unobtainable: All systems reviewed & are unremarkable except as noted in HPI and below Patient History Medical History (Updated 02/10/23 @ 15:41 by Connor Cool DO) Agitation Ankle pain (~2016) Anticoagulation monitoring, INR range 2-3 Bilateral hand pain Bilateral lower extremity edema Cataracts, bilateral Cervical somatic dysfunction Chicken pox (~1947) Chronic back pain (~1990) Chronic pain Chronic pain of left ankle Chronic pain of left knee Chronic pain of right knee Chronic pain of right thumb Cyst of right breast Depression Diastolic CHF with preserved left ventricular function, NYHA class 4 Elevated random blood glucose level Elevated troponin Family history of colon cancer Greater trochanteric bursitis of both hips H/O cold sores History of rheumatic fever Hyperlipidemia, mixed Hypoxia 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 Kidney stones (~2007) Left anterior shoulder pain Left arm pain Measles (~1945) Mumps (~1946) On methotrexate therapy Orthopnea Osteoarthritis of hands, bilateral Ovarian cyst Pain of right middle finger Phlebitis and thrombophlebitis of deep veins of the upper extremities Pressure ulcer, buttock, right, unstageable Recurrent sinusitis Rheumatic fever (~1953) 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 Segmental and somatic dysfunction of rib cage Shoulder pain Somatic dysfunction of lower extremity Swelling of finger of both hands Vaccine reaction Wandering associated with mental disorder Surgical History Anesthesia History of cholecystectomy (~1989) History of hysterectomy (~1970) Mitral valve replaced (~2008) Pacemaker (~1997) Family History Father Cancer Mother Cancer Sister COPD (chronic obstructive pulmonary disease) Social History household members: family Smoking Status: Former smoker alcohol intake: current Smoking Status: Former smoker alcohol intake frequency: a few times a week Substance Use Type: does not use Exam Narrative Exam Narrative: GENERAL: in no distress, not toxic not dyspneic HEAD: Normocephalic. EYES: Pupils equal round ENT: Mucous membranes moist. NECK: Trachea midline. CARDIOVASCULAR: Regular rate and rhythm without murmurs RESPIRATORY: Clear to auscultation. Breath sounds equal bilaterally. No wheezes, rales, or rhonchi. GASTROINTESTINAL: Abdomen soft, non-tender EXTREMITIES: No gross deformities. BACK: No flank tenderness. NEURO: Patient is awake and alert, unable to state her name or date of . However is able to shake her head up and down for yes, nods her head for no. No facial droop, strong equal bronzer. Negative pronator drift. Able to lift each leg off the bed without falling. SKIN: Warm and dry PSYCH: Not combative, is anxious, is cooperative Initial Vital Signs Initial Vital Signs: Vital Signs Pulse Rate 71 02/01/23 10:36 Respiratory Rate 12 02/01/23 10:36 Pulse Oximetry 90 L 02/01/23 10:36 Oxygen Delivery Method Nasal Cannula 02/01/23 10:36 Oxygen Flow Rate 2 02/01/23 10:36 Scores NIH Stroke Scale Level of Conciousness: Alert, keenly responsive Ask month/age: Answers neither question correctly, aphasic, stuporous, coma Open/close eyes, close hand: Performs both tasks correctly Best gaze horizontal: Normal Visual montes: No visual loss Facial palsy: Normal symetrical movement Left arm drift: No drift for full 10 sec Right arm drift: No drift for full 10 sec Left leg drift: No drift for full 5 sec Right leg drift: No drift for full 5 sec Limb ataxia: Absent Sensory on face/arms/legs: Normal, no sensory loss Best language: Mute, global aphasia Dysarthria: Severe, unintelligible Extinction or inattention: No abnormality Total NIH Stroke scale score: 7 Course Orders Ordered: Discontinued Medications Acetaminophen (Acetaminophen 325 Mg Tablet) 650 mg PO Q6HR PRN PRN Reason: Fever Aspirin (Aspirin Ec 81 Mg Tablet) 81 mg PO DAILY [facility] Last Admin: 02/02/23 08:23 Dose: 81 mg Documented By: Admin: 02/01/23 14:58 Dose: Not Given Documented By: BT Atorvastatin Calcium (Atorvastatin 20 Mg Tablet) 80 mg PO BEDTIME [facility] Last Admin: 02/01/23 20:12 Dose: 80 mg Documented By: AM Fluoxetine HCl (Fluoxetine 20 Mg Capsule) 20 mg PO DAILY [facility] Last Admin: 02/02/23 08:23 Dose: 20 mg Documented By: BT Labetalol HCl (Labetalol 20 Mg/4 Ml Syringe) 10 mg IV Q5H PRN PRN Reason: SBP >220 or DBP >110 Lorazepam (Lorazepam 0.5 Mg Tablet) 0.5 mg PO TID PRN PRN Reason: anxiety Last Admin: 02/01/23 20:30 Dose: 0.5 mg Documented By: AM Melatonin (Melatonin 3 Mg Tablet) 6 mg PO BEDTIME PRN PRN Reason: Insomnia Last Admin: 02/01/23 20:30 Dose: 6 mg Documented By: AM Methadone HCl (Methadone 10 Mg Tablet) 10 mg PO Q8H [facility] Last Admin: 02/02/23 04:37 Dose: 10 mg Documented By: Admin: 02/01/23 20:12 Dose: 10 mg Documented By: AM Naloxone HCl (Naloxone 0.4 Mg/Ml Vial) 0.2 mg IV Q2MIN PRN PRN Reason: Opiate Reversal Polyethylene Glycol (Polyethylene Glycol 3350 17 Gm Powd.Pack) 17 gm PO DAILY PRN PRN Reason: Constipation Sennosides (Sennosides 8.6 Mg Tablet) 8.6 mg PO BID PRN PRN Reason: Constipation Sennosides (Sennosides 8.6 Mg Tablet) 8.6 mg PO BID [facility] Admin: 02/02/23 08:23 Dose: 8.6 mg Documented By: Admin: 02/01/23 20:12 Dose: 8.6 mg Documented By: AM Vital Signs Vital signs: Vital Signs - 8 hr 02/01/23 10:36 02/01/23 10:40 02/01/23 10:40 Pulse Rate 71 70 Respiratory Rate 12 21 Blood Pressure 177/76 H Pulse Oximetry 90 L 90 L Oxygen Delivery Method Nasal Cannula Oxygen Flow Rate 2 02/01/23 10:50 02/01/23 10:50 02/01/23 11:00 Pulse Rate 69 Respiratory Rate 38 H Blood Pressure 163/55 H 151/70 H Pulse Oximetry 89 L Oxygen Delivery Method Nasal Cannula Oxygen Flow Rate 3 02/01/23 11:00 02/01/23 11:10 02/01/23 11:10 Pulse Rate 69 69 Respiratory Rate 22 26 H Blood Pressure 156/71 H Pulse Oximetry 91 92 Oxygen Delivery Method Oxygen Flow Rate 02/01/23 11:20 02/01/23 11:20 02/01/23 11:30 Pulse Rate 69 Respiratory Rate 23 Blood Pressure 153/67 H 166/72 H Pulse Oximetry 92 Oxygen Delivery Method Oxygen Flow Rate 02/01/23 11:30 Pulse Rate 69 Respiratory Rate 26 H Blood Pressure Pulse Oximetry 94 Oxygen Delivery Method Oxygen Flow Rate MDM - Neuro Symptoms/Deficit Medical Records Medical records narrative: Interpretation Summary 1) Normal left ventricular thickness, size, wall motion, and systolic function (EF 60-65%). 2) The right ventricle is moderately dilated. Right ventricular systolic function is mildly reduced. 3) There is markedly severe biatrial enlargement. 4) There is a bi-leaflet mechanical prosthesis that appears to be well-seated and appears to open well with a mitral valve mean gradient of 4.0 mmHg. There is trace mitral regurgitation. 5) There is mild aortic stenosis (valve area 1.4cm2, mean gradient 9mmHg, severity ratio 0.45). 6) There is moderate to severe tricuspid regurgitation. 7) The right ventricular systolic pressure is estimated to be at least 50 mmHg based on an estimated right atrial pressure of 15 mm Hg. 8) Compared to the Echo done 03/28/2019, right sided hypervolemia is present on this study. Lab Data 02/02/23 05:12 02/02/23 05:12 Labs: Lab Results 02/01/23 02/01/23 02/01/23 Range/Units 10:30 10:30 10:30 WBC 11.6 H (4.5-11.0) X10^3/uL RBC 4.71 (4.0-5.2) X10^6/uL Hgb 11.9 L (12.0-16.0) g/dL Hct 37.5 (36-46) % MCV 79.6 L (80-100) fL MCH 25.3 L (26-34) PG MCHC 31.8 (30-36) % RDW 21.3 H (11.6-14.8) % Plt Count 341 (150-400) X10^3/uL Neut % (Auto) Not Reportable Lymph % (Auto) Not Reportable [place] % (Auto) Not Reportable Eos % (Auto) Not Reportable Baso % (Auto) Not Reportable Lymph # (Auto) Not Reportable [place] # (Auto) Not Reportable Baso # (Auto) Not Reportable Total Counted 100 Seg Neutrophils % 83.0 H (38-70) % Band Neutrophils % 2.0 L (3-7) % Lymphocytes % (Manual) 4.0 L (25-45) % Atypical Lymphs % 1.0 H ( - 0) % Monocytes % (Manual) 8.0 (2-11) % Basophils % (Manual) 1.0 (0-1) % Myelocytes % 1.0 H (-0) % Neutrophils # (Manual) 9860 H (6660-4644) /uL RBC Morphology See below Poikilocytosis 1+ H Anisocytosis 1+ H Ovalocytes 1+ H PT 45.4 H (10.1-12.7) SECONDS INR 3.9 H (0.9-1.3) APTT 34 (26-36) SECONDS Sodium 135 L (137-145) mmol/L Potassium 3.8 (3.4-5.1) mmol/L Chloride 97 L (98-107) mmol/L Carbon Dioxide 32 (22-32) mmol/L BUN 17 (7-17) mg/dL Creatinine 0.58 (0.52-1.04) mg/dL Estimated GFR > 60 (>60) mL/min BUN/Creatinine Ratio 29.3 H (6-22) Glucose 107 (80-110) mg/dL Hemoglobin A1c (4.0-6.0) % Calcium 8.8 (8.4-10.2) mg/dL Magnesium (1.6-2.3) mg/dL Total Bilirubin 0.9 (0.2-1.3) mg/dL AST 22 (14-36) IU/L ALT 19 (<35) IU/L Alkaline Phosphatase 67 (38-126) U/L Total Creatine Kinase < 20 L (30-135) U/L CK-MB (CK-2) TNP CK-MB (CK-2) Rel Index TNP Troponin I 0.017 (0.01-0.034) ng/mL Total Protein 6.0 L (6.3-8.2) g/dL Albumin 3.4 L (3.5-5.0) g/dL Globulin 2.6 (1.7-4.1) g/dL Albumin/Globulin Ratio 1.3 (1.0-2.8) Triglycerides (35-150) mg/dL Cholesterol (140-199) mg/dL LDL Cholesterol, Calc (<100) mg/dL HDL Cholesterol (40-60) mg/dL TSH (0.47-4.68) uIU/mL Free T4 (0.78-2.19) ng/dL Ethyl Alcohol < 10 ( - 10) mg/dL SARS-CoV-2 (PCR) (Negative) 02/01/23 02/01/23 02/01/23 Range/Units 10:30 10:30 10:30 WBC (4.5-11.0) X10^3/uL RBC (4.0-5.2) X10^6/uL Hgb (12.0-16.0) g/dL Hct (36-46) % MCV (80-100) fL MCH (26-34) PG MCHC (30-36) % RDW (11.6-14.8) % Plt Count (150-400) X10^3/uL Neut % (Auto) Lymph % (Auto) [place] % (Auto) Eos % (Auto) Baso % (Auto) Lymph # (Auto) [place] # (Auto) Baso # (Auto) Total Counted Seg Neutrophils % (38-70) % Band Neutrophils % (3-7) % Lymphocytes % (Manual) (25-45) % Atypical Lymphs % ( - 0) % Monocytes % (Manual) (2-11) % Basophils % (Manual) (0-1) % Myelocytes % (-0) % Neutrophils # (Manual) (4800-1733) /uL RBC Morphology Poikilocytosis Anisocytosis Ovalocytes PT (10.1-12.7) SECONDS INR (0.9-1.3) APTT (26-36) SECONDS Sodium (137-145) mmol/L Potassium (3.4-5.1) mmol/L Chloride (98-107) mmol/L Carbon Dioxide (22-32) mmol/L BUN (7-17) mg/dL Creatinine (0.52-1.04) mg/dL Estimated GFR (>60) mL/min BUN/Creatinine Ratio (6-22) Glucose (80-110) mg/dL Hemoglobin A1c 6.1 H (4.0-6.0) % Calcium (8.4-10.2) mg/dL Magnesium (1.6-2.3) mg/dL Total Bilirubin (0.2-1.3) mg/dL AST (14-36) IU/L ALT (<35) IU/L Alkaline Phosphatase (38-126) U/L Total Creatine Kinase (30-135) U/L CK-MB (CK-2) CK-MB (CK-2) Rel Index Troponin I (0.01-0.034) ng/mL Total Protein (6.3-8.2) g/dL Albumin (3.5-5.0) g/dL Globulin (1.7-4.1) g/dL Albumin/Globulin Ratio (1.0-2.8) Triglycerides 125 (35-150) mg/dL Cholesterol 194 (140-199) mg/dL LDL Cholesterol, Calc 110 H (<100) mg/dL HDL Cholesterol 59 (40-60) mg/dL TSH 6.04 H (0.47-4.68) uIU/mL Free T4 1.31 (0.78-2.19) ng/dL Ethyl Alcohol ( - 10) mg/dL SARS-CoV-2 (PCR) (Negative) 02/01/23 02/01/23 Range/Units 10:30 10:49 WBC (4.5-11.0) X10^3/uL RBC (4.0-5.2) X10^6/uL Hgb (12.0-16.0) g/dL Hct (36-46) % MCV (80-100) fL MCH (26-34) PG MCHC (30-36) % RDW (11.6-14.8) % Plt Count (150-400) X10^3/uL Neut % (Auto) Lymph % (Auto) [place] % (Auto) Eos % (Auto) Baso % (Auto) Lymph # (Auto) [place] # (Auto) Baso # (Auto) Total Counted Seg Neutrophils % (38-70) % Band Neutrophils % (3-7) % Lymphocytes % (Manual) (25-45) % Atypical Lymphs % ( - 0) % Monocytes % (Manual) (2-11) % Basophils % (Manual) (0-1) % Myelocytes % (-0) % Neutrophils # (Manual) (7197-1894) /uL RBC Morphology Poikilocytosis Anisocytosis Ovalocytes PT (10.1-12.7) SECONDS INR (0.9-1.3) APTT (26-36) SECONDS Sodium (137-145) mmol/L Potassium (3.4-5.1) mmol/L Chloride (98-107) mmol/L Carbon Dioxide (22-32) mmol/L BUN (7-17) mg/dL Creatinine (0.52-1.04) mg/dL Estimated GFR (>60) mL/min BUN/Creatinine Ratio (6-22) Glucose (80-110) mg/dL Hemoglobin A1c (4.0-6.0) % Calcium (8.4-10.2) mg/dL Magnesium 1.9 (1.6-2.3) mg/dL Total Bilirubin (0.2-1.3) mg/dL AST (14-36) IU/L ALT (<35) IU/L Alkaline Phosphatase (38-126) U/L Total Creatine Kinase (30-135) U/L CK-MB (CK-2) CK-MB (CK-2) Rel Index Troponin I (0.01-0.034) ng/mL Total Protein (6.3-8.2) g/dL Albumin (3.5-5.0) g/dL Globulin (1.7-4.1) g/dL Albumin/Globulin Ratio (1.0-2.8) Triglycerides (35-150) mg/dL Cholesterol (140-199) mg/dL LDL Cholesterol, Calc (<100) mg/dL HDL Cholesterol (40-60) mg/dL TSH (0.47-4.68) uIU/mL Free T4 (0.78-2.19) ng/dL Ethyl Alcohol ( - 10) mg/dL SARS-CoV-2 (PCR) Negative (Negative) Imaging Data CT scan - head: Radiologist's Impression: PROCEDURE: CT STROKE INDICATIONS: Dysarthria TECHNIQUE: Noncontrast 4.5 mm thick angled axial sections acquired from the foramen magnum to the vertex, with coronal reformats. For radiation dose reduction, the following was used: automated exposure control, adjustment of mA and/or kV according to patient size. COMPARISON: CT, CT HEAD/BRAIN [facility], 01/30/2021, 21:56. [facility], CT, CT ANGIO HEAD AND NECK, 02/01/2023, 10:22. FINDINGS: Image quality: Excellent. CSF spaces: Basal cisterns are patent. No extra-axial fluid collections. The ventricles are symmetric in size and shape. Brain: No intracranial bleeds or masses. There is cerebral volume loss for age, with resultant ventricular and sulcal prominence. There are periventricular and deep white matter chronic small vessel ischemic changes. There is intracranial internal carotid artery atherosclerosis. Skull and face: Calvarium and visualized facial bones appear intact, without suspicious lesions. Sinuses: Visualized sinuses and mastoids are clear. IMPRESSION: No acute intracranial process. This study fulfills neurological imaging criteria for inclusion or exclusion of acute stroke therapies based on available published neurological guidelines. Dictated by: Daisha Ashraf M.D. on 02/01/2023 at 10:48 Approved by: Daisha Ashraf M.D. on 02/01/2023 at 10:50 CTA - brain/neck: Radiologist's Impression: PROCEDURE:? CT ANGIO HEAD AND NECK ? INDICATIONS:? Dysarthria ? TECHNIQUE:? Pre-contrast 4.5 mm thick sections acquired from the foramen magnum to the vertex.? After the administration of intravenous contrast, 1 mm thick sections acquired from the aortic arch through the [place] of [place].? Post-contrast 4.5 mm thick sections then re-acquired from the foramen magnum to the vertex.? 3-dimensional fafqqrw-fgsrhxzoa-[id number] (MIP) and/or volume rendering reformats were acquired of the central intracranial vasculature and neck separately. For radiation dose reduction, the following was used:? automated exposure control, adjustment of mA and/or kV according to patient size.? ? COMPARISON:? [facility], CT, CT CHEST ABD PEL W CON, 11/17/2022, 11:35. ? FINDINGS:? Image quality:? Excellent.? ? BRAIN:? CSF spaces:? Ventricles are normal in size and shape.? Basal cisterns are patent.? No extra-axial fluid collections.? ? Brain:? No midline shift.? No intracranial bleeds or masses.? Piña-white matter interface appears intact.? ? Skull and face:? Calvarium and facial bones appear intact, without suspicious lesions.? Orbits appear normal.? ? Sinuses:? Sinuses and mastoids are clear.? ? HEAD CT ANGIOGRAPHY:? Anterior circulation:? Intracranial internal carotid arteries are normal in size and flow.? The flow within the paired anterior cerebral arteries is normal and symmetric.? The flow within the middle cerebral arteries is normal and symmetric.? The anterior communicating artery is seen.? No aneurysms are seen.? ? Posterior circulation:? Visualized portions of the vertebral arteries demonstrate normal caliber, and join to form a normal appearing basilar artery.? Flow within the posterior cerebral arteries is normal and symmetric.? No aneurysms are seen.? ? NECK CT ANGIOGRAPHY:? Carotid system:? The great vessels demonstrate a conventional anatomy as they arise from the aortic arch.? The origins of the common carotid arteries appear patent.? The common carotid arteries demonstrate normal caliber and courses.? The bifurcation regions are both widely patent.? The internal carotid arteries demonstrate normal calibers and courses.? ? Posterior circulation:? The origins of the vertebral arteries both appear widely patent.? The more superior extracranial portions of both vertebral arteries also demonstrate normal courses and calibers.? They join to form a normal appearing basilar artery.? ? Soft tissues:? Visualized neck soft tissues demonstrate no suspicious abnormalities.? Patchy bilateral upper lobe opacities. ? Bones:? No suspicious bony lesions.? Visualized cervical spine appears normally aligned.? IMPRESSION:? 1.No acute intracranial process. 2. Moderate atrophy and chronic microvascular ischemia 3.? No areas of hemodynamically significant stenosis, vascular occlusion or aneurysmal dilation within the anterior circulation. 4.? No areas of hemodynamically significant stenosis, vascular occlusion or aneurysmal dilation within the neck vasculature. 5.? Upper lobe opacities, suggestive of infection/inflammation is. ? Any quantitative measurements of stenosis were performed using NASCET criteria.? ? ? Dictated by: Daisha Ashraf M.D. on 02/01/2023 at 10:51 ? ? Approved by: Daisha Ashraf M.D. on 02/01/2023 at 11:00 ? MDM Narrative Medical decision making narrative: Code stroke activated. Last well known 9:00 a.m. this morning Patient brought in by ambulance from home. Daughter had stated she got up at 7:00 a.m. this morning her usual self no deficits, ate breakfast and then at 9:00 a.m. and able to speak and walk. Patient has been released from hospice care for CHF. Echocardiogram most recently October 2022. Please see results below. Patient was in primary care office yesterday. INR 4.0 and instructed to hold Coumadin until this week. Patient unable to speak. However does follow commands. Moving all 4 extremities purposely. On fast exam Patient does have expressive aphasia. Does not her head up and down for answering on exam. Blood pressure noted. Patient denies any headache or chest pain or back pain or abdominal pain. After history and exam stroke CT and angiogram ordered, patient brought straight to CT imaging. CBC CMP troponin EKG PT INR PTT. MDM CC: Expressive aphasia Complicating co-morbidities: Patient on Coumadin, INR 4.0 yesterday Data collected from: EMS Medical records reviewed: No previous visits here for stroke. Differential considered: Includes but not limited to stroke TIA head bleed brain tumor Exam documented above, pertinent findings include: Positive for expressive aphasia Lab Test results independently reviewed as above. Pertinent findings: INR 3.9 hemoglobin 11.9 hematocrit 37 platelets 341 sodium 135 bicarb 32 GFR greater than 60 troponin 0.017 Independently reviewed EKG as above ventricular paced rhythm rate [address] elevation or depression Imaging studies independently reviewed: PROCEDURE:? CT STROKE ? INDICATIONS:? Dysarthria ? TECHNIQUE:? Noncontrast 4.5 mm thick angled axial sections acquired from the foramen magnum to the vertex, with coronal reformats.? For radiation dose reduction, the following was used:? automated exposure control, adjustment of mA and/or kV according to patient size.? ? COMPARISON:? CT, CT HEAD/BRAIN [facility], 01/30/2021, 21:56.? [facility], CT, CT ANGIO HEAD AND NECK, 02/01/2023, 10:22. ? FINDINGS:? Image quality:? Excellent.? ? CSF spaces:? Basal cisterns are patent.? No extra-axial fluid collections.? The ventricles are symmetric in size and shape.? ? Brain:? No intracranial bleeds or masses.? There is cerebral volume loss for age, with resultant ventricular and sulcal prominence.? There are periventricular and deep white matter chronic small vessel ischemic changes.? There is intracranial internal carotid artery atherosclerosis.? ? Skull and face:? Calvarium and visualized facial bones appear intact, without suspicious lesions.? ? Sinuses:? Visualized sinuses and mastoids are clear.? ? IMPRESSION:? No acute intracranial process. ? This study fulfills neurological imaging criteria for inclusion or exclusion of acute stroke therapies based on available published neurological guidelines.? ? ? Dictated by: Daisha Ashraf M.D. on 02/01/2023 at 10:48 ? ? Approved by: Daisha Ashraf M.D. on 02/01/2023 at 10:50 ? PROCEDURE:? CT ANGIO HEAD AND NECK ? INDICATIONS:? Dysarthria ? TECHNIQUE:? Pre-contrast 4.5 mm thick sections acquired from the foramen magnum to the vertex.? After the administration of intravenous contrast, 1 mm thick sections acquired from the aortic arch through the [place] of [place].? Post-contrast 4.5 mm thick sections then re-acquired from the foramen magnum to the vertex.? 3-dimensional [id number]-judcgzdvgk (MIP) and/or volume rendering reformats were acquired of the central intracranial vasculature and neck separately. For radiation dose reduction, the following was used:? automated exposure control, adjustment of mA and/or kV according to patient size.? ? COMPARISON:? [facility], CT, CT CHEST ABD PEL W CON, 11/17/2022, 11:35. ? FINDINGS:? Image quality:? Excellent.? ? BRAIN:? CSF spaces:? Ventricles are normal in size and shape.? Basal cisterns are patent.? No extra-axial fluid collections.? ? Brain:? No midline shift.? No intracranial bleeds or masses.? Piña-white matter interface appears intact.? ? Skull and face:? Calvarium and facial bones appear intact, without suspicious lesions.? Orbits appear normal.? ? Sinuses:? Sinuses and mastoids are clear.? ? HEAD CT ANGIOGRAPHY:? Anterior circulation:? Intracranial internal carotid arteries are normal in size and flow.? The flow within the paired anterior cerebral arteries is normal and symmetric.? The flow within the middle cerebral arteries is normal and symmetric.? The anterior communicating artery is seen.? No aneurysms are seen.? ? Posterior circulation:? Visualized portions of the vertebral arteries demonstrate normal caliber, and join to form a normal appearing basilar artery.? Flow within the posterior cerebral arteries is normal and symmetric.? No aneurysms are seen.? ? NECK CT ANGIOGRAPHY:? Carotid system:? The great vessels demonstrate a conventional anatomy as they arise from the aortic arch.? The origins of the common carotid arteries appear patent.? The common carotid arteries demonstrate normal caliber and courses.? The bifurcation regions are both widely patent.? The internal carotid arteries demonstrate normal calibers and courses.? ? Posterior circulation:? The origins of the vertebral arteries both appear widely patent.? The more superior extracranial portions of both vertebral arteries also demonstrate normal courses and calibers.? They join to form a normal appearing basilar artery.? ? Soft tissues:? Visualized neck soft tissues demonstrate no suspicious abnormalities.? Patchy bilateral upper lobe opacities. ? Bones:? No suspicious bony lesions.? Visualized cervical spine appears normally aligned.? IMPRESSION:? 1.No acute intracranial process. 2. Moderate atrophy and chronic microvascular ischemia 3.? No areas of hemodynamically significant stenosis, vascular occlusion or aneurysmal dilation within the anterior circulation. 4.? No areas of hemodynamically significant stenosis, vascular occlusion or aneurysmal dilation within the neck vasculature. 5.? Upper lobe opacities, suggestive of infection/inflammation is. ? Any quantitative measurements of stenosis were performed using NASCET criteria.? ? ? Dictated by: Daisha Ashraf M.D. on 02/01/2023 at 10:51 ? ? Approved by: Daisha Ashraf M.D. on 02/01/2023 at 11:00 ? Consultations: 11:05 a.m.. Spoke with [facility] stroke center, dr phillips, pt not to have TPA d/t INR, she has reviewed the CT angiogram. No indication for transfer. Patient will need admission. Needs MRI and echocardiogram 11:[address] Barbour, hospitalist, he will admit patient Treatments: No tPA no aspirin patient INR 3.9 Re-evaluations: 11:00 a.m.. Spoke with daughter at bedside. Care provider at bedside as well. h/o of afib. They understand INR is 3.9. Awaiting for tele stroke to call me back. Patient still has expressive aphasia. Family understands high risk of bleeding anywhere as well as the brain with tPA with INR 3.9. Patient and family understand that this could cause bleeding anywhere and in the brain with tPA Discussion: Appropriate for admission for stroke. No tPA at this time due to INR 3.9 Will need MRI echocardiogram, I did review with tele stroke Neurology Dr. Phillips. Reviewed with patient and family as well. Reviewed with hospitalist and agrees for admit Patient will not be able to have MRI due to pacemaker Diagnosis: Acute stroke Stroke Core Measures Contraindications for TPA in CVA: INR>1.7 Discharge Plan Departure Patient Disposition: Admitted as Observation Clinical Impression: Elevated INR Stroke Qualifiers: CVA mechanism: unspecified Qualified Code(s): I63.9 - Cerebral infarction, unspecified Admit Date/Time: 02/01/23 12:06 Admit Provider: Evan Barbour
[2023-02-01 10:36] LABS: Hematocrit 37.5 % (36-46); Hemoglobin 11.9 g/dL (12.0-16.0); Mean Corpuscular HGB Conc 31.8 % (30-36); Mean Corpuscular Hemoglobin 25.3 PG (26-34); Mean Corpuscular Volume 79.6 fL (80-100); Platelet Count 341 X10^3/uL (150-400); Red Blood Cell Count 4.71 X10^6/uL (4.0-5.2); Red Cell Distribution Width 21.3 % (11.6-14.8); White Blood Cell Count 11.6 X10^3/uL (4.5-11.0)
[2023-02-01 10:39] LABS: INR 3.9 (0.9-1.3); Prothrombin Time 45.4 SECONDS (10.1-12.7)
[2023-02-01 10:42] LABS: Add Manual Diff / Slide Review YES; HEMOLYSIS < 15 (0-50); PTT Partial Thromboplastin Tim 34 SECONDS (26-36); Potassium 3.8 mmol/L (3.4-5.1)
[2023-02-01 10:43] LABS: Alanine Aminotransferase 19 IU/L (<35); Albumin 3.4 g/dL (3.5-5.0); Albumin Globulin Ratio 1.3 (1.0-2.8); Alkaline Phosphatase 67 U/L (38-126); Aspartate Aminotransferase 22 IU/L (14-36); BUN Creatinine Ratio 29.3 (6-22); Bilirubin Total 0.9 mg/dL (0.2-1.3); Blood Urea Nitrogen 17 mg/dL (7-17); Calcium 8.8 mg/dL (8.4-10.2); Carbon Dioxide 32 mmol/L (22-32); Chloride 97 mmol/L (98-107); Creatine Kinase < 20 U/L (30-135); Estimated Glomerular Filt Rate > 60 mL/min (>60); Ethanol (ETOH) < 10 mg/dL; Globulin 2.6 g/dL (1.7-4.1); Glucose 107 mg/dL (80-110); Sodium 135 mmol/L (137-145)
--- NOTE | 2023-02-01 10:50 | PC.NURSE ---
Addendum entered by Yasmeen Giron R.N. 02/01/23 11:02: pt was also seen by hospice for general weakness, pt had started to use walker tuesday was last dose of coumadin. Original Note: last tuesday pt came off hospice (for pain management, and to get her back on her feet) nurse came to house once per week to check on patient. CHF and mitral valve problems pt does not use walker any longer
[2023-02-01 10:55] LABS: Troponin I 0.017 ng/mL (0.01-0.034)
[2023-02-01 10:58] LABS: Neutrophils Absolute Manual 9860 /uL (3000-5900); Total Cells Counted 100
[2023-02-01 11:03] LABS: Anisocytosis 1+; Poikilocytosis 1+
[2023-02-01 11:04] LABS: Ovalocytes 1+
[2023-02-01 11:11] LABS: COVID19 -Nasal RAPID Negative (Negative)
--- NOTE | 2023-02-01 12:05 | PM.HP.1 ---
History of Present Illness History of Present Illness Date Patient Seen: 02/01/23 Chief complaint: Code Stroke Narrative: Nataliia Palacios is a 77-year-old female with past medical history of atrial fibrillation on warfarin, rheumatoid arthritis on methotrexate, depression, and pacemaker who presents with acute-onset aphasia. Patient woke up this morning at 7am and was her normal self until 9am when she had sudden onset aphasia. No extremity weakness or facial droop. Once in the ED found to have NIH of 7 and patient unable to speak. She was not a candidate for tPA due to being on warfarin with INR 3.9. CT and CTA head negative. Unable to obtain MRI due to pacemaker. Patient currently several hours later up on the floor can now say one word responses yes, no or ok which is an improvement from this morning. She is fully comprehending what is told to her. She has family at bedside providing support. I discussed likely etiology being that she was off warfarin for 2 months and only restarted it recently, so a clot may have formed during that time then caused the stroke. Patient History Medical History Ankle pain (~2016) Anticoagulation monitoring, INR range 2-3 Bilateral hand pain Bilateral lower extremity edema Cataracts, bilateral Cervical somatic dysfunction Chicken pox (~1946) Chronic back pain (~1990) Chronic pain Chronic pain of left ankle Chronic pain of left knee Chronic pain of right knee Chronic pain of right thumb Cyst of right breast Depression Diastolic CHF with preserved left ventricular function, NYHA class 4 Elevated random blood glucose level Elevated troponin Family history of colon cancer Greater trochanteric bursitis of both hips H/O cold sores History of rheumatic fever Hyperlipidemia, mixed 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 Kidney stones (~2007) Left anterior shoulder pain Left arm pain Measles (~194) Mumps (~194) On methotrexate therapy Orthopnea Osteoarthritis of hands, bilateral Ovarian cyst Pain of right middle finger Phlebitis and thrombophlebitis of deep veins of the upper extremities Pressure ulcer, buttock, right, unstageable Recurrent sinusitis Rheumatic fever (~1953) 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 Segmental and somatic dysfunction of rib cage Shoulder pain Somatic dysfunction of lower extremity Swelling of finger of both hands Vaccine reaction Surgical History Anesthesia History of cholecystectomy (~1989) History of hysterectomy (~1970) Mitral valve replaced (~2008) Pacemaker (~1997) Family & Social History Family History Father Cancer Mother Cancer Sister COPD (chronic obstructive pulmonary disease) Social History: household members family Safety & Behavioral: Feels Safe in Current Unwilling to Answer Environment Been Physically Hurt or Unwilling to Answer Threatened By a Person Tobacco & Substance use: Tobacco type cigarettes Smoking Status Former smoker alcohol intake current alcohol intake frequency a few times a week Substance Use Type does not use Meds Home Medications and Allergies Home Medications Medication Instructions Recorded Confirmed Type handicap placard #1 ea 06/17/21 02/01/23 Rx acyclovir 400 mg tablet 400 mg PO TID #21 tabs 11/17/21 02/01/23 Rx nystatin 100,000 unit/gram topical 1 applic topical BID #30 grams 11/17/21 02/01/23 Rx powder folic acid 1 mg tablet 1 mg PO QAM 03/31/22 02/01/23 History fluoxetine 20 mg capsule 20 mg PO DAILY #90 caps 05/12/22 02/01/23 Rx methotrexate sodium 2.5 mg tablet See Rx Instructions .Route 10/25/22 02/01/23 Rx .COMPLEX #36 tabs aspirin 81 mg tablet,delayed 81 mg PO DAILY 01/28/23 02/01/23 History release dexamethasone 2 mg tablet 2 mg PO DAILY 01/28/23 02/01/23 History furosemide 20 mg tablet See Rx Instructions PO QAM 01/28/23 02/01/23 History lorazepam 0.5 mg tablet 0.5 mg PO TID PRN Anxiety 01/28/23 02/01/23 History methadone 10 mg tablet 10 mg PO Q8H 01/28/23 02/01/23 History oxybutynin chloride 5 mg tablet 5 mg PO BEDTIME 01/28/23 02/01/23 History sennosides 8.6 mg capsule (senna) 8.6 mg PO BID 01/28/23 02/01/23 History tadalafil 5 mg tablet 5 mg PO DAILY 01/28/23 02/01/23 History warfarin 4 mg tablet See Rx Instructions PO DAILY 01/28/23 02/01/23 History cholecalciferol (vitamin D3) 50 50 mcg PO DAILY 02/01/23 02/01/23 History mcg (2,000 unit) tablet melatonin 10 mg tablet 10 mg PO QPM 02/01/23 02/01/23 History oxycodone 10 mg tablet 10 mg PO Q6H PRN pain #120 tabs 02/01/23 02/01/23 Rx Allergies Allergy/AdvReac Type Severity Reaction Status Date / Time hydrocodone [From Vicodin] AdvReac Severe Anxiety Verified 02/01/23 10:38 hydromorphone [From Dilaudid] AdvReac Severe Confusion Verified 02/01/23 10:38 adhesive [ADHESIVE] AdvReac Unknown tape Verified 02/01/23 10:38 ibuprofen [IBUPROFEN] AdvReac Unknown I feel Verified 02/01/23 10:38 really weird vitamin E (d-alpha AdvReac Unknown cold sores Verified 02/01/23 10:38 tocopherol) [VITAMIN E] Review of Systems Review of Systems Narrative: All other systems reviewed with the patient and are negative unless otherwise stated. Exam Vital Signs (past 8 hours): - 02/01/23 10:36 02/01/23 10:40 02/01/23 10:40 Pulse Rate 71 70 Respiratory Rate 12 21 Blood Pressure 177/76 H Pulse Oximetry 90 L 90 L Oxygen Delivery Method Nasal Cannula Oxygen Flow Rate 2 02/01/23 10:50 02/01/23 10:50 02/01/23 11:00 Pulse Rate 69 Respiratory Rate 38 H Blood Pressure 163/55 H 151/70 H Pulse Oximetry 89 L Oxygen Delivery Method Nasal Cannula Oxygen Flow Rate 3 02/01/23 11:00 02/01/23 11:10 02/01/23 11:10 Pulse Rate 69 69 Respiratory Rate 22 26 H Blood Pressure 156/71 H Pulse Oximetry 91 92 Oxygen Delivery Method Oxygen Flow Rate 02/01/23 11:20 02/01/23 11:20 02/01/23 11:30 Pulse Rate 69 Respiratory Rate 23 Blood Pressure 153/67 H 166/72 H Pulse Oximetry 92 Oxygen Delivery Method Oxygen Flow Rate 02/01/23 11:30 Pulse Rate 69 Respiratory Rate 26 H Blood Pressure Pulse Oximetry 94 Oxygen Delivery Method Oxygen Flow Rate Oxygen Delivery Method Nasal Cannula Oxygen Flow Rate 3 Narrative Exam Narrative: GEN: no acute distress, alert and oriented HEENT: moist mucous membranes, PERRL NECK: trachea midline, no JVD CV: regular rate and rhythm, no murmurs PULM: clear bilaterally ABD: soft, nontender, nondistended, no organomegaly EXT: warm and well perfused with no edema NEURO: awake, alert, oriented, only able to speak in 1 word answers Objective Labs 02/01/23 10:30 02/01/23 10:30 Labs: Laboratory Results - last 24 hr 02/01/23 02/01/23 02/01/23 10:30 10:30 10:30 WBC 11.6 H RBC 4.71 Hgb 11.9 L Hct 37.5 MCV 79.6 L MCH 25.3 L MCHC 31.8 RDW 21.3 H Plt Count 341 Neut % (Auto) Not Reportable Lymph % (Auto) Not Reportable [place] % (Auto) Not Reportable Eos % (Auto) Not Reportable Baso % (Auto) Not Reportable Lymph # (Auto) Not Reportable [place] # (Auto) Not Reportable Baso # (Auto) Not Reportable Total Counted 100 Seg Neutrophils % 83.0 H Band Neutrophils % 2.0 L Lymphocytes % (Manual) 4.0 L Atypical Lymphs % 1.0 H Monocytes % (Manual) 8.0 Basophils % (Manual) 1.0 Myelocytes % 1.0 H Neutrophils # (Manual) 9860 H RBC Morphology See below Poikilocytosis 1+ H Anisocytosis 1+ H Ovalocytes 1+ H PT 45.4 H INR 3.9 H APTT 34 Sodium 135 L Potassium 3.8 Chloride 97 L Carbon Dioxide 32 BUN 17 Creatinine 0.58 Estimated GFR > 60 BUN/Creatinine Ratio 29.3 H Glucose 107 Calcium 8.8 Total Bilirubin 0.9 AST 22 ALT 19 Alkaline Phosphatase 67 Total Creatine Kinase < 20 L CK-MB (CK-2) TNP CK-MB (CK-2) Rel Index TNP Troponin I 0.017 Total Protein 6.0 L Albumin 3.4 L Globulin 2.6 Albumin/Globulin Ratio 1.3 Ethyl Alcohol < 10 SARS-CoV-2 (PCR) 02/01/23 10:49 WBC RBC Hgb Hct MCV MCH MCHC RDW Plt Count Neut % (Auto) Lymph % (Auto) [place] % (Auto) Eos % (Auto) Baso % (Auto) Lymph # (Auto) [place] # (Auto) Baso # (Auto) Total Counted Seg Neutrophils % Band Neutrophils % Lymphocytes % (Manual) Atypical Lymphs % Monocytes % (Manual) Basophils % (Manual) Myelocytes % Neutrophils # (Manual) RBC Morphology Poikilocytosis Anisocytosis Ovalocytes PT INR APTT Sodium Potassium Chloride Carbon Dioxide BUN Creatinine Estimated GFR BUN/Creatinine Ratio Glucose Calcium Total Bilirubin AST ALT Alkaline Phosphatase Total Creatine Kinase CK-MB (CK-2) CK-MB (CK-2) Rel Index Troponin I Total Protein Albumin Globulin Albumin/Globulin Ratio Ethyl Alcohol SARS-CoV-2 (PCR) Negative Assessment & Plan Assessment & Plan narrative: # likely acute onset stroke with aphasia -patient presented with 2 hours of sudden-onset aphasia, last normal at 9am this morning. Unable to give tPA due to INR 3.9 due to warfarin. -etiology likely cardioembolic from A-fib from being off warfarin for 2 months recently -CTA head/neck normal, cannot get MRI due to pacemaker -PT/OT/speech therapies -ASA ordered, INR 3.9 so holding warfarin for now -lipitor 80mg nightly -check A1c and LDL -obtain echo -tele # paroxysmal atrial fibrillation -on warfarin, holding due to elevated INR -likely cause of stroke # depression and anxiety, chronic -continue prozac and ativan PRN # RA -holding home methotrexat, acyclovir and decadron for now Code status is full code. COVID negative. DVT prophylaxis with warfarin. Proxy is daughter. I have reviewed home meds and used all available resources to reconcile the home meds. This patient will be admitted as inpatient and will require greater than 2 midnights of hospital time to treat acute stroke. Time Spent With Patient Critical Care time: I spent a total of [] minutes of critical care time on this patient's care today; this time is exclusive of procedural time.
[2023-02-01 12:13] LABS: Cholesterol 194 mg/dL (140-199); HDL Cholesterol 59 mg/dL (40-60); LDL Cholesterol Calculated 110 mg/dL (<100); Triglycerides 125 mg/dL (35-150)
[2023-02-01 12:14] LABS: Hemoglobin A1C% w Est Avg Glu 6.1 % (4.0-6.0); Magnesium 1.9 mg/dL (1.6-2.3)
[2023-02-01 13:27] LABS: TSH w/ Reflex to FT4 6.04 uIU/mL (0.47-4.68)
[2023-02-01 14:40] LABS: Free T4, Direct Thyroxine 1.31 ng/dL (0.78-2.19)
--- NOTE | 2023-02-01 15:59 | OT.IPNOTE ---
Pt in with [facility], to do OT eval tomorrow.
--- NOTE | 2023-02-01 17:11 | ST.OPIE ---
Visit Care Team Role Provider Type Connor Cool DO Primary Care Provider Physician Specialty: Family Practice Address: [address] [place] [address], [id number] Email: Dipak Rowland MD Emergency Provider Physician Referring Provider Specialty: Emergency Medicine Address: [address] [place] [address], [id number] Email: [email or web address] Evan Barbour DO Admit Provider Physician Attending Provider Specialty: Internal Medicine Address: [address] [place] [address], [id number] Email: [email or web address] Speech-Language Pathology Initial Evaluation AUTO SERVICE DISPATCHER Adult Cognitive Linguistic Eval Start: 02/01/23 13:16 Freq: Status: Active Protocol: Document 02/01/23 16:22 CG (Rec: 02/01/23 17:11 CG [id number]) Adult Cognitive Linguistic Evaluation Session Time Visit Start Time 15:40 Visit Stop Time 16:10 Total Visit Minutes 30 Referral Reason for Referral expressive aphasia Setting Assessment Location Acute Care Visit Type Note Type Initial evaluation Next Note Type Next Note Type Treatment Note Patient Information Patient History Per H&P: Nataliia Palacios is a 77- year-old female with past medical history of atrial fibrillation on warfarin, rheumatoid arthritis on methotrexate, depression, and pacemaker who presents with acute-onset aphasia. ED documentation stated that: Patient brought in by ambulance from home. Daughter had stated she got up at 7:00 a.m. this morning her usual self no deficits, ate breakfast and then at 9:00 a.m . and able to speak and walk. Patient has been released from hospice care for CHF. Echocardiogram most recently October 2022. Please see results below. Patient was in primary care office yesterday . INR 4.0 and instructed to hold Coumadin until this week. Patient unable to speak. However does follow commands. Moving all 4 extremities purposely. On fast exam Patient does have expressive aphasia. Does nod her head up and down for answering on exam. Blood pressure noted. Patient denies any headache or chest pain or back pain or abdominal pain. No dysphagia is noted. CT does not indicate stroke but pt does present with predisposing factors for aspiration (stroke symptoms, hx CHF, age). Previous Therapy Previous Speech-Language Therapy No Subjective Patient Report Pt was seated reclined in bed upon ST entry to the room. She was awake and alert and said hi when AUTO SERVICE DISPATCHER introduced herself, though all other language was very limited. She was able to independently sit herself up in bed without having to raise the head of the bed. She was on oxygen via [place] upon ST evaluation. Mental Status Alert,Responsive,Cooperative, Confused Assessment Oral Motor Examination Completed No: Oral motor structure and function appear grossly intact for speech/swallow Results Pt has difficulty understanding and following directions, but oral motor structure and function appear grossly intact for speech and swallowing. Pt was previously consuming a regular diet. Informal Assessment Receptive Language Normal No Receptive Language Impairment(s) Comprehension of simple yes/no questions,Following 1-step commands Expressive Language Normal No: Severe expressive aphasia Expressive Language Impairment(s) Automatic speech,Imitation, Sentence closure/completion, Confrontation naming,Divergent naming,Expression of basic wants/needs,Expression of complex thoughts/ideas,Written expression Pragmatic Language Normal Yes Speech Normal No: Motor planning deficits ( perseverating on /f/) Cognition Normal No Cognitive Impairment(s) Orientation,Problem solving Formal Assessment Standardized Test/Screener Type Quick Aphasia Battery (QAB) Administration Complete,Incomplete Results Portions of the QAB were administered, with portions omitted in order to reduce patient frustration given severe expressive language impairment. The following portions were administered: Level of Consciousness: - pt was unable to accurately answer questions about the month and location. Word comprehension: - pt was unable to point to pictures of named words. Sentence comprehension: - unclear if pt understands or if responses are randomized, though some responses correct Findings/Results Language Function Severely impaired Cognitive Function Moderately impaired Findings Pt presents with severe aphasia (presenting as either Broca's aphasia or global aphasia at this time). She is able to follow very basic commands (i.e. close your eyes ). However, she is unable to follow commands that include higher-level language tasks (i .e., write the word dog.) Automatic speech was intact for one of three trials in which pt was asked to finish the phrase one, two, three, four, ___. In other automatic speech tasks, pt perseverated on the phoneme /f /. She does seem aware of her deficits when she tries to speak. She is able to answer basic yes/no questions relevant to her life (i.e. where she grew up, her age, her pets), but unable to accurately answer higher-level yes/no questions. She will benefit from a total communication approach including communication board and caregiver training. Impact on Functioning Activity Limits/Particip.Rest. Mod: Household Tasks Sev: General Tasks and Demands Interpersonal Interactions Education Employment Community Safety Risks Sev: Being Left Alone at Home Reacting to Emergency Managing Medication Traveling Alone in Community Prognosis Prognosis Guarded Based on Duration of symptoms/severity Comment Aphasia is severe and affects both expressive and receptive language Plan of Care Speech-Language Treatment Yes Patient/Caregiver Education Described results of evaluation,Patient expressed understanding of evaluation, Family/caregivers expressed understanding of evaluation, Family/caregivers expressed agreement with goals and treatment plan,Family/ caregivers expressed understanding of safety precautions,Family/caregivers expressed understanding of feeding recommendations, Patient requires further education/training,Family/ caregivers require further education/training Short Term Goals Pt and caregivers will benefit from education re aphasia and stroke recovery. Pt will utilize total communication (gestures, words , communication board) to express basic wants/needs in the hospital setting. Pt will consistently answer yes/no questions with 80% accuracy in order to improve receptive language and facilitate communication. [employer] SERVICE DISPATCHER Clinical Swallow Evaluation Start: 02/01/23 16:21 Freq: Status: Active Protocol: Document 02/01/23 16:22 CG (Rec: 02/01/23 17:11 [id number]) Clinical Swallow Evaluation Session Time Visit Start Time 15:40 Visit Stop Time 16:10 Total Visit Minutes 30 Referral Referring Provider Evan Barbour Reason for Referral expressive aphasia, suspected CVA Setting Assessment Location Acute Care Patient Information History Per H&P: Nataliia Palacios is a 77- year-old female with past medical history of atrial fibrillation on warfarin, rheumatoid arthritis on methotrexate, depression, and pacemaker who presents with acute-onset aphasia. ED documentation stated that: Patient brought in by ambulance from home. Daughter had stated she got up at 7:00 a.m. this morning her usual self no deficits, ate breakfast and then at 9:00 a.m . and able to speak and walk. Patient has been released from hospice care for CHF. Echocardiogram most recently October 2022. Please see results below. Patient was in primary care office yesterday . INR 4.0 and instructed to hold Coumadin until this week. Patient unable to speak. However does follow commands. Moving all 4 extremities purposely. On fast exam Patient does have expressive aphasia. Does nod her head up and down for answering on exam. Blood pressure noted. Patient denies any headache or chest pain or back pain or abdominal pain. No dysphagia is noted. CT does not indicate stroke but pt does present with predisposing factors for aspiration (stroke symptoms, hx CHF, age). Subjective Observations Pt was seated reclined in bed upon ST entry to the room. She was awake and alert and said hi when AUTO SERVICE DISPATCHER introduced herself, though all other language was very limited. She was able to independently sit herself up in bed without having to raise the head of the bed. She was on oxygen via [place] upon ST evaluation. Caregivers present stated that she had been trialed with some meat earlier but had eventually had to spit it out because she would not swallow it, though it was unclear if this was due to disliking the food. Reported by Patient Other Symptoms Difficulty swallowing solids Comment Caregivers report the pt has been pocketing solids during swallow screen, though it is unclear whether this is due to swallow difficulty or pt preference for different foods than those offered. Caregivers state she is a picky eater. Current Diet Regular,Thin liquids Baseline Feeding Method Independent in self-feeding Patient Questionnaire No Objective Assessment Mental Status Alert,Responsive,Cooperative, Confused Oral Integrity WFL Dentition Missing teeth Lip Function Within normal limits Observation of Lips at Rest Symmetrical Pucker Within normal limits Lip Retraction Within normal limits Tongue Function Mild impairment Observations of Tongue at Rest Within normal limits Tongue Lateralization Reduced range of motion Jaw Function Mild impairment Respiratory Sufficiency Moderate impairment Food and Liquid Trials Position During Assessment Upright (90 degrees),In bed Liquids Trialed Thin,Pudding Solids Trialed Regular Administration Type Self-feeding Oral Impairment Moderately impaired Oral Phase Comments Oral phase impairments were characterized by excessive mastication time, pocketing of regular solids, reduced A-P lingual movement on trials regular solids, and inadequate bolus formation of regular solids. Oral phase was WFL for pudding and for thin liquid. Pharyngeal Impairment Mildly impaired Pharyngeal Phase Comments Pharyngeal phase impairments were characterized by delayed initiation of pharyngeal swallow on trials of regular solids. Results Trials thin liquid: Oral phase appeared WFL with adequate labial seal and bolus hold. Timely A-P transit was observed with timely initiation of pharyngeal swallow. No overt s/s aspiration were present during or after the swallow. Trial granola bar (regular solids): Oral phase impairment was noted with pt demonstrating excessive mastication time and minimal bolus formation upon AUTO SERVICE DISPATCHER observation of residue in the oral cavity (i.e., the granola bar was mostly still in solid pieces even after extensive mastication.) Piecemeal swallow was observed with pt pocketing a large portion of the bolus in her right buccal cavity. Pt was unable to independently clear and spit out this residue, indicating reduced lingual coordination/ strength. Liquid wash was unsuccessful in clearing oral residue. Pt was receptive to AUTO SERVICE DISPATCHER clearing out most of the remaining granola bar with a toothette. Trial of pudding resulted in timely A-P transit with minimal oral residue after the swallow. Pudding cleared remaining oral residue from granola bar. Findings Swallowing Function Dysphagia unspecified Swallowing Function Comments Pocketing of solids, unable to independently remove Severity of Swallow Impairment Moderately impaired Contributing Factors to Swallow Reduced oral strength/ Impairment coordination/sensation, Mastication inefficiency, Impaired oral-pharyngeal transport Prognosis Good Based on Family support Impact on Safety and Functioning Risk for aspiration,Risk for inadequate nutrition/hydration Recommendations Instrumental Assessment No Swallowing Treatment Yes Recommended Solids Dysphagia Mechanical Recommended Liquids Thin Safety Precautions/Swallowing 1 to 1 distant supervision, Recommendations Feed only when alert,Reduce distractions,Remain upright ( 90 degrees) during all oral intake,Upright position at least 30 minutes after meals, Family assistance/supervision, Check for pocketing Medication Recommendations Crushed in Carrier Discharge Recommendations [facility] facility Education Patient/Caregiver Education Described results of evaluation,Patient expressed understanding of evaluation, Patient expressed agreement with goals & treatment plans, Family/caregivers expressed understanding of evaluation, Family/caregivers expressed agreement with goals & treatment plans,Patient expressed understanding of feeding recommendations,Family /caregivers expressed understanding of safety precautions,Family/caregivers expressed understanding of feeding recommendations, Patient requires further education/training,Family/ caregivers require further education/training Goals Short-term Goals Pt's diet will be advanced as tolerated in order to meet nutritional needs. Pt and caregivers will benefit from education regarding diet modification and safe swallow strategies/precautions.
[2023-02-01] MEDS: ATORVASTATIN 20 MG TABLET 80 MG PO (20:12)
[2023-02-01] MEDS: SENNOSIDES 8.6 MG TABLET PO (20:12)
[2023-02-01] MEDS: METHADONE 10 MG TABLET PO (20:12)
[2023-02-01] MEDS: LORazepam 0.5 MG TABLET PO (20:30)
[2023-02-01] MEDS: MELATONIN 3 MG TABLET 6 MG PO (20:30)
--- NOTE | 2023-02-01 23:54 | PC.NURSE ---
pt able to say 'yes, no, and okay', when asked to write on board pt shakes head and says 'no'. Seems to be able to understand what this RN says. When shown NIH picture, pt trying to form words only able to say first syllable w/ stuttering. Showing some frustration with inabiliy to speak. DIL was at bedside until around 2100.
[2023-02-02 03:10] VITALS: BP 152/76; PULSE 70; RESP 16; TEMP 36.2; O2SAT 96
[2023-02-02] MEDS: METHADONE 10 MG TABLET PO (04:37)
[2023-02-02 05:30] LABS: Hematocrit 34.6 % (36-46); Hemoglobin 11.2 g/dL (12.0-16.0); Mean Corpuscular HGB Conc 32.5 % (30-36); Mean Corpuscular Hemoglobin 25.6 PG (26-34); Platelet Count 288 X10^3/uL (150-400); Red Blood Cell Count 4.37 X10^6/uL (4.0-5.2); Red Cell Distribution Width 21.3 % (11.6-14.8); White Blood Cell Count 10.7 X10^3/uL (4.5-11.0)
[2023-02-02 05:37] LABS: INR 4.4 (0.9-1.3); Prothrombin Time 50.9 SECONDS (10.1-12.7)
[2023-02-02 05:45] LABS: Add Manual Diff / Slide Review YES; BUN Creatinine Ratio 28.6 (6-22); Blood Urea Nitrogen 14 mg/dL (7-17); Calcium 8.3 mg/dL (8.4-10.2); Carbon Dioxide 32 mmol/L (22-32); Chloride 97 mmol/L (98-107); Estimated Glomerular Filt Rate > 60 mL/min (>60); Glucose 80 mg/dL (80-110); HEMOLYSIS < 15 (0-50); Potassium 3.7 mmol/L (3.4-5.1); Sodium 131 mmol/L (137-145)
--- NOTE | 2023-02-02 06:05 | PC.NURSE ---
Got pt up to bedside commode SBA w FWW. Pt unable to urinate and denying any urge. Bladder scan showed about 330ml, Dr. Joe updated and no orders to straight cath at this time. Pt daughter Evelia just called wanting an update. She also wanted to let us know that she is willing to place pt in SNF for any speech rehab if sees fit. Will relay this to day shift nurse as well.
[2023-02-02 07:13] LABS: Anisocytosis 2+; Neutrophils Absolute Manual 8667 /uL (3000-5900); Poikilocytosis 2+; Total Cells Counted 100
[2023-02-02] MEDS: ASPIRIN EC 81 MG TABLET PO (08:23)
[2023-02-02] MEDS: SENNOSIDES 8.6 MG TABLET PO (08:23)
[2023-02-02] MEDS: FLUoxetine 20 MG CAPSULE PO (08:23)
[2023-02-02 09:00] VITALS: BP 161/70; PULSE 74; RESP 18; TEMP 36.7; O2SAT 92
--- NOTE | 2023-02-02 09:33 | PT.IIE ---
Surgical History (Last Reviewed 02/01/23 @ 10:35 by Dipak Rowland MD) Anesthesia History of cholecystectomy (~1989) History of hysterectomy (~1970) Mitral valve replaced (~2008) Pacemaker (~1997) Medical History (Last Reviewed 02/01/23 @ 10:35 by Dipak Rowland MD) Ankle pain (~2017) Anticoagulation monitoring, INR range 2-3 Bilateral hand pain Bilateral lower extremity edema Cataracts, bilateral Cervical somatic dysfunction Chicken pox (~1946) Chronic back pain (~1990) Chronic pain Chronic pain of left ankle Chronic pain of left knee Chronic pain of right knee Chronic pain of right thumb Cyst of right breast Depression Diastolic CHF with preserved left ventricular function, NYHA class 4 Elevated random blood glucose level Elevated troponin Family history of colon cancer Greater trochanteric bursitis of both hips H/O cold sores History of rheumatic fever Hyperlipidemia, mixed 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 Kidney stones (~2007) Left anterior shoulder pain Left arm pain Measles (~1945) Mumps (~1946) On methotrexate therapy Orthopnea Osteoarthritis of hands, bilateral Ovarian cyst Pain of right middle finger Phlebitis and thrombophlebitis of deep veins of the upper extremities Pressure ulcer, buttock, right, unstageable Recurrent sinusitis Rheumatic fever (~1953) 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 Segmental and somatic dysfunction of rib cage Shoulder pain Somatic dysfunction of lower extremity Swelling of finger of both hands Vaccine reaction Physical Therapy Inpatient Evaluation/Re-Eval M1 PT/OT-IP Prior Functional Status Start: 02/02/23 12:33 Freq: NEEDED Status: Active Protocol: Document 02/02/23 10:58 [facility] (Rec: 02/02/23 12:55 [facility] [id number]) Medical Review Prior Functional Status Communication independent Mobility and Gait use of 4ww Activities of Daily Living and IADL's Per caregiver, pt able to do on her own ADl's and would sponge bath due to shower upstairs. Social History Household Members family Living Arrangements House Number of Stairs To Enter/Railing? 2 steps with left rail and 8 steps to the shower Home Environment Standard Height Toilet Home Equipment Four Wheel Walker,Straight Cane,Raised Toilet Seat Without Armrests,Hand Held Shower,Grab Bars In Shower Additional Social History Comment Pt was just released from Hospice for CHF and still has 24/7 caregivers. M2 PT-IP Current Condition Start: 02/02/23 12:47 Freq: NEEDED Status: Active Protocol: Document 02/02/23 09:33 DLM (Rec: 02/02/23 13:07 DL [id number]) Physical Therapy Current Condition Current Condition Evaluation Date 02/02/23 Treatment Diagnosis CVA, expressive aphasia Onset Date 02/01/23 M3 PT-IP Subjective Start: 02/02/23 12:47 Freq: NEEDED Status: Active Protocol: Document 02/02/23 09:33 DLM (Rec: 02/02/23 13:07 DLM [id number]) Subjective Physical Therapy Visit Type Type Initial Evaluation Visit Start Time 08:45 Visit Stop Time 09:33 Total Visit Minutes 48 Number of YOUTH SERVICES SPECIALIST Visits 0 Physical Therapy Visit Comments Patient Comments Pt is unable to express her needs verbally, she refused to use the communication board, she will use some simple gestures, says no to most things when asked Patient Goals home with caregiver assist Therapy Pain Assessment Pain When Pain Assessed During Mobility Pain Present Pain Present Denied Pain M4 PT-IP Mobility and Gait Start: 02/02/23 12:47 Freq: NEEDED Status: Active Protocol: Document 02/02/23 09:33 DLM (Rec: 02/02/23 13:07 DL [id number]) PT-Bed Mobility Assessment Rolling Level of Assist Independent Supine to Sit Supine to Sit Independent Sit to Supine Sit to Supine Independent Scooting Scooting to Edge of Bed Independent PT-Transfer Assessment Sit to and From Stand Sit to and from Stand Contact Guard Assistance, Minimal Assistance,Use of Upper Extremities Equipment Transfer Assistive Device Gait Belt,Front Wheeled Walker Transfers Transfer Destination Chair,Toilet Transfer Technique Stand Step Pivot Transfer Ability Level of Assist Standby Assistance,Use of Upper Extremities Comments Mobility Comments She needs min assist for sit to stand from toilet even with use of wall rail. She needs CG assist for sit to stand from chair and bed with FWW. Pt needs assist for toileting due to sits on toilet without pulling down pants with no awareness. She had requested to go to the toilet but she was not able to urinate. Gait Assessment Gait Gait Assistance Required: Standby Assistance Distance (Feet) 100 Assistive Devices Assistive Device Gait Belt,Front Wheeled Walker Comments Gait Comments She has mild shortness of breath with gait but it resolved well with seated rest break. Pt left up in the recliner with feet elevated and her Caregiver present. Stair Climbing Assessment Evaluation Level of Assist On Stairs Standby Assistance Devices Stair Climbing Assistive Devices Left Railing Technique/Endurance Stair Climbing Direction Ascend and Descend Stair Climbing Technique Step to Step Number of Steps Climbed 3 Query Text: Stair Climbing Set # Repetitions (reps) 1 Comments Stair Climbing Comments good functional strength to do stairs, mild shortness of breath PT-Balance Assessment Sitting Balance and Reactions Static Sitting Balance Ability Good Dynamic Sitting Balance Ability Good Standing Balance and Reactions Static Standing Balance Ability Good Dynamic Standing Balance Ability Good Device Used FWW M5 PT-IP Objective Assessments Start: 02/02/23 12:47 Freq: NEEDED Status: Active Protocol: Document 02/02/23 09:33 DLM (Rec: 02/02/23 13:07 DL [id number]) Orientation Orientation/Cognition Level of Alertness Alert Language Function Ability Expressive Aphasia Safety Awareness Decreased Safety Awareness Comments she has very limited verbalizations, she gets frustrated, few spontaneous words, refusing to use the communication board, using some gestures. Can follow simple instructions. Mild receptive impairments noted with some concern for decreased attention and decreased concentration. Gross Range of Motion Upper Extremity ROM Assessment Within Functional Limits Lower Extremity ROM Assessment Within Functional Limits Strength Upper Extremity Strength Assessment Within Functional Limits Lower Extremity Strength Assessment Within Functional Limits Coordination Assessment Gross Coordination Gross Coordination Impaired Assessment Coordination Comments UE's show mild to moderate impairments with functional use, mild tremors also today Sensation Assessment Comments Sensation Comments no changes reported by pt when asked Muscle Tone Muscle Tone WNL Yes M6 PT-IP Treatment Start: 02/02/23 12:47 Freq: NEEDED Status: Active Protocol: Document 02/02/23 09:33 DLM (Rec: 02/02/23 13:07 DL [id number]) Physical Therapy Treatment Education Education Provided Safety Other Treatments Other Treatment Performed her Caregiver arrived during this treatment session and reviewed safety issues M7 PT-IP Assessment and Plan Start: 02/02/23 12:47 Freq: NEEDED Status: Active Protocol: Document 02/02/23 09:33 DLM (Rec: 02/02/23 13:07 DL [id number]) PT Summary Assessment and Plan Potential Rehabilitation Potential Good Status of Condition at Evaluation Evolving Summary Impairments Transfers,Activity Tolerance Assessment Summary Nataliia is alert and resting in bed. She is fairly energetic but gets short of breath with mild activity. She shows no unilateral weakness. Her primary deficit is her expressive aphasia. Also noted some UE incoordination. She is able to ambulate with the FWW. She appears close to her baseline for mobility and gait . She has a 24/7 caregiver to manage her safety issues at home. She appears safe to discharge home with her caregiver when medically cleared. Anticipate discharge home later today. Frequency of Treatment Frequency Of Treatment Discharge Treatment Plan Other Recommendations and Next Treatment training completed this visit Focus Precautions Other Precautions manage communication impairments Recommendations To Nursing Amount of Assist Needed 1 Person Assist Discharge Recommendations PT Discharge Recommendations Home with 24/7 Assist Available,Home Health Transportation Needs at Discharge Private Vehicle
--- NOTE | 2023-02-02 11:08 | PM.DS.1 ---
History of Present Illness History of Present Illness Date Patient Seen: 02/02/23 Time Patient Seen: 11:18 Chief complaint: Code Stroke Narrative: Naatliia Palacios is a 77-year-old female with past medical history of atrial fibrillation on warfarin, rheumatoid arthritis on methotrexate, depression, and pacemaker who presents with acute-onset aphasia. Patient woke up this morning at 7am and was her normal self until 9am when she had sudden onset aphasia. No extremity weakness or facial droop. Once in the ED found to have NIH of 7 and patient unable to speak. She was not a candidate for tPA due to being on warfarin with INR 3.9. CT and CTA head negative. Unable to obtain MRI due to pacemaker. Patient currently several hours later up on the floor can now say one word responses yes, no or ok which is an improvement from this morning. She is fully comprehending what is told to her. She has family at bedside providing support. I discussed likely etiology being that she was off warfarin for 2 months and only restarted it recently, so a clot may have formed during that time then caused the stroke. Discharge Providers Provider Date of admission: 02/01/23 12:06 Discharge Date: 02/02/23 Primary care physician: Connor Cool DO Consults: 02/01/23 11:42 Consult to Discharge Planning Routine Comment: Consult to Occupational Therapy Evaluate & Treat Comment: Physician Instructions: Evaluate and treat Consult to Physical Therapy Evaluate & Treat Comment: Physician Instructions: Evaluate and Treat Consult to Speech Therapy Evaluate & Treat Comment: Physician Instructions: Evaluate and treat 02/01/23 14:54 Consult to Speech Therapy Evaluate & Treat Comment: Physician Instructions: Evaluate and treat Discharge provider: Evan Barbour DO Summary Hospital Course Discharge Diagnosis: # likely acute onset stroke with aphasia -patient presented with 2 hours of sudden-onset aphasia, last normal at 9am this morning. Unable to give tPA due to INR 3.9 due to warfarin. -etiology likely cardioembolic from A-fib from being off warfarin for 2 months recently -CTA head/neck normal, cannot get MRI due to pacemaker -PT/OT/speech therapies, ordered for PANEL [facility]ER -ASA ordered, INR 3.9 so holding warfarin for now -lipitor 80mg nightly -A1c 6.1% and LDL 110 -echo with EF 65-70% with no intraatrial shunt or LV thrombus, mod-severe tricuspid regurg -tele # paroxysmal atrial fibrillation -on warfarin, holding due to elevated INR -A-fib likely cause of stroke as she was off warfarin for 2 months recently # depression and anxiety, chronic -continue prozac and ativan PRN # RA -holding home methotrexate, acyclovir and decadron for now Hospital Course: Presented with sudden onset aphasia concerning for stroke with NIH of 7. Unable to get tPA due to INR of 3.9. Unable to get MRI due to pacemaker. CT and CTA head were normal. Etiology likely due to A-fib and being off warfarin recently for 2 months. She received speech therapy and will continue with HH PANEL MAKER at home. Kept on ASA and warfarin and started on statin. PCP can order outpatient MRI at center which can do it with compatible pacemakers. Time Spent with Patient Time spent: Greater than 30 minutes Exam Vital Signs (past 8 hours): - 02/02/23 03:10 02/02/23 08:00 02/02/23 09:00 Temperature 97.1 F L 98.1 F Pulse Rate 70 74 Respiratory Rate 16 18 Blood Pressure 152/76 H 161/70 H Pulse Oximetry 96 92 Oxygen Delivery Method Nasal Cannula Oxygen Flow Rate 4 4 Oxygen Delivery Method Nasal Cannula Oxygen Flow Rate 4 Narrative Exam Narrative: GEN: no acute distress, alert and oriented, aphasic HEENT: moist mucous membranes, PERRL NECK: trachea midline, no JVD CV: regular rate and rhythm, no murmurs PULM: clear bilaterally ABD: soft, nontender, nondistended, no organomegaly EXT: warm and well perfused with no edema NEURO: awake, alert, oriented, only able to speak in 1 word answers Objective Labs 02/02/23 05:12 02/02/23 05:12 Labs: Laboratory Results - last 24 hr 02/01/23 02/01/23 02/01/23 10:30 10:30 10:30 WBC RBC Hgb Hct MCV MCH MCHC RDW Plt Count Neut % (Auto) Lymph % (Auto) [place] % (Auto) Eos % (Auto) Baso % (Auto) Lymph # (Auto) [place] # (Auto) Baso # (Auto) Total Counted Seg Neutrophils % Band Neutrophils % Lymphocytes % (Manual) Atypical Lymphs % Monocytes % (Manual) Eosinophils % (Manual) Neutrophils # (Manual) RBC Morphology Poikilocytosis Anisocytosis PT INR Sodium Potassium Chloride Carbon Dioxide BUN Creatinine Estimated GFR BUN/Creatinine Ratio Glucose Hemoglobin A1c 6.1 H Calcium Magnesium Triglycerides 125 Cholesterol 194 LDL Cholesterol, Calc 110 H HDL Cholesterol 59 TSH 6.04 H Free T4 1.31 SARS-CoV-2 (PCR) 02/01/23 02/01/23 02/02/23 10:30 10:49 05:12 WBC RBC Hgb Hct MCV MCH MCHC RDW Plt Count Neut % (Auto) Lymph % (Auto) [place] % (Auto) Eos % (Auto) Baso % (Auto) Lymph # (Auto) [place] # (Auto) Baso # (Auto) Total Counted Seg Neutrophils % Band Neutrophils % Lymphocytes % (Manual) Atypical Lymphs % Monocytes % (Manual) Eosinophils % (Manual) Neutrophils # (Manual) RBC Morphology Poikilocytosis Anisocytosis PT 50.9 H D INR 4.4 H Sodium Potassium Chloride Carbon Dioxide BUN Creatinine Estimated GFR BUN/Creatinine Ratio Glucose Hemoglobin A1c Calcium Magnesium 1.9 Triglycerides Cholesterol LDL Cholesterol, Calc HDL Cholesterol TSH Free T4 SARS-CoV-2 (PCR) Negative 02/02/23 02/02/23 05:12 05:12 WBC 10.7 RBC 4.37 Hgb 11.2 L Hct 34.6 L MCV 79.0 L MCH 25.6 L MCHC 32.5 RDW 21.3 H Plt Count 288 Neut % (Auto) Not Reportable Lymph % (Auto) Not Reportable [place] % (Auto) Not Reportable Eos % (Auto) Not Reportable Baso % (Auto) Not Reportable Lymph # (Auto) Not Reportable [place] # (Auto) Not Reportable Baso # (Auto) Not Reportable Total Counted 100 Seg Neutrophils % 80.0 H Band Neutrophils % 1.0 L Lymphocytes % (Manual) 2.0 L Atypical Lymphs % 5.0 H Monocytes % (Manual) 11.0 Eosinophils % (Manual) 1.0 L Neutrophils # (Manual) 8667 H RBC Morphology Not Reportable Poikilocytosis 2+ H Anisocytosis 2+ H PT INR Sodium 131 L Potassium 3.7 Chloride 97 L Carbon Dioxide 32 BUN 14 Creatinine 0.49 L Estimated GFR > 60 BUN/Creatinine Ratio 28.6 H Glucose 80 Hemoglobin A1c Calcium 8.3 L Magnesium Triglycerides Cholesterol LDL Cholesterol, Calc HDL Cholesterol TSH Free T4 SARS-CoV-2 (PCR) [facility] Medical History Ankle pain (~2016) Anticoagulation monitoring, INR range 2-3 Bilateral hand pain Bilateral lower extremity edema Cataracts, bilateral Cervical somatic dysfunction Chicken pox (~1946) Chronic back pain (~1990) Chronic pain Chronic pain of left ankle Chronic pain of left knee Chronic pain of right knee Chronic pain of right thumb Cyst of right breast Depression Diastolic CHF with preserved left ventricular function, NYHA class 4 Elevated random blood glucose level Elevated troponin Family history of colon cancer Greater trochanteric bursitis of both hips H/O cold sores History of rheumatic fever Hyperlipidemia, mixed 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 Kidney stones (~2007) Left anterior shoulder pain Left arm pain Measles (~1945) Mumps (~1946) On methotrexate therapy Orthopnea Osteoarthritis of hands, bilateral Ovarian cyst Pain of right middle finger Phlebitis and thrombophlebitis of deep veins of the upper extremities Pressure ulcer, buttock, right, unstageable Recurrent sinusitis Rheumatic fever (~1953) 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 Segmental and somatic dysfunction of rib cage Shoulder pain Somatic dysfunction of lower extremity Swelling of finger of both hands Vaccine reaction Surgical History Anesthesia History of cholecystectomy (~1989) History of hysterectomy (~1970) Mitral valve replaced (~2008) Pacemaker (~1997) Family History Father Cancer Mother Cancer Sister COPD (chronic obstructive pulmonary disease) Social History household members: family Smoking Status: Former smoker alcohol intake: current Discharge Plan Discharge Plan Patient Disposition: Home Provider Discharge Comment: You likely had a stroke which has affected your speech. Please f/u with Dr. Cool to get a speech therapist referral. Continue aspirin and warfarin and I've started you on a high intensity statin. Dr. Cool should evaluate your blood pressure and see if you need blood pressure medications. Please read the attached material I've included. Discharge orders & Medications Prescriptions: New atorvastatin 80 mg tablet 80 mg PO BEDTIME Qty: 90 0RF Continued (DME) handicap placard See Rx Instructions .Route .MEDSUPPLY Qty: 1 0RF Rx Instructions: As directed fluoxetine 20 mg capsule 20 mg PO DAILY Qty: 90 3RF methotrexate sodium 2.5 mg tablet See Rx Instructions .ROUTE .COMPLEX Qty: 36 0RF Dose Instruction: TAKE 3 TABLETS BY MOUTH ONCE A WEEK Rx Instructions: TAKE 3 TABLETS BY MOUTH ONCE A WEEK oxycodone 10 mg tablet 10 mg PO Q6H PRN (Reason: pain) Qty: 120 0RF cholecalciferol (vitamin D3) 50 mcg (2,000 unit) tablet 50 mcg PO DAILY melatonin 10 mg tablet 10 mg PO QPM folic acid 1 mg tablet 1 mg PO QAM methadone 10 mg tablet 10 mg PO Q8H dexamethasone 2 mg tablet 2 mg PO DAILY furosemide 20 mg tablet See Rx Instructions PO QAM Rx Instructions: 20mg daily as needed for worsening edema, orally every morning; oxybutynin chloride 5 mg tablet 5 mg PO BEDTIME senna 8.6 mg capsule 8.6 mg PO BID tadalafil 5 mg tablet 5 mg PO DAILY warfarin 4 mg tablet See Rx Instructions PO DAILY Rx Instructions: 2 mg MWF and 4mg all other days or as directed. orally daily; lorazepam 0.5 mg tablet 0.5 mg PO TID PRN (Reason: Anxiety) aspirin 81 mg tablet,delayed release (DR/EC) 81 mg PO DAILY acyclovir 400 mg tablet 400 mg PO TID Qty: 21 5RF nystatin 100,000 unit/gram powder 1 applic topical BID Qty: 30 5RF Follow up/Referrals: Connro Cool DO [Primary Care Provider] - 02/10/23 1:30 pm (Appt:02/10 @ 1:[address] Cool please arrive 15 minutes prior to scheduled appointment time) Visit Report/Discharge Packet Instructions: The Mediterranean Diet and Good Health, DI for Stroke-Ischemic, Mediterranean Diet May Reduce the Risk of Stroke in People with High Risk o Stand Alone Forms: Patient Portal/API, Stroke Signs & Symptoms Discharge Data Primary Care Provider: Connor Cool Attending Provider: Evan Barbour
--- NOTE | 2023-02-02 11:13 | OT.IP.EVAL ---
Past Medical History (Last Reviewed 02/01/23 @ 10:35 by Dipak Rowland MD) Ankle pain (~2016) Anticoagulation monitoring, INR range 2-3 Bilateral hand pain Bilateral lower extremity edema Cataracts, bilateral Cervical somatic dysfunction Chicken pox (~1946) Chronic back pain (~1990) Chronic pain Chronic pain of left ankle Chronic pain of left knee Chronic pain of right knee Chronic pain of right thumb Cyst of right breast Depression Diastolic CHF with preserved left ventricular function, NYHA class 4 Elevated random blood glucose level Elevated troponin Family history of colon cancer Greater trochanteric bursitis of both hips H/O cold sores History of rheumatic fever Hyperlipidemia, mixed 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 Kidney stones (~2007) Left anterior shoulder pain Left arm pain Measles (~1945) Mumps (~1946) On methotrexate therapy Orthopnea Osteoarthritis of hands, bilateral Ovarian cyst Pain of right middle finger Phlebitis and thrombophlebitis of deep veins of the upper extremities Pressure ulcer, buttock, right, unstageable Recurrent sinusitis Rheumatic fever (~1953) 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 Segmental and somatic dysfunction of rib cage Shoulder pain Somatic dysfunction of lower extremity Swelling of finger of both hands Vaccine reaction Surgical History (Last Reviewed 02/01/23 @ 10:35 by Dipak Rowland MD) Anesthesia History of cholecystectomy (~1989) History of hysterectomy (~1970) Mitral valve replaced (~2008) Pacemaker (~1997) Occupational Therapy Inpatient Evaluation/Re-Eval M1 PT/OT-IP Prior Functional Status Start: 02/02/23 12:33 Freq: NEEDED Status: Active Protocol: Document 02/02/23 10:58 [facility] (Rec: 02/02/23 12:55 [facility] [id number]) Medical Review Prior Functional Status Communication independent Mobility and Gait use of 4ww Activities of Daily Living and IADL's Per caregiver, pt able to do on her own ADl's and would sponge bath due to shower upstairs. Social History Household Members family Living Arrangements House Number of Stairs To Enter/Railing? 2 steps with left rail and 8 steps to the shower Home Environment Standard Height Toilet Home Equipment Four Wheel Walker,Straight Cane,Raised Toilet Seat Without Armrests,Hand Held Shower,Grab Bars In Shower Additional Social History Comment Pt was just released from Hospice for CHF and still has 13/06 caregivers. M2 OT-IP Current Condition Start: 02/02/23 12:33 Freq: Status: Active Protocol: Document 02/02/23 10:58 [facility] (Rec: 02/02/23 12:55 [facility] [id number]) Occupational Therapy Current Condition Current Condition Evaluation Date 02/02/23 Treatment Diagnosis Expressive aphasia, CVA symptoms Diagnosis Onset Date 02/01/23 M3 OT- IP Subjective and Pain Start: 02/02/23 12:33 Freq: Status: Active Protocol: Document 02/02/23 10:58 [facility] (Rec: 02/02/23 12:55 [facility] [id number]) OT- Subjective Occupational Therapy Visit Type Type Initial Evaluation Visit Start Time 10:58 Visit Stop Time 11:13 Total Visit Minutes 15 Occupational Therapy Visit Comments Patient Comments Pt wanting to get dressed to go home. Patient/Caregiver Goals TO go home. OT Pain Assessment Pain When Pain Assessed At Rest Pain Present Pain Present Denied Pain M4 OT- IP ADL's Start: 02/02/23 12:33 Freq: Status: Active Protocol: Document 02/02/23 10:58 [facility] (Rec: 02/02/23 12:55 [facility] [id number]) OT [id number] Comments OT Self-Feeding Comments Not at meal time. OT ADL-Grooming General Evaluation Grooming Ability Standby Assistance Areas Needing Assistance Combing/Brushing Hair OT ADL-Oral Care Comments Oral Care Comments Pt refuses to perform. OT ADL-Dressing General Eval Upper Body Dressing Ability Standby Assistance Lower Body Dressing Ability Minimal Assistance Comments OT Dressing Comments Pt set-up assist , assist for orientation of clothing items. Pt trying to put her sweatshirt over her feet and underwear over her head and needing cues to figure out what to do. Assist to help untangle her pants to be able to get over the non-skid socks . OT ADL-Toileting Comments OT Toileting Comments Not performed. OT ADL-Bathing Comments OT Bathing Comments Pt not wanting to shower and just wanting to go home. M5 OT- IP IADL's Start: 02/02/23 12:33 Freq: Status: Active Protocol: Document 02/02/23 10:58 [facility] (Rec: 02/02/23 12:55 [facility] [id number]) OT-Instrumental Activities of Daily Living Deficits IADL Deficits Identified Deficits Home Safety Awareness Awareness of Need for Assistance at Home Decreased Awareness Ability to Problem Solve Emergency Unable to Problem Solve Situations Medication Management Medication Management Caregiver Administers Money Management Money Management Caregiver Provides Assistance Meal Preparation Meal Preparation Caregiver Provides Assist Confectionery Maker Confectionery Maker Caregiver Provides Assist M6 OT- IP Functional Cognition Start: 02/02/23 12:33 Freq: Status: Active Protocol: Document 02/02/23 10:58 [facility] (Rec: 02/02/23 12:55 [facility] [id number]) Cognitive Factors Limiting Selfcare Function Cognitive Ability Level of Alertness Alert,Confusional State Patient Orientation Name Attention Span Ability Capable of Focused Attention, Capable of Sustained Attention Ability to Follow Commands Able to Follow One Step Commands with Increased Time, Able to Follow One Step Commands with Repetition Memory Description Working Impaired Safety Awareness Underestimates Need for Assistance Problem Solving Ability Unable to Identify Errors, Needs Assist to Identify Solutions Cognitive Comments Cognitive Assessment Comments Pt able to follow simple concrete functional tasks of dressing , however having issues with orientation of clothing, not knowing how to readjust her O2 tube to her nose. Pt able to brush her hair when hair brush given. OT- Vision and Hearing OT- Vision Assessment Vision Assessment Comments Not able to assess as pt focused on going home. M7 OT- IP Mobility and Balance Start: 02/02/23 12:33 Freq: Status: Active Protocol: Document 02/02/23 10:58 [facility] (Rec: 02/02/23 12:55 [facility] [id number]) OT- Bed Mobility Assessment Supine to Sit Supine to Sit Assist Standby Assistance Sit to Supine Sit to Supine Assist Standby Assistance OT-Transfer Assessment Sit to and From Stand Sit to and from Stand Standby Assistance Comments Mobility Comments Pt able to do bed mobility with close SBA and come to stand for dressing needs with SBA as well. OT- Balance Assessment Sitting Balance and Reactions Static Sitting Balance Ability Normal Dynamic Sitting Balance Ability Normal Standing Balance and Reactions Static Standing Balance Ability Good M8 OT- IP Objective Assessments Start: 02/02/23 12:33 Freq: Status: Active Protocol: Document 02/02/23 10:58 [facility] (Rec: 02/02/23 12:55 [facility] [id number]) OT Gross Range of Motion Upper Extremity Range of Motion Assessment Within Functional Limits OT Strength Comments Strength Comments NOt able to follow assess but at least 3+/5 based on pt's ability to do bed mobility and dressing needs. M9 OT- IP Assessment and Plan Start: 02/02/23 12:33 Freq: Status: Active Protocol: Document 02/02/23 10:58 [facility] (Rec: 02/02/23 12:55 [facility] [id number]) OT Summary Assessment and Plan Potential Rehabilitation Potential Good Analytic Complexity at Evaluation Moderate Summary OT Impairments Balance,Functional Cognition, Self-Feeding,Grooming,Dressing ,Toileting,Bathing,Toilet Transfers,Shower Transfers, Activity Tolerance Progress Towards Goals Slow Progress due to Cognition Assessment Summary Pt with stroke like symptoms of expressive aphasia> receptive aphasia, and having difficulty with orientation of clothing and objects at this time. Pt to have 24/7 assist and will need assist for safety awareness, completeness of tasks, and for mobility need as needed. Pt to go home with 24/7 assist and home health. Goals Self-Feeding Goal Standby Assistance Grooming Goal Standby Assistance Dressing Goal Standby Assistance Toileting Goal Standby Assistance Bathing Goal Standby Assistance Toilet Transfer Goal Standby Assistance Shower Transfer Goal Standby Assistance Days to Meet Goals 10 Frequency of Treatment Frequency Of Treatment Once a Day Treatment Plan OT Treatment Plan ADL Training,Functional Cognition Training,Functional Mobility,Patient/Family Education,Discharge Planning Discharge Recommendations OT Discharge Recommendations Home with 24/7 Assist Available,Home Health Transportation Needs at Discharge Private Vehicle
--- NOTE | 2023-02-02 13:36 | CM.DANOTE ---
Initial DCP Assessment Note Pt is a 77 yo female, resident of [place], arrives code stroke, MRI cannot be used r/t pacemaker. Patient with sudden onset of aphasia this morning PCP: Connor Cool Payer: [facility]/[employer] Reviewed chart, met w/patient, daughter Evelia and daughter in law Kaitlyn (son Danis's girlfriend). Introduces self and role Therapies recommending patient return home w/home health. Patient appears to be tracking the conversation however looks to her daughter Evelia for answers as patient only able to answer in yes and no currently Patient lives w/son Danis and his girlfriend Kaitlyn. Kaitlyn is patient's primary cg and assists patient with ADLs as needed. Patient graduated from Palliative Care services two weeks ago Family requesting [facility] and agreeable to HH RN/OT/TEST PREPARER. Requested that Jacqueline LORENZANA assist in this referral and she kindly agreed. Completed F2F and HH order have now been sent to [facility] to secure patient a spot for follow up Plan: DC home w/family to assist as needed, [facility] RN/OT/TEST PREPARER and close outpatient follow up ETIENNE Dean Discharge Planning/Care Management CM Discharge Assessment Start: 02/02/23 13:24 Freq: Status: Active Protocol: Document 02/02/23 13:24 [facility] (Rec: 02/02/23 13:36 [facility] [id number]) Discharge Planning Assessment Assigned Field Sales Consultant ETIENNE Craig DPOA/Assigned Designee Name alyson Horton Contact Information [phone] Advance Directives? No History Provided By Family Member,Medical Record Prior Living Arrangements House Household Members family Type of transporation used prior to Relies on Others admit Independent with ADL's Yes: Mostly Indp w/ADLs w/ walker, does not leave home Is patient alert and oriented? Yes: Suspected stroke Needs Assistance With Meal Prep,Managing Medications ,Home Chores / Shopping Patient/Family Preference Home with Home Health Barriers to Discharge No Comment Home w/family and [facility] Discharge Plan Home with Home Health Transportation Arrangement Family Referrals Initiated Home Health Medicare Choice List Provided Yes Medicare choice list reviewed on patient,family electronic tablet with SNF/HH Preference [facility] Has Agency SNF been contacted Yes Comment F2F and HH order faxed today by [facility], referral discussed w/[facility]
== END 2023-02-02 11:49 | disposition home or self-care (01) ==
LOC: ED 11:16 → AC 12:08
PROVIDERS: Admitting Provider Student in an Organized Health Care Education/Training Program; Emergency Provider Emergency Medicine; PCP Family Medicine; Referring Provider Emergency Medicine; Visit Provider Student in an Organized Health Care Education/Training Program
DX: R47.01 Aphasia (principal); R29.707 NIHSS score 7; Z95.0 Presence of cardiac pacemaker; I48.0 Paroxysmal atrial fibrillation; F32.A Depression, unspecified; F41.9 Anxiety disorder, unspecified; M06.9 Rheumatoid arthritis, unspecified; Z79.01 Long term (current) use of anticoagulants; Z20.822 Contact with and (suspected) exposure to COVID-19
CPT/HCPCS: 36415; 70450; 70496; 70498; 80048; 80053; 80061; 80320; 82550; 83036; 83735; 84439; 84443; 84484; 85007; 85025; 85610; 85730; 87635; 92523; 92610; 93005; 93010; 93306; 97162; 97166; 99285; C9803; G0378; Q9967

== ENCOUNTER 2023-03-05 08:43 | Inpatient (IN) | payer MEDICARE, SELFPAY ==
[2023-02-01 14:45] VITALS: BMI 24.0
[2023-03-05] VITALS (62 sets, daily range): BP systolic 52–95; BP diastolic 21–61; PULSE 71–100; RESP 17–46; TEMP 36.8; O2SAT 66–96; BMI 23.9
--- NOTE | 2023-03-05 08:53 | ED_ITS ---
HPI - General Adult General Chief complaint: Altered Mental Status Stated complaint: altered Time Seen by Provider: 03/05/23 08:45 History of Present Illness HPI narrative: 77-year-old female smoker with history of pacemaker on Coumadin, pancreatitis, gastritis, aortic valve replacement, body pain presents by EMS?for evaluation altered mental status. The patient apparently had gone to bed in her normal state of health but family had noted some abnormal bruising in her right medial thigh and stopped giving her Coumadin. They went to see her this morning and thought that she was a bit sleepier than normal and gave her some time but checked on her just prior to arrival and found her to be unresponsive. EMS was activated and found her to be critically ill with poor responsiveness, guarding her airway but palpable blood pressure in the 70s and 80s. Family states that she is a do not resuscitate with limited interventions. She has had no reported trauma or fever. Son is at the bedside and confirms DNR and limited intervention wishes. She was at the doctor's office a few days ago and was seen for a skin wound on her left heel which initially was thought to be not infected but went home nursing came they recommended antibiotics and patient was just started on doxycycline. Related Data Home Medications Medication Instructions Recorded Confirmed folic acid 1 mg tablet 1 mg PO QAM 03/31/22 03/02/23 aspirin 81 mg tablet,delayed 81 mg PO DAILY 01/28/23 03/02/23 release dexamethasone 2 mg tablet 2 mg PO DAILY 01/28/23 03/02/23 furosemide 20 mg tablet See Rx Instructions PO QAM 01/28/23 03/02/23 oxybutynin chloride 5 mg tablet 5 mg PO BEDTIME 01/28/23 03/02/23 sennosides 8.6 mg capsule (senna) 8.6 mg PO BID 01/28/23 03/02/23 tadalafil 5 mg tablet 5 mg PO DAILY 01/28/23 03/02/23 warfarin 4 mg tablet See Rx Instructions PO DAILY 01/28/23 03/05/23 cholecalciferol (vitamin D3) 50 50 mcg PO DAILY 02/01/23 03/02/23 mcg (2,000 unit) tablet melatonin 10 mg tablet 10 mg PO QPM 02/01/23 03/02/23 Previous Rx's Medication Instructions Recorded handicap placard #1 ea 06/17/21 acyclovir 400 mg tablet 400 mg PO TID #21 tabs 11/17/21 nystatin 100,000 unit/gram topical 1 applic topical BID #30 grams 11/17/21 powder fluoxetine 20 mg capsule 20 mg PO DAILY #90 caps 05/12/22 methotrexate sodium 2.5 mg tablet See Rx Instructions .Route 10/25/22 .COMPLEX #36 tabs oxycodone 10 mg tablet 10 mg PO Q6H PRN pain #120 tabs 02/01/23 atorvastatin 80 mg tablet 80 mg PO BEDTIME #90 tabs 02/02/23 lorazepam 0.5 mg tablet 0.5 mg PO TID PRN day time Anxiety 02/10/23 #90 tabs diazepam 5 mg tablet 5 mg PO BID PRN anxiety #30 tabs 02/22/23 methadone 10 mg tablet 10 mg PO Q8H #90 tabs 02/22/23 Wheelchair #1 ea 03/02/23 doxycycline hyclate 100 mg capsule 100 mg PO BID #14 caps 03/04/23 Allergies Allergy/AdvReac Type Severity Reaction Status Date / Time hydrocodone [From Vicodin] AdvReac Severe Anxiety Verified 03/05/23 09:01 hydromorphone [From Dilaudid] AdvReac Severe Confusion Verified 03/05/23 09:01 adhesive [ADHESIVE] AdvReac Unknown tape Verified 03/05/23 09:01 ibuprofen [IBUPROFEN] AdvReac Unknown I feel Verified 03/05/23 09:01 really weird vitamin E (d-alpha AdvReac Unknown cold sores Verified 03/05/23 09:01 tocopherol) [VITAMIN E] Patient History Medical History Agitation Ankle pain (~2017) Anticoagulation monitoring, INR range 2-3 Bilateral hand pain Bilateral lower extremity edema Cataracts, bilateral Cervical somatic dysfunction Chicken pox (~1947) Chronic back pain (~1990) Chronic pain Chronic pain of left ankle Chronic pain of left knee Chronic pain of right knee Chronic pain of right thumb Cyst of right breast Dependent on helper pushing wheelchair Depression Diastolic CHF with preserved left ventricular function, NYHA class 4 Elevated random blood glucose level Elevated troponin Family history of colon cancer Greater trochanteric bursitis of both hips H/O cold sores History of rheumatic fever Hyperlipidemia, mixed Hypoxia 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 Kidney stones (~2007) Left anterior shoulder pain Left arm pain Measles (~1945) Mumps (~1946) On methotrexate therapy Orthopnea Osteoarthritis of hands, bilateral Ovarian cyst Pain of right middle finger Phlebitis and thrombophlebitis of deep veins of the upper extremities Pressure ulcer, buttock, right, unstageable Recurrent sinusitis Rheumatic fever (~1953) 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 Segmental and somatic dysfunction of rib cage Shoulder pain Somatic dysfunction of lower extremity Swelling of finger of both hands Vaccine reaction Wandering associated with mental disorder Surgical History Anesthesia History of cholecystectomy (~1989) History of hysterectomy (~1970) Mitral valve replaced (~2008) Pacemaker (~1997) Family History Father Cancer Mother Cancer Sister COPD (chronic obstructive pulmonary disease) Social History household members: family Smoking Status: Former smoker alcohol intake: current Smoking Status: Former smoker alcohol intake frequency: a few times a week Substance Use Type: does not use Exam Narrative Exam Narrative: GENERAL: [77] year old patient appears stated age. She appears to be in a critical situation, she is obtunded, with unstable vitals HEAD: Atraumatic. Normocephalic. EYES: Pupils equal round and reactive. Extraocular motions intact. No scleral icterus. No injection or drainage. ENT: Dry mucous membranes. Nose without bleeding, purulent drainage. Throat without erythema, tonsillar hypertrophy or exudate. Airway patent. NECK: Trachea midline. Non tender CARDIOVASCULAR: Regular rate and rhythm without murmurs, gallops, or rubs. RESPIRATORY: Rapid shallow breathing GASTROINTESTINAL: Abdomen soft, non-tender, nondistended. EXTREMITIES: Right medial thigh with large area of what appears to be hematoma, BACK: Nontender without deformity or crepitance. No flank tenderness. NEURO: multiple areas of ecchymosis Initial Vital Signs Initial Vital Signs: Vital Signs Pulse Rate 80 03/05/23 08:48 Respiratory Rate 39 H 03/05/23 08:48 Pulse Oximetry 94 03/05/23 08:48 Course Orders Ordered: ED Orders 03/05/23 08:50 Complete Blood Count AUTO DIFF Stat Comprehensive Metabolic Panel Stat Lactate (Lactic Acid) Stat Lipase Stat Magnesium Stat NT-proBNP (BNP-Adult 18+) Stat PTT Partial Thromboplastin Gamal Stat Prothrombin Time INR Stat Troponin & CK Cardiac Panel Stat 03/05/23 09:15 Blood Culture Stat Type and Screen Stat 03/05/23 09:27 Chest [XR chest 1V] Stat 03/05/23 09:43 EKG-12 Lead Stat 03/05/23 10:20 COVID19 -Nasal RAPID Stat 03/05/23 10:37 Consult to Discharge Planning Routine Consult to Hospice Referral Urgent Sodium Chloride (Normal Saline 0.9%) 1,000 mls @ 125 mls/hr IV BOLUS ONE Stop: 03/05/23 18:29 Last Infusion: 03/05/23 11:20 Dose: 125 mls/hr Documented By: Admin: 03/05/23 10:30 Dose: 125 mls/hr Documented By: KRISTINA Lorazepam (Lorazepam 2 Mg/Ml Inj) 1 mg IV Q1HR PRN PRN Reason: Agitation/Anxiety Morphine Sulfate (Morphine 10 Mg/0.5 Ml Oral Syringe) 10 mg PO Q1H PRN PRN Reason: Pain/Dyspnea Morphine Sulfate (Morphine 2 Mg/Ml Inj) 2 mg IV Q1HR PRN PRN Reason: pain, discomfort Ondansetron HCl (Ondansetron 4 Mg/2 Ml Inj) 4 mg IV Q4HR PRN PRN Reason: Nausea And Vomiting Discontinued Medications Sodium Chloride 9 ml/ (Epinephrine HCl 0.1 mg) 0 ml IV NOW ONE Stop: 03/05/23 09:15 Last Admin: 03/05/23 09:25 Dose: 1 ml Documented By: TIGIST Sodium Chloride 9 ml/ (Epinephrine HCl 0.1 mg) 0 ml IV NOW ONE Stop: 03/05/23 09:42 Last Admin: 03/05/23 09:45 Dose: 1 ml Documented By: KRISTINA Haloperidol (Haloperidol 5 Mg/Ml Vial) 5 mg IV NOW ONE Stop: 03/05/23 10:26 Last Admin: 03/05/23 10:29 Dose: 5 mg Documented By: KRISTINA Sodium Chloride (Normal Saline 0.9%) 1,000 mls @ 1,000 mls/hr IV BOLUS ONE Stop: 03/05/23 10:26 Last Infusion: 03/05/23 10:22 Dose: 0 mls/hr Documented By: Admin: 03/05/23 09:32 Dose: 1,000 mls/hr Documented By: TIGIST Dextrose (D10w) 250 mls @ 999 mls/hr IV PRN PRN PRN Reason: Hypoglycemia Last Infusion: 03/05/23 09:52 Dose: 0 mls/hr Documented By: Admin: 03/05/23 09:39 Dose: 999 mls/hr Documented By: KRISTINA Morphine Sulfate (Morphine 2 Mg/Ml Inj) 2 mg IV Q5MIN PRN PRN Reason: Chest Pain Stop: 03/05/23 10:37 Last Admin: 03/05/23 09:50 Dose: 2 mg Documented By: Admin: 03/05/23 09:25 Dose: 2 mg Documented By: TIGIST Reevaluation(s) Reevaluation #1: Family at bedside, IV obtained, current blood pressure 65/48, patient is obtunded, POA EN route, I did discuss with them the utility of a central line and the use of pressors and there was hesitation, they would prefer to hold off until POA gets here Vital Signs Vital signs: Vital Signs - 8 hr 03/05/23 08:54 03/05/23 08:48 03/05/23 08:49 Temperature 98.2 F Pulse Rate 80 80 Respiratory Rate 17 39 H Blood Pressure 65/40 L 65/40 L Pulse Oximetry 96 94 Oxygen Delivery Method Room Air Oxygen Flow Rate 03/05/23 08:49 03/05/23 08:50 03/05/23 08:52 Temperature Pulse Rate 81 81 80 Respiratory Rate 42 H 44 H 43 H Blood Pressure Pulse Oximetry 96 82 L 92 Oxygen Delivery Method Oxygen Flow Rate 03/05/23 08:54 03/05/23 08:56 03/05/23 08:58 Temperature Pulse Rate 80 80 80 Respiratory Rate 39 H 41 H 42 H Blood Pressure Pulse Oximetry 91 91 89 L Oxygen Delivery Method Oxygen Flow Rate 03/05/23 09:00 03/05/23 09:02 03/05/23 09:04 Temperature Pulse Rate 80 80 80 Respiratory Rate 43 H 42 H 44 H Blood Pressure Pulse Oximetry 87 L 82 L 89 L Oxygen Delivery Method Oxygen Flow Rate 03/05/23 09:06 03/05/23 09:08 03/05/23 09:10 Temperature Pulse Rate 80 79 Respiratory Rate 40 H 40 H Blood Pressure 73/35 L Pulse Oximetry 66 L 80 L Oxygen Delivery Method Oxygen Flow Rate 03/05/23 09:10 03/05/23 09:12 03/05/23 09:14 Temperature Pulse Rate 79 79 79 Respiratory Rate 43 H 37 H 40 H Blood Pressure Pulse Oximetry 90 L 81 L 91 Oxygen Delivery Method Oxygen Flow Rate 03/05/23 09:16 03/05/23 09:17 03/05/23 09:17 Temperature Pulse Rate 78 78 Respiratory Rate 39 H 40 H Blood Pressure 66/31 L Pulse Oximetry 91 84 L Oxygen Delivery Method Oxygen Flow Rate 03/05/23 09:18 03/05/23 09:20 03/05/23 09:20 Temperature Pulse Rate 78 78 Respiratory Rate 39 H 39 H Blood Pressure 62/27 L Pulse Oximetry 84 L 85 L Oxygen Delivery Method Oxygen Flow Rate 03/05/23 09:22 03/05/23 09:24 03/05/23 09:24 Temperature Pulse Rate 78 82 Respiratory Rate 42 H 43 H Blood Pressure 52/21 L Pulse Oximetry 87 L 88 L Oxygen Delivery Method Oxygen Flow Rate 03/05/23 09:26 03/05/23 09:26 03/05/23 09:28 Temperature Pulse Rate 79 Respiratory Rate 39 H Blood Pressure 55/21 L 59/25 L Pulse Oximetry 93 Oxygen Delivery Method Oxygen Flow Rate 03/05/23 09:28 03/05/23 09:30 03/05/23 09:32 Temperature Pulse Rate 78 80 79 Respiratory Rate 39 H 41 H 41 H Blood Pressure Pulse Oximetry 84 L 87 L 82 L Oxygen Delivery Method Oxygen Flow Rate 03/05/23 09:34 03/05/23 09:36 03/05/23 09:38 Temperature Pulse Rate 78 77 76 Respiratory Rate 46 H 41 H 39 H Blood Pressure Pulse Oximetry 82 L Oxygen Delivery Method Oxygen Flow Rate 03/05/23 09:40 03/05/23 09:42 03/05/23 09:43 Temperature Pulse Rate 75 86 82 Respiratory Rate 38 H 43 H 42 H Blood Pressure Pulse Oximetry 80 L 77 L Oxygen Delivery Method Oxygen Flow Rate 03/05/23 09:43 03/05/23 09:44 03/05/23 09:46 Temperature Pulse Rate 80 Respiratory Rate 40 H Blood Pressure 95/61 68/43 L Pulse Oximetry Oxygen Delivery Method Oxygen Flow Rate 03/05/23 09:46 03/05/23 09:48 03/05/23 09:50 Temperature Pulse Rate 75 74 Respiratory Rate 41 H 42 H Blood Pressure 70/48 L Pulse Oximetry 73 L 86 L Oxygen Delivery Method Oxygen Flow Rate 03/05/23 09:50 03/05/23 09:52 03/05/23 09:54 Temperature Pulse Rate 74 73 73 Respiratory Rate 40 H 42 H 40 H Blood Pressure Pulse Oximetry 80 L 83 L 89 L Oxygen Delivery Method Oxygen Flow Rate 03/05/23 09:56 03/05/23 09:56 03/05/23 09:58 Temperature Pulse Rate 73 72 Respiratory Rate 38 H 38 H Blood Pressure 72/47 L Pulse Oximetry 87 L 87 L Oxygen Delivery Method Oxygen Flow Rate 03/05/23 10:00 03/05/23 10:00 03/05/23 10:02 Temperature Pulse Rate 72 72 Respiratory Rate 37 H 37 H Blood Pressure 72/43 L Pulse Oximetry 88 L 80 L Oxygen Delivery Method Oxygen Flow Rate 03/05/23 10:04 03/05/23 10:05 03/05/23 10:05 Temperature Pulse Rate 72 72 Respiratory Rate 36 H 39 H Blood Pressure 76/47 L Pulse Oximetry 80 L 83 L Oxygen Delivery Method Oxygen Flow Rate 03/05/23 10:06 03/05/23 10:08 03/05/23 10:10 Temperature Pulse Rate 72 72 Respiratory Rate 37 H 38 H Blood Pressure 72/45 L Pulse Oximetry 82 L 82 L Oxygen Delivery Method Nasal Cannula Oxygen Flow Rate 3 03/05/23 10:10 03/05/23 10:12 03/05/23 10:14 Temperature Pulse Rate 72 71 71 Respiratory Rate 36 H 37 H 36 H Blood Pressure Pulse Oximetry 81 L 81 L 81 L Oxygen Delivery Method Oxygen Flow Rate 03/05/23 10:15 03/05/23 10:15 03/05/23 10:16 Temperature Pulse Rate 71 71 Respiratory Rate 35 H 36 H Blood Pressure 73/44 L Pulse Oximetry 81 L 80 L Oxygen Delivery Method Oxygen Flow Rate 03/05/23 10:18 03/05/23 10:20 03/05/23 10:21 Temperature Pulse Rate 71 74 Respiratory Rate 35 H 38 H Blood Pressure 68/38 L Pulse Oximetry Oxygen Delivery Method Oxygen Flow Rate 03/05/23 10:21 03/05/23 10:22 03/05/23 10:24 Temperature Pulse Rate 72 72 72 Respiratory Rate 35 H 35 H 35 H Blood Pressure Pulse Oximetry Oxygen Delivery Method Oxygen Flow Rate 03/05/23 10:26 03/05/23 10:26 03/05/23 10:28 Temperature Pulse Rate 72 72 Respiratory Rate 38 H 34 H Blood Pressure 75/36 L Pulse Oximetry Oxygen Delivery Method Oxygen Flow Rate 03/05/23 10:30 03/05/23 10:30 03/05/23 10:32 Temperature Pulse Rate 72 72 Respiratory Rate 33 H 34 H Blood Pressure 68/39 L Pulse Oximetry Oxygen Delivery Method Oxygen Flow Rate 03/05/23 10:34 Temperature Pulse Rate 71 Respiratory Rate 36 H Blood Pressure Pulse Oximetry Oxygen Delivery Method Oxygen Flow Rate Medical Decision Making Lab Data 03/05/23 08:50 03/05/23 08:50 Labs: Lab Results 03/05/23 03/05/23 03/05/23 Range/Units 08:50 08:50 08:50 WBC 11.5 H (4.5-11.0) X10^3/uL RBC 3.89 L (4.0-5.2) X10^6/uL Hgb 10.0 L (12.0-16.0) g/dL Hct 31.4 L (36-46) % MCV 80.7 (80-100) fL MCH 25.7 L (26-34) PG MCHC 31.9 (30-36) % RDW 23.2 H (11.6-14.8) % Plt Count 274 (150-400) X10^3/uL Neut % (Auto) Not Reportable Lymph % (Auto) Not Reportable [place] % (Auto) Not Reportable Eos % (Auto) Not Reportable Baso % (Auto) Not Reportable Lymph # (Auto) Not Reportable [place] # (Auto) Not Reportable Baso # (Auto) Not Reportable Total Counted 100 Seg Neutrophils % 58.0 (38-70) % Band Neutrophils % 17.0 H (3-7) % Atypical Lymphs % 2.0 H ( - 0) % Monocytes % (Manual) 18.0 H (2-11) % Eosinophils % (Manual) 1.0 L (2-4) % Metamyelocytes % 2.0 H (-0) % Myelocytes % 2.0 H (-0) % Neutrophils # (Manual) 8625 H (9525-0134) /uL Platelet Estimate Adequate on smear RBC Morphology See below Anisocytosis 2+ H Ovalocytes 3+ H Robinson Cells 2+ H Acanthocytes (Spur) 1+ H PT 83.3 H (10.1-12.7) SECONDS INR 7.1 H* (0.9-1.3) APTT 53 H (26-36) SECONDS Sodium 132 L (137-145) mmol/L Potassium 3.7 (3.4-5.1) mmol/L Chloride 99 (98-107) mmol/L Carbon Dioxide 20 L (22-32) mmol/L BUN 37 H (7-17) mg/dL Creatinine 1.84 H (0.52-1.04) mg/dL Estimated GFR 28 L (>60) mL/min BUN/Creatinine Ratio 20.1 (6-22) Glucose 24 L* (80-110) mg/dL Lactate (0.7-2.1) mmol/L Calcium 7.8 L (8.4-10.2) mg/dL Magnesium 1.8 (1.6-2.3) mg/dL Total Bilirubin 1.3 (0.2-1.3) mg/dL AST 62 H (14-36) IU/L ALT 52 H (<35) IU/L Alkaline Phosphatase 77 (38-126) U/L Total Creatine Kinase 946 H (30-135) U/L CK-MB (CK-2) 5.53 H (<2.37) ng/mL CK-MB (CK-2) Rel Index 0.6 L (1.5-5.0) % Troponin I 0.132 H* (0.01-0.034) ng/mL NT-Pro-B Natriuret Pep 83772 H (<450) pg/mL Total Protein 4.8 L (6.3-8.2) g/dL Albumin 2.4 L (3.5-5.0) g/dL Globulin 2.4 (1.7-4.1) g/dL Albumin/Globulin Ratio 1.0 (1.0-2.8) Lipase < 10 L (23-300) U/L SARS-CoV-2 (PCR) (Negative) Blood Type Antibody Screen 03/05/23 03/05/23 03/05/23 Range/Units 08:50 09:15 10:20 WBC (4.5-11.0) X10^3/uL RBC (4.0-5.2) X10^6/uL Hgb (12.0-16.0) g/dL Hct (36-46) % MCV (80-100) fL MCH (26-34) PG MCHC (30-36) % RDW (11.6-14.8) % Plt Count (150-400) X10^3/uL Neut % (Auto) Lymph % (Auto) [place] % (Auto) Eos % (Auto) Baso % (Auto) Lymph # (Auto) [place] # (Auto) Baso # (Auto) Total Counted Seg Neutrophils % (38-70) % Band Neutrophils % (3-7) % Atypical Lymphs % ( - 0) % Monocytes % (Manual) (2-11) % Eosinophils % (Manual) (2-4) % Metamyelocytes % (-0) % Myelocytes % (-0) % Neutrophils # (Manual) (7942-3215) /uL Platelet Estimate RBC Morphology Anisocytosis Ovalocytes Robinson Cells Acanthocytes (Spur) PT (10.1-12.7) SECONDS INR (0.9-1.3) APTT (26-36) SECONDS Sodium (137-145) mmol/L Potassium (3.4-5.1) mmol/L Chloride (98-107) mmol/L Carbon Dioxide (22-32) mmol/L BUN (7-17) mg/dL Creatinine (0.52-1.04) mg/dL Estimated GFR (>60) mL/min BUN/Creatinine Ratio (6-22) Glucose (80-110) mg/dL Lactate 6.5 H* (0.7-2.1) mmol/L Calcium (8.4-10.2) mg/dL Magnesium (1.6-2.3) mg/dL Total Bilirubin (0.2-1.3) mg/dL AST (14-36) IU/L ALT (<35) IU/L Alkaline Phosphatase (38-126) U/L Total Creatine Kinase (30-135) U/L CK-MB (CK-2) (<2.37) ng/mL CK-MB (CK-2) Rel Index (1.5-5.0) % Troponin I (0.01-0.034) ng/mL NT-Pro-B Natriuret Pep (<450) pg/mL Total Protein (6.3-8.2) g/dL Albumin (3.5-5.0) g/dL Globulin (1.7-4.1) g/dL Albumin/Globulin Ratio (1.0-2.8) Lipase (23-300) U/L SARS-CoV-2 (PCR) Negative (Negative) Blood Type A Positive Antibody Screen Negative MDM Narrative Medical decision making narrative: 77F with DNR and limited intervention presents critically ill with EMS and is altered, with increased work of breathing and blood pressure in the 60s. Family is at the bedside and I have had extensive discussion with them about the sev erity of her illness and they request against the concept of anything is invasive as central lines or pressors. As labs come back I am able to paint a more accurate picture for them and they understand the severity of her illness and this diagnosis and they wished to pursue comfort measures only. Patient is admitted to the hospitalist service Discharge Plan Departure Patient Disposition: Admitted As Inpatient Clinical Impression: Multiorgan failure, Severe sepsis, Acute metabolic encephalopathy, Need for comfort care Admit Date/Time: 03/05/23 10:37 Admit Provider: Evan Barbour
[2023-03-05 09:08] LABS: Hematocrit 31.4 % (36-46); Mean Corpuscular HGB Conc 31.9 % (30-36); Mean Corpuscular Hemoglobin 25.7 PG (26-34); Mean Corpuscular Volume 80.7 fL (80-100); Platelet Count 274 X10^3/uL (150-400); Red Blood Cell Count 3.89 X10^6/uL (4.0-5.2); Red Cell Distribution Width 23.2 % (11.6-14.8); White Blood Cell Count 11.5 X10^3/uL (4.5-11.0)
--- NOTE | 2023-03-05 09:10 | PC.NURSE ---
Pt non-responsive, family at bedside. POA is on the way. No decision made for level of care.
[2023-03-05 09:13] LABS: PTT Partial Thromboplastin Tim 53 SECONDS (26-36)
[2023-03-05 09:15] LABS: Albumin 2.4 g/dL (3.5-5.0); Alkaline Phosphatase 77 U/L (38-126); Aspartate Aminotransferase 62 IU/L (14-36); BUN Creatinine Ratio 20.1 (6-22); Bilirubin Total 1.3 mg/dL (0.2-1.3); Blood Urea Nitrogen 37 mg/dL (7-17); Calcium 7.8 mg/dL (8.4-10.2); Carbon Dioxide 20 mmol/L (22-32); Chloride 99 mmol/L (98-107); Creatine Kinase 946 U/L (30-135); Estimated Glomerular Filt Rate 28 mL/min (>60); Globulin 2.4 g/dL (1.7-4.1); HEMOLYSIS < 15 (0-50); Magnesium 1.8 mg/dL (1.6-2.3); Potassium 3.7 mmol/L (3.4-5.1); Sodium 132 mmol/L (137-145); Total Protein 4.8 g/dL (6.3-8.2)
[2023-03-05 09:17] LABS: Add Manual Diff / Slide Review YES
[2023-03-05 09:20] LABS: Alanine Aminotransferase 52 IU/L (<35)
[2023-03-05] MEDS: SODIUM CHLORIDE 0.9% FLUSH 9 ML, EPINEPHrine 0.1 MG IV ×2 (09:25→09:45)
[2023-03-05] MEDS: MORPHINE 2 MG/ML INJ IV ×2 (09:25→09:50)
[2023-03-05 09:26] LABS: Prothrombin Time 83.3 SECONDS (10.1-12.7)
--- NOTE | 2023-03-05 09:27 | DI.RAD.S_ITS ---
PROCEDURE: XR CHEST 1V INDICATIONS: failure TECHNIQUE: One view of the chest was acquired. COMPARISON: [facility], CR, XR CHEST 2V, 11/16/2022, 14:26. FINDINGS: Surgical changes and devices: None. Lungs and pleura: Pulmonary vascular congestion is seen. Ill-defined airspace opacity in right upper lung field is seen. Increased interstitial lung markings are also seen in periphery of bilateral lung montes. Blunting of left costophrenic angle is noted. No pneumothorax. Mediastinum: Mediastinal contours appear normal. Heart size is markedly enlarged. Bones and chest wall: No suspicious bony lesions. Overlying soft tissues appear unremarkable. IMPRESSION: Cardiomegaly and congestion with suggestion of right upper lobe infiltrate/atelectasis. No pneumothorax. Trace left pleural effusion. Dictated by: Geronimo Crow M.D. on 03/05/2023 at 10:00 Approved by: Geronimo Crow M.D. on 03/05/2023 at 10:02
[2023-03-05 09:30] LABS: CKMB % Relative Index 0.6 % (1.5-5.0); Creatine Kinase MB 5.53 ng/mL (<2.37)
[2023-03-05 09:32] LABS: Troponin I 0.132 ng/mL (0.01-0.034)
[2023-03-05] MEDS: SODIUM CHLORIDE 0.9% 1,000 ML 1000 ML IV (09:32)
[2023-03-05 09:33] LABS: Glucose 24 mg/dL (80-110); Lipase < 10 U/L (23-300)
[2023-03-05 09:34] LABS: INR 7.1 (0.9-1.3); Lactate (Lactic Acid) 6.5 mmol/L (0.7-2.1)
[2023-03-05 09:39] LABS: NT-proBNP (BNP-Adult 18+) 54200 pg/mL (<450)
[2023-03-05] MEDS: DEXTROSE 10 % IN WATER 250 ML 999 ML IV (09:39)
[2023-03-05 09:57] LABS: Neutrophils Absolute Manual 8625 /uL (3000-5900); Total Cells Counted 100
[2023-03-05 09:58] LABS: Anisocytosis 2+
[2023-03-05 09:59] LABS: Acanthocytes 1+
[2023-03-05 10:01] LABS: Burr Cells 2+; Ovalocytes 3+; Platelet Estimate Adequate on smear
--- NOTE | 2023-03-05 10:16 | PC.NURSE ---
POA, and family stated no further invasive care. Veronica Phipps RN in with christy to discuss.
[2023-03-05] MEDS: HALOPERIDOL 5 MG/ML VIAL IV (10:29)
[2023-03-05] MEDS: SODIUM CHLORIDE 0.9% 1,000 ML 125 ML IV (10:30)
[2023-03-05 10:40] LABS: COVID19 -Nasal RAPID Negative (Negative)
--- NOTE | 2023-03-05 10:43 | PM.HP.1 ---
History of Present Illness History of Present Illness Date Patient Seen: 03/05/23 Time Patient Seen: 11:45 Chief complaint: altered Narrative: Nataliia Palacios is a 77-year-old female with past medical history of recent CVA causing aphasia, atrial fibrillation on warfarin, rheumatoid arthritis on methotrexate, depression, and pacemaker who presents obtunded and in multiorgan failure. Per family she was normal yesterday and last night but this morning was more sleepy and would not wake up. They noted a hematoma on her right thigh. EMS called and patient was unresponsive but still breathing. She was brought to the ED where she was found to be in multiorgan failure with elevated INR. After discussion with family she was place on comfort care. [facility] Medical History Agitation Ankle pain (~2016) Anticoagulation monitoring, INR range 2-3 Bilateral hand pain Bilateral lower extremity edema Cataracts, bilateral Cervical somatic dysfunction Chicken pox (~1946) Chronic back pain (~1990) Chronic pain Chronic pain of left ankle Chronic pain of left knee Chronic pain of right knee Chronic pain of right thumb Cyst of right breast Dependent on helper pushing wheelchair Depression Diastolic CHF with preserved left ventricular function, NYHA class 4 Elevated random blood glucose level Elevated troponin Family history of colon cancer Greater trochanteric bursitis of both hips H/O cold sores History of rheumatic fever Hyperlipidemia, mixed Hypoxia 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 Kidney stones (~2007) Left anterior shoulder pain Left arm pain Measles (~194) Mumps (~194) On methotrexate therapy Orthopnea Osteoarthritis of hands, bilateral Ovarian cyst Pain of right middle finger Phlebitis and thrombophlebitis of deep veins of the upper extremities Pressure ulcer, buttock, right, unstageable Recurrent sinusitis Rheumatic fever (~1953) 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 Segmental and somatic dysfunction of rib cage Shoulder pain Somatic dysfunction of lower extremity Swelling of finger of both hands Vaccine reaction Wandering associated with mental disorder Surgical History Anesthesia History of cholecystectomy (~1989) History of hysterectomy (~1970) Mitral valve replaced (~2008) Pacemaker (~1997) Family History Father Cancer Mother Cancer Sister COPD (chronic obstructive pulmonary disease) Social History household members: family Smoking Status: Former smoker alcohol intake: current Meds Home Medications and Allergies Home Medications Medication Instructions Recorded Confirmed Type handicap placard #1 ea 06/17/21 03/02/23 Rx acyclovir 400 mg tablet 400 mg PO TID #21 tabs 11/17/21 03/02/23 Rx nystatin 100,000 unit/gram topical 1 applic topical BID #30 grams 11/17/21 03/02/23 Rx powder folic acid 1 mg tablet 1 mg PO QAM 03/31/22 03/02/23 History fluoxetine 20 mg capsule 20 mg PO DAILY #90 caps 05/12/22 03/02/23 Rx methotrexate sodium 2.5 mg tablet See Rx Instructions .Route 10/25/22 03/02/23 Rx .COMPLEX #36 tabs aspirin 81 mg tablet,delayed 81 mg PO DAILY 01/28/23 03/02/23 History release dexamethasone 2 mg tablet 2 mg PO DAILY 01/28/23 03/02/23 History furosemide 20 mg tablet See Rx Instructions PO QAM 01/28/23 03/02/23 History oxybutynin chloride 5 mg tablet 5 mg PO BEDTIME 01/28/23 03/02/23 History sennosides 8.6 mg capsule (senna) 8.6 mg PO BID 01/28/23 03/02/23 History tadalafil 5 mg tablet 5 mg PO DAILY 01/28/23 03/02/23 History warfarin 4 mg tablet See Rx Instructions PO DAILY 01/28/23 03/05/23 History cholecalciferol (vitamin D3) 50 50 mcg PO DAILY 02/01/23 03/02/23 History mcg (2,000 unit) tablet melatonin 10 mg tablet 10 mg PO QPM 02/01/23 03/02/23 History oxycodone 10 mg tablet 10 mg PO Q6H PRN pain #120 tabs 02/01/23 03/02/23 Rx atorvastatin 80 mg tablet 80 mg PO BEDTIME #90 tabs 02/02/23 03/02/23 Rx lorazepam 0.5 mg tablet 0.5 mg PO TID PRN day time Anxiety 02/10/23 03/02/23 Rx #90 tabs diazepam 5 mg tablet 5 mg PO BID PRN anxiety #30 tabs 02/22/23 03/02/23 Rx methadone 10 mg tablet 10 mg PO Q8H #90 tabs 02/22/23 03/02/23 Rx Wheelchair #1 ea 03/02/23 03/02/23 Rx doxycycline hyclate 100 mg capsule 100 mg PO BID #14 caps 03/04/23 Rx Allergies Allergy/AdvReac Type Severity Reaction Status Date / Time hydrocodone [From Vicodin] AdvReac Severe Anxiety Verified 03/05/23 09:01 hydromorphone [From Dilaudid] AdvReac Severe Confusion Verified 03/05/23 09:01 adhesive [ADHESIVE] AdvReac Unknown tape Verified 03/05/23 09:01 ibuprofen [IBUPROFEN] AdvReac Unknown I feel Verified 03/05/23 09:01 really weird vitamin E (d-alpha AdvReac Unknown cold sores Verified 03/05/23 09:01 tocopherol) [VITAMIN E] Review of Systems Review of Systems Narrative: All other systems reviewed with the patient and are negative unless otherwise stated. Exam Vital Signs (past 8 hours): - 03/05/23 08:54 03/05/23 08:48 03/05/23 08:49 Temperature 98.2 F Pulse Rate 80 80 Respiratory Rate 17 39 H Blood Pressure 65/40 L 65/40 L Pulse Oximetry 96 94 Oxygen Delivery Method Room Air Oxygen Flow Rate 03/05/23 08:49 03/05/23 08:50 03/05/23 08:52 Temperature Pulse Rate 81 81 80 Respiratory Rate 42 H 44 H 43 H Blood Pressure Pulse Oximetry 96 82 L 92 Oxygen Delivery Method Oxygen Flow Rate 03/05/23 08:54 03/05/23 08:56 03/05/23 08:58 Temperature Pulse Rate 80 80 80 Respiratory Rate 39 H 41 H 42 H Blood Pressure Pulse Oximetry 91 91 89 L Oxygen Delivery Method Oxygen Flow Rate 03/05/23 09:00 03/05/23 09:02 03/05/23 09:04 Temperature Pulse Rate 80 80 80 Respiratory Rate 43 H 42 H 44 H Blood Pressure Pulse Oximetry 87 L 82 L 89 L Oxygen Delivery Method Oxygen Flow Rate 03/05/23 09:06 03/05/23 09:08 03/05/23 09:10 Temperature Pulse Rate 80 79 Respiratory Rate 40 H 40 H Blood Pressure 73/35 L Pulse Oximetry 66 L 80 L Oxygen Delivery Method Oxygen Flow Rate 03/05/23 09:10 03/05/23 09:12 03/05/23 09:14 Temperature Pulse Rate 79 79 79 Respiratory Rate 43 H 37 H 40 H Blood Pressure Pulse Oximetry 90 L 81 L 91 Oxygen Delivery Method Oxygen Flow Rate 03/05/23 09:16 03/05/23 09:17 03/05/23 09:17 Temperature Pulse Rate 78 78 Respiratory Rate 39 H 40 H Blood Pressure 66/31 L Pulse Oximetry 91 84 L Oxygen Delivery Method Oxygen Flow Rate 03/05/23 09:18 03/05/23 09:20 03/05/23 09:20 Temperature Pulse Rate 78 78 Respiratory Rate 39 H 39 H Blood Pressure 62/27 L Pulse Oximetry 84 L 85 L Oxygen Delivery Method Oxygen Flow Rate 03/05/23 09:22 03/05/23 09:24 03/05/23 09:24 Temperature Pulse Rate 78 82 Respiratory Rate 42 H 43 H Blood Pressure 52/21 L Pulse Oximetry 87 L 88 L Oxygen Delivery Method Oxygen Flow Rate 03/05/23 09:26 03/05/23 09:26 03/05/23 09:28 Temperature Pulse Rate 79 Respiratory Rate 39 H Blood Pressure 55/21 L 59/25 L Pulse Oximetry 93 Oxygen Delivery Method Oxygen Flow Rate 03/05/23 09:28 03/05/23 09:30 03/05/23 09:32 Temperature Pulse Rate 78 80 79 Respiratory Rate 39 H 41 H 41 H Blood Pressure Pulse Oximetry 84 L 87 L 82 L Oxygen Delivery Method Oxygen Flow Rate 03/05/23 09:34 03/05/23 09:36 03/05/23 09:38 Temperature Pulse Rate 78 77 76 Respiratory Rate 46 H 41 H 39 H Blood Pressure Pulse Oximetry 82 L Oxygen Delivery Method Oxygen Flow Rate 03/05/23 09:40 03/05/23 09:42 03/05/23 09:43 Temperature Pulse Rate 75 86 82 Respiratory Rate 38 H 43 H 42 H Blood Pressure Pulse Oximetry 80 L 77 L Oxygen Delivery Method Oxygen Flow Rate 03/05/23 09:43 03/05/23 09:44 03/05/23 09:46 Temperature Pulse Rate 80 Respiratory Rate 40 H Blood Pressure 95/61 68/43 L Pulse Oximetry Oxygen Delivery Method Oxygen Flow Rate 03/05/23 09:46 03/05/23 09:48 03/05/23 09:50 Temperature Pulse Rate 75 74 Respiratory Rate 41 H 42 H Blood Pressure 70/48 L Pulse Oximetry 73 L 86 L Oxygen Delivery Method Oxygen Flow Rate 03/05/23 09:50 03/05/23 09:52 03/05/23 09:54 Temperature Pulse Rate 74 73 73 Respiratory Rate 40 H 42 H 40 H Blood Pressure Pulse Oximetry 80 L 83 L 89 L Oxygen Delivery Method Oxygen Flow Rate 03/05/23 09:56 03/05/23 09:56 03/05/23 09:58 Temperature Pulse Rate 73 72 Respiratory Rate 38 H 38 H Blood Pressure 72/47 L Pulse Oximetry 87 L 87 L Oxygen Delivery Method Oxygen Flow Rate 03/05/23 10:00 03/05/23 10:00 03/05/23 10:02 Temperature Pulse Rate 72 72 Respiratory Rate 37 H 37 H Blood Pressure 72/43 L Pulse Oximetry 88 L 80 L Oxygen Delivery Method Oxygen Flow Rate 03/05/23 10:04 03/05/23 10:05 03/05/23 10:05 Temperature Pulse Rate 72 72 Respiratory Rate 36 H 39 H Blood Pressure 76/47 L Pulse Oximetry 80 L 83 L Oxygen Delivery Method Oxygen Flow Rate 03/05/23 10:06 03/05/23 10:08 03/05/23 10:10 Temperature Pulse Rate 72 72 Respiratory Rate 37 H 38 H Blood Pressure 72/45 L Pulse Oximetry 82 L 82 L Oxygen Delivery Method Nasal Cannula Oxygen Flow Rate 3 03/05/23 10:10 03/05/23 10:12 03/05/23 10:14 Temperature Pulse Rate 72 71 71 Respiratory Rate 36 H 37 H 36 H Blood Pressure Pulse Oximetry 81 L 81 L 81 L Oxygen Delivery Method Oxygen Flow Rate 03/05/23 10:15 03/05/23 10:15 03/05/23 10:16 Temperature Pulse Rate 71 71 Respiratory Rate 35 H 36 H Blood Pressure 73/44 L Pulse Oximetry 81 L 80 L Oxygen Delivery Method Oxygen Flow Rate 03/05/23 10:18 03/05/23 10:20 03/05/23 10:21 Temperature Pulse Rate 71 74 Respiratory Rate 35 H 38 H Blood Pressure 68/38 L Pulse Oximetry Oxygen Delivery Method Oxygen Flow Rate 03/05/23 10:21 03/05/23 10:22 03/05/23 10:24 Temperature Pulse Rate 72 72 72 Respiratory Rate 35 H 35 H 35 H Blood Pressure Pulse Oximetry Oxygen Delivery Method Oxygen Flow Rate 03/05/23 10:26 03/05/23 10:26 03/05/23 10:28 Temperature Pulse Rate 72 72 Respiratory Rate 38 H 34 H Blood Pressure 75/36 L Pulse Oximetry Oxygen Delivery Method Oxygen Flow Rate 03/05/23 10:30 03/05/23 10:30 03/05/23 10:32 Temperature Pulse Rate 72 72 Respiratory Rate 33 H 34 H Blood Pressure 68/39 L Pulse Oximetry Oxygen Delivery Method Oxygen Flow Rate 03/05/23 10:34 Temperature Pulse Rate 71 Respiratory Rate 36 H Blood Pressure Pulse Oximetry Oxygen Delivery Method Oxygen Flow Rate Oxygen Delivery Method Nasal Cannula Oxygen Flow Rate 3 Narrative Exam Narrative: GEN: obtunded HEENT: pupils nonreactive NECK: trachea midline, no JVD CV: no heart activity PULM: no breathing noted ABD: soft, nontender, nondistended, no organomegaly EXT: warm and well perfused with no edema NEURO: unable to assess Objective Labs 03/05/23 08:50 03/05/23 08:50 Labs: Laboratory Results - last 24 hr 03/05/23 03/05/23 03/05/23 08:50 08:50 08:50 WBC 11.5 H RBC 3.89 L Hgb 10.0 L Hct 31.4 L MCV 80.7 MCH 25.7 L MCHC 31.9 RDW 23.2 H Plt Count 274 Neut % (Auto) Not Reportable Lymph % (Auto) Not Reportable [place] % (Auto) Not Reportable Eos % (Auto) Not Reportable Baso % (Auto) Not Reportable Lymph # (Auto) Not Reportable [place] # (Auto) Not Reportable Baso # (Auto) Not Reportable Total Counted 100 Seg Neutrophils % 58.0 Band Neutrophils % 17.0 H Atypical Lymphs % 2.0 H Monocytes % (Manual) 18.0 H Eosinophils % (Manual) 1.0 L Metamyelocytes % 2.0 H Myelocytes % 2.0 H Neutrophils # (Manual) 8625 H Platelet Estimate Adequate on smear RBC Morphology See below Anisocytosis 2+ H Ovalocytes 3+ H [place] Cells 2+ H Acanthocytes (Spur) 1+ H PT 83.3 H INR 7.1 H* APTT 53 H Sodium 132 L Potassium 3.7 Chloride 99 Carbon Dioxide 20 L BUN 37 H Creatinine 1.84 H Estimated GFR 28 L BUN/Creatinine Ratio 20.1 Glucose 24 L* Lactate Calcium 7.8 L Magnesium 1.8 Total Bilirubin 1.3 AST 62 H ALT 52 H Alkaline Phosphatase 77 Total Creatine Kinase 946 H CK-MB (CK-2) 5.53 H CK-MB (CK-2) Rel Index 0.6 L Troponin I 0.132 H* NT-Pro-B Natriuret Pep 99476 H Total Protein 4.8 L Albumin 2.4 L Globulin 2.4 Albumin/Globulin Ratio 1.0 Lipase < 10 L SARS-CoV-2 (PCR) Blood Type Antibody Screen 03/05/23 03/05/23 03/05/23 08:50 09:15 10:20 WBC RBC Hgb Hct MCV MCH MCHC RDW Plt Count Neut % (Auto) Lymph % (Auto) [place] % (Auto) Eos % (Auto) Baso % (Auto) Lymph # (Auto) [place] # (Auto) Baso # (Auto) Total Counted Seg Neutrophils % Band Neutrophils % Atypical Lymphs % Monocytes % (Manual) Eosinophils % (Manual) Metamyelocytes % Myelocytes % Neutrophils # (Manual) Platelet Estimate RBC Morphology Anisocytosis Ovalocytes Carlo Cells Acanthocytes (Spur) PT INR APTT Sodium Potassium Chloride Carbon Dioxide BUN Creatinine Estimated GFR BUN/Creatinine Ratio Glucose Lactate 6.5 H* Calcium Magnesium Total Bilirubin AST ALT Alkaline Phosphatase Total Creatine Kinase CK-MB (CK-2) CK-MB (CK-2) Rel Index Troponin I NT-Pro-B Natriuret Pep Total Protein Albumin Globulin Albumin/Globulin Ratio Lipase SARS-CoV-2 (PCR) Negative Blood Type A Positive Antibody Screen Negative Assessment & Plan Assessment & Plan narrative: # multiorgan failure and now on comfort care -patient presenting obtunded with INR 7.1, lactate 6.5, troponin 0.132, and creatinine 1.84 -patient already DNR/DNI with limited interventions, and after discussion with ED physician it was decided by family to make her comfort care -morphine and ativan PRN for comfort -patient at 11:40 as soon as she arrived to the hospital floor # acute encephalopathy -patient obtunded on arrival to ED -unclear if sustained repeat stroke, possibly hemorrhagic given severely elevated INR -no head CT given comfort care # h/o CVA and aphasia -developed acute onset aphasia in January 2023 but unable to confirm stroke due to pacemaker and not able to get MRI -holding home aspirin and statin # thigh hematoma -likely due to supratherapeutic INR -holding warfarin # paroxysmal atrial fibrillation -holding warfarin due to INR 7.1 and comfort care # depression and anxiety -holding home prozac # RA -holding home methotrexate, acyclovir and decadron Code status is DNR/DNI. COVID negative. DVT prophylaxis with nothing given comfort care. Proxy is daughters Kaitlyn and Evelia. I have reviewed home meds and used all available resources to reconcile the home meds. This patient will be admitted as inpatient and will require greater than 2 midnights of hospital time to treat comfort care.
[2023-03-05 11:00] LABS: Reflexed Lactate in 2 Hours Y
--- NOTE | 2023-03-05 11:53 | P.DN_ITS ---
Discharge Summary History of Illness Narrative: Nataliia Palacios is a 77-year-old female with past medical history of recent CVA causing aphasia, atrial fibrillation on warfarin, rheumatoid arthritis on methotrexate, depression, and pacemaker who presents obtunded and in multiorgan failure. Per family she was normal yesterday and last night but this morning was more sleepy and would not wake up. They noted a hematoma on her right thigh. EMS called and patient was unresponsive but still breathing. She was brought to the ED where she was found to be in multiorgan failure with elevated INR. After discussion with family she was place on comfort care. Hospital Course Date of Admission: 03/05/23 10:37 Date of : 03/05/23 Primary care provider: Connor Cool, DO Consults: 03/05/23 10:37 Consult to Discharge Planning Routine Comment: Consult to Hospice Referral Urgent Comment: Discharge Diagnosis: # multiorgan failure and now on comfort care -patient presenting obtunded with INR 7.1, lactate 6.5, troponin 0.132, and creatinine 1.84 -patient already DNR/DNI with limited interventions, and after discussion with ED physician it was decided by family to make her comfort care -morphine and ativan PRN for comfort -patient at 11:40 as soon as she arrived to the hospital floor # acute encephalopathy -patient obtunded on arrival to ED -unclear if sustained repeat stroke, possibly hemorrhagic given severely elevated INR -no head CT given comfort care # h/o CVA and aphasia -developed acute onset aphasia in January 2023 but unable to confirm stroke due to pacemaker and not able to get MRI -holding home aspirin and statin # thigh hematoma -likely due to supratherapeutic INR -holding warfarin # paroxysmal atrial fibrillation -holding warfarin due to INR 7.1 and comfort care # depression and anxiety -holding home prozac # RA -holding home methotrexate, acyclovir and decadron Hospital Course: Admitted for multiorgan failure and placed on comfort care. She passed as soon as she arrived to the hospital floor at 11:40am. Family at bedside and saying goodbyes. Objective Labs 03/05/23 08:50 03/05/23 08:50 Labs: Laboratory Results - last 24 hr 03/05/23 03/05/23 03/05/23 08:50 08:50 08:50 WBC 11.5 H RBC 3.89 L Hgb 10.0 L Hct 31.4 L MCV 80.7 MCH 25.7 L MCHC 31.9 RDW 23.2 H Plt Count 274 Neut % (Auto) Not Reportable Lymph % (Auto) Not Reportable [place] % (Auto) Not Reportable Eos % (Auto) Not Reportable Baso % (Auto) Not Reportable Lymph # (Auto) Not Reportable [place] # (Auto) Not Reportable Baso # (Auto) Not Reportable Total Counted 100 Seg Neutrophils % 58.0 Band Neutrophils % 17.0 H Atypical Lymphs % 2.0 H Monocytes % (Manual) 18.0 H Eosinophils % (Manual) 1.0 L Metamyelocytes % 2.0 H Myelocytes % 2.0 H Neutrophils # (Manual) 8625 H Platelet Estimate Adequate on smear RBC Morphology See below Anisocytosis 2+ H Ovalocytes 3+ H [place] Cells 2+ H Acanthocytes (Spur) 1+ H PT 83.3 H INR 7.1 H* APTT 53 H Sodium 132 L Potassium 3.7 Chloride 99 Carbon Dioxide 20 L BUN 37 H Creatinine 1.84 H Estimated GFR 28 L BUN/Creatinine Ratio 20.1 Glucose 24 L* Lactate Calcium 7.8 L Magnesium 1.8 Total Bilirubin 1.3 AST 62 H ALT 52 H Alkaline Phosphatase 77 Total Creatine Kinase 946 H CK-MB (CK-2) 5.53 H CK-MB (CK-2) Rel Index 0.6 L Troponin I 0.132 H* NT-Pro-B Natriuret Pep 90605 H Total Protein 4.8 L Albumin 2.4 L Globulin 2.4 Albumin/Globulin Ratio 1.0 Lipase < 10 L SARS-CoV-2 (PCR) Blood Type Antibody Screen 03/05/23 03/05/23 03/05/23 08:50 09:15 10:20 WBC RBC Hgb Hct MCV MCH MCHC RDW Plt Count Neut % (Auto) Lymph % (Auto) [place] % (Auto) Eos % (Auto) Baso % (Auto) Lymph # (Auto) [place] # (Auto) Baso # (Auto) Total Counted Seg Neutrophils % Band Neutrophils % Atypical Lymphs % Monocytes % (Manual) Eosinophils % (Manual) Metamyelocytes % Myelocytes % Neutrophils # (Manual) Platelet Estimate RBC Morphology Anisocytosis Ovalocytes Carlo Cells Acanthocytes (Spur) PT INR APTT Sodium Potassium Chloride Carbon Dioxide BUN Creatinine Estimated GFR BUN/Creatinine Ratio Glucose Lactate 6.5 H* Calcium Magnesium Total Bilirubin AST ALT Alkaline Phosphatase Total Creatine Kinase CK-MB (CK-2) CK-MB (CK-2) Rel Index Troponin I NT-Pro-B Natriuret Pep Total Protein Albumin Globulin Albumin/Globulin Ratio Lipase SARS-CoV-2 (PCR) Negative Blood Type A Positive Antibody Screen Negative
--- NOTE | 2023-03-05 14:24 | PC.NURSE ---
Received patient from ED. non responsive, breathing irreg and labored at 32. Sat is 60's, she is on room air. Family present, they want her to be comfortable. Pt appears comfortable at this time. FLACC score is 2. Skin tone is bluish and lower ext are blue, has multi skin tears on body. Family here with pt including dtr who has poa. At 1140 Pt resp stopped. Auscultated for heart tones. No heart beat present. No resp. MD Barbour made aware of patients . He came to see family. IV's were removed. Family members did arrive who had been told of patients . After everyone had spent the time they needed the family left at 1435. [facility] made aware.
--- NOTE | 2023-03-05 16:35 | PC.NURSE ---
Day shift: Left unit with [facility] Home person at approx 1600. Family is aware.
[2023-03-06 00:17] LABS: Acinetobacter calcoa-baumannii Not Detected (Not Detect); Bacteroides fragilis Not Detected (Not Detect); Enterobacter cloacae complex Not Detected (Not Detect); Enterobacterales Not Detected (Not Detect); Enterococcus faecalis Not Detected (Not Detect); Enterococcus faecium Not Detected (Not Detect); Haemophilus influenzae Not Detected (Not Detect); Klebsiella aerogenes Not Detected (Not Detect); Listeria monocytogenes Not Detected (Not Detect); Proteus species Not Detected (Not Detect); Salmonella species Not Detected (Not Detect); Serratia marcescens Not Detected (Not Detect); Staphylococcus epidermidis Not Detected (Not Detect); Staphylococcus lugdunensis Not Detected (Not Detect); Staphylococcus species Not Detected (Not Detect); Streptococcus agalactiae (Gr B Not Detected (Not Detect); Streptococcus pneumonia Not Detected (Not Detect); Streptococcus pyogenes (Gr A) DETECTED (Not Detect); Streptococcus species DETECTED (Not Detect)
[2023-03-06 00:18] LABS: Candida albicans Not Detected (Not Detect); Candida auris Not Detected (Not Detect); Candida glabrata Not Detected (Not Detect); Candida krusei Not Detected (Not Detect); Candida parapsilosis Not Detected (Not Detect); Candida tropicalis Not Detected (Not Detect); Cryptococcus neoformans/gatti Not Detected (Not Detect); Neisseria meningitidis Not Detected (Not Detect); Pseudomonas aeruginosa Not Detected (Not Detect); Stenotrophomonas maltophilia Not Detected (Not Detect)
== END 2023-03-05 16:00 | disposition expired | DRG 951 ==
LOC: ED 10:38 → AC 10:38
PROVIDERS: Admitting Provider Student in an Organized Health Care Education/Training Program; Emergency Provider Emergency Medicine; PCP Family Medicine; Referring Provider Emergency Medicine; Visit Provider Student in an Organized Health Care Education/Training Program
DX: Z51.5 Encounter for palliative care (principal); G93.41 Metabolic encephalopathy; R65.20 Severe sepsis without septic shock; R79.1 Abnormal coagulation profile; Z66 Do not resuscitate; Z87.891 Personal history of nicotine dependence; Z20.822 Contact with and (suspected) exposure to COVID-19
CPT/HCPCS: 36415; 71045; 80053; 82550; 82553; 83605; 83690; 83735; 83880; 84484; 85007; 85025; 85610; 85730; 86850; 86900; 86901; 87040; 87154; 87635; 93005; 93010; 96374; 96375; 96376; 99285; C9803; J0171; J1630; J2270